=== PATIENT | male | born 1935 | race Caucasian/White ===

== ENCOUNTER 2023-11-26 12:19 | Inpatient (IN) | payer MEDICARE ==
--- NOTE | 2023-11-26 12:39 | ED ---
General Adult HPI - General Chief complaint: Nausea/Vomiting/Diarrhea Stated complaint: Vomiting Time Seen by Provider: 11/26/23 12:25 Source: patient, family, RN notes reviewed Mode of arrival: ambulatory Limitations: no limitations - History of Present Illness Initial comments: Patient is a 88-year-old male presents emergency department with complaints of general weakness. Symptoms have progressed over the past 4 to 5 days. Decreased appetite. Patient has had vomiting. Patient had some diarrhea however that has resolved. Patient has known liver cancer that reportedly is not progressing. Around 10 days ago patient started Sorafenib. Patient has decreased appetite. Patient has generalized weakness and unable to walk on his own. - Related Data Allergies Allergy/AdvReac Type Severity Reaction Status Date / Time No Known Allergies Allergy Verified 11/26/23 12:28 Review of Systems ROS Statement: Those systems with pertinent positive or pertinent negative responses have been documented in the HPI. ROS Other: All systems not noted in ROS Statement are negative. Constitutional: Denies: fever Eyes: Denies: eye pain ENT: Denies: ear pain Cardiovascular: Denies: chest pain Endocrine: Reports: fatigue Gastrointestinal: Reports: nausea, vomiting, diarrhea. Denies: abdominal pain Past Medical History Past Medical History: Cancer, Diabetes Mellitus Additional Past Medical History / Comment(s): liver cancer History of Any Multi-Drug Resistant Organisms: None Reported Past Psychological History: No Psychological Hx Reported Smoking Status: Never smoker Past Alcohol Use History: None Reported Past Drug Use History: None Reported General Exam Limitations: no limitations General appearance: alert, in no apparent distress Head exam: Present: normocephalic Eye exam: Present: normal appearance ENT exam: Present: mucous membranes dry Neck exam: Present: normal inspection Respiratory exam: Present: normal lung sounds bilaterally Cardiovascular Exam: Present: regular rate, normal rhythm GI/Abdominal exam: Present: soft, normal bowel sounds. Absent: distended, tenderness, guarding, rebound, rigid, pulsatile mass Extremities exam: Present: pedal edema. Absent: calf tenderness Neurological exam: Present: alert. Absent: motor sensory deficit Psychiatric exam: Present: normal affect, normal mood Skin exam: Present: pallor Course Vital Signs 11/26/23 11/26/23 12:21 13:53 Temperature 97.4 F L Pulse Rate 75 68 Respiratory 18 16 Rate Blood Pressure 101/59 125/63 O2 Sat by Pulse 99 97 Oximetry Medical Decision Making - Medical Decision Making Was pt. sent in by a medical professional or institution (, [facility], [facility], urgent care, hospital, or fpc...) When possible be specific @ -No Did you speak to anyone other than the patient for history (EMS, parent, family, police, friend...)? What history was obtained from this source @ -Family helps provide history as patient does not feel well. This includes past history and recent history Did you review nursing and triage notes (agree or disagree)? Why? @ -I reviewed and agree with nursing and triage notes Were old charts reviewed (outside hosp., previous admission, EMS record, old EKG, old radiological studies, urgent care reports/EKG's, fpc records)? Report findings @ -Previous labs including BUN and creatinine have been reviewed which is different from today Differential Diagnosis (chest pain, altered mental status, abdominal pain women, abdominal pain men, vaginal bleeding, weakness, fever, dyspnea, syncope, headache, dizziness, GI bleed, back pain, seizure, CVA, palpatations, mental health, musculoskeletal)? @ -Differential Weakness: Hypoglycemia, shock, sepsis, hyponatremia, anemia, infection, [place], ETOH, adverse medicine reaction, overdose, stroke, this is not meant to be an all-inclusive list. EKG interpreted by me (3pts min.). @ -As above X-rays interpreted by me (1pt min.). @ -Chest and abdominal x-ray showed nonspecific findings. port in place in chest CT interpreted by me (1pt min.). @ -None done U/S interpreted by me (1pt. min.). @ -None done What testing was considered but not performed or refused? (CT, X-rays, U/S, labs)? Why? @ -None What meds were considered but not given or refused? Why? @ -None Did you discuss the management of the patient with other professionals (professionals i.e. , [facility], [facility], lab, RT, psych nurse, social media analyst, culinary specialist, teacher, patient transport officer, renal case manager)? Give summary @ -Case was discussed with Dr. Galaviz who will admit covering Dr. Sotelo Was smoking cessation discussed for >3mins.? @ -No Was critical care preformed (if so, how long)? @ -No Were there social determinants of health that impacted care today? How? (Homelessness, low income, unemployed, alcoholism, drug addiction, transportation, low edu. Level, literacy, decrease access to med. care, senior living, rehab)? @ -No Was there de-escalation of care discussed even if they declined (Discuss DNR or withdrawal of care, Hospice)? DNR status @ -No What co-morbidities impacted this encounter? (DM, HTN, Smoking, COPD, CAD, Cancer, CVA, ARF, Chemo, Hep., AIDS, mental health diagnosis, sleep apnea, mo rbid obesity)? @ -Liver cancer on medication Was patient admitted / discharged? Hospital course, mention meds given and route, prescriptions, significant lab abnormalities, going to OR and other pert inent info. @ -Patient presents with decreased appetite, nausea vomiting and generalized weakness. Patient has significant DIANA and hyponatremia. Patient will be admitted with hydration. Admission orders placed Undiagnosed new problem with uncertain prognosis? @ -No Drug Therapy requiring intensive monitoring for toxicity (Heparin, Nitro, Insulin, Cardizem)? @ -No Were any procedures done? @ -No Diagnosis/symptom? @ -Acute kidney injury, hyponatremia Acute, or Chronic, or Acute on Chronic? @ -Acute, acute Uncomplicated (without systemic symptoms) or Complicated (systemic symptoms)? @ -Complicated with inability to ambulate Side effects of treatment? @ -No Exacerbation, Progression, or Severe Exacerbation? @ -No Poses a threat to life or bodily function? How? (Chest pain, [place], [place], pneumonia, PE, COPD, DKA, ARF, appy, cholecystitis, CVA, Diverticulitis, Homicidal, Suicidal, threat to staff... and all critical care pts) @ - to metabolic function - Lab Data Result diagrams: 11/26/23 12:56 11/26/23 12:56 Lab Results 11/26/23 11/26/23 Range/Units 12:56 12:56 WBC 4.8 (3.8-10.6) k/uL RBC 3.50 L (4.30-5.90) m/uL Hgb 10.4 L (13.0-17.5) gm/dL Hct 32.9 L (39.0-53.0) % MCV 93.8 (80.0-100.0) fL MCH 29.6 (25.0-35.0) pg MCHC 31.6 (31.0-37.0) g/dL RDW 16.0 H (11.5-15.5) % Plt Count 231 (150-450) k/uL MPV 9.5 Neutrophils % 93 % Lymphocytes % 3 % Monocytes % 2 % Eosinophils % 0 % Basophils % 0 % Neutrophils # 4.5 (1.3-7.7) k/uL Lymphocytes # 0.2 L (1.0-4.8) k/uL Monocytes # 0.1 (0-1.0) k/uL Eosinophils # 0.0 (0-0.7) k/uL Basophils # 0.0 (0-0.2) k/uL Hypochromasia Moderate Sodium 124 L (137-145) mmol/L Potassium 4.3 (3.5-5.1) mmol/L Chloride 96 L (98-107) mmol/L Carbon Dioxide 18 L (22-30) mmol/L Anion Gap 10 mmol/L BUN 82 H (9-20) mg/dL Creatinine 2.34 H (0.66-1.25) mg/dL Est GFR (CKD-EPI)AfAm 28 (>60 ml/min/1.73 sqM) Est GFR (CKD-EPI)NonAf 24 (>60 ml/min/1.73 sqM) Glucose 101 H (74-99) mg/dL Calcium 7.4 L (8.4-10.2) mg/dL Total Bilirubin 1.2 (0.2-1.3) mg/dL AST 104 H (17-59) U/L ALT 43 (4-49) U/L Alkaline Phosphatase 232 H (38-126) U/L Total Protein 5.1 L (6.3-8.2) g/dL Albumin 2.3 L (3.5-5.0) g/dL Amylase 70 (30-110) U/L Lipase 38 (23-300) U/L Disposition Clinical Impression: Hyponatremia, Acute kidney injury Disposition: ADMITTED IP TO THIS HOSP Is patient prescribed a controlled substance at d/c from ED?: No Referrals: Mookie Sotelo MD [Primary Care Provider] - 1-2 days Time of Disposition: 15:23
[2023-11-26] MEDS: SODIUM CHLORIDE 0.9% 1,000 ML IV STA (12:54)
[2023-11-26] MEDS: SODIUM CHLORIDE 0.9% 500 ML 500 ML IV STA (12:54)
[2023-11-26] MEDS: ONDANSETRON 4 MG/2 ML VIAL IVP STA (12:55)
[2023-11-26] MEDS: PANTOPRAZOLE 40 MG/10 ML VIAL IVP STA (12:57)
[2023-11-26 13:10] LABS: Basophils % (A) 0 %; Eosinophils % (A) 0 %; HCT 32.9 % (39.0-53.0); HGB 10.4 gm/dL (13.0-17.5); Hypochromasia Moderate; Lymphocytes # (A) 0.2 k/uL (1.0-4.8); Lymphocytes % (A) 3 %; MCH 29.6 pg (25.0-35.0); MCHC 31.6 g/dL (31.0-37.0); MCV 93.8 fL (80.0-100.0); Mean Platelet Volume 9.5; Monocytes # (A) 0.1 k/uL (0-1.0); Monocytes % (A) 2 %; Neutrophils # (A) 4.5 k/uL (1.3-7.7); Neutrophils % (A) 93 %; Platelet Count 231 k/uL (150-450); WBC 4.8 k/uL (3.8-10.6)
[2023-11-26 13:24] LABS: Glucose 101 mg/dL (74-99); Potassium 4.3 mmol/L (3.5-5.1)
[2023-11-26 13:25] LABS: ALT 43 U/L (4-49); AST 104 U/L (17-59); African American GFR (CKD) 28 (>60 ml/min/1.73 sqM); Albumin 2.3 g/dL (3.5-5.0); Alkaline Phosphatase 232 U/L (38-126); Amylase 70 U/L (30-110); Anion Gap 10 mmol/L; Blood Urea Nitrogen 82 mg/dL (9-20); Calcium 7.4 mg/dL (8.4-10.2); Carbon Dioxide 18 mmol/L (22-30); Chloride 96 mmol/L (98-107); Lipase 38 U/L (23-300); Non-African American GFR(CKD) 24 (>60 ml/min/1.73 sqM); Sodium 124 mmol/L (137-145); Total Bilirubin 1.2 mg/dL (0.2-1.3); Total Protein 5.1 g/dL (6.3-8.2)
--- NOTE | 2023-11-26 13:41 | XR ---
EXAMINATION TYPE: XR chest 2V DATE OF EXAM: 11/26/2023 COMPARISON: None INDICATION: Abdominal pain TECHNIQUE: Frontal and lateral views of the chest are obtained. FINDINGS: The heart size is normal. The pulmonary vasculature is normal. The lungs are clear. There is some elevation of the right diaphragm. Catheter is present on the righ t with the tip in the superior vena cava region. IMPRESSION: 1. No acute pulmonary process. [facility], , 11/26/2023 1:39 PM
--- NOTE | 2023-11-26 14:06 | XR ---
EXAMINATION TYPE: XR KUB DATE OF EXAM: 11/26/2023 COMPARISON: 11/22/2023 INDICATION: Chest pain TECHNIQUE: Frontal and lateral views of the chest are obtained. FINDINGS: The heart size is normal. The pulmonary vasculature is normal. The lungs are clear. IMPRESSION: 1. No acute pulmonary process. [facility], , 11/26/2023 2:04 PM
[2023-11-26] MEDS ORDERED: ACETAMINOPHEN TAB 325 MG TAB PO PRN (15:23)
[2023-11-26] MEDS ORDERED: NALOXONE 0.4 MG/ML 1 ML VIAL IV PRN (15:23)
[2023-11-26] MEDS ORDERED: ONDANSETRON 4 MG/2 ML VIAL IVP PRN (15:23)
[2023-11-26] MEDS: SODIUM CHLORIDE 0.9% 1,000 ML IV SCH (15:38)
[2023-11-26] MEDS ORDERED: ONDANSETRON 4 MG TAB PO PRN (15:45)
[2023-11-26] MEDS ORDERED: traMADol 50 MG TAB PO PRN (15:45)
--- NOTE | 2023-11-26 16:53 | P.HPIM ---
History of Present Illness H&P Date: 11/26/23 Chief Complaint: loss of appetite, nausea, vomiting 88 year old man with history of BPH, HTN, Liver cancer on immunotherapy, Diabetes type II presented for evaluation of loss of appetite, nausea, and vomiting. History is taken from family at bedside due to patient being sleepy during my interview. According to the family, patient was recently started on immunotherapy for liver cancer approximately 2 weeks ago, but starting 4 days ago started to become lethargic, had a loss of appetite with very limited p.o. intake, then developed nausea, vomiting, lethargy. All the symptoms prompted family to bring in the patient to the hospital for further evaluation. Patient denies pain. Patient denies fevers, chills, dysuria. Patient was also recently seen in wound care clinic where he underwent wound packing of a left heel ulcer as well as right antral leg ulcer, and was started on antibiotics. Patient was prescribed Bactrim but had not been taking this medication. He was actually taking cephalexin instead that was prescribed by his PCP prior to this. In the emergency room, patient was afebrile, 101/59, heart rate 75, 99% on room air. CBC shows anemia to 10.4. Basic metabolic panel shows hyponatremia to 124, chloride of 96, CO2 of 18, BUN of 82, creatinine of 2.34. Liver function test show AST of 104, ALT of 43, alkaline phosphatase of 232, albumin of 2.3, total protein of 5.1. Amylase is 70, lipase is 38. Chest x-ray shows Mediport, otherwise clear parenchyma bilaterally, poor inspiratory effort. Patient was provided bolus of IV fluids and was admitted to medicine as an inpatient. All Systems reviewed and pertinent positives and negatives noted in HPI, all other symptoms are negative Gen: In NAD, non-toxic HEENT: normocephalic, atraumatic, hearing acuity is intant, mucous membranes moist CVS: perfusing all extremities well, no pitting edema, Respiratory: symmetric chest expansion, no accessory muscle use, GI: Bloated, diffuse tenderness to palpation. : no suprapubic tenderness, no CVA tenderness MSK/Derm: no rashes, cyanosis, heel ulcer appears to have granulation tissue, but foul odor and surrounding erythema Neuro: CN II-XII intact, no motor weakness, Psych: cooperative, euthymic mood, judgment and insight is intact Labs and imaging as above Assessment/plan: Dehydration secondary to poor p.o. intake, diuretic use, antihypertensives Acute kidney injury superimposed on chronic kidney disease stage III Hyponatremia -IV fluids with normal saline at 75 cc/h, patient is status post bolus of 500 cc in the emergency room -Patient metabolic panel every 6 hours -Nephrology consult for hyponatremia -serum osmolality, urine osmolality -Regular diet, Ensure 3 times daily supplements -Continue Remeron for appetite -Zofran as needed Abdominal pain Liver cancer -Abdominal ultrasound to rule out ascites -PT/INR -Pain control: tramadol as needed -Hold patient's torsemide Infected heel ulcer -Wound care consult -Unasyn 1.5 g every 6 hours BPH Hypertension Diabetes type 2 -Continue Flomax -Hold patient's felodipine, olmesartan -Continue patient's carvedilol -Hold patient's Jardiance, metformin, initiate low-dose sliding scale insulin Patient is full code DVT prophylaxis with heparin 3 times daily Past Medical History Past Medical History: Cancer, Diabetes Mellitus Additional Past Medical History / Comment(s): liver cancer History of Any Multi-Drug Resistant Organisms: None Reported Past Psychological History: No Psychological Hx Reported Smoking Status: Never smoker Past Alcohol Use History: None Reported Past Drug Use History: None Reported Medications and Allergies Home Medications Medication Instructions Recorded Confirmed Type Dapagliflozin Propanediol [Farxiga] 5 mg PO DAILY 11/26/23 11/26/23 History Felodipine [Plendil] 5 mg PO DAILY 11/26/23 11/26/23 History Latanoprost [Latanoprost 0.005%] 1 drop BOTH EYES HS 11/26/23 11/26/23 History Loperamide [Imodium] 2 - 4 mg PO Q8H PRN 11/26/23 11/26/23 History Mirtazapine [Remeron] 15 mg PO HS 11/26/23 11/26/23 History Mupirocin 2% Oint [Bactroban 2% 1 applic TOPICAL TID 11/26/23 11/26/23 History Oint] Olmesartan [Benicar] 20 mg PO DAILY 11/26/23 11/26/23 History SORAfenib TOSYLATE [Sorafenib] 200 mg PO AC-BID 11/26/23 11/26/23 History Sertraline [Zoloft] 25 mg PO DIRECTED 11/26/23 11/26/23 History Simvastatin [Zocor] 20 mg PO HS 11/26/23 11/26/23 History Spironolactone [Aldactone] 25 mg PO DAILY 11/26/23 11/26/23 History Sulfamethox-Tmp 800-160Mg [Bactrim 1 tab PO DIRECTED 11/26/23 11/26/23 History DS 800-160 mg] Tamsulosin [Flomax] 0.4 mg PO DAILY 11/26/23 11/26/23 History Torsemide [Demadex] 5 mg PO DAILY 11/26/23 11/26/23 History carvediloL [Coreg] 25 mg PO Q12H 11/26/23 11/26/23 History glipiZIDE XL [Glucotrol Xl] 5 mg PO DAILY 11/26/23 11/26/23 History metFORMIN HCL ER [Glucophage XR] 500 mg PO BID 11/26/23 11/26/23 History ondansetron HCL [Zofran] 8 mg PO Q8H PRN 11/26/23 11/26/23 History traMADol HCL 50 mg PO Q8H PRN 11/26/23 11/26/23 History Allergies Allergy/AdvReac Type Severity Reaction Status Date / Time No Known Allergies Allergy Verified 11/26/23 15:39 Physical Exam Osteopathic Statement: *. No significant issues noted on an osteopathic structu ral exam other than those noted in the History and Physical/Consult. Vitals: Vital Signs Temp Pulse Resp BP Pulse Ox 11/26/23 13:53 68 16 125/63 97 11/26/23 12:21 97.4 F L 75 18 101/59 99 Intake and Output 11/26/23 11/26/23 11/26/23 06:59 14:59 22:59 Other: Weight 74.843 kg Results CBC & Chem 7: 11/26/23 12:56 11/26/23 12:56 Labs: Abnormal Lab Results - Last 24 Hours (Table) 11/26/23 11/26/23 Range/Units 12:56 12:56 RBC 3.50 L (4.30-5.90) m/uL Hgb 10.4 L (13.0-17.5) gm/dL Hct 32.9 L (39.0-53.0) % RDW 16.0 H (11.5-15.5) % Lymphocytes # 0.2 L (1.0-4.8) k/uL Sodium 124 L (137-145) mmol/L Chloride 96 L (98-107) mmol/L Carbon Dioxide 18 L (22-30) mmol/L BUN 82 H (9-20) mg/dL Creatinine 2.34 H (0.66-1.25) mg/dL Glucose 101 H (74-99) mg/dL Calcium 7.4 L (8.4-10.2) mg/dL AST 104 H (17-59) U/L Alkaline Phosphatase 232 H (38-126) U/L Total Protein 5.1 L (6.3-8.2) g/dL Albumin 2.3 L (3.5-5.0) g/dL
[2023-11-26 17:29] LABS: Sodium 130 mmol/L (137-145)
[2023-11-26 17:30] LABS: African American GFR (CKD) 28 (>60 ml/min/1.73 sqM); Anion Gap 8 mmol/L; Blood Urea Nitrogen 82 mg/dL (9-20); Calcium 6.8 mg/dL (8.4-10.2); Carbon Dioxide 18 mmol/L (22-30); Chloride 104 mmol/L (98-107); Glucose 79 mg/dL (74-99); Non-African American GFR(CKD) 24 (>60 ml/min/1.73 sqM); Potassium 4.2 mmol/L (3.5-5.1)
[2023-11-26] MEDS: AMPICILLIN-SULBACTAM 1.5 GM in SODIUM CHLORIDE 0.9% 50 ML IVPB SCH (17:57)
[2023-11-26] MEDS: INSULIN ASPART (NovoLOG) 100 UNIT/ML VIAL SQ SCH (18:52)
[2023-11-26 18:53] LABS: Glucose,Whole Blood 76 mg/dL (70-110)
[2023-11-26] MEDS: carvediloL 12.5 MG TAB PO SCH (19:52)
--- NOTE | 2023-11-26 20:33 | US ---
EXAMINATION TYPE: US abdomen limited DATE OF EXAM: 11/26/2023 COMPARISON: NONE CLINICAL INDICATION: Male, 88 years old with history of ascites, liver cancer; abd distention All four quadrants scanned and no fluid collections were seen at this time. Organ structures are not evaluated during this exam IMPRESSION: 1. No significant fluid collections identified. [facility], Workstation: [facility], 11/26/2023 8:31 PM
[2023-11-26] MEDS: ATORVASTATIN 10 MG TAB PO SCH (20:41)
[2023-11-26] MEDS: MIRTAZAPINE 15 MG TAB PO SCH (20:41)
[2023-11-26 21:48] LABS: Glucose,Whole Blood 84 mg/dL (70-110)
[2023-11-26] MEDS: LATANOPROST 0.005% OPHTH DROPS 2.5 ML BTL BOTH EYES SCH (23:02)
[2023-11-26 23:32] LABS: Sodium 126 mmol/L (137-145)
[2023-11-26 23:33] LABS: African American GFR (CKD) 25 (>60 ml/min/1.73 sqM); Anion Gap 12 mmol/L; Blood Urea Nitrogen 82 mg/dL (9-20); Calcium 6.8 mg/dL (8.4-10.2); Carbon Dioxide 17 mmol/L (22-30); Chloride 97 mmol/L (98-107); Glucose 73 mg/dL (74-99); Non-African American GFR(CKD) 22 (>60 ml/min/1.73 sqM); Potassium 4.1 mmol/L (3.5-5.1)
[2023-11-27 03:07] LABS: Appearance,Urine Cloudy (Clear); Bacteria,Urine Rare /hpf; Bilirubin,Urine Negative (Negative); Blood,Urine Small (Negative); Budding Yeast,Urine Rare /hpf; Color,Urine Yellow; Glucose,Urine (UA) 2+ (Negative); Hyaline Casts,Urine 4 /lpf (0-2); Ketones,Urine Negative (Negative); Leukocyte Esterase,Urine Negative (Negative); Mucus,Urine Rare /hpf; Nitrite,Urine Negative (Negative); PH, Urine 5.5 (5.0-8.0); Protein,Urine 2+ (Negative); RBC,Urine 8 /hpf (0-5); Specific Gravity,Urine 1.015 (1.001-1.035); WBC,Urine 1 /hpf (0-5)
[2023-11-27 07:11] LABS: Glucose,Whole Blood 66 mg/dL (70-110)
[2023-11-27 07:51] LABS: Glucose,Whole Blood 94 mg/dL (70-110)
[2023-11-27] MEDS: SODIUM CHLORIDE 0.9% 1,000 ML IV SCH ×2 (08:29→11:44)
[2023-11-27 08:43] LABS: Basophils # (A) 0.01 X 10*3/uL (0.00-0.10); Basophils % (A) 0.2 %; Eosinophils # (A) 0.01 X 10*3/uL (0.04-0.35); Eosinophils % (A) 0.2 %; HCT 28.5 % (39.6-50.0); HGB 9.1 g/dL (13.0-17.0); Lymphocytes # (A) 0.18 X 10*3/uL (0.90-5.00); Lymphocytes % (A) 4.5 %; MCH 28.9 pg (27.0-32.0); MCHC 31.9 g/dL (32.0-37.0); MCV 90.5 FL (80.0-97.0); Monocytes # (A) 0.09 X 10*3/uL (0.20-1.00); Monocytes % (A) 2.2 %; NRBC Per 100 WBC 0 X 10*3/uL (0.00-0.01); Neutrophils # (A) 3.72 X 10*3/uL (1.80-7.70); Neutrophils % (A) 92.2 %; Platelet Count 190 X 10*3/uL (140-440); RBC 3.15 X 10*6/uL (4.40-5.60); RDW 16.4 % (11.5-14.5); WBC 4.04 X 10*3/uL (4.50-10.00)
--- NOTE | 2023-11-27 08:56 | P.NPCON ---
History of Present Illness - Reason for Consult acute renal failure, chronic renal failure - History of Present Illness Reason for consultation: Acute kidney injury on chronic kidney disease History of present illness: Patient is 88-year-old male seen in renal consultation for acute kidney injury on chronic kidney disease. Patient has chronic kidney disease stage IIIa secondary to nephrosclerosis and diabetic kidney disease. Patient came to the hospital due to nausea vomiting and generalized weakness going on for the last 3 to 4 days. Patient states he was diagnosed with liver cancer about a year ago and was recently started on immunotherapy which he feels caused to the symptoms. Patient does admit to use of Aldactone outpatient but denies use of loop diuretics. Patient has longstanding history of diabetes. Denies history of coronary artery disease. Denies regular use of nonsteroidals. Denies family history of renal disease. Has been voiding. Denies gross hematuria or dysuria. Patient's creatinine dated November 24, 2023 was 1.4 and was elevated at 2.34 on admission and was up to 2.57 as of last night. Vital signs are stable. General: No acute distress. HEENT: Head exam is unremarkable. LUNGS: No audible rhonchi or wheezes. HEART: Rate and Rhythm are regular. ABDOMEN: Nontender. EXTREMITITES: No edema. Past Medical History Past Medical History: Cancer, Diabetes Mellitus, Hypertension, Prostate Disorder Additional Past Medical History / Comment(s): liver cancer History of Any Multi-Drug Resistant Organisms: None Reported Past Surgical History: Adenoidectomy, Tonsillectomy Additional Past Surgical History / Comment(s): Left foot surgery 16 years ago, toes amputated left foot 2023 Past Psychological History: No Psychological Hx Reported Smoking Status: Never smoker Past Alcohol Use History: None Reported Past Drug Use History: None Reported Medications and Allergies Home Medications Medication Instructions Recorded Confirmed Type Dapagliflozin Propanediol [Farxiga] 5 mg PO DAILY 11/26/23 11/26/23 History Felodipine [Plendil] 5 mg PO DAILY 11/26/23 11/26/23 History Latanoprost [Latanoprost 0.005%] 1 drop BOTH EYES HS 11/26/23 11/26/23 History Loperamide [Imodium] 2 - 4 mg PO Q8H PRN 11/26/23 11/26/23 History Mirtazapine [Remeron] 15 mg PO HS 11/26/23 11/26/23 History Mupirocin 2% Oint [Bactroban 2% 1 applic TOPICAL TID 11/26/23 11/26/23 History Oint] Olmesartan [Benicar] 20 mg PO DAILY 11/26/23 11/26/23 History SORAfenib TOSYLATE [Sorafenib] 200 mg PO AC-BID 11/26/23 11/26/23 History Sertraline [Zoloft] 25 mg PO DIRECTED 11/26/23 11/26/23 History Simvastatin [Zocor] 20 mg PO HS 11/26/23 11/26/23 History Spironolactone [Aldactone] 25 mg PO DAILY 11/26/23 11/26/23 History Sulfamethox-Tmp 800-160Mg [Bactrim 1 tab PO DIRECTED 11/26/23 11/26/23 History DS 800-160 mg] Tamsulosin [Flomax] 0.4 mg PO DAILY 11/26/23 11/26/23 History Torsemide [Demadex] 5 mg PO DAILY 11/26/23 11/26/23 History carvediloL [Coreg] 25 mg PO Q12H 11/26/23 11/26/23 History glipiZIDE XL [Glucotrol Xl] 5 mg PO DAILY 11/26/23 11/26/23 History metFORMIN HCL ER [Glucophage XR] 500 mg PO BID 11/26/23 11/26/23 History ondansetron HCL [Zofran] 8 mg PO Q8H PRN 11/26/23 11/26/23 History traMADol HCL 50 mg PO Q8H PRN 11/26/23 11/26/23 History Allergies Allergy/AdvReac Type Severity Reaction Status Date / Time No Known Allergies Allergy Verified 11/26/23 15:39 Physical Exam Vitals: Vital Signs Temp Pulse Pulse Resp BP BP Pulse Ox 11/27/23 07:02 96.7 F L 108/57 11/27/23 02:00 94.2 F L 65 12 97/47 97 11/26/23 21:20 65 18 123/65 98 11/26/23 20:43 119/60 11/26/23 20:00 93.6 F L 66 16 122/71 98 11/26/23 19:47 69 16 117/76 97 11/26/23 18:01 69 16 122/62 11/26/23 17:20 98.0 F 68 16 119/71 96 11/26/23 13:53 68 16 125/63 97 11/26/23 12:21 97.4 F L 75 18 101/59 99 Intake and Output 11/26/23 11/27/23 11/27/23 22:59 06:59 14:59 Output Total 250 Balance -250 Output: Urine 250 Other: Weight 74.843 kg Results - Lab Results Most recent lab results Calcium 6.8 mg/dL (8.4-10.2) L 11/26/23 22:35 11/26/23 12:56 11/26/23 22:35 Assessment and Plan Plan: Assessment: 1. Acute kidney injury secondary to ATN secondary to hypovolemia and hypotension further worsened with the use of losartan, Aldactone. Also on Farxiga. I do see Bactrim on his home medication list but patient unsure if he was taking this or not. He does state that he was on an antibiotic prior to admission. Creatinine 2.57 as of last night. 2. Chronic kidney disease stage IIIa with baseline creatinine near 1.4 secondary to diabetic kidney disease and nephrosclerosis. 3. Liver cancer recently started on immunotherapy. No ascites noted on abdominal ultrasound. 4. Diabetes mellitus. 5. History of BPH on Flomax. 6. Hypertension with chronic kidney disease. Currently on the lower side. 7. Hypovolemic hyponatremia improved with IV fluids. 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 Last sodium 126 as of last night. 8. Metabolic acidosis secondary to acute kidney injury and IV fluids. Plan: Decrease rate of normal saline to 50 cc an hour. Encouraged oral intake. Add 1500 cc fluid restriction. Check TSH. Hold antihypertensives. Check renal ultrasound. Check bladder scan. Avoid nephrotoxins. Add oral bicarb. Follow-up urine studies Thank you for the consultation. I will continue to follow the patient with you during his hospital stay.
[2023-11-27] MEDS ORDERED: amLODIPine 5 MG TAB PO SCH (09:00)
[2023-11-27 09:10] LABS: Magnesium 1.8 mg/dL (1.5-2.4)
[2023-11-27 09:26] LABS: BUN/Creat Ratio 27.61 Ratio (12.00-20.00); Blood Urea Nitrogen 77.3 mg/dL (9.0-27.0); Calcium 6.8 mg/dL (8.7-10.3); Carbon Dioxide 16.7 mmol/L (21.6-31.8); Chloride 102 mmol/L (96-109); Glucose 67 mg/dL (70-110); Potassium 4.4 mmol/L (3.5-5.5); Sodium 134 mmol/L (135-145)
[2023-11-27] MEDS: TAMSULOSIN 0.4 MG CAP.ER.24H PO SCH (09:47)
[2023-11-27] MEDS: SODIUM BICARBONATE TAB 650 MG TAB PO SCH (09:47)
[2023-11-27] MEDS: SERTRALINE 25 MG TAB PO SCH (09:47)
[2023-11-27 10:23] LABS: INR 1.33 sec (0.93-1.11); Prothrombin Time 14.1 sec (9.9-11.9)
[2023-11-27 10:26] LABS: African American GFR (CKD) 23 (>60 ml/min/1.73 sqM); Anion Gap 6 mmol/L; Blood Urea Nitrogen 84 mg/dL (9-20); Calcium 6.5 mg/dL (8.4-10.2); Carbon Dioxide 17 mmol/L (22-30); Chloride 107 mmol/L (98-107); Glucose 79 mg/dL (74-99); Non-African American GFR(CKD) 20 (>60 ml/min/1.73 sqM); Potassium 4.4 mmol/L (3.5-5.1); Sodium 130 mmol/L (137-145)
--- NOTE | 2023-11-27 11:07 | US ---
EXAMINATION TYPE: US arterial LE single level DATE OF EXAM: 11/27/2023 10:49 AM CLINICAL INDICATION: Male, 88 years old with history of eval for PVD; Eval for PVD. *Patient states juliette greenfield has had numbness in his feet for years. 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 History of: Smoker: No Hypertension: Yes Diabetic: Yes Hyperlipidemia: Yes TIA/CVA: No Previous Vascular Surgery: No DE: No Vascular Ulcers: Patient has bandage on right gallegos and left ankle. Patient states there is a wound o n the left ankle. Claudication: No Gangrene: No Doppler Waveforms: Right: Left: Pulse Volume Recording: Pressure Gradients: Right Brachial Pressure: 119 Left Brachial Pressure: Deferred due to IV position Ankle-Brachial Indices: Right: CNO Left: CNO (Vessel hardening > 1.4; Normal 0.9 - 1.4, Moderate 0.7 - 0.9, Severe 0.5-0.7) Toe Brachial Indices: Right: 0.78 Left: CNO IMPRESSION: 1. Limited evaluation of lower extremity arterial ultrasound. Pressures were unable to be obtained. S tenosis cannot be excluded. 2. Pressure at the distal digital artery right foot as a ratio of 0.78 suggesting at least moderate s tenosis proximal to the artery. [facility], , 11/27/2023 11:05 AM
--- NOTE | 2023-11-27 11:33 | US ---
EXAMINATION TYPE: US kidneys/renal and bladder DATE OF EXAM: 11/27/2023 COMPARISON: Ultrasound 11/26/2023 CLINICAL INDICATION: Male, 88 years old with history of diana; DIANA liver CA EXAM MEASUREMENTS: Right Kidney: 9.9 x 6.5 x 4.5 cm Left Kidney: 10.7 x 5.1 x 3.6 cm Heterogenous Mass seen within right lobe liver measuring 7 cm. This can be compatible with the patie nt's reported hepatic cancer. No additional imaging this location however. Right Kidney: Cortical thinning Left Kidney: Anechoic area seen lower pole 3.0 x 2.5 x 2.7 cm., Compatible with a simple cyst Bladder: anechoic Bilateral Jets seen: no IMPRESSION: 1. Heterogenous mass within the liver. Additional workup with CT recommended if not performed outside this location. 2. Left renal cyst. [facility], , 11/27/2023 11:31 AM
[2023-11-27] MEDS: PANTOPRAZOLE 40 MG/10 ML VIAL IV SCH (11:43)
[2023-11-27 12:43] LABS: Glucose,Whole Blood 124 mg/dL (70-110)
[2023-11-27 15:59] LABS: % Iron Saturation 15.47 (15.00-50.00)
[2023-11-27 17:12] LABS: Glucose,Whole Blood 90 mg/dL (70-110)
--- NOTE | 2023-11-27 17:42 | P.CONS ---
History of Present Illness - Reason for Consult Consult date: 11/27/23 Oncology care Requesting physician: Malick Julien - Chief Complaint hyponatremia - History of Present Illness Mr. Daley is a male pt of Dr. 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 He states he had treatment initially in [facility], "had a bad experience" so, he came to [place] to get opinions re: his malignancy. His notes from [facility] oncology office state that he established with that office in October. He was previously treated with atezolizumab/Avastin, unfortunately he had disease progression. Recently started a "pill, 3 days ago"-sorafinib-from notes received from Primary Oncologist he had the education about sorafinib on 11/06, other notes report that pt has been on sorafinib for 10 or more days. Patient was started on a reduced dose of 200 mg twice a day. Admitted for c/o N,V, D. Today BUN/creatinine 77/2.8, Na+ 130. He denies that he necessarily feels worse since starting the pill, he is not able to clearly say if he thinks the N,V,D is from the medication or something else. He has been having persistent diarrhea (had c-diff infection in July). Denies fever, no current N,V, acute abd distension. He is still having loose stool. No bleeding, no new pain. Review of Systems 10 point ROS is neg except as stated in HPI Past Medical History Past Medical History: Cancer, Diabetes Mellitus, Hypertension, Prostate Disorder Additional Past Medical History / Comment(s): liver cancer History of Any Multi-Drug Resistant Organisms: None Reported Past Surgical History: Adenoidectomy, Tonsillectomy Additional Past Surgical History / Comment(s): Left foot surgery 16 years ago, toes amputated left foot 2023 Past Psychological History: No Psychological Hx Reported Smoking Status: Never smoker Past Alcohol Use History: None Reported Past Drug Use History: None Reported Medications and Allergies Home Medications Medication Instructions Recorded Confirmed Type Dapagliflozin Propanediol [Farxiga] 5 mg PO DAILY 11/26/23 11/26/23 History Felodipine [Plendil] 5 mg PO DAILY 11/26/23 11/26/23 History Latanoprost [Latanoprost 0.005%] 1 drop BOTH EYES HS 11/26/23 11/26/23 History Loperamide [Imodium] 2 - 4 mg PO Q8H PRN 11/26/23 11/26/23 History Mirtazapine [Remeron] 15 mg PO HS 11/26/23 11/26/23 History Mupirocin 2% Oint [Bactroban 2% 1 applic TOPICAL TID 11/26/23 11/26/23 History Oint] Olmesartan [Benicar] 20 mg PO DAILY 11/26/23 11/26/23 History SORAfenib TOSYLATE [Sorafenib] 200 mg PO AC-BID 11/26/23 11/26/23 History Sertraline [Zoloft] 25 mg PO DIRECTED 11/26/23 11/26/23 History Simvastatin [Zocor] 20 mg PO HS 11/26/23 11/26/23 History Spironolactone [Aldactone] 25 mg PO DAILY 11/26/23 11/26/23 History Sulfamethox-Tmp 800-160Mg [Bactrim 1 tab PO DIRECTED 11/26/23 11/26/23 History DS 800-160 mg] Tamsulosin [Flomax] 0.4 mg PO DAILY 11/26/23 11/26/23 History Torsemide [Demadex] 5 mg PO DAILY 11/26/23 11/26/23 History carvediloL [Coreg] 25 mg PO Q12H 11/26/23 11/26/23 History glipiZIDE XL [Glucotrol Xl] 5 mg PO DAILY 11/26/23 11/26/23 History metFORMIN HCL ER [Glucophage XR] 500 mg PO BID 11/26/23 11/26/23 History ondansetron HCL [Zofran] 8 mg PO Q8H PRN 11/26/23 11/26/23 History traMADol HCL 50 mg PO Q8H PRN 11/26/23 11/26/23 History Allergies Allergy/AdvReac Type Severity Reaction Status Date / Time No Known Allergies Allergy Verified 11/26/23 15:39 Physical Exam Vitals: Vital Signs Temp Pulse Pulse Resp BP BP Pulse Ox 11/27/23 07:11 97.4 F L 69 17 104/47 96 11/27/23 07:02 96.7 F L 108/57 11/27/23 02:00 94.2 F L 65 12 97/47 97 11/26/23 21:20 65 18 123/65 98 11/26/23 20:43 119/60 11/26/23 20:00 93.6 F L 66 16 122/71 98 11/26/23 19:47 69 16 117/76 97 11/26/23 18:01 69 16 122/62 11/26/23 17:20 98.0 F 68 16 119/71 96 11/26/23 13:53 68 16 125/63 97 11/26/23 12:21 97.4 F L 75 18 101/59 99 Intake and Output 11/26/23 11/27/23 11/27/23 22:59 06:59 14:59 Output Total 250 Balance -250 Output: Urine 250 Other: Weight 74.843 kg - Constitutional General appearance: average body habitus, cooperative, no acute distress - EENT Eyes: anicteric sclerae, EOMI ENT: hearing grossly normal, normal oropharynx - Neck Neck: no lymphadenopathy - Respiratory Respiratory: bilateral: CTA - Cardiovascular Rhythm: regular Heart sounds: normal: S1, S2 Abnormal Heart Sounds: no systolic murmur, no diastolic murmur, no rub, no S3 Gallop, no S4 Gallop, no click, no other leg Peripheral Edema: right: Other (bandage covering wound), bilateral: None - Gastrointestinal General gastrointestinal: no absent bowel sounds, no decreased bowel sounds, distended, no hepatomegaly, no hyperactive bowel sounds, normal bowel sounds, no organomegaly, no rigid, no scaphoid, soft, no splenomegaly, no tenderness, no umbilical hernia, no ventral hernia - Integumentary Integumentary: pale - Neurologic Neurologic: CNII-XII intact - Musculoskeletal Musculoskeletal: strength equal bilaterally - Psychiatric Psychiatric: A&O x's 3, appropriate affect, intact judgment & insight Results CBC & Chem 7: 11/27/23 04:31 11/27/23 09:44 Labs: Abnormal Lab Results - Last 24 Hours (Table) 11/26/23 11/26/23 11/26/23 Range/Units 12:56 12:56 16:56 WBC (4.50-10.00) X 10*3/uL RBC 3.50 L (4.30-5.90) m/uL Hgb 10.4 L (13.0-17.5) gm/dL Hct 32.9 L (39.0-53.0) % MCHC (32.0-37.0) g/dL RDW 16.0 H (11.5-15.5) % Lymphocytes # 0.2 L (1.0-4.8) k/uL Monocytes # (0.20-1.00) X 10*3/uL Eosinophils # (0.04-0.35) X 10*3/uL PT (9.9-11.9) sec INR (0.93-1.11) sec Sodium 124 L 130 L (137-145) mmol/L Chloride 96 L (98-107) mmol/L Carbon Dioxide 18 L 18 L (22-30) mmol/L Anion Gap (4.00-12.00) mmol/L BUN 82 H 82 H (9-20) mg/dL Creatinine 2.34 H 2.34 H (0.66-1.25) mg/dL Est GFR (CKD-EPI) (>=60) BUN/Creatinine Ratio (12.00-20.00) Ratio Glucose 101 H (74-99) mg/dL POC Glucose (mg/dL) (70-110) mg/dL Calcium 7.4 L 6.8 L (8.4-10.2) mg/dL AST 104 H (17-59) U/L Alkaline Phosphatase 232 H (38-126) U/L Total Protein 5.1 L (6.3-8.2) g/dL Albumin 2.3 L (3.5-5.0) g/dL Urine Protein (Negative) Urine Glucose (UA) (Negative) Urine Blood (Negative) Urine RBC (0-5) /hpf Urine Bacteria (None) /hpf Hyaline Casts (0-2) /lpf Urine Mucus (None) /hpf Urine Yeast (Budding) (None) /hpf 11/26/23 11/27/23 11/27/23 Range/Units 22:35 02:30 04:31 WBC (4.50-10.00) X 10*3/uL RBC (4.30-5.90) m/uL Hgb (13.0-17.5) gm/dL Hct (39.0-53.0) % MCHC (32.0-37.0) g/dL RDW (11.5-15.5) % Lymphocytes # (1.0-4.8) k/uL Monocytes # (0.20-1.00) X 10*3/uL Eosinophils # (0.04-0.35) X 10*3/uL PT (9.9-11.9) sec INR (0.93-1.11) sec Sodium 126 L 134 L (137-145) mmol/L Chloride 97 L (98-107) mmol/L Carbon Dioxide 17 L 16.7 L (22-30) mmol/L Anion Gap 15.30 H (4.00-12.00) mmol/L BUN 82 H 77.3 H (9-20) mg/dL Creatinine 2.57 H 2.8 H (0.66-1.25) mg/dL Est GFR (CKD-EPI) 21 L (>=60) BUN/Creatinine Ratio 27.61 H (12.00-20.00) Ratio Glucose 73 L 67 L (74-99) mg/dL POC Glucose (mg/dL) (70-110) mg/dL Calcium 6.8 L 6.8 L (8.4-10.2) mg/dL AST (17-59) U/L Alkaline Phosphatase (38-126) U/L Total Protein (6.3-8.2) g/dL Albumin (3.5-5.0) g/dL Urine Protein 2+ H (Negative) Urine Glucose (UA) 2+ H (Negative) Urine Blood Small H (Negative) Urine RBC 8 H (0-5) /hpf Urine Bacteria Rare H (None) /hpf Hyaline Casts 4 H (0-2) /lpf Urine Mucus Rare H (None) /hpf Urine Yeast (Budding) Rare H (None) /hpf 11/27/23 11/27/23 11/27/23 Range/Units 04:31 04:31 07:10 WBC 4.04 L (4.50-10.00) X 10*3/uL RBC 3.15 L (4.30-5.90) m/uL Hgb 9.1 L (13.0-17.5) gm/dL Hct 28.5 L (39.0-53.0) % MCHC 31.9 L (32.0-37.0) g/dL RDW 16.4 H (11.5-15.5) % Lymphocytes # 0.18 L (1.0-4.8) k/uL Monocytes # 0.09 L (0.20-1.00) X 10*3/uL Eosinophils # 0.01 L (0.04-0.35) X 10*3/uL PT 14.1 H (9.9-11.9) sec INR 1.33 H (0.93-1.11) sec Sodium (137-145) mmol/L Chloride (98-107) mmol/L Carbon Dioxide (22-30) mmol/L Anion Gap (4.00-12.00) mmol/L BUN (9-20) mg/dL Creatinine (0.66-1.25) mg/dL Est GFR (CKD-EPI) (>=60) BUN/Creatinine Ratio (12.00-20.00) Ratio Glucose (74-99) mg/dL POC Glucose (mg/dL) 66 L (70-110) mg/dL Calcium (8.4-10.2) mg/dL AST (17-59) U/L Alkaline Phosphatase (38-126) U/L Total Protein (6.3-8.2) g/dL Albumin (3.5-5.0) g/dL Urine Protein (Negative) Urine Glucose (UA) (Negative) Urine Blood (Negative) Urine RBC (0-5) /hpf Urine Bacteria (None) /hpf Hyaline Casts (0-2) /lpf Urine Mucus (None) /hpf Urine Yeast (Budding) (None) /hpf Comments: PET scan 11/19/2023 from [facility] report reads impression: Diffusely heterogenous and nodular appearance of the liver, FDG uptake consistent with liver carcinoma. Max SUV 10.2. FDG avid right adrenal gland nodule concerning for metastatic disease, SUV 5.9. No avid lymphadenopathy or osseous lesions. None FDG avid pulmonary nodules in the left upper lobe Chest x-ray: report reviewed US - abdomen: report reviewed Assessment and Plan (1) Hyponatremia Current Visit: Yes Status: Acute Priority: High Code(s): E87.1 - HYPO- OSMOLALITY AND HYPONATREMIA SNOMED Code(s): 39937360 (2) Acute kidney injury Current Visit: Yes Status: Acute Priority: High Code(s): N17.9 - ACUTE KIDNEY FAILURE, UNSPECIFIED SNOMED Code(s): 00272759 (3) HCC (hepatocellular carcinoma) Current Visit: Yes Status: Acute Priority: Medium Code(s): C22.0 - LIVER CELL CARCINOMA SNOMED Code(s): 449924965 Plan: Hyponatremia -No labs on notes that were received from the primary oncologist office. Unclear if this is patient's baseline. -Nephrology following and treating Acute kidney injury -Suspect secondary to nausea, vomiting and diarrhea -Patient is being followed and treated by by Nephrology HCC -Diagnosis and treatment as stated in HPI -Suspect patient has been on sorafenib for about 2-1/2 weeks. -Patient was able to clearly define if he felt that the symptoms he was having were from sorafenib. The symptoms patient was describing can be caused by saracatinib. Patient was started on a reduced dose of 200 mg twice daily. -Hold sorafenib in the acute setting. If patient improves rather quickly with holding, would have to suspect that possibly it is side effects of the medication. Recommend patient follow-up with his primary Oncologist as soon as possible after discharge. -Agree with supportive care including hydration -Patient reports a history of C. difficile earlier this year, stool studies ordered Anemia -Suspect multifactoral. Anemia workup ordered. Recommendations based on findings. -Transfuse for a Hgb <7 or if symptomatic Doctor attests: I performed a history and physical examination of this patient, developed impression and plan of care. Discussed with dictator. I agree with dictators note, documented as a scribe.
[2023-11-27] MEDS ORDERED: VANCOMYCIN IV PER PHARMACY 1 EACH MISC MISCELLANE PRN (17:46)
--- NOTE | 2023-11-27 17:54 | P.PN ---
Subjective Progress Note Date: 11/27/23 Pt is lethargic today, had coughing spell after trying to consume food this morning. Has been hypothermic all day. UOP is low. IVF continued at 50cc/hr per nephrology. Gen: In NAD, non-toxic HEENT: normocephalic, atraumatic, hearing acuity is intant, mucous membranes moist CVS: perfusing all extremities well, no pitting edema, Respiratory: symmetric chest expansion, no accessory muscle use, GI: Bloated, diffuse tenderness to palpation. : no suprapubic tenderness, no CVA tenderness MSK/Derm: no rashes, cyanosis, heel ulcer appears to have granulation tissue, but foul odor and surrounding erythema Neuro: CN II-XII intact, no motor weakness, Psych: cooperative, euthymic mood, judgment and insight is intact Hospital Course: 88 year old man with history of BPH, HTN, Liver cancer on immunotherapy, Diabetes type II presented for evaluation of loss of appetite, nausea, and vomiting. In the emergency room, patient was afebrile, 101/59, heart rate 75, 99% on room air. CBC shows anemia to 10.4. Basic metabolic panel shows hyponatremia to 124, chloride of 96, CO2 of 18, BUN of 82, creatinine of 2.34. Liver function test show AST of 104, ALT of 43, alkaline phosphatase of 232, albumin of 2.3, total protein of 5.1. Amylase is 70, lipase is 38. Chest x-ray shows Mediport, otherwise clear parenchyma bilaterally, poor inspiratory effort. Patient was provided bolus of IV fluids and was admitted to medicine as an inpatient. Assessment/plan: Dehydration secondary to poor p.o. intake, diuretic use, antihypertensives Acute kidney injury superimposed on chronic kidney disease stage III Hyponatremia -IV fluids with normal saline at 75 cc/h, patient is status post bolus of 500 cc in the emergency room -Patient metabolic panel every 6 hours -Nephrology consult for hyponatremia -serum osmolality is 296, osmol gap is 2; urine osmolality is pending -Regular diet, Ensure 3 times daily supplements; ST consult for swallow eval -Continue Remeron for appetite -Zofran as needed Hypothermia Lethargy Dysphagia Right Facial Droop -yuri hugger, warming measures -CTH Stat, MR Brain to r/o metastasis vs CVA -broaden abx to vancomycin/cefepime -C Diff pending Abdominal pain Liver cancer -Abdominal ultrasound to rule out ascites -PT/INR -Pain control: tramadol as needed -Hold patient's torsemide Infected heel ulcer -Wound care consult -Abx as above -LE US b/l with limited signal on left, consider vascular surgery consult BPH Hypertension Diabetes type 2 -Continue Flomax -Hold patient's felodipine, olmesartan -Continue patient's carvedilol -Hold patient's Jardiance, metformin, initiate low-dose sliding scale insulin Patient is full code DVT prophylaxis with heparin 3 times daily Objective - Vital Signs Vital signs: Vital Signs Temp 96.8 F L 11/27/23 16:53 Pulse 61 11/27/23 12:33 Resp 16 11/27/23 12:33 BP 106/57 11/27/23 12:33 Pulse Ox 97 11/27/23 12:33 FiO2 Intake & Output 11/26/23 11/27/23 11/27/23 18:59 06:59 18:59 Output Total 250 579 Balance -250 -579 Weight 74.843 kg 74.843 kg Output: Urine 250 Post Void Residual 579 - Labs CBC & Chem 7: 11/27/23 04:31 11/27/23 09:44 Labs: Abnormal Lab Results - Last 24 Hours (Table) 11/26/23 11/26/23 11/27/23 Range/Units 16:56 22:35 02:30 WBC (4.50-10.00) X 10*3/uL RBC (4.40-5.60) X 10*6/uL Hgb (13.0-17.0) g/dL Hct (39.6-50.0) % MCHC (32.0-37.0) g/dL RDW (11.5-14.5) % Lymphocytes # (0.90-5.00) X 10*3/uL Monocytes # (0.20-1.00) X 10*3/uL Eosinophils # (0.04-0.35) X 10*3/uL PT (9.9-11.9) sec INR (0.93-1.11) sec Sodium 126 L (137-145) mmol/L Chloride 97 L (98-107) mmol/L Carbon Dioxide 18 L 17 L (22-30) mmol/L Anion Gap (4.00-12.00) mmol/L BUN 82 H 82 H (9-20) mg/dL Creatinine 2.34 H 2.57 H (0.66-1.25) mg/dL Est GFR (CKD-EPI) (>=60) BUN/Creatinine Ratio (12.00-20.00) Ratio Glucose 73 L (74-99) mg/dL POC Glucose (mg/dL) (70-110) mg/dL Osmolality 296 H (275-295) mOsm/kg Calcium 6.8 L 6.8 L (8.4-10.2) mg/dL Iron (65-175) UG/DL TIBC (228-460) UG/DL Transferrin (204.0-354.0) mg/dL Ferritin (22.0-322.0) ng/mL Vitamin B12 (200.0-944.0) pg/mL TSH (0.465-4.680) mIU/L Urine Protein 2+ H (Negative) Urine Glucose (UA) 2+ H (Negative) Urine Blood Small H (Negative) Urine RBC 8 H (0-5) /hpf Urine Bacteria Rare H (None) /hpf Hyaline Casts 4 H (0-2) /lpf Urine Mucus Rare H (None) /hpf Urine Yeast (Budding) Rare H (None) /hpf 11/27/23 11/27/23 11/27/23 Range/Units 04:31 04:31 04:31 WBC 4.04 L (4.50-10.00) X 10*3/uL RBC 3.15 L (4.40-5.60) X 10*6/uL Hgb 9.1 L (13.0-17.0) g/dL Hct 28.5 L (39.6-50.0) % MCHC 31.9 L (32.0-37.0) g/dL RDW 16.4 H (11.5-14.5) % Lymphocytes # 0.18 L (0.90-5.00) X 10*3/uL Monocytes # 0.09 L (0.20-1.00) X 10*3/uL Eosinophils # 0.01 L (0.04-0.35) X 10*3/uL PT 14.1 H (9.9-11.9) sec INR 1.33 H (0.93-1.11) sec Sodium 134 L (137-145) mmol/L Chloride (98-107) mmol/L Carbon Dioxide 16.7 L (22-30) mmol/L Anion Gap 15.30 H (4.00-12.00) mmol/L BUN 77.3 H (9-20) mg/dL Creatinine 2.8 H (0.66-1.25) mg/dL Est GFR (CKD-EPI) 21 L (>=60) BUN/Creatinine Ratio 27.61 H (12.00-20.00) Ratio Glucose 67 L (74-99) mg/dL POC Glucose (mg/dL) (70-110) mg/dL Osmolality (275-295) mOsm/kg Calcium 6.8 L (8.4-10.2) mg/dL Iron (65-175) UG/DL TIBC (228-460) UG/DL Transferrin (204.0-354.0) mg/dL Ferritin (22.0-322.0) ng/mL Vitamin B12 (200.0-944.0) pg/mL TSH (0.465-4.680) mIU/L Urine Protein (Negative) Urine Glucose (UA) (Negative) Urine Blood (Negative) Urine RBC (0-5) /hpf Urine Bacteria (None) /hpf Hyaline Casts (0-2) /lpf Urine Mucus (None) /hpf Urine Yeast (Budding) (None) /hpf 11/27/23 11/27/23 11/27/23 Range/Units 07:10 09:44 09:44 WBC (4.50-10.00) X 10*3/uL RBC (4.40-5.60) X 10*6/uL Hgb (13.0-17.0) g/dL Hct (39.6-50.0) % MCHC (32.0-37.0) g/dL RDW (11.5-14.5) % Lymphocytes # (0.90-5.00) X 10*3/uL Monocytes # (0.20-1.00) X 10*3/uL Eosinophils # (0.04-0.35) X 10*3/uL PT (9.9-11.9) sec INR (0.93-1.11) sec Sodium 130 L (137-145) mmol/L Chloride (98-107) mmol/L Carbon Dioxide 17 L (22-30) mmol/L Anion Gap (4.00-12.00) mmol/L BUN 84 H (9-20) mg/dL Creatinine 2.75 H (0.66-1.25) mg/dL Est GFR (CKD-EPI) (>=60) BUN/Creatinine Ratio (12.00-20.00) Ratio Glucose (74-99) mg/dL POC Glucose (mg/dL) 66 L (70-110) mg/dL Osmolality (275-295) mOsm/kg Calcium 6.5 L (8.4-10.2) mg/dL Iron (65-175) UG/DL TIBC (228-460) UG/DL Transferrin (204.0-354.0) mg/dL Ferritin (22.0-322.0) ng/mL Vitamin B12 (200.0-944.0) pg/mL TSH 5.900 H (0.465-4.680) mIU/L Urine Protein (Negative) Urine Glucose (UA) (Negative) Urine Blood (Negative) Urine RBC (0-5) /hpf Urine Bacteria (None) /hpf Hyaline Casts (0-2) /lpf Urine Mucus (None) /hpf Urine Yeast (Budding) (None) /hpf 11/27/23 11/27/23 Range/Units 12:30 12:41 WBC (4.50-10.00) X 10*3/uL RBC (4.40-5.60) X 10*6/uL Hgb (13.0-17.0) g/dL Hct (39.6-50.0) % MCHC (32.0-37.0) g/dL RDW (11.5-14.5) % Lymphocytes # (0.90-5.00) X 10*3/uL Monocytes # (0.20-1.00) X 10*3/uL Eosinophils # (0.04-0.35) X 10*3/uL PT (9.9-11.9) sec INR (0.93-1.11) sec Sodium (137-145) mmol/L Chloride (98-107) mmol/L Carbon Dioxide (22-30) mmol/L Anion Gap (4.00-12.00) mmol/L BUN (9-20) mg/dL Creatinine (0.66-1.25) mg/dL Est GFR (CKD-EPI) (>=60) BUN/Creatinine Ratio (12.00-20.00) Ratio Glucose (74-99) mg/dL POC Glucose (mg/dL) 124 H (70-110) mg/dL Osmolality (275-295) mOsm/kg Calcium (8.4-10.2) mg/dL Iron 28 L (65-175) UG/DL TIBC 181 L (228-460) UG/DL Transferrin 129.0 L (204.0-354.0) mg/dL Ferritin 1067.0 H (22.0-322.0) ng/mL Vitamin B12 2457.0 H (200.0-944.0) pg/mL TSH (0.465-4.680) mIU/L Urine Protein (Negative) Urine Glucose (UA) (Negative) Urine Blood (Negative) Urine RBC (0-5) /hpf Urine Bacteria (None) /hpf Hyaline Casts (0-2) /lpf Urine Mucus (None) /hpf Urine Yeast (Budding) (None) /hpf
[2023-11-27] MEDS: CEFEPIME 1 GM in SODIUM CHLORIDE 0.9% 50 ML IVPB SCH (18:23)
--- NOTE | 2023-11-27 18:44 | CT ---
EXAMINATION TYPE: CT brain wo con DATE OF EXAM: 11/27/2023 COMPARISON: None HISTORY: AMS CT DLP: 1140.4 mGycm Automated exposure control for dose reduction was used. Findings: The ventricles, basal cisterns and sulci over the convexities are within normal limits for the patien t's age and there is no mass effect or shift of midline structures. No abnormal density is seen throughout the brain parenchyma and there is no acute intra or extra-axia l hemorrhage. The posterior fossa including the brainstem, fourth ventricle and cerebellar pontine angles appear no rmal. Intraorbital contents appear normal and symmetric. Visualized paranasal sinuses and mastoid air cells are well aerated. There is mild chronic inflammato ry changes in the right maxillary sinus. The calvarium is intact. IMPRESSION: No significant abnormality seen. There is no acute bleed or mass effect. [facility], , 11/27/2023 6:42 PM
[2023-11-27 20:08] LABS: Glucose,Whole Blood 78 mg/dL (70-110)
[2023-11-27 20:35] LABS: African American GFR (CKD) 21 (>60 ml/min/1.73 sqM); Anion Gap 9 mmol/L; Blood Urea Nitrogen 88 mg/dL (9-20); Carbon Dioxide 17 mmol/L (22-30); Chloride 106 mmol/L (98-107); Glucose 71 mg/dL (74-99); Non-African American GFR(CKD) 18 (>60 ml/min/1.73 sqM); Potassium 4.1 mmol/L (3.5-5.1); Sodium 132 mmol/L (137-145)
[2023-11-27 21:44] LABS: Calcium 6.4 mg/dL (8.4-10.2)
[2023-11-27] MEDS: VANCOMYCIN 1,000 MG in SODIUM CHLORIDE 0.9% 250 ML IVPB ONE (22:17)
[2023-11-28 01:50] LABS: Glucose,Whole Blood 75 mg/dL (70-110)
[2023-11-28 07:27] LABS: Glucose,Whole Blood 65 mg/dL (70-110)
[2023-11-28 07:48] LABS: Glucose,Whole Blood 73 mg/dL (70-110)
[2023-11-28 09:21] LABS: Magnesium 1.7 mg/dL (1.5-2.4)
[2023-11-28 10:08] LABS: BUN/Creat Ratio 23.74 Ratio (12.00-20.00); Blood Urea Nitrogen 83.1 mg/dL (9.0-27.0); Calcium 6.4 mg/dL (8.7-10.3); Carbon Dioxide 15.3 mmol/L (21.6-31.8); Chloride 104 mmol/L (96-109); Glucose 63 mg/dL (70-110); Potassium 4.5 mmol/L (3.5-5.5); Sodium 136 mmol/L (135-145)
--- NOTE | 2023-11-28 11:25 | P.PN ---
Subjective Patient is seen in follow-up for acute kidney injury on chronic kidney disease. Creatinine 3.5 today. Nonoliguric. Receiving IV fluids. Vital signs are stable. General: No acute distress. HEENT: Head exam is unremarkable. LUNGS: No audible rhonchi or wheezes. HEART: Rate and Rhythm are regular. ABDOMEN: Nontender. EXTREMITITES: No edema. Objective - Vital Signs Vital signs: Vital Signs Temp 97.8 F 11/28/23 07:08 Pulse 79 11/28/23 07:08 Resp 14 11/28/23 07:08 BP 108/60 11/28/23 07:08 Pulse Ox 94 L 11/28/23 07:08 FiO2 Intake & Output 11/27/23 11/28/23 11/28/23 18:59 06:59 18:59 Intake Total 400 900 Output Total 9 361 Balance -1629 900 -361 Intake: Intake, IV Titration 400 900 Amount Ampicillin-Sulbactam 1.5 50 gm In Sodium Chloride 0.9 % 50 ml @ 100 mls/hr IVPB Q6HR DELFIN Rx#:[id number] Cefepime 1 gm In Sodium 50 50 Chloride 0.9% 50 ml @ 12. 5 mls/hr IVPB Q8HR DELFIN Rx #:[id number] Sodium Chloride 0.9% 1, 300 600 000 ml @ 50 mls/hr IV . Q20H DELFIN Rx#:[id number] Vancomycin 1,000 mg In 250 Sodium Chloride 0.9% 250 ml @ 125 mls/hr IVPB ONCE ONE Rx#:[id number] Output: Urine 1450 Post Void Residual 579 361 Other: # Voids 5 # Bowel Movements 6 2 2 - Labs CBC & Chem 7: 11/27/23 04:31 11/28/23 03:48 Labs: Abnormal Lab Results - Last 24 Hours (Table) 11/26/23 11/27/23 11/27/23 Range/Units 16:56 12:15 12:30 Sodium (137-145) mmol/L Carbon Dioxide (22-30) mmol/L Anion Gap (4.00-12.00) mmol/L BUN (9-20) mg/dL Creatinine (0.66-1.25) mg/dL Est GFR (CKD-EPI) (>=60) BUN/Creatinine Ratio (12.00-20.00) Ratio Glucose (74-99) mg/dL POC Glucose (mg/dL) (70-110) mg/dL Osmolality 296 H (275-295) mOsm/kg Calcium (8.4-10.2) mg/dL Iron 28 L (65-175) UG/DL TIBC 181 L (228-460) UG/DL Transferrin 129.0 L (204.0-354.0) mg/dL Ferritin 1067.0 H (22.0-322.0) ng/mL Vitamin B12 2457.0 H (200.0-944.0) pg/mL Ur Random Sodium 27 L (40-220) mmol/L 11/27/23 11/27/23 11/28/23 Range/Units 12:41 20:12 03:48 Sodium 132 L (137-145) mmol/L Carbon Dioxide 17 L 15.3 L (22-30) mmol/L Anion Gap 16.70 H (4.00-12.00) mmol/L BUN 88 H 83.1 H (9-20) mg/dL Creatinine 3.01 H 3.5 H (0.66-1.25) mg/dL Est GFR (CKD-EPI) 16 L (>=60) BUN/Creatinine Ratio 23.74 H (12.00-20.00) Ratio Glucose 71 L 63 L (74-99) mg/dL POC Glucose (mg/dL) 124 H (70-110) mg/dL Osmolality (275-295) mOsm/kg Calcium 6.4 L* 6.4 A* (8.4-10.2) mg/dL Iron (65-175) UG/DL TIBC (228-460) UG/DL Transferrin (204.0-354.0) mg/dL Ferritin (22.0-322.0) ng/mL Vitamin B12 (200.0-944.0) pg/mL Ur Random Sodium (40-220) mmol/L 11/28/23 Range/Units 07:19 Sodium (137-145) mmol/L Carbon Dioxide (22-30) mmol/L Anion Gap (4.00-12.00) mmol/L BUN (9-20) mg/dL Creatinine (0.66-1.25) mg/dL Est GFR (CKD-EPI) (>=60) BUN/Creatinine Ratio (12.00-20.00) Ratio Glucose (74-99) mg/dL POC Glucose (mg/dL) 65 L (70-110) mg/dL Osmolality (275-295) mOsm/kg Calcium (8.4-10.2) mg/dL Iron (65-175) UG/DL TIBC (228-460) UG/DL Transferrin (204.0-354.0) mg/dL Ferritin (22.0-322.0) ng/mL Vitamin B12 (200.0-944.0) pg/mL Ur Random Sodium (40-220) mmol/L Assessment and Plan Plan: Assessment: 1. Acute kidney injury secondary to ATN secondary to hypovolemia and hypotension/?sepsis further worsened with the use of losartan, torsemide Aldactone. Was also on Farxiga. Concern for sepsis as patient was hypothermic yesterday. Creatinine 3.5 today. 2. Chronic kidney disease stage IIIa with baseline creatinine near 1.4 secondary to diabetic kidney disease and nephrosclerosis. No hydronephrosis noted on kidney ultrasound. 3. Liver cancer recently started on immunotherapy. No ascites noted on abdominal ultrasound. 4. Diabetes mellitus. 5. History of BPH on Flomax. 6. Hypertension with chronic kidney disease. Currently on the lower side. 7. Hypovolemic hyponatremia improved with IV fluids. 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 Sodium level 136 today. TSH slightly high at 5.9 and free T4 normal. 8. Metabolic acidosis secondary to acute kidney injury and IV fluids. On oral bicarb. 9. Hypocalcemia secondary to acute kidney injury. 10. Anemia. Iron deficiency noted. Hold off on IV iron due to concern for acute infection. Plan: Change IV fluids to bicarb drip at 75 cc an hour. Encouraged oral intake. Maintain 1500 cc fluid restriction. Continue to hold antihypertensives. Avoid nephrotoxins. Replace calcium. Check PTH, vitamin D and ionized calcium level.
[2023-11-28 12:30] LABS: Glucose,Whole Blood 111 mg/dL (70-110)
[2023-11-28] MEDS: CALCIUM GLUCONATE IN NACL 2 GM in SALINE 1 100ML.BAG IVPB ONE (12:35)
[2023-11-28 12:47] LABS: Ionized Calcium 3.8 mg/dL (4.5-5.3)
[2023-11-28] MEDS: VANCOMYCIN 1,250 MG in SODIUM CHLORIDE 0.9% 250 ML IVPB ONE (13:19)
--- NOTE | 2023-11-28 14:03 | P.PN ---
Subjective Progress Note Date: 11/28/23 Pt is more awake today upon my evaluation. Cr worsening. Discussed with nephrology and IVF will be switched to bicarb gtt. MR Brain is pending. CTH was negative. Gen: In NAD, non-toxic HEENT: normocephalic, atraumatic, hearing acuity is intant, mucous membranes moist CVS: perfusing all extremities well, no pitting edema, Respiratory: symmetric chest expansion, no accessory muscle use, GI: Bloated, diffuse tenderness to palpation. : no suprapubic tenderness, no CVA tenderness MSK/Derm: no rashes, cyanosis, heel ulcer appears to have granulation tissue, but foul odor and surrounding erythema Neuro: CN II-XII intact, no motor weakness, Psych: cooperative, euthymic mood, judgment and insight is intact Hospital Course: 88 year old man with history of BPH, HTN, Liver cancer on immunotherapy, Diabetes type II presented for evaluation of loss of appetite, nausea, and vomiting. In the emergency room, patient was afebrile, 101/59, heart rate 75, 99% on room air. CBC shows anemia to 10.4. Basic metabolic panel shows hyponatremia to 124, chloride of 96, CO2 of 18, BUN of 82, creatinine of 2.34. Liver function test show AST of 104, ALT of 43, alkaline phosphatase of 232, albumin of 2.3, total protein of 5.1. Amylase is 70, lipase is 38. Chest x-ray shows Mediport, otherwise clear parenchyma bilaterally, poor inspiratory effort. Patient was provided bolus of IV fluids and was admitted to medicine as an inpatient. Assessment/plan: Dehydration secondary to poor p.o. intake, diuretic use, antihypertensives Acute kidney injury superimposed on chronic kidney disease stage III Hyponatremia -IV fluids with bicarb gtt at 75 cc/h -Patient metabolic panel every 6 hours -Nephrology consult for hyponatremia -serum osmolality is 296, osmol gap is 2; urine osmolality is pending -Regular diet, Ensure 3 times daily supplements; ST consult for swallow eval -Continue Remeron for appetite -Zofran as needed Hypothermia Lethargy Dysphagia Right Facial Droop -yuri hugger, warming measures -CTH was negative, MR Brain to r/o metastasis vs CVA - is pending - vancomycin/cefepime, pending BCx -C Diff is negative, started imodium PRN Abdominal pain Liver cancer -Abdominal ultrasound to rule out ascites was negative for this, but showed liver mass as expected -PT/INR -Pain control: tramadol as needed -Hold patient's torsemide Infected heel ulcer -Wound care consult -Abx as above -LE US b/l with limited signal on left, consider vascular surgery consult, but pt not c/o pain in left LE and has good cap refill BPH Hypertension Diabetes type 2 -Continue Flomax -Hold patient's felodipine, olmesartan -Continue patient's carvedilol -Hold patient's Jardiance, metformin, initiate low-dose sliding scale insulin Patient is full code DVT prophylaxis with heparin 3 times daily Objective - Vital Signs Vital signs: Vital Signs Temp 97.4 F L 11/28/23 12:06 Pulse 67 11/28/23 12:06 Resp 15 11/28/23 12:06 BP 96/55 11/28/23 12:06 Pulse Ox 94 L 11/28/23 12:06 FiO2 Intake & Output 11/27/23 11/28/23 11/28/23 18:59 06:59 18:59 Intake Total 400 900 Output Total 9 361 Balance -1629 900 -361 Weight 74.843 kg Intake: Intake, IV Titration 400 900 Amount Ampicillin-Sulbactam 1.5 50 gm In Sodium Chloride 0.9 % 50 ml @ 100 mls/hr IVPB Q6HR [facility] Rx#:[id number] Cefepime 1 gm In Sodium 50 50 Chloride 0.9% 50 ml @ 12. 5 mls/hr IVPB Q8HR [facility] Rx #:[id number] Sodium Chloride 0.9% 1, 300 600 000 ml @ 50 mls/hr IV . Q20H [facility] Rx#:[id number] Vancomycin 1,000 mg In 250 Sodium Chloride 0.9% 250 ml @ 125 mls/hr IVPB ONCE ONE Rx#:[id number] Output: Urine 1450 Post Void Residual 579 361 Other: # Voids 5 # Bowel Movements 6 2 1 - Labs CBC & Chem 7: 11/27/23 04:31 11/28/23 03:48 Labs: Abnormal Lab Results - Last 24 Hours (Table) 11/27/23 11/27/23 11/27/23 Range/Units 12:15 12:30 20:12 Sodium 132 L (137-145) mmol/L Carbon Dioxide 17 L (22-30) mmol/L Anion Gap (4.00-12.00) mmol/L BUN 88 H (9-20) mg/dL Creatinine 3.01 H (0.66-1.25) mg/dL Est GFR (CKD-EPI) (>=60) BUN/Creatinine Ratio (12.00-20.00) Ratio Glucose 71 L (74-99) mg/dL POC Glucose (mg/dL) (70-110) mg/dL Calcium 6.4 L* (8.4-10.2) mg/dL Ionized Calcium Rhianna (4.5-5.3) mg/dL Iron 28 L (65-175) UG/DL TIBC 181 L (228-460) UG/DL Transferrin 129.0 L (204.0-354.0) mg/dL Ferritin 1067.0 H (22.0-322.0) ng/mL Vitamin B12 2457.0 H (200.0-944.0) pg/mL Ur Random Sodium 27 L (40-220) mmol/L 11/28/23 11/28/23 11/28/23 Range/Units 03:48 07:19 11:54 Sodium (137-145) mmol/L Carbon Dioxide 15.3 L (22-30) mmol/L Anion Gap 16.70 H (4.00-12.00) mmol/L BUN 83.1 H (9-20) mg/dL Creatinine 3.5 H (0.66-1.25) mg/dL Est GFR (CKD-EPI) 16 L (>=60) BUN/Creatinine Ratio 23.74 H (12.00-20.00) Ratio Glucose 63 L (74-99) mg/dL POC Glucose (mg/dL) 65 L (70-110) mg/dL Calcium 6.4 A* (8.4-10.2) mg/dL Ionized Calcium Rhianna 3.8 L (4.5-5.3) mg/dL Iron (65-175) UG/DL TIBC (228-460) UG/DL Transferrin (204.0-354.0) mg/dL Ferritin (22.0-322.0) ng/mL Vitamin B12 (200.0-944.0) pg/mL Ur Random Sodium (40-220) mmol/L 11/28/23 Range/Units 12:09 Sodium (137-145) mmol/L Carbon Dioxide (22-30) mmol/L Anion Gap (4.00-12.00) mmol/L BUN (9-20) mg/dL Creatinine (0.66-1.25) mg/dL Est GFR (CKD-EPI) (>=60) BUN/Creatinine Ratio (12.00-20.00) Ratio Glucose (74-99) mg/dL POC Glucose (mg/dL) 111 H (70-110) mg/dL Calcium (8.4-10.2) mg/dL Ionized Calcium Rhianna (4.5-5.3) mg/dL Iron (65-175) UG/DL TIBC (228-460) UG/DL Transferrin (204.0-354.0) mg/dL Ferritin (22.0-322.0) ng/mL Vitamin B12 (200.0-944.0) pg/mL Ur Random Sodium (40-220) mmol/L
[2023-11-28] MEDS: DEXTROSE 5% IN WATER 1,000 ML with SODIUM BICARB (1 MEQ/ML) 150 ML IV SCH (15:11)
[2023-11-28 17:11] LABS: Glucose,Whole Blood 152 mg/dL (70-110)
[2023-11-28] MEDS: LOPERAMIDE 2 MG CAP PO PRN (17:43)
--- NOTE | 2023-11-28 17:55 | MR ---
EXAMINATION TYPE: MR brain wo con DATE OF EXAM: 11/28/2023 COMPARISON: 11/27/2023 CT brain HISTORY: Altered mental status CONTRAST: Performed utilizing 0 mL intravenous Gadavist gadolinium contrast. TECHNIQUE: Multiplanar, multiecho imaging on a 3.0 Jessenia magnet is performed through the brain. Stud y is performed within 24 hours of arrival to the hospital. The craniovertebral junction is normal. The pituitary is normal. Diffusion-weighted imaging is performed. No abnormal hyperintensity is present to suggest an acute i ntracranial infarct or acute ischemic change. Periventricular white matter hyperintensity is present on T2 and inversion recovery weighted sequence s compatible with. White matter ischemic-type changes. Differential diagnosis could include multiple sclerosis or vasculitis-like disease. Ventricles and sulci are prominent for the patient age. IMPRESSION: 1. Atrophy with chronic appearing periventricular white matter ischemic-type changes. 2. No suspicious acute intracranial process. [facility], , 11/28/2023 5:53 PM
[2023-11-28 20:15] LABS: Glucose,Whole Blood 155 mg/dL (70-110)
[2023-11-28] MEDS: SODIUM CHLORIDE 0.9% 1,000 ML IV SCH (22:18)
[2023-11-28] MEDS: CEFEPIME 1 GM in SODIUM CHLORIDE 0.9% 50 ML IVPB SCH (22:20)
[2023-11-29 06:45] LABS: ALT 42 U/L (4-49); AST 123 U/L (17-59); African American GFR (CKD) 17 (>60 ml/min/1.73 sqM); Albumin 1.6 g/dL (3.5-5.0); Albumin/Globulin Ratio 0.7; Alkaline Phosphatase 185 U/L (38-126); Anion Gap 8 mmol/L; Blood Urea Nitrogen 91 mg/dL (9-20); Carbon Dioxide 18 mmol/L (22-30); Chloride 109 mmol/L (98-107); Globulin 2.4 g/dL; Glucose 86 mg/dL (74-99); Magnesium 1.7 mg/dL (1.6-2.3); Non-African American GFR(CKD) 15 (>60 ml/min/1.73 sqM); Potassium 3.8 mmol/L (3.5-5.1); Sodium 135 mmol/L (137-145); Total Bilirubin 0.7 mg/dL (0.2-1.3)
[2023-11-29 06:49] LABS: Calcium 6.3 mg/dL (8.4-10.2)
[2023-11-29 06:51] LABS: African American GFR (CKD) 17 (>60 ml/min/1.73 sqM); Non-African American GFR(CKD) 15 (>60 ml/min/1.73 sqM)
[2023-11-29 07:02] LABS: Vancomycin,Random 13.9 ug/mL
[2023-11-29 07:32] LABS: Glucose,Whole Blood 93 mg/dL (70-110)
[2023-11-29 09:05] LABS: Basophils # (A) 0.02 X 10*3/uL (0.00-0.10); Basophils % (A) 0.2 %; Eosinophils % (A) 2.3 %; HCT 26.6 % (39.6-50.0); HGB 8.4 g/dL (13.0-17.0); Lymphocytes % (A) 9.1 %; MCH 29.1 pg (27.0-32.0); MCHC 31.6 g/dL (32.0-37.0); Mean Platelet Volume 12.6 FL (9.5-12.2); Monocytes # (A) 0.21 X 10*3/uL (0.20-1.00); Monocytes % (A) 2.4 %; NRBC Per 100 WBC 0 X 10*3/uL (0.00-0.01); Neutrophils # (A) 7.49 X 10*3/uL (1.80-7.70); Neutrophils % (A) 85.4 %; Platelet Count 170 X 10*3/uL (140-440); RBC 2.89 X 10*6/uL (4.40-5.60); RDW 16.6 % (11.5-14.5); WBC 8.77 X 10*3/uL (4.50-10.00)
--- NOTE | 2023-11-29 09:10 | P.PN ---
Subjective Patient seen at bedside. No significant overnight events. Nephrology consulted for hyponatremia and DIANA. Serum creatinine increased from 3.5 to 3.59 today. Sodium decreased from 136 to 135. Corrected calcium for albumin decreased from 8.3 to 8.2. Objective - Vital Signs Vital signs: Vital Signs Temp 97.4 F L 11/29/23 07:18 Pulse 67 11/29/23 07:18 Resp 18 11/29/23 07:18 BP 125/68 11/29/23 07:18 Pulse Ox 95 11/29/23 07:18 FiO2 Intake & Output 11/28/23 11/29/23 11/29/23 18:59 06:59 18:59 Intake Total 175 240 Output Total 636 150 Balance -461 90 Weight 74.843 kg Intake: Oral 175 240 Output: Urine 275 150 Post Void Residual 361 Other: Voiding Method Indwelling Catheter # Bowel Movements 1 - Exam Vital signs are stable. General: No acute distress. HEENT: Head exam is unremarkable. LUNGS: No audible rhonchi or wheezes. HEART: Rate and Rhythm are regular. ABDOMEN: Nontender. EXTREMITITES: No edema. - Labs CBC & Chem 7: 11/29/23 05:37 11/29/23 05:37 Labs: Abnormal Lab Results - Last 24 Hours (Table) 11/27/23 11/28/23 11/28/23 Range/Units 12:19 03:48 11:54 Sodium (137-145) mmol/L Chloride (98-107) mmol/L Carbon Dioxide 15.3 L (21.6-31.8) mmol/L Anion Gap 16.70 H (4.00-12.00) mmol/L BUN 83.1 H (9.0-27.0) mg/dL Creatinine 3.5 H (0.6-1.5) mg/dL Est GFR (CKD-EPI) 16 L (>=60) BUN/Creatinine Ratio 23.74 H (12.00-20.00) Ratio Glucose 63 L (70-110) mg/dL POC Glucose (mg/dL) (70-110) mg/dL Calcium 6.4 A* (8.7-10.3) mg/dL Ionized Calcium Rhianna 3.8 L (4.5-5.3) mg/dL AST (17-59) U/L Alkaline Phosphatase (38-126) U/L Total Protein (6.3-8.2) g/dL Albumin (3.5-5.0) g/dL Methylmalonic Acid 0.56 H (<0.40) umol/L Vitamin D 25-Hydroxy 29.4 L (30.0-100.0) ng/mL PTH Intact (14.0-72.0) pg/mL 11/28/23 11/28/23 11/28/23 Range/Units 11:54 12:09 17:09 Sodium (137-145) mmol/L Chloride (98-107) mmol/L Carbon Dioxide (21.6-31.8) mmol/L Anion Gap (4.00-12.00) mmol/L BUN (9.0-27.0) mg/dL Creatinine (0.6-1.5) mg/dL Est GFR (CKD-EPI) (>=60) BUN/Creatinine Ratio (12.00-20.00) Ratio Glucose (70-110) mg/dL POC Glucose (mg/dL) 111 H 152 H (70-110) mg/dL Calcium (8.7-10.3) mg/dL Ionized Calcium Rhianna (4.5-5.3) mg/dL AST (17-59) U/L Alkaline Phosphatase (38-126) U/L Total Protein (6.3-8.2) g/dL Albumin (3.5-5.0) g/dL Methylmalonic Acid (<0.40) umol/L Vitamin D 25-Hydroxy (30.0-100.0) ng/mL PTH Intact 150.0 H (14.0-72.0) pg/mL 11/28/23 11/29/23 11/29/23 Range/Units 20:09 05:37 05:37 Sodium 135 L (137-145) mmol/L Chloride 109 H (98-107) mmol/L Carbon Dioxide 18 L (21.6-31.8) mmol/L Anion Gap (4.00-12.00) mmol/L BUN 91 H (9.0-27.0) mg/dL Creatinine 3.59 H 3.59 H (0.6-1.5) mg/dL Est GFR (CKD-EPI) (>=60) BUN/Creatinine Ratio (12.00-20.00) Ratio Glucose (70-110) mg/dL POC Glucose (mg/dL) 155 H (70-110) mg/dL Calcium 6.3 L* (8.7-10.3) mg/dL Ionized Calcium Rhianna (4.5-5.3) mg/dL AST 123 H (17-59) U/L Alkaline Phosphatase 185 H (38-126) U/L Total Protein 4.0 L (6.3-8.2) g/dL Albumin 1.6 L (3.5-5.0) g/dL Methylmalonic Acid (<0.40) umol/L Vitamin D 25-Hydroxy (30.0-100.0) ng/mL PTH Intact (14.0-72.0) pg/mL Microbiology - Last 24 Hours (Table) 11/27/23 11:15 Stool Culture - Preliminary Stool 11/27/23 20:15 Blood Culture - Preliminary Blood Assessment and Plan Assessment: 1. Acute kidney injury secondary to ATN secondary to hypovolemia and hypotension/?sepsis further worsened with the use of losartan, torsemide Aldactone. Was also on Farxiga. Concern for sepsis as patient was hypothermic this admission. Creatinine fairly stable at 3.59 today. Cut the 2. Chronic kidney disease stage IIIa with baseline creatinine near 1.4 secondary to diabetic kidney disease and nephrosclerosis. No hydronephrosis noted on kidney ultrasound. 3. Liver cancer recently started on immunotherapy. No ascites noted on abdominal ultrasound. 4. Diabetes mellitus. 5. History of BPH on Flomax. 6. Hypertension with chronic kidney disease. Controlled. 7. Hypovolemic hyponatremia improved with IV fluids. 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 Sodium level 135 today. TSH slightly high at 5.9 and free T4 normal. 8. Metabolic acidosis secondary to acute kidney injury and IV fluids. On oral bicarb. Better. 9. Hypocalcemia secondary to acute kidney injury and bicarb. PTH high at 150, vitamin D slightly low at 29.4, and ionized calcium low at 3.8. This picture could represent malabsorption contributing to the hypocalcemia due to low vitamin D. 10. Anemia. Iron deficiency noted. Hold off on IV iron due to concern for acute infection. Plan: Maintain normal saline. Encouraged oral intake. Maintain 1500 cc fluid restriction. Continue to hold antihypertensives. Avoid nephrotoxins. Gave additional 2 g calcium IV today Continue to monitor urine output, if it remains low, challenge with Lasix. I have seen and examined the patient with the resident and agree with assessment and plan as written. Maintain oral bicarb. Continue to assess daily for need for renal placement therapy. Case discussed with son present at bedside at length.
--- NOTE | 2023-11-29 09:45 | P.CONS ---
History of Present Illness - Reason for Consult Consult date: 11/29/23 wound care - History of Present Illness This is an 88-year-old gentleman being seen on 5 [address]. for a stage II pressure ulcer to the left hip stage II pressure ulcer to the left heel and a stage II pressure ulcer to the sacrum. Patient stated that the heel ulceration has been there for greater than 1 month. He has been seen by podiatry and wound care center in [place] where he was utilizing honey to the site. At this time the heel ulceration measures approximately 3 x 4 x 0.2 cm with significant amount of slough and nonviable tissue minimal granulation seen to the wound bed. The wound edges are attached to the wound base the periwound does show excoriation. There is no tunneling or undermining noted. Patient's past medical history significant for Liver cancer diabetes hypertension and BPH. Review Of Systems: Constitutional: No fever, no chills, no night sweats. No weight change. No weakness, fatigue or lethargy. No daytime sleepiness. Integumentary:reports wounds, no lesions. No rash or pruritus. No unusual bruising. No change in hair or nails. Physical exam: General Appearance: Alert, cooperative, no distress, appears stated age. Skin: See HPI all other Skin color, texture, tugor normal, no rashes or lesions. Neurologic: Alert oriented x3 Assessment: 1. Stage II pressure ulcer left heel 2. Stage II pressure ulcer left hip 3. Stage II pressure ulcer sacrum 4. Diabetic foot ulcer 5. Diabetes with skin ulceration Plan: 1. Left heel: Apply honey gel and bordered foam rolled gauze and secure with tape. Utilize a heel protector for offloading. 2. Apply Triad daily and as needed to the sacrum and left hip. 3. Patient would benefit from advanced wound care and wound care setting. We happy to see him upon discharge. Thank you for the consultation any questions please contact the wound care center DNP note has been reviewed and discussed with Dr. Jones and the impression and plan of care has been directed as dictated. Past Medical History Past Medical History: Cancer, Diabetes Mellitus, Hypertension, Prostate Disorder Additional Past Medical History / Comment(s): liver cancer History of Any Multi-Drug Resistant Organisms: None Reported Past Surgical History: Adenoidectomy, Tonsillectomy Additional Past Surgical History / Comment(s): Left foot surgery 16 years ago, toes amputated left foot 2023 Past Psychological History: No Psychological Hx Reported Smoking Status: Never smoker Past Alcohol Use History: None Reported Past Drug Use History: None Reported Medications and Allergies Home Medications Medication Instructions Recorded Confirmed Type Dapagliflozin Propanediol [Farxiga] 5 mg PO DAILY 11/26/23 11/26/23 History Felodipine [Plendil] 5 mg PO DAILY 11/26/23 11/26/23 History Latanoprost [Latanoprost 0.005%] 1 drop BOTH EYES HS 11/26/23 11/26/23 History Loperamide [Imodium] 2 - 4 mg PO Q8H PRN 11/26/23 11/26/23 History Mirtazapine [Remeron] 15 mg PO HS 11/26/23 11/26/23 History Mupirocin 2% Oint [Bactroban 2% 1 applic TOPICAL TID 11/26/23 11/26/23 History Oint] Olmesartan [Benicar] 20 mg PO DAILY 11/26/23 11/26/23 History SORAfenib TOSYLATE [Sorafenib] 200 mg PO AC-BID 11/26/23 11/26/23 History Sertraline [Zoloft] 25 mg PO DIRECTED 11/26/23 11/26/23 History Simvastatin [Zocor] 20 mg PO HS 11/26/23 11/26/23 History Spironolactone [Aldactone] 25 mg PO DAILY 11/26/23 11/26/23 History Sulfamethox-Tmp 800-160Mg [Bactrim 1 tab PO DIRECTED 11/26/23 11/26/23 History DS 800-160 mg] Tamsulosin [Flomax] 0.4 mg PO DAILY 11/26/23 11/26/23 History Torsemide [Demadex] 5 mg PO DAILY 11/26/23 11/26/23 History carvediloL [Coreg] 25 mg PO Q12H 11/26/23 11/26/23 History glipiZIDE XL [Glucotrol Xl] 5 mg PO DAILY 11/26/23 11/26/23 History metFORMIN HCL ER [Glucophage XR] 500 mg PO BID 11/26/23 11/26/23 History ondansetron HCL [Zofran] 8 mg PO Q8H PRN 11/26/23 11/26/23 History traMADol HCL 50 mg PO Q8H PRN 11/26/23 11/26/23 History Allergies Allergy/AdvReac Type Severity Reaction Status Date / Time No Known Allergies Allergy Verified 11/26/23 15:39 Physical Exam Vitals: Vital Signs Temp Pulse Resp BP Pulse Ox 11/29/23 07:18 97.4 F L 67 18 125/68 95 11/29/23 01:29 97.8 F 67 18 118/58 97 11/28/23 20:00 97.3 F L 72 16 116/70 96 11/28/23 12:06 97.4 F L 67 15 96/55 94 L Intake and Output 11/28/23 11/29/23 11/29/23 22:59 06:59 14:59 Intake Total 175 240 Output Total 275 150 Balance -100 90 Intake: Oral 175 240 Output: Urine 275 150 Other: Voiding Method Indwelling Catheter Results CBC & Chem 7: 11/29/23 05:37 11/29/23 05:37 Labs: Abnormal Lab Results - Last 24 Hours (Table) 11/27/23 11/28/23 11/28/23 Range/Units 12:19 03:48 11:54 RBC (4.40-5.60) X 10*6/uL Hgb (13.0-17.0) g/dL Hct (39.6-50.0) % MCHC (32.0-37.0) g/dL RDW (11.5-14.5) % MPV (9.5-12.2) FL Immature Gran # (0.00-0.04) X 10*3/uL Lymphocytes # (0.90-5.00) X 10*3/uL Sodium (137-145) mmol/L Chloride (98-107) mmol/L Carbon Dioxide 15.3 L (21.6-31.8) mmol/L Anion Gap 16.70 H (4.00-12.00) mmol/L BUN 83.1 H (9.0-27.0) mg/dL Creatinine 3.5 H (0.6-1.5) mg/dL Est GFR (CKD-EPI) 16 L (>=60) BUN/Creatinine Ratio 23.74 H (12.00-20.00) Ratio Glucose 63 L (70-110) mg/dL POC Glucose (mg/dL) (70-110) mg/dL Calcium 6.4 A* (8.7-10.3) mg/dL Ionized Calcium Rhianna 3.8 L (4.5-5.3) mg/dL AST (17-59) U/L Alkaline Phosphatase (38-126) U/L Total Protein (6.3-8.2) g/dL Albumin (3.5-5.0) g/dL Methylmalonic Acid 0.56 H (<0.40) umol/L Vitamin D 25-Hydroxy 29.4 L (30.0-100.0) ng/mL PTH Intact (14.0-72.0) pg/mL 11/28/23 11/28/23 11/28/23 Range/Units 11:54 12:09 17:09 RBC (4.40-5.60) X 10*6/uL Hgb (13.0-17.0) g/dL Hct (39.6-50.0) % MCHC (32.0-37.0) g/dL RDW (11.5-14.5) % MPV (9.5-12.2) FL Immature Gran # (0.00-0.04) X 10*3/uL Lymphocytes # (0.90-5.00) X 10*3/uL Sodium (137-145) mmol/L Chloride (98-107) mmol/L Carbon Dioxide (21.6-31.8) mmol/L Anion Gap (4.00-12.00) mmol/L BUN (9.0-27.0) mg/dL Creatinine (0.6-1.5) mg/dL Est GFR (CKD-EPI) (>=60) BUN/Creatinine Ratio (12.00-20.00) Ratio Glucose (70-110) mg/dL POC Glucose (mg/dL) 111 H 152 H (70-110) mg/dL Calcium (8.7-10.3) mg/dL Ionized Calcium Rhianna (4.5-5.3) mg/dL AST (17-59) U/L Alkaline Phosphatase (38-126) U/L Total Protein (6.3-8.2) g/dL Albumin (3.5-5.0) g/dL Methylmalonic Acid (<0.40) umol/L Vitamin D 25-Hydroxy (30.0-100.0) ng/mL PTH Intact 150.0 H (14.0-72.0) pg/mL 11/28/23 11/29/23 11/29/23 Range/Units 20:09 05:37 05:37 RBC (4.40-5.60) X 10*6/uL Hgb (13.0-17.0) g/dL Hct (39.6-50.0) % MCHC (32.0-37.0) g/dL RDW (11.5-14.5) % MPV (9.5-12.2) FL Immature Gran # (0.00-0.04) X 10*3/uL Lymphocytes # (0.90-5.00) X 10*3/uL Sodium 135 L (137-145) mmol/L Chloride 109 H (98-107) mmol/L Carbon Dioxide 18 L (21.6-31.8) mmol/L Anion Gap (4.00-12.00) mmol/L BUN 91 H (9.0-27.0) mg/dL Creatinine 3.59 H 3.59 H (0.6-1.5) mg/dL Est GFR (CKD-EPI) (>=60) BUN/Creatinine Ratio (12.00-20.00) Ratio Glucose (70-110) mg/dL POC Glucose (mg/dL) 155 H (70-110) mg/dL Calcium 6.3 L* (8.7-10.3) mg/dL Ionized Calcium Rhianna (4.5-5.3) mg/dL AST 123 H (17-59) U/L Alkaline Phosphatase 185 H (38-126) U/L Total Protein 4.0 L (6.3-8.2) g/dL Albumin 1.6 L (3.5-5.0) g/dL Methylmalonic Acid (<0.40) umol/L Vitamin D 25-Hydroxy (30.0-100.0) ng/mL PTH Intact (14.0-72.0) pg/mL 11/29/23 Range/Units 05:37 RBC 2.89 L (4.40-5.60) X 10*6/uL Hgb 8.4 L (13.0-17.0) g/dL Hct 26.6 L (39.6-50.0) % MCHC 31.6 L (32.0-37.0) g/dL RDW 16.6 H (11.5-14.5) % MPV 12.6 H (9.5-12.2) FL Immature Gran # 0.05 H (0.00-0.04) X 10*3/uL Lymphocytes # 0.80 L (0.90-5.00) X 10*3/uL Sodium (137-145) mmol/L Chloride (98-107) mmol/L Carbon Dioxide (21.6-31.8) mmol/L Anion Gap (4.00-12.00) mmol/L BUN (9.0-27.0) mg/dL Creatinine (0.6-1.5) mg/dL Est GFR (CKD-EPI) (>=60) BUN/Creatinine Ratio (12.00-20.00) Ratio Glucose (70-110) mg/dL POC Glucose (mg/dL) (70-110) mg/dL Calcium (8.7-10.3) mg/dL Ionized Calcium Rhianna (4.5-5.3) mg/dL AST (17-59) U/L Alkaline Phosphatase (38-126) U/L Total Protein (6.3-8.2) g/dL Albumin (3.5-5.0) g/dL Methylmalonic Acid (<0.40) umol/L Vitamin D 25-Hydroxy (30.0-100.0) ng/mL PTH Intact (14.0-72.0) pg/mL Microbiology - Last 24 Hours (Table) 11/27/23 11:15 Stool Culture - Preliminary Stool 11/27/23 20:15 Blood Culture - Preliminary Blood Assessment and Plan (1) Stage II pressure ulcer of left hip Current Visit: Yes Status: Acute Code(s): L89.222 - PRESSURE ULCER OF LEFT HIP, STAGE 2 SNOMED Code(s): 97387473370990 (2) Stage II pressure ulcer of left heel Current Visit: Yes Status: Acute Code(s): L89.622 - PRESSURE ULCER OF LEFT HEEL, STAGE 2 SNOMED Code(s): 02267441975868 (3) Stage II pressure ulcer of sacral region Current Visit: Yes Status: Acute Code(s): L89.152 - PRESSURE ULCER OF SACRAL REGION, STAGE 2 SNOMED Code(s): 78635067583257 (4) Type 2 diabetes mellitus with foot ulcer Current Visit: Yes Status: Acute Code(s): E11.621 - TYPE 2 DIABETES MELLITUS WITH FOOT ULCER; L97.509 - NON-PRESSURE CHRONIC ULCER OTH PRT UNSP FOOT W UNSP SEVERITY SNOMED Code(s): 8836767000281 (5) Type 2 diabetes mellitus with other skin ulcer Current Visit: Yes Status: Acute Code(s): E11.622 - TYPE 2 DIABETES MELLITUS WITH OTHER SKIN ULCER; L98.499 - NON-PRESSURE CHRONIC ULCER OF SKIN OF SITES W UNSP SEVERITY SNOMED Code(s): 615572543050199
[2023-11-29] MEDS: VANCOMYCIN 1,250 MG in SODIUM CHLORIDE 0.9% 250 ML IVPB ONE (11:28)
[2023-11-29] MEDS: HYDROPHILIC CREAM 180 GM TUBE TOPICAL SCH (11:28)
[2023-11-29 12:27] LABS: Glucose,Whole Blood 152 mg/dL (70-110)
--- NOTE | 2023-11-29 12:31 | P.PN ---
Subjective Progress Note Date: 11/29/23 Principal diagnosis: HCC, on sorafenib In f/u today pt is starting to get a little bit of his appetite back, diarrhea persists, N,V better. Objective - Vital Signs Vital signs: Vital Signs Temp 97.4 F L 11/29/23 07:18 Pulse 67 11/29/23 07:18 Resp 18 11/29/23 07:18 BP 125/68 11/29/23 07:18 Pulse Ox 95 11/29/23 07:18 FiO2 Intake & Output 11/28/23 11/29/23 11/29/23 18:59 06:59 18:59 Intake Total 175 240 120 Output Total 636 150 Balance -461 90 120 Weight 74.843 kg Intake: Oral 175 240 120 Output: Urine 275 150 Post Void Residual 361 Other: Voiding Method Indwelling Catheter # Bowel Movements 1 1 - Constitutional General appearance: Present: average body habitus, cooperative, no acute distress - EENT Eyes: Present: anicteric sclerae, EOMI - Respiratory Details: resp even and unlabored - Cardiovascular Details: skin warm, well perfused - Peripheral edema foot Peripheral Edema: bilateral: Trace - Integumentary Integumentary Comment(s): RLE wound, dressing C/D/I - Neurologic Neurologic: Present: CNII-XII intact - Musculoskeletal Musculoskeletal: Present: generalized weakness - Psychiatric Psychiatric: Present: A&O x's 3, appropriate affect, intact judgment & insight - Labs CBC & Chem 7: 11/29/23 05:37 11/29/23 05:37 Labs: Abnormal Lab Results - Last 24 Hours (Table) 11/27/23 11/28/23 11/28/23 Range/Units 12:19 11:54 11:54 RBC (4.40-5.60) X 10*6/uL Hgb (13.0-17.0) g/dL Hct (39.6-50.0) % MCHC (32.0-37.0) g/dL RDW (11.5-14.5) % MPV (9.5-12.2) FL Immature Gran # (0.00-0.04) X 10*3/uL Lymphocytes # (0.90-5.00) X 10*3/uL Sodium (137-145) mmol/L Chloride (98-107) mmol/L Carbon Dioxide (22-30) mmol/L BUN (9-20) mg/dL Creatinine (0.66-1.25) mg/dL POC Glucose (mg/dL) (70-110) mg/dL Calcium (8.4-10.2) mg/dL Ionized Calcium Rhianna 3.8 L (4.5-5.3) mg/dL AST (17-59) U/L Alkaline Phosphatase (38-126) U/L Total Protein (6.3-8.2) g/dL Albumin (3.5-5.0) g/dL Methylmalonic Acid 0.56 H (<0.40) umol/L Vitamin D 25-Hydroxy 29.4 L (30.0-100.0) ng/mL PTH Intact 150.0 H (14.0-72.0) pg/mL 11/28/23 11/28/23 11/28/23 Range/Units 12:09 17:09 20:09 RBC (4.40-5.60) X 10*6/uL Hgb (13.0-17.0) g/dL Hct (39.6-50.0) % MCHC (32.0-37.0) g/dL RDW (11.5-14.5) % MPV (9.5-12.2) FL Immature Gran # (0.00-0.04) X 10*3/uL Lymphocytes # (0.90-5.00) X 10*3/uL Sodium (137-145) mmol/L Chloride (98-107) mmol/L Carbon Dioxide (22-30) mmol/L BUN (9-20) mg/dL Creatinine (0.66-1.25) mg/dL POC Glucose (mg/dL) 111 H 152 H 155 H (70-110) mg/dL Calcium (8.4-10.2) mg/dL Ionized Calcium Rhianna (4.5-5.3) mg/dL AST (17-59) U/L Alkaline Phosphatase (38-126) U/L Total Protein (6.3-8.2) g/dL Albumin (3.5-5.0) g/dL Methylmalonic Acid (<0.40) umol/L Vitamin D 25-Hydroxy (30.0-100.0) ng/mL PTH Intact (14.0-72.0) pg/mL 11/29/23 11/29/23 11/29/23 Range/Units 05:37 05:37 05:37 RBC 2.89 L (4.40-5.60) X 10*6/uL Hgb 8.4 L (13.0-17.0) g/dL Hct 26.6 L (39.6-50.0) % MCHC 31.6 L (32.0-37.0) g/dL RDW 16.6 H (11.5-14.5) % MPV 12.6 H (9.5-12.2) FL Immature Gran # 0.05 H (0.00-0.04) X 10*3/uL Lymphocytes # 0.80 L (0.90-5.00) X 10*3/uL Sodium 135 L (137-145) mmol/L Chloride 109 H (98-107) mmol/L Carbon Dioxide 18 L (22-30) mmol/L BUN 91 H (9-20) mg/dL Creatinine 3.59 H 3.59 H (0.66-1.25) mg/dL POC Glucose (mg/dL) (70-110) mg/dL Calcium 6.3 L* (8.4-10.2) mg/dL Ionized Calcium Rhianna (4.5-5.3) mg/dL AST 123 H (17-59) U/L Alkaline Phosphatase 185 H (38-126) U/L Total Protein 4.0 L (6.3-8.2) g/dL Albumin 1.6 L (3.5-5.0) g/dL Methylmalonic Acid (<0.40) umol/L Vitamin D 25-Hydroxy (30.0-100.0) ng/mL PTH Intact (14.0-72.0) pg/mL Microbiology - Last 24 Hours (Table) 11/27/23 11:15 Stool Culture - Preliminary Stool 11/27/23 20:15 Blood Culture - Preliminary Blood - Imaging and Cardiology CT Scan - head: report reviewed MRI - head: report reviewed PET scan report reviewed Assessment and Plan (1) Hyponatremia Current Visit: Yes Status: Acute Priority: High Code(s): E87.1 - HYPO- OSMOLALITY AND HYPONATREMIA SNOMED Code(s): 06632196 (2) Acute kidney injury Current Visit: Yes Status: Acute Priority: High Code(s): N17.9 - ACUTE KIDNEY FAILURE, UNSPECIFIED SNOMED Code(s): 43862272 (3) HCC (hepatocellular carcinoma) Current Visit: Yes Status: Acute Priority: Medium Code(s): C22.0 - LIVER CELL CARCINOMA SNOMED Code(s): 044158650 Plan: Hyponatremia -No labs on notes that were received from the primary oncologist office. Unclear if this is patient's baseline. -Na+ is 135 today-significantly improved -Nephrology following and treating Acute kidney injury -Suspect secondary to nausea, vomiting and diarrhea. Diarrhea persists, N,V improved -BUN/Cr stable -Patient is being followed and treated by by Nephrology HCC -Pt has been on sorafenib for about 2-1/2 weeks. -Patient was NOT able to clearly define if he felt that the symptoms he was having were from sorafenib. The symptoms he is experiencing can be caused by sorafenib. Started on a reduced dose of 200 mg twice daily. -Sorafenib placed on hold while pt is acutely ill. Will see if presenting c/o improve. If symptoms improve rather quickly with holding, would have to suspect side effects of the medication. Recommend patient follow-up with his primary Oncologist as soon as possible after discharge. -Agree with supportive care including hydration -Patient reports a history of C. difficile earlier this year, stool studies ordered, pending -Reviewed PET scan with pt and son. Disease is limited to liver and possibly 1 met to rt adrenal gland. This is baseline imaging as it is not compared to any prior images. Treatment started about 2 weeks prior to scan so, not enough time has elapsed to determine effectiveness. -CT and MRI of the brain are neg for metastatic disease. Anemia -Suspect multifactoral. Anemia workup ordered, pending results. Recommendations based on findings. -Transfuse for a Hgb <7 or if symptomatic Doctor attests: I performed a history and physical examination of this patient, developed impression and plan of care. Discussed with dictator. I agree with dictators note, documented as a scribe.
--- NOTE | 2023-11-29 12:49 | CDI ---
Documentation Clarification Form Date: 11/29/2023 12:15:21 PM From: Carmen Forbes RN, CCDS Phone: [phone] Admit Date: 11/26/2023 03:25:00 PM Patient Name: Blayne Daley Visit Number: [id number] Discharge Date: ATTENTION: The Clinical Documentation Specialists (CDI) and [facility] Coding Staff appreciate your assistance in clarifying documentation. Please respond to the clarification below the line at the bottom and electronically sign. The CDI & [facility] Coding staff will review the response and follow-up if needed. Please note: Queries are made part of the Legal Health Record. If you have any questions, please contact the author of this message via ITS. Doctor: Rajendra Oliveros Concern for sepsis as patient was hypothermic yesterday. 11/27, Nephrology Based on this information and the findings below, is there an additional diagnosis that is clinically appropriate for this patient? History/Risk Factors: 88-year old male presented to the ED for evaluation of loss of appetite, nausea and vomiting the patient started immunotherapy for liver cancer approximately two weeks ago, but starting four days ago started to become lethargic with nausea and vomiting. Medical History: Liver Cancer, BPH, HTN, DM2, Infected stage 2 heel ulcer, stage 2 pressure ulcer left hip and stage 2 pressure ulcer of sacral region and CKD 3A Clinical Indicators: WBC 11/25 4.8; 11/26 4.04 Blood cultures: 11/28 No growth after 24 hours Vitals signs: 11/25 12:21 B/P 101/59; HR 75; Temp 97.4F Temporal; RR 18; SpO2 99% Room air 11/25 20:00 B/P 122/71; HR 66; Temp 93.6F Oral; RR 16; SpO2 98% Room air 11/26 02:00 B/P 97/47; HR 65; Temp 94.2F Oral; RR 12; SpO2 97% Room air Treatment: Antibiotics: 11/25 Ampicillin Sodium / Sulbactam Sodium IVPB Q6H; 11/26 11/27 Cefepime IVPB Q8H; 11/26 Vancomycin IVPB x 1; 11/27 Vancomycin IVPB x 1; 11/27 Cefepime IVPB Q12H; 11/28 Vancomycin IVPB x 1 IV Bolus: 11/25 0.9NS IV 500cc Bolus; Is there an additional diagnosis that is clinically appropriate for this patient? [ ] Sepsis, present on admission [ ] Sepsis, ruled out [ ] Sepsis, developed during stay, not present on admission [ x ] No additional diagnosis/not clinically significant [ ] Other, please specify [ ] Unable to determine SIRS Criteria: 2 or more of the following may indicate SIRS Temperature < 96.8F (36C) or > 101.0F (38.3C) Heart Rate > 90 bpm Respiratory Rate > 20 breaths/min or PaCO2 < 32 mmHg White Blood Cell Count > 12,000 or < 4,000 cells/mm3 or > 10% bands (Template Last Reviewed: March 2022) MTDD
--- NOTE | 2023-11-29 14:34 | P.PN ---
Subjective Progress Note Date: 11/29/23 Hospital Course: 88-year-old male with history of liver cancer on immunotherapy, type 2 diabetes, hypertension, BPH presenting with loss of appetite, nausea, vomiting. He is also encephalopathic. Patient recently started on immunotherapy 2 weeks ago. In the emergency room, patient was afebrile, 101/59, heart rate 75, 99% on room air. CBC shows anemia to 10.4. Basic metabolic panel shows hyponatremia to 124, chloride of 96, CO2 of 18, BUN of 82, creatinine of 2.34. Liver function test show AST of 104, ALT of 43, alkaline phosphatase of 232, albumin of 2.3, total protein of 5.1. Amylase is 70, lipase is 38. Chest x-ray shows Mediport, otherwise clear parenchyma bilaterally, poor inspiratory effort. Patient was provided bolus of IV fluids and was admitted to medicine as an inpatient. Renal function continued to worsen. Sodium improved. Nephrology was consulted. Patient also hypothermic, concern for sepsis, unclear source. Patient started on broad-spectrum IV antibiotics. Oncology also consulted. Subjective: Patient seen and examined at bedside. No acute events overnight. Jenkins catheter in place. Pertinent positives and negatives as discussed above, a complete review of systems was performed and all other systems are negative. Vitals Signs Reviewed. General: Nontoxic, no distress, appears at stated age, multiple blankets, bear hugger on Derm: Warm, dry, decubitus ulcers not observed Head: Atraumatic, normocephalic, symmetric Eyes: EOMI, no lid lag, anicteric sclera Mouth: No lip lesion, mucus membranes moist Cardiovascular: S1S2 reg, no murmur Lungs: CTA bilateral, no rhonchi, no rales, no accessory muscle use Abdominal: Soft, nontender to palpation, no guarding, no appreciable organomegaly Ext: No gross muscle atrophy, no edema, no contractures Neuro: CN II-XI grossly intact, no focal neuro deficits Psych: Alert, oriented, appropriate affect Data Reviewed Today: Pertinent Labs: WBC 8.77, hemoglobin 8.4, sodium 135, bicarb 18, creatinine 3 .59, calcium 6.3, blood sugars range between 93-1 55, magnesium 1.7 Imaging: No new imaging Assessment and Plan: Patient is severely ill, needs close monitoring. Prognosis guarded. Active: Acute kidney injury on CKD stage III Hypocalcemia Hyponatremia, resolved Metabolic acidosis -Nephrology note reviewed, continue sodium chloride 75 cc an hour IV, sodium bicarb 650 p.o. twice daily, another 2 g of IV calcium given today -Continue to monitor renal function, Jenkins catheter in place, monitor intake and output Acute encephalopathy, resolved -Brain MRI did not show any acute process Hypothermia Infected heel ulcer, present on admission -Possible systemic infection -Continue IV cefepime 1 g every 12 hours, IV vancomycin pharmacy to dose, monitor renal function -Cultures negative growth to date -Wound care following Hepatocellular carcinoma on immunotherapy Anemia -Oncology note reviewed, immunotherapy currently on hold, follow-up outpatient with oncology -No active bleeding, workup pending for anemia Depression -Continue sertraline 25 daily, mirtazapine 15 nightly BPH -Continue tamsulosin 0.4 daily Dyslipidemia -Continue atorvastatin 10 nightly Type 2 diabetes -Sliding scale insulin, monitor for hypoglycemia DVT ppx: Subcu Lovenox, low-dose Code status: Full code Anticipated discharge place: Pending clinical course Anticipated discharge time: Pending clinical course Objective - Vital Signs Vital signs: Vital Signs Temp 97.4 F L 11/29/23 07:18 Pulse 64 11/29/23 12:20 Resp 16 11/29/23 12:20 BP 115/62 11/29/23 12:20 Pulse Ox 97 11/29/23 12:20 FiO2 Intake & Output 11/28/23 11/29/23 11/29/23 18:59 06:59 18:59 Intake Total 175 240 120 Output Total 636 150 Balance -461 90 120 Weight 74.843 kg Intake: Oral 175 240 120 Output: Urine 275 150 Post Void Residual 361 Other: Voiding Method Indwelling Catheter # Bowel Movements 1 1 - Labs CBC & Chem 7: 11/29/23 05:37 11/29/23 05:37 Labs: Abnormal Lab Results - Last 24 Hours (Table) 11/27/23 11/28/23 11/28/23 Range/Units 12:19 11:54 11:54 RBC (4.40-5.60) X 10*6/uL Hgb (13.0-17.0) g/dL Hct (39.6-50.0) % MCHC (32.0-37.0) g/dL RDW (11.5-14.5) % MPV (9.5-12.2) FL Immature Gran # (0.00-0.04) X 10*3/uL Lymphocytes # (0.90-5.00) X 10*3/uL Sodium (137-145) mmol/L Chloride (98-107) mmol/L Carbon Dioxide (22-30) mmol/L BUN (9-20) mg/dL Creatinine (0.66-1.25) mg/dL POC Glucose (mg/dL) (70-110) mg/dL Calcium (8.4-10.2) mg/dL AST (17-59) U/L Alkaline Phosphatase (38-126) U/L Total Protein (6.3-8.2) g/dL Albumin (3.5-5.0) g/dL Methylmalonic Acid 0.56 H (<0.40) umol/L Vitamin D 25-Hydroxy 29.4 L (30.0-100.0) ng/mL PTH Intact 150.0 H (14.0-72.0) pg/mL 11/28/23 11/28/23 11/29/23 Range/Units 17:09 20:09 05:37 RBC (4.40-5.60) X 10*6/uL Hgb (13.0-17.0) g/dL Hct (39.6-50.0) % MCHC (32.0-37.0) g/dL RDW (11.5-14.5) % MPV (9.5-12.2) FL Immature Gran # (0.00-0.04) X 10*3/uL Lymphocytes # (0.90-5.00) X 10*3/uL Sodium (137-145) mmol/L Chloride (98-107) mmol/L Carbon Dioxide (22-30) mmol/L BUN (9-20) mg/dL Creatinine 3.59 H (0.66-1.25) mg/dL POC Glucose (mg/dL) 152 H 155 H (70-110) mg/dL Calcium (8.4-10.2) mg/dL AST (17-59) U/L Alkaline Phosphatase (38-126) U/L Total Protein (6.3-8.2) g/dL Albumin (3.5-5.0) g/dL Methylmalonic Acid (<0.40) umol/L Vitamin D 25-Hydroxy (30.0-100.0) ng/mL PTH Intact (14.0-72.0) pg/mL 11/29/23 11/29/23 11/29/23 Range/Units 05:37 05:37 12:25 RBC 2.89 L (4.40-5.60) X 10*6/uL Hgb 8.4 L (13.0-17.0) g/dL Hct 26.6 L (39.6-50.0) % MCHC 31.6 L (32.0-37.0) g/dL RDW 16.6 H (11.5-14.5) % MPV 12.6 H (9.5-12.2) FL Immature Gran # 0.05 H (0.00-0.04) X 10*3/uL Lymphocytes # 0.80 L (0.90-5.00) X 10*3/uL Sodium 135 L (137-145) mmol/L Chloride 109 H (98-107) mmol/L Carbon Dioxide 18 L (22-30) mmol/L BUN 91 H (9-20) mg/dL Creatinine 3.59 H (0.66-1.25) mg/dL POC Glucose (mg/dL) 152 H (70-110) mg/dL Calcium 6.3 L* (8.4-10.2) mg/dL AST 123 H (17-59) U/L Alkaline Phosphatase 185 H (38-126) U/L Total Protein 4.0 L (6.3-8.2) g/dL Albumin 1.6 L (3.5-5.0) g/dL Methylmalonic Acid (<0.40) umol/L Vitamin D 25-Hydroxy (30.0-100.0) ng/mL PTH Intact (14.0-72.0) pg/mL Microbiology - Last 24 Hours (Table) 11/27/23 11:15 Stool Culture - Preliminary Stool 11/27/23 20:15 Blood Culture - Preliminary Blood
[2023-11-29] MEDS: CALCIUM GLUCONATE IN NACL 2 GM in SALINE 1 100ML.BAG IVPB ONE (15:01)
--- NOTE | 2023-11-29 15:53 | XR ---
EXAMINATION TYPE: XR chest 1V portable DATE OF EXAM: 11/29/2023 3:45 PM CLINICAL INDICATION: Male, 88 years old with history of aspiration; [facility] COMPARISON: Chest radiographs from 11/26/2023 TECHNIQUE: XR chest 1V portable Frontal view of the chest. FINDINGS: Lungs/Pleura: There is no evidence of pleural effusion, focal consolidation, or pneumothorax. Pulmonary vascularity: Unremarkable. Heart/mediastinum: Cardiomediastinal silhouette is unremarkable. Musculoskeletal: No acute osseous pathology. Other findings: None Lines/Tubes: [id number] projecting over the right hemithorax with distal tip at the cavoatrial junction. IMPRESSION: 1. No evidence for aspiration, 2. No acute cardiopulmonary disease/process. [facility], , 11/29/2023 3:51 PM
[2023-11-29 17:17] LABS: Glucose,Whole Blood 162 mg/dL (70-110)
[2023-11-29 20:22] LABS: Glucose,Whole Blood 255 mg/dL (70-110)
[2023-11-30 05:58] LABS: ALT 45 U/L (4-49); AST 103 U/L (17-59); African American GFR (CKD) 16 (>60 ml/min/1.73 sqM); Albumin 1.7 g/dL (3.5-5.0); Albumin/Globulin Ratio 0.7; Alkaline Phosphatase 211 U/L (38-126); Anion Gap 6 mmol/L; Blood Urea Nitrogen 91 mg/dL (9-20); Calcium 6.8 mg/dL (8.4-10.2); Carbon Dioxide 16 mmol/L (22-30); Chloride 114 mmol/L (98-107); Globulin 2.6 g/dL; Glucose 70 mg/dL (74-99); Magnesium 1.6 mg/dL (1.6-2.3); Non-African American GFR(CKD) 14 (>60 ml/min/1.73 sqM); Potassium 3.7 mmol/L (3.5-5.1); Sodium 136 mmol/L (137-145); Total Bilirubin 0.7 mg/dL (0.2-1.3); Total Protein 4.3 g/dL (6.3-8.2)
[2023-11-30 06:03] LABS: Vancomycin,Random 19.5 ug/mL
[2023-11-30 07:35] LABS: Glucose,Whole Blood 94 mg/dL (70-110)
[2023-11-30 08:22] LABS: Basophils # (A) 0.03 X 10*3/uL (0.00-0.10); Basophils % (A) 0.3 %; Eosinophils # (A) 0.16 X 10*3/uL (0.04-0.35); Eosinophils % (A) 1.6 %; HCT 28.2 % (39.6-50.0); HGB 9.1 g/dL (13.0-17.0); Lymphocytes # (A) 0.88 X 10*3/uL (0.90-5.00); Lymphocytes % (A) 8.6 %; MCH 29.4 pg (27.0-32.0); MCHC 32.3 g/dL (32.0-37.0); Mean Platelet Volume 12.3 FL (9.5-12.2); Monocytes # (A) 0.33 X 10*3/uL (0.20-1.00); Monocytes % (A) 3.2 %; NRBC Per 100 WBC 0 X 10*3/uL (0.00-0.01); Neutrophils % (A) 85.8 %; Platelet Count 158 X 10*3/uL (140-440); WBC 10.25 X 10*3/uL (4.50-10.00)
[2023-11-30] MEDS: ENOXAPARIN 30 MG/0.3 ML SYRINGE SQ SCH (10:03)
--- NOTE | 2023-11-30 11:37 | P.PN ---
Subjective Patient seen at bedside. No significant overnight events. Resting in bed. Denies chest pain or shortness of breath. Urine output remains low. Son present at bedside. Objective - Vital Signs Vital signs: Vital Signs Temp 97.4 F L 11/30/23 07:18 Pulse 78 11/30/23 07:18 Resp 16 11/30/23 07:18 BP 134/67 11/30/23 07:18 Pulse Ox 97 11/30/23 07:18 FiO2 Intake & Output 11/29/23 11/30/23 11/30/23 18:59 06:59 18:59 Intake Total 120 Output Total 175 200 Balance -55 -200 Intake: Oral 120 Output: Urine 175 200 Other: Voiding Method Indwelling Catheter Indwelling Catheter # Bowel Movements 1 - Exam Vital signs are stable. General: No acute distress. HEENT: Head exam is unremarkable. LUNGS: No audible rhonchi or wheezes. HEART: Rate and Rhythm are regular. ABDOMEN: Nontender. EXTREMITITES: No edema. - Labs CBC & Chem 7: 11/30/23 04:55 11/30/23 04:55 Labs: Abnormal Lab Results - Last 24 Hours (Table) 11/29/23 11/29/23 11/29/23 Range/Units 12:25 17:07 20:20 WBC (4.50-10.00) X 10*3/uL RBC (4.40-5.60) X 10*6/uL Hgb (13.0-17.0) g/dL Hct (39.6-50.0) % RDW (11.5-14.5) % MPV (9.5-12.2) FL Immature Gran # (0.00-0.04) X 10*3/uL Neutrophils # (1.80-7.70) X 10*3/uL Lymphocytes # (0.90-5.00) X 10*3/uL Sodium (137-145) mmol/L Chloride (98-107) mmol/L Carbon Dioxide (22-30) mmol/L BUN (9-20) mg/dL Creatinine (0.66-1.25) mg/dL Glucose (74-99) mg/dL POC Glucose (mg/dL) 152 H 162 H 255 H (70-110) mg/dL Calcium (8.4-10.2) mg/dL AST (17-59) U/L Alkaline Phosphatase (38-126) U/L Total Protein (6.3-8.2) g/dL Albumin (3.5-5.0) g/dL 11/30/23 11/30/23 Range/Units 04:55 04:55 WBC 10.25 H (4.50-10.00) X 10*3/uL RBC 3.10 L (4.40-5.60) X 10*6/uL Hgb 9.1 L (13.0-17.0) g/dL Hct 28.2 L (39.6-50.0) % RDW 17.0 H (11.5-14.5) % MPV 12.3 H (9.5-12.2) FL Immature Gran # 0.05 H (0.00-0.04) X 10*3/uL Neutrophils # 8.80 H (1.80-7.70) X 10*3/uL Lymphocytes # 0.88 L (0.90-5.00) X 10*3/uL Sodium 136 L (137-145) mmol/L Chloride 114 H (98-107) mmol/L Carbon Dioxide 16 L (22-30) mmol/L BUN 91 H (9-20) mg/dL Creatinine 3.75 H (0.66-1.25) mg/dL Glucose 70 L (74-99) mg/dL POC Glucose (mg/dL) (70-110) mg/dL Calcium 6.8 L (8.4-10.2) mg/dL AST 103 H (17-59) U/L Alkaline Phosphatase 211 H (38-126) U/L Total Protein 4.3 L (6.3-8.2) g/dL Albumin 1.7 L (3.5-5.0) g/dL Microbiology - Last 24 Hours (Table) 11/27/23 11:15 Stool Culture - Preliminary Stool 11/27/23 20:15 Blood Culture - Preliminary Blood Assessment and Plan Assessment: 1. Acute kidney injury secondary to ATN secondary to hypovolemia and hypotension/?sepsis further worsened with the use of losartan, torsemide Aldactone. Was also on Farxiga. Concern for sepsis as patient was hypothermic this admission. Creatinine 3.75 today. 2. Chronic kidney disease stage IIIa with baseline creatinine near 1.4 secondary to diabetic kidney disease and nephrosclerosis. No hydronephrosis noted on kidney ultrasound. 3. Liver cancer maintained on sorafenib outpatient. No ascites noted on abdominal ultrasound. 4. Diabetes mellitus. 5. History of BPH on Flomax. 6. Hypertension with chronic kidney disease. Controlled. 7. Hypovolemic hyponatremia improved with IV fluids. 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 Sodium level 136 today. TSH slightly high at 5.9 and free T4 normal. 8. Metabolic acidosis secondary to acute kidney injury and IV fluids. On oral bicarb. 9. Hypocalcemia secondary to acute kidney injury and bicarb. PTH high at 150, vitamin D slightly low at 29.4, and ionized calcium low at 3.8. This picture could represent malabsorption contributing to the hypocalcemia due to low vitamin D. Replaced. Improved. 10. Anemia. Iron deficiency noted. Hold off on IV iron due to concern for acute infection. Plan: Maintain normal saline. 25 g IV albumin x 2 doses today. Challenge with Lasix 80 mg IV once today. Encouraged oral intake. Maintain 1500 cc fluid restriction. Continue to hold antihypertensives. Avoid nephrotoxins. 2 A of sodium bicarb IV push today. Continue to assess daily for need for renal replacement therapy. No urgency at this time. Maintain Jenkins catheter for now. Replace magnesium. Repeat UA. Case discussed at length with son present at bedside.
[2023-11-30] MEDS: ALBUMIN HUMAN 25% 50 ML in EMPTY BAG 1 BAG IVPB SCH (11:46)
--- NOTE | 2023-11-30 11:57 | FL ---
COMPARISON: NONE DATE OF EXAM: 11/30/2023 HISTORY: Dysphasia A number of thin and thick substances were ingested under the care of the department of speech pathol ogy. There is no evidence of aspiration or penetration. There is no evidence of obstruction. Cisneros cular residuals are seen and there is free spillage from the oral cavity into the esophagus. 1 minute 30 seconds of fluoroscopy. DAP are not provided. IMPRESSION: 1. No evidence of aspiration or penetration. [facility], , 11/30/2023 11:54 AM
[2023-11-30 12:12] LABS: Glucose,Whole Blood 97 mg/dL (70-110)
[2023-11-30] MEDS: MAGNESIUM SULFATE-D5W PMX 1 GM in DEXTROSE/WATER 1 100ML.BAG IVPB SCH (12:55)
[2023-11-30] MEDS: SODIUM BICARB 8.4% 50 ML SYR (1 MEQ/ML) IV STA (12:55)
[2023-11-30] MEDS: FUROSEMIDE 10 MG/ML 10 ML VIAL IV STA (12:56)
--- NOTE | 2023-11-30 13:33 | P.PN ---
Subjective Progress Note Date: 11/30/23 Principal diagnosis: HCC, on sorafenib In f/u today pt reports one BM, he was able to get to bedside commode, staff present is not sure if diarrhea but, no incontinence. Pt sttes he was hungry for breakfast but is appetite wanes as the day goes on. No nausea or vomiting, he is tired today. Objective - Vital Signs Vital signs: Vital Signs Temp 97.4 F L 11/30/23 07:18 Pulse 75 11/30/23 11:57 Resp 16 11/30/23 11:57 BP 132/69 11/30/23 11:57 Pulse Ox 97 11/30/23 11:57 FiO2 Intake & Output 11/29/23 11/30/23 11/30/23 18:59 06:59 18:59 Intake Total 120 Output Total 175 200 Balance -55 -200 Intake: Oral 120 Output: Urine 175 200 Other: Voiding Method Indwelling Catheter Indwelling Catheter # Bowel Movements 1 - Constitutional General appearance: Present: average body habitus, cooperative, no acute distress - EENT Eyes: Present: anicteric sclerae, EOMI ENT: Present: hearing grossly normal - Respiratory Respiratory: bilateral: CTA - Cardiovascular Heart sounds: normal: S1, S2 - Gastrointestinal General gastrointestinal: Present: soft - Integumentary Integumentary: Present: pale - Neurologic Neurologic: Present: CNII-XII intact - Musculoskeletal Musculoskeletal: Present: generalized weakness - Psychiatric Psychiatric: Present: A&O x's 3, appropriate affect, intact judgment & insight - Labs CBC & Chem 7: 11/30/23 04:55 11/30/23 04:55 Labs: Abnormal Lab Results - Last 24 Hours (Table) 11/29/23 11/29/23 11/30/23 Range/Units 17:07 20:20 04:55 WBC (4.50-10.00) X 10*3/uL RBC (4.40-5.60) X 10*6/uL Hgb (13.0-17.0) g/dL Hct (39.6-50.0) % RDW (11.5-14.5) % MPV (9.5-12.2) FL Immature Gran # (0.00-0.04) X 10*3/uL Neutrophils # (1.80-7.70) X 10*3/uL Lymphocytes # (0.90-5.00) X 10*3/uL Sodium 136 L (137-145) mmol/L Chloride 114 H (98-107) mmol/L Carbon Dioxide 16 L (22-30) mmol/L BUN 91 H (9-20) mg/dL Creatinine 3.75 H (0.66-1.25) mg/dL Glucose 70 L (74-99) mg/dL POC Glucose (mg/dL) 162 H 255 H (70-110) mg/dL Calcium 6.8 L (8.4-10.2) mg/dL AST 103 H (17-59) U/L Alkaline Phosphatase 211 H (38-126) U/L Total Protein 4.3 L (6.3-8.2) g/dL Albumin 1.7 L (3.5-5.0) g/dL 11/30/23 Range/Units 04:55 WBC 10.25 H (4.50-10.00) X 10*3/uL RBC 3.10 L (4.40-5.60) X 10*6/uL Hgb 9.1 L (13.0-17.0) g/dL Hct 28.2 L (39.6-50.0) % RDW 17.0 H (11.5-14.5) % MPV 12.3 H (9.5-12.2) FL Immature Gran # 0.05 H (0.00-0.04) X 10*3/uL Neutrophils # 8.80 H (1.80-7.70) X 10*3/uL Lymphocytes # 0.88 L (0.90-5.00) X 10*3/uL Sodium (137-145) mmol/L Chloride (98-107) mmol/L Carbon Dioxide (22-30) mmol/L BUN (9-20) mg/dL Creatinine (0.66-1.25) mg/dL Glucose (74-99) mg/dL POC Glucose (mg/dL) (70-110) mg/dL Calcium (8.4-10.2) mg/dL AST (17-59) U/L Alkaline Phosphatase (38-126) U/L Total Protein (6.3-8.2) g/dL Albumin (3.5-5.0) g/dL Microbiology - Last 24 Hours (Table) 11/27/23 11:15 Stool Culture - Preliminary Stool 11/27/23 20:15 Blood Culture - Preliminary Blood Assessment and Plan (1) Hyponatremia Current Visit: Yes Status: Acute Priority: High Code(s): E87.1 - HYPO- OSMOLALITY AND HYPONATREMIA SNOMED Code(s): 34741625 (2) Acute kidney injury Current Visit: Yes Status: Acute Priority: High Code(s): N17.9 - ACUTE KIDNEY FAILURE, UNSPECIFIED SNOMED Code(s): 96952676 (3) HCC (hepatocellular carcinoma) Current Visit: Yes Status: Acute Priority: Medium Code(s): C22.0 - LIVER CELL CARCINOMA SNOMED Code(s): 266486106 Plan: Hyponatremia -No labs on notes that were received from the primary oncologist office. Unclear if this is patient's baseline. -Na+ is 136 today-significantly improved -Nephrology following and treating Acute kidney injury -Suspect, to a degree, secondary to nausea, vomiting and diarrhea. Diarrhea improving-at least less episodes of stooling. N,V resolved, oral intake improving slowly. -Sorafenib held -Nephrology following HCC -Pt had been on sorafenib for about 2-1/2 weeks. Started at a reduced dose of 200mg BID -Patient was NOT able to clearly define if he felt that the symptoms he was having were from sorafenib. Sorafenib has been held, pt does seem to be improving. Symptoms pt having likely caused by sorafenib. -Recommend cont to hold sorafenib and follow-up with his primary Oncologist as soon as possible after discharge. -Agree with supportive care including hydration -Patient reports a history of C. difficile earlier this year, stool studies for c-diff are neg -Reviewed PET scan with pt and son. Disease is limited to liver and possibly 1 met to rt adrenal gland. This is baseline imaging as it is not compared to any prior images. Treatment started about 2 weeks prior to scan so, not enough time has elapsed for any treatment changes. -CT and MRI of the brain are neg for metastatic disease. Anemia -Suspect multifactoral, including treatment. Anemia workup most consistent with inflammation. No specific supplements are needed at this time. -Hgb stable today. Transfuse for a Hgb <7 or if symptomatic
--- NOTE | 2023-11-30 13:42 | P.PN ---
Subjective Progress Note Date: 11/30/23 Hospital Course: 88-year-old male with history of liver cancer on immunotherapy, type 2 diabetes, hypertension, BPH presenting with loss of appetite, nausea, vomiting. He is also encephalopathic. Patient recently started on immunotherapy 2 weeks ago. In the emergency room, patient was afebrile, 101/59, heart rate 75, 99% on room air. CBC shows anemia to 10.4. Basic metabolic panel shows hyponatremia to 124, chloride of 96, CO2 of 18, BUN of 82, creatinine of 2.34. Liver function test show AST of 104, ALT of 43, alkaline phosphatase of 232, albumin of 2.3, total protein of 5.1. Amylase is 70, lipase is 38. Chest x-ray shows Mediport, otherwise clear parenchyma bilaterally, poor inspiratory effort. Patient was provided bolus of IV fluids and was admitted to medicine as an inpatient. Renal function continued to worsen. Sodium improved. Nephrology was consulted. Patient also hypothermic, concern for sepsis, unclear source. Patient started on broad-spectrum IV antibiotics. Oncology also consulted. Subjective: Patient seen and examined at bedside. No acute events overnight. Jenkins catheter in place. Pertinent positives and negatives as discussed above, a complete review of systems was performed and all other systems are negative. Vitals Signs Reviewed. General: Nontoxic, no distress, appears at stated age, multiple blankets, bear hugger on Derm: Warm, dry, left heel decubitus ulcers covered in dressing Head: Atraumatic, normocephalic, symmetric Eyes: EOMI, no lid lag, anicteric sclera Mouth: No lip lesion, mucus membranes moist Cardiovascular: S1S2 reg, no murmur Lungs: CTA bilateral, no rhonchi, no rales, no accessory muscle use Abdominal: Soft, nontender to palpation, no guarding, no appreciable organomegaly Ext: No gross muscle atrophy, no edema, no contractures Neuro: CN II-XI grossly intact, no focal neuro deficits Psych: Alert, oriented, appropriate affect Data Reviewed Today: Pertinent Labs: WBC 10.25, hemoglobin 9.1, sodium 136, bicarb 16, creatinine 3.75, blood sugars range between 78-97, magnesium 1.6, cortisol 20 Imaging: Modified barium swallow did not show any aspiration Assessment and Plan: Patient is severely ill, needs close monitoring. Prognosis guarded. Active: Acute kidney injury on CKD stage III Hypocalcemia, resolved Hyponatremia, resolved Metabolic acidosis -Nephrology note reviewed, challenged with IV Lasix 80 mg, 2 g of bicarb, continue oral bicarb 650 twice daily, 2 x 25 g IV albumin -Continue to monitor renal function, Jenkins catheter in place, monitor intake and output Acute encephalopathy, resolved -Brain MRI did not show any acute process Hypothermia Infected heel ulcer, present on admission -Possible systemic infection -Continue IV cefepime 1 g every 12 hours, IV vancomycin pharmacy to dose, m onitor renal function -Cultures negative growth to date -Wound care following Hepatocellular carcinoma on immunotherapy Anemia -Oncology note reviewed, immunotherapy currently on hold, follow-up outpatient with oncology -No active bleeding, workup pending for anemia Depression -Continue sertraline 25 daily, mirtazapine 15 nightly BPH -Continue tamsulosin 0.4 daily Dyslipidemia -Continue atorvastatin 10 nightly Type 2 diabetes -Sliding scale insulin, monitor for hypoglycemia DVT ppx: SCDs Code status: Full code Anticipated discharge place: Pending clinical course Anticipated discharge time: Pending clinical course Objective - Vital Signs Vital signs: Vital Signs Temp 97.4 F L 11/30/23 07:18 Pulse 75 11/30/23 11:57 Resp 16 11/30/23 11:57 BP 132/69 11/30/23 11:57 Pulse Ox 97 11/30/23 11:57 FiO2 Intake & Output 11/29/23 11/30/23 11/30/23 18:59 06:59 18:59 Intake Total 120 Output Total 175 200 Balance -55 -200 Intake: Oral 120 Output: Urine 175 200 Other: Voiding Method Indwelling Catheter Indwelling Catheter # Bowel Movements 1 - Labs CBC & Chem 7: 11/30/23 04:55 11/30/23 04:55 Labs: Abnormal Lab Results - Last 24 Hours (Table) 11/29/23 11/29/23 11/30/23 Range/Units 17:07 20:20 04:55 WBC (4.50-10.00) X 10*3/uL RBC (4.40-5.60) X 10*6/uL Hgb (13.0-17.0) g/dL Hct (39.6-50.0) % RDW (11.5-14.5) % MPV (9.5-12.2) FL Immature Gran # (0.00-0.04) X 10*3/uL Neutrophils # (1.80-7.70) X 10*3/uL Lymphocytes # (0.90-5.00) X 10*3/uL Sodium 136 L (137-145) mmol/L Chloride 114 H (98-107) mmol/L Carbon Dioxide 16 L (22-30) mmol/L BUN 91 H (9-20) mg/dL Creatinine 3.75 H (0.66-1.25) mg/dL Glucose 70 L (74-99) mg/dL POC Glucose (mg/dL) 162 H 255 H (70-110) mg/dL Calcium 6.8 L (8.4-10.2) mg/dL AST 103 H (17-59) U/L Alkaline Phosphatase 211 H (38-126) U/L Total Protein 4.3 L (6.3-8.2) g/dL Albumin 1.7 L (3.5-5.0) g/dL 11/30/23 Range/Units 04:55 WBC 10.25 H (4.50-10.00) X 10*3/uL RBC 3.10 L (4.40-5.60) X 10*6/uL Hgb 9.1 L (13.0-17.0) g/dL Hct 28.2 L (39.6-50.0) % RDW 17.0 H (11.5-14.5) % MPV 12.3 H (9.5-12.2) FL Immature Gran # 0.05 H (0.00-0.04) X 10*3/uL Neutrophils # 8.80 H (1.80-7.70) X 10*3/uL Lymphocytes # 0.88 L (0.90-5.00) X 10*3/uL Sodium (137-145) mmol/L Chloride (98-107) mmol/L Carbon Dioxide (22-30) mmol/L BUN (9-20) mg/dL Creatinine (0.66-1.25) mg/dL Glucose (74-99) mg/dL POC Glucose (mg/dL) (70-110) mg/dL Calcium (8.4-10.2) mg/dL AST (17-59) U/L Alkaline Phosphatase (38-126) U/L Total Protein (6.3-8.2) g/dL Albumin (3.5-5.0) g/dL Microbiology - Last 24 Hours (Table) 11/27/23 11:15 Stool Culture - Preliminary Stool 11/27/23 20:15 Blood Culture - Preliminary Blood
--- NOTE | 2023-11-30 14:02 | CDI ---
Documentation Clarification Form Date: 11/30/2023 01:50:24 PM From: Carmen Forbes Phone: [phone] Admit Date: 11/26/2023 03:25:00 PM Patient Name: Blayne Daley Visit Number: [id number] Discharge Date: ATTENTION: The Clinical Documentation Specialists (CDI) and [facility] Coding Staff appreciate your assistance in clarifying documentation. Please respond to the clarification below the line at the bottom and electronically sign. The CDI & [facility] Coding staff will review the response and follow-up if needed. Please note: Queries are made part of the Legal Health Record. If you have any questions, please contact the author of this message via ITS. Doctor: Rajendra Oliveros Acute Encephalopathy is documented 11/28, Medicine progress note. Additional clarification regarding the type of encephalopathy is requested. History/Risk Factors: 88-year old male presented to the ED for evaluation of loss of appetite, nausea and vomiting the patient started immunotherapy for liver cancer approximately two weeks ago, but starting four days ago started to become lethargic with nausea and vomiting. Medical History: Liver Cancer, BPH, HTN, DM2, Infected stage 2 heel ulcer, stage 2 pressure ulcer left hip and stage 2 pressure ulcer of sacral region and CKD 3A Clinical Indicators: WBC 11/25 4.8; 11/26 4.04 Cr: 11/25 2.34; 11/25 2.57; 11/26 2.8; 11/26 3.01; 11/27 3.5 Blood culture, 11/29: No growth after [address] Brain, 11/26: No significant abnormality seen. MRI Brain, 11/27: Atrophy with chronic appearing periventricular white matter ischemic type changes. 11/28, Medicine note: Hypothermia, Infected heel ulcer, present on admission. Possible systemic infection, cultures negative growth to date. Treatment: Antibiotics: 11/25 Ampicillin Sodium / Sulbactam Sodium IVPB Q6H; 11/26 11/27 Cefepime IVPB Q8H; 11/26 Vancomycin IVPB x 1; 11/27 Vancomycin IVPB x 1; 11/27 Cefepime IVPB Q12H; 11/28 Vancomycin IVPB x 1 IV Bolus: 11/25 0.9NS IV 500cc Bolus; Consults: Please clarify the type of encephalopathy, if known: [ x ] Metabolic Encephalopathy [ ] Septic Encephalopathy [ ] Toxic Encephalopathy [ ] Other, please specify [ ] Unable to determine (Template Last Revised: May 2020) MTDD
[2023-11-30] MEDS: VANCOMYCIN 1,250 MG in SODIUM CHLORIDE 0.9% 250 ML IVPB ONE (14:56)
[2023-11-30 15:57] LABS: Glucose,Whole Blood 94 mg/dL (70-110)
[2023-11-30 16:37] LABS: Anisocytosis Slight; Basophils % (A) 0 %; Eosinophils # (A) 0.1 k/uL (0-0.7); Eosinophils % (A) 1 %; HCT 28.2 % (39.0-53.0); Hypochromasia Marked; Lymphocytes # (A) 0.6 k/uL (1.0-4.8); Lymphocytes % (A) 7 %; MCHC 30.9 g/dL (31.0-37.0); MCV 93.6 fL (80.0-100.0); Mean Platelet Volume 9.7; Monocytes # (A) 0.2 k/uL (0-1.0); Monocytes % (A) 3 %; Neutrophils # (A) 6.8 k/uL (1.3-7.7); Neutrophils % (A) 86 %; Platelet Count 154 k/uL (150-450); RBC 3.01 m/uL (4.30-5.90); RDW 16.2 % (11.5-15.5)
[2023-11-30 16:50] LABS: HGB 8.7 gm/dL (13.0-17.5)
[2023-11-30 17:08] LABS: Glucose,Whole Blood 82 mg/dL (70-110)
[2023-11-30 20:34] LABS: Glucose,Whole Blood 68 mg/dL (70-110)
[2023-11-30 21:23] LABS: Glucose,Whole Blood 87 mg/dL (70-110)
[2023-11-30 21:32] LABS: Amorphous Sediment,Urine Occasional /hpf; Appearance,Urine Cloudy (Clear); Bacteria,Urine Occasional /hpf; Bilirubin,Urine Negative (Negative); Blood,Urine Moderate (Negative); Color,Urine Colorless; Glucose,Urine (UA) Negative (Negative); Ketones,Urine Negative (Negative); Leukocyte Esterase,Urine Small (Negative); Mucus,Urine Rare /hpf; Nitrite,Urine Negative (Negative); Protein,Urine 1+ (Negative); RBC,Urine 37 /hpf (0-5); Specific Gravity,Urine 1.009 (1.001-1.035); Squamous Epithelial Cell,Urine <1 /hpf (0-4); Urobilinogen,Urine <2.0 mg/dL (<2.0); WBC,Urine 22 /hpf (0-5)
[2023-12-01 03:44] LABS: Hepatitis A Antibody IgM Nonreactive (Nonreactive); Hepatitis B Core IgM Nonreactive (Nonreactive); Hepatitis B Surface Antigen Nonreactive (Nonreactive); Hepatitis C IgG Antibody Nonreactive (Nonreactive)
[2023-12-01 03:54] LABS: Complement C3 93.2 mg/dL (80.0-207.0)
[2023-12-01 05:06] LABS: Protein, Total 4.2 g/dL (6.2-8.2)
[2023-12-01 06:01] LABS: Anti-DNA, DS unit <1.0 IU/mL; DNA Double-Stranded Negative (Negative)
[2023-12-01 06:15] LABS: ALT 41 U/L (4-49); AST 91 U/L (17-59); African American GFR (CKD) 16 (>60 ml/min/1.73 sqM); Albumin 1.9 g/dL (3.5-5.0); Albumin/Globulin Ratio 0.8; Alkaline Phosphatase 168 U/L (38-126); Anion Gap 9 mmol/L; Blood Urea Nitrogen 92 mg/dL (9-20); Calcium 6.7 mg/dL (8.4-10.2); Carbon Dioxide 15 mmol/L (22-30); Chloride 115 mmol/L (98-107); Globulin 2.4 g/dL; Glucose 58 mg/dL (74-99); Non-African American GFR(CKD) 14 (>60 ml/min/1.73 sqM); Potassium 3.4 mmol/L (3.5-5.1); Sodium 139 mmol/L (137-145); Total Bilirubin 0.7 mg/dL (0.2-1.3); Total Protein 4.3 g/dL (6.3-8.2)
[2023-12-01 06:20] LABS: Vancomycin,Random 26.3 ug/mL
[2023-12-01 08:02] LABS: Glucose,Whole Blood 67 mg/dL (70-110)
[2023-12-01] MEDS: DEXTROSE 50% SYRINGE 50 ML IVP STA (08:11)
[2023-12-01 08:26] LABS: Glucose,Whole Blood 142 mg/dL (70-110)
--- NOTE | 2023-12-01 10:46 | P.PN ---
Subjective Patient seen at bedside. No significant overnight events. Resting in bed. Mentation is worsened. Urine output has improved. Objective - Vital Signs Vital signs: Vital Signs Temp 98.1 F 12/01/23 07:08 Pulse 85 12/01/23 07:08 Resp 16 12/01/23 07:08 BP 124/76 12/01/23 07:08 Pulse Ox 96 12/01/23 07:08 FiO2 Intake & Output 11/30/23 12/01/23 12/01/23 18:59 06:59 18:59 Output Total 425 500 Balance -425 -500 Output: Urine 425 500 Other: Voiding Method Indwelling Catheter - Exam Vital signs are stable. General: No acute distress. Patient only responds with audible groan. HEENT: Head exam is unremarkable. LUNGS: No audible rhonchi or wheezes. HEART: Rate and Rhythm are regular. ABDOMEN: Nontender. EXTREMITITES: Trace edema - Labs CBC & Chem 7: 12/01/23 03:58 12/01/23 03:58 Labs: Abnormal Lab Results - Last 24 Hours (Table) 11/30/23 11/30/23 11/30/23 Range/Units 16:13 20:27 20:55 RBC 3.01 L (4.30-5.90) m/uL Hgb 8.7 L D (13.0-17.5) gm/dL Hct 28.2 L (39.0-53.0) % MCHC 30.9 L (31.0-37.0) g/dL RDW 16.2 H (11.5-15.5) % Lymphocytes # 0.6 L (1.0-4.8) k/uL Potassium (3.5-5.1) mmol/L Chloride (98-107) mmol/L Carbon Dioxide (22-30) mmol/L BUN (9-20) mg/dL Creatinine (0.66-1.25) mg/dL Glucose (74-99) mg/dL POC Glucose (mg/dL) 68 L (70-110) mg/dL Calcium (8.4-10.2) mg/dL AST (17-59) U/L Alkaline Phosphatase (38-126) U/L Total Protein (6.3-8.2) g/dL Total Protein (PEP) (6.2-8.2) g/dL Albumin (3.5-5.0) g/dL Urine Protein 1+ H (Negative) Urine Blood Moderate H (Negative) Ur Leukocyte Esterase Small H (Negative) Urine RBC 37 H (0-5) /hpf Urine WBC 22 H (0-5) /hpf Amorphous Sediment Occasional H (None) /hpf Urine Bacteria Occasional H (None) /hpf Urine Mucus Rare H (None) /hpf 11/30/23 12/01/23 12/01/23 Range/Units 22:14 03:58 08:01 RBC (4.30-5.90) m/uL Hgb (13.0-17.5) gm/dL Hct (39.0-53.0) % MCHC (31.0-37.0) g/dL RDW (11.5-15.5) % Lymphocytes # (1.0-4.8) k/uL Potassium 3.4 L (3.5-5.1) mmol/L Chloride 115 H (98-107) mmol/L Carbon Dioxide 15 L (22-30) mmol/L BUN 92 H (9-20) mg/dL Creatinine 3.67 H (0.66-1.25) mg/dL Glucose 58 L (74-99) mg/dL POC Glucose (mg/dL) 67 L (70-110) mg/dL Calcium 6.7 L (8.4-10.2) mg/dL AST 91 H (17-59) U/L Alkaline Phosphatase 168 H (38-126) U/L Total Protein 4.3 L (6.3-8.2) g/dL Total Protein (PEP) 4.2 L (6.2-8.2) g/dL Albumin 1.9 L (3.5-5.0) g/dL Urine Protein (Negative) Urine Blood (Negative) Ur Leukocyte Esterase (Negative) Urine RBC (0-5) /hpf Urine WBC (0-5) /hpf Amorphous Sediment (None) /hpf Urine Bacteria (None) /hpf Urine Mucus (None) /hpf 12/01/23 Range/Units 08:25 RBC (4.30-5.90) m/uL Hgb (13.0-17.5) gm/dL Hct (39.0-53.0) % MCHC (31.0-37.0) g/dL RDW (11.5-15.5) % Lymphocytes # (1.0-4.8) k/uL Potassium (3.5-5.1) mmol/L Chloride (98-107) mmol/L Carbon Dioxide (22-30) mmol/L BUN (9-20) mg/dL Creatinine (0.66-1.25) mg/dL Glucose (74-99) mg/dL POC Glucose (mg/dL) 142 H (70-110) mg/dL Calcium (8.4-10.2) mg/dL AST (17-59) U/L Alkaline Phosphatase (38-126) U/L Total Protein (6.3-8.2) g/dL Total Protein (PEP) (6.2-8.2) g/dL Albumin (3.5-5.0) g/dL Urine Protein (Negative) Urine Blood (Negative) Ur Leukocyte Esterase (Negative) Urine RBC (0-5) /hpf Urine WBC (0-5) /hpf Amorphous Sediment (None) /hpf Urine Bacteria (None) /hpf Urine Mucus (None) /hpf Microbiology - Last 24 Hours (Table) 11/27/23 11:15 Stool Culture - Final Stool 11/27/23 20:15 Blood Culture - Preliminary Blood Assessment and Plan Assessment: 1. Acute kidney injury secondary to ATN secondary to hypovolemia and hypotension/?sepsis further worsened with the use of losartan, torsemide Aldactone. Was also on Farxiga. Concern for sepsis as patient was hypothermic this admission. Creatinine 3.75 today. 2. Chronic kidney disease stage IIIa with baseline creatinine near 1.4 secondary to diabetic kidney disease and nephrosclerosis. No hydronephrosis noted on kidney ultrasound. 3. Liver cancer maintained on sorafenib outpatient. No ascites noted on abdominal ultrasound. 4. Diabetes mellitus. 5. History of BPH on Flomax. 6. Hypertension with chronic kidney disease. Controlled. 7. Hypovolemic hyponatremia improved with IV fluids. 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 Sodium level 136 today. TSH slightly high at 5.9 and free T4 normal. 8. Metabolic acidosis secondary to acute kidney injury and IV fluids. On oral bicarb. 9. Hypocalcemia secondary to acute kidney injury and bicarb. PTH high at 150, vitamin D slightly low at 29.4, and ionized calcium low at 3.8. This picture could represent malabsorption contributing to the hypocalcemia due to low vitamin D. Replaced. Improved. 10. Anemia. Iron deficiency noted. Hold off on IV iron due to concern for acute infection. Plan: Discontinued NS, started on bicarb drip 50 cc/h Ordered 20 mill equivalents potassium IVPB Ordered 25 albumin, 2 hours after administration give Lasix 80 IV Urine output increased after Lasix 80 mg IV yesterday Encouraged oral intake. Maintain 1500 cc fluid restriction. Continue to hold antihypertensives. Avoid nephrotoxins. Continue to assess daily for need for renal replacement therapy. No urgency at this time. Maintain Jenkins catheter for now. Magnesium increased to 2.0 after replacement yesterday. Case discussed at length with son present at bedside. Son states he will discuss with his brother and sister today and have more clarity on future decision making for the father tomorrow. I have seen and examined the patient with resident and agree and A&P as written. Cr stable; UO better; mentation worse - ?uremia vs other. Discussed [employer] at length - will discuss with family and let me know.
[2023-12-01 10:59] LABS: Basophils # (A) 0.01 X 10*3/uL (0.00-0.10); Basophils % (A) 0.1 %; Eosinophils # (A) 0.13 X 10*3/uL (0.04-0.35); Eosinophils % (A) 1.5 %; HCT 26.7 % (39.6-50.0); HGB 8.3 g/dL (13.0-17.0); Lymphocytes # (A) 0.75 X 10*3/uL (0.90-5.00); Lymphocytes % (A) 8.6 %; MCH 29.1 pg (27.0-32.0); MCHC 31.1 g/dL (32.0-37.0); MCV 93.7 FL (80.0-97.0); Mean Platelet Volume 12.6 FL (9.5-12.2); Monocytes # (A) 0.41 X 10*3/uL (0.20-1.00); Monocytes % (A) 4.7 %; NRBC Per 100 WBC 0 X 10*3/uL (0.00-0.01); Neutrophils # (A) 7.38 X 10*3/uL (1.80-7.70); Neutrophils % (A) 84.5 %; Platelet Count 145 X 10*3/uL (140-440); RBC 2.85 X 10*6/uL (4.40-5.60); RDW 17.2 % (11.5-14.5); WBC 8.73 X 10*3/uL (4.50-10.00)
[2023-12-01 11:20] LABS: Glucose,Whole Blood 74 mg/dL (70-110)
[2023-12-01 11:32] LABS: Creatinine,Urine Random 49.5 mg/dL; Protein/Creatinine Ratio,Urine 2.242
[2023-12-01] MEDS: CEFEPIME 1 GM in SODIUM CHLORIDE 0.9% 50 ML IVPB SCH (12:00)
[2023-12-01] MEDS: POTASSIUM CHLORIDE 10 MEQ in WATER FOR INJECTION 1 100ML.BAG IVPB STA (12:00)
[2023-12-01] MEDS: DEXTROSE 5%-LACTATED RINGERS 1,000 ML IV SCH (12:00)
--- NOTE | 2023-12-01 13:21 | P.PN ---
Subjective Progress Note Date: 12/01/23 Hospital Course: 88-year-old male with history of liver cancer on immunotherapy, type 2 diabetes, hypertension, BPH presenting with loss of appetite, nausea, vomiting. He is also encephalopathic. Patient recently started on immunotherapy 2 weeks ago. In the emergency room, patient was afebrile, 101/59, heart rate 75, 99% on room air. CBC shows anemia to 10.4. Basic metabolic panel shows hyponatremia to 124, chloride of 96, CO2 of 18, BUN of 82, creatinine of 2.34. Liver function test show AST of 104, ALT of 43, alkaline phosphatase of 232, albumin of 2.3, total protein of 5.1. Amylase is 70, lipase is 38. Chest x-ray shows Mediport, otherwise clear parenchyma bilaterally, poor inspiratory effort. Patient was provided bolus of IV fluids and was admitted to medicine as an inpatient. Renal function continued to worsen. Sodium improved. Nephrology was consulted. Patient also hypothermic, concern for sepsis, unclear source. Patient started on broad-spectrum IV antibiotics. Oncology also consulted. Patient is encephalopathic, likely delirium. Renal function still not improved. Subjective: Patient seen and examined at bedside. No acute events overnight. Jenkins cat heter in place. Patient did become slightly hypoglycemic. Despite getting dextrose continues to have poor mental status. Pertinent positives and negatives as discussed above, a complete review of s ystems was performed and all other systems are negative. Vitals Signs Reviewed. General: Nontoxic, no distress, appears at stated age, multiple blankets, bear hugger on Derm: Warm, dry, left heel decubitus ulcers covered in dressing Head: Atraumatic, normocephalic, symmetric Eyes: EOMI, no lid lag, anicteric sclera Mouth: No lip lesion, mucus membranes moist Cardiovascular: S1S2 reg, no murmur Lungs: CTA bilateral, no rhonchi, no rales, no accessory muscle use Abdominal: Soft, nontender to palpation, no guarding, no appreciable organomegaly Ext: No gross muscle atrophy, no edema, no contractures Neuro: CN II-XI grossly intact, no focal neuro deficits Psych: Somnolent, oriented to person, appropriate affect Data Reviewed Today: Pertinent Labs: WBC 8.73, hemoglobin 8.3, platelet 145, potassium 3.4, creatinine 3.67, blood sugars range between 58-1 42, ammonia negative, magnesium 2 Imaging: No new imaging Assessment and Plan: Patient is severely ill, needs close monitoring. Prognosis guarded. Had goals of care discussion with son, patient had explicitly expressed that he wanted to be fully resuscitated in case of a medical emergency. He even wanted dialysis if needed. Active: Acute kidney injury on CKD stage III Hypocalcemia, resolved Hyponatremia, resolved Metabolic acidosis -Nephrology note reviewed, repeating albumin 2 x 25 g, another 80 mg of IV Lasix today, 2 g of bicarb, -Continue to monitor renal function, Jenkins catheter in place, monitor intake and output Acute encephalopathy, likely metabolic Delirium -Recent brain MRI did not show any acute process -Ammonia negative -Patient not able to eat or drink at the moment -TSH, B12, folic acid levels were within normal limits. Hypothermia Infected heel ulcer, present on admission -Possible systemic infection -Continue IV cefepime 1 g every 12 hours, IV vancomycin pharmacy to dose, monitor renal function -Cultures negative growth to date -Wound care following Hepatocellular carcinoma on immunotherapy Anemia, stable -Oncology note reviewed, immunotherapy currently on hold, follow-up outpatient with oncology -No active bleeding, workup pending for anemia Depression -Continue sertraline 25 daily, mirtazapine 15 nightly BPH -Continue tamsulosin 0.4 daily Dyslipidemia -Continue atorvastatin 10 nightly Type 2 diabetes -Sliding scale insulin, monitor for hypoglycemia Hypoglycemia -Due to poor oral intake, renal and hepatic dysfunction -Patient currently on D5 water with bicarb at 75 cc an hour -Continue to monitor blood sugars every 6 hours -If oral intake continues to remain poor due to encephalopathy, may need to consider feeding tube DVT ppx: SCDs Code status: Full code Anticipated discharge place: Pending clinical course Anticipated discharge time: Pending clinical course Objective - Vital Signs Vital signs: Vital Signs Temp 98.1 F 12/01/23 07:08 Pulse 85 12/01/23 07:08 Resp 16 12/01/23 07:08 BP 124/76 12/01/23 07:08 Pulse Ox 96 12/01/23 07:08 FiO2 Intake & Output 11/30/23 12/01/23 12/01/23 18:59 06:59 18:59 Output Total 425 500 Balance -425 -500 Weight 74.843 kg Output: Urine 425 500 Other: Voiding Method Indwelling Catheter Indwelling Catheter - Labs CBC & Chem 7: 12/01/23 03:58 12/01/23 03:58 Labs: Abnormal Lab Results - Last 24 Hours (Table) 11/27/23 11/30/23 11/30/23 Range/Units 02:30 16:13 20:27 RBC 3.01 L (4.30-5.90) m/uL Hgb 8.7 L D (13.0-17.5) gm/dL Hct 28.2 L (39.0-53.0) % MCHC 30.9 L (31.0-37.0) g/dL RDW 16.2 H (11.5-15.5) % MPV (9.5-12.2) FL Immature Gran # (0.00-0.04) X 10*3/uL Lymphocytes # 0.6 L (1.0-4.8) k/uL Potassium (3.5-5.1) mmol/L Chloride (98-107) mmol/L Carbon Dioxide (22-30) mmol/L BUN (9-20) mg/dL Creatinine (0.66-1.25) mg/dL Glucose (74-99) mg/dL POC Glucose (mg/dL) 68 L (70-110) mg/dL Calcium (8.4-10.2) mg/dL AST (17-59) U/L Alkaline Phosphatase (38-126) U/L Total Protein (6.3-8.2) g/dL Total Protein (PEP) (6.2-8.2) g/dL Albumin (3.5-5.0) g/dL Urine Protein (Negative) Urine Blood (Negative) Ur Leukocyte Esterase (Negative) Urine RBC (0-5) /hpf Urine WBC (0-5) /hpf Amorphous Sediment (None) /hpf Urine Bacteria (None) /hpf Urine Mucus (None) /hpf Urine Osmolality 341 L (400-1100) mOsm/kg 11/30/23 11/30/23 12/01/23 Range/Units 20:55 22:14 03:58 RBC (4.30-5.90) m/uL Hgb (13.0-17.5) gm/dL Hct (39.0-53.0) % MCHC (31.0-37.0) g/dL RDW (11.5-15.5) % MPV (9.5-12.2) FL Immature Gran # (0.00-0.04) X 10*3/uL Lymphocytes # (1.0-4.8) k/uL Potassium 3.4 L (3.5-5.1) mmol/L Chloride 115 H (98-107) mmol/L Carbon Dioxide 15 L (22-30) mmol/L BUN 92 H (9-20) mg/dL Creatinine 3.67 H (0.66-1.25) mg/dL Glucose 58 L (74-99) mg/dL POC Glucose (mg/dL) (70-110) mg/dL Calcium 6.7 L (8.4-10.2) mg/dL AST 91 H (17-59) U/L Alkaline Phosphatase 168 H (38-126) U/L Total Protein 4.3 L (6.3-8.2) g/dL Total Protein (PEP) 4.2 L (6.2-8.2) g/dL Albumin 1.9 L (3.5-5.0) g/dL Urine Protein 1+ H (Negative) Urine Blood Moderate H (Negative) Ur Leukocyte Esterase Small H (Negative) Urine RBC 37 H (0-5) /hpf Urine WBC 22 H (0-5) /hpf Amorphous Sediment Occasional H (None) /hpf Urine Bacteria Occasional H (None) /hpf Urine Mucus Rare H (None) /hpf Urine Osmolality (400-1100) mOsm/kg 12/01/23 12/01/23 12/01/23 Range/Units 03:58 08:01 08:25 RBC 2.85 L (4.30-5.90) m/uL Hgb 8.3 L (13.0-17.5) gm/dL Hct 26.7 L (39.0-53.0) % MCHC 31.1 L (31.0-37.0) g/dL RDW 17.2 H (11.5-15.5) % MPV 12.6 H (9.5-12.2) FL Immature Gran # 0.05 H (0.00-0.04) X 10*3/uL Lymphocytes # 0.75 L (1.0-4.8) k/uL Potassium (3.5-5.1) mmol/L Chloride (98-107) mmol/L Carbon Dioxide (22-30) mmol/L BUN (9-20) mg/dL Creatinine (0.66-1.25) mg/dL Glucose (74-99) mg/dL POC Glucose (mg/dL) 67 L 142 H (70-110) mg/dL Calcium (8.4-10.2) mg/dL AST (17-59) U/L Alkaline Phosphatase (38-126) U/L Total Protein (6.3-8.2) g/dL Total Protein (PEP) (6.2-8.2) g/dL Albumin (3.5-5.0) g/dL Urine Protein (Negative) Urine Blood (Negative) Ur Leukocyte Esterase (Negative) Urine RBC (0-5) /hpf Urine WBC (0-5) /hpf Amorphous Sediment (None) /hpf Urine Bacteria (None) /hpf Urine Mucus (None) /hpf Urine Osmolality (400-1100) mOsm/kg Microbiology - Last 24 Hours (Table) 11/27/23 11:15 Stool Culture - Final Stool 11/27/23 20:15 Blood Culture - Preliminary Blood
[2023-12-01] MEDS: SODIUM BICARB 8.4% 50 ML SYR (1 MEQ/ML) IV STA ×2 (13:55→14:07)
[2023-12-01] MEDS: ALBUMIN HUMAN 25% 50 ML in EMPTY BAG 1 BAG IVPB SCH (13:55)
[2023-12-01] MEDS: POTASSIUM CHLORIDE ER 10 MEQ TAB.ER.PRT PO STA (15:27)
[2023-12-01] MEDS: POTASSIUM CHLORIDE 20 MEQ in WATER FOR INJECTION 1 100ML.BAG IVPB STA (16:14)
[2023-12-01] MEDS: DEXTROSE 5% IN WATER 1,000 ML with SODIUM BICARB (1 MEQ/ML) 150 ML IV SCH (16:34)
[2023-12-01] MEDS: FUROSEMIDE 10 MG/ML 10 ML VIAL IV ONE (16:34)
[2023-12-01] MEDS: HYDROmorphone 0.5 MG/0.5 ML SYRINGE IVP STA (17:19)
[2023-12-01 17:41] LABS: Glucose,Whole Blood 77 mg/dL (70-110)
[2023-12-01 18:37] LABS: Gamma Globulin 0.84 g/dL (0.70-1.50)
[2023-12-01 19:57] LABS: Glucose,Whole Blood 84 mg/dL (70-110)
[2023-12-01] MEDS: HEPARIN SODIUM 1,000 UN/ML (10ML VL) MISCELLANE ONE (20:52)
[2023-12-01 21:08] LABS: Glucose,Whole Blood 102 mg/dL (70-110)
[2023-12-01] MEDS: MORPHINE SULFATE 2 MG/ML SYRINGE IVP PRN (21:53)
--- NOTE | 2023-12-01 22:34 | OP ---
OPERATIVE REPORT DATE OF SERVICE : PREOPERATIVE DIAGNOSIS: Acute on chronic renal failure. POSTOPERATIVE DIAGNOSIS: Acute on chronic renal failure. PROCEDURE PERFORMED: Ultrasound-guided 20 cm dialysis catheter placed in right femoral approach. DESCRIPTION OF PROCEDURE: The patient's right groin was prepped and drapes applied in a sterile manner. 1% lidocaine infiltrated. Ultrasound-guided micropuncture introduced to right femoral vein. Micropuncture guidewire was passed and 4-Emirati dilator was advanced on top of the guidewire. After that, we passed a regular guidewire without any resistance. Dilator was advanced on top of the guidewire. Then, we placed a dialysis catheter on the top of the guidewire. Guidewire was removed, flushed with heparin saline and hep- locked, secured with 3-0 nylon. The patient tolerated the procedure well. MMODL / IJN: [id number] /
[2023-12-02 02:51] LABS: Hepatitis B Surface Antigen Nonreactive (Nonreactive)
[2023-12-02 04:05] LABS: Glucose,Whole Blood 92 mg/dL (70-110)
[2023-12-02 06:04] LABS: Glucose,Whole Blood 97 mg/dL (70-110)
[2023-12-02 08:54] LABS: ALT 37 U/L (4-49); AST 77 U/L (17-59); African American GFR (CKD) 23 (>60 ml/min/1.73 sqM); Albumin 2.1 g/dL (3.5-5.0); Alkaline Phosphatase 137 U/L (38-126); Anion Gap 5 mmol/L; Blood Urea Nitrogen 74 mg/dL (9-20); Calcium 6.7 mg/dL (8.4-10.2); Carbon Dioxide 27 mmol/L (22-30); Chloride 109 mmol/L (98-107); Glucose 86 mg/dL (74-99); Magnesium 1.8 mg/dL (1.6-2.3); Non-African American GFR(CKD) 20 (>60 ml/min/1.73 sqM); Potassium 3.1 mmol/L (3.5-5.1); Sodium 141 mmol/L (137-145); Total Bilirubin 0.8 mg/dL (0.2-1.3); Total Protein 4.6 g/dL (6.3-8.2)
[2023-12-02 09:04] LABS: Anisocytosis Slight; Basophils % (A) 0 %; Eosinophils # (A) 0.2 k/uL (0-0.7); Eosinophils % (A) 2 %; HCT 27.6 % (39.0-53.0); HGB 8.8 gm/dL (13.0-17.5); Hypochromasia Moderate; Lymphocytes # (A) 0.9 k/uL (1.0-4.8); Lymphocytes % (A) 11 %; MCH 29.5 pg (25.0-35.0); MCHC 31.9 g/dL (31.0-37.0); MCV 92.3 fL (80.0-100.0); Mean Platelet Volume 10.1; Monocytes # (A) 0.4 k/uL (0-1.0); Monocytes % (A) 5 %; Neutrophils # (A) 6.8 k/uL (1.3-7.7); Neutrophils % (A) 82 %; Platelet Count 176 k/uL (150-450); RBC 2.99 m/uL (4.30-5.90); RDW 16.3 % (11.5-15.5); WBC 8.3 k/uL (3.8-10.6)
[2023-12-02] MEDS: HYDROmorphone 0.5 MG/0.5 ML SYRINGE IVP PRN (10:30)
[2023-12-02] MEDS: POTASSIUM CHLORIDE 10 MEQ in WATER FOR INJECTION 1 100ML.BAG IVPB SCH (10:32)
--- NOTE | 2023-12-02 10:34 | P.PN ---
Subjective Patient seen at bedside. Patient remains confused. Started on hemodialysis December 01, 2023. Urine output 1.3 L in the last 24 hours. Vital signs are stable. General: Resting in bed. Lethargic. Poor historian. HEENT: Head exam is unremarkable. LUNGS: Scattered rhonchi. HEART: Rate and Rhythm are regular. ABDOMEN: No distention. EXTREMITITES: No edema. Objective - Vital Signs Vital signs: Vital Signs Temp 97.6 F 12/02/23 08:00 Pulse 105 H 12/02/23 08:00 Resp 16 12/02/23 08:00 BP 159/80 12/02/23 08:00 Pulse Ox 93 L 12/02/23 08:00 FiO2 Intake & Output 12/01/23 12/02/23 12/02/23 18:59 06:59 18:59 Intake Total 540 Output Total 900 1950 Balance -900 -1410 Weight 74.843 kg 0 g Intake: IV 40 Invasive Line 1 10 Invasive Line 2 20 Invasive Line 4 10 Hemodialysis 500 Output: Urine 900 450 Hemodialysis 1000 Hemodialysis Net Amount 500 Other: Voiding Method Indwelling Catheter Indwelling Catheter - Labs CBC & Chem 7: 12/02/23 08:28 12/02/23 08:28 Labs: Abnormal Lab Results - Last 24 Hours (Table) 11/30/23 12/01/23 12/02/23 Range/Units 22:14 03:58 08:28 RBC 2.85 L 2.99 L (4.40-5.60) X 10*6/uL Hgb 8.3 L 8.8 L (13.0-17.0) g/dL Hct 26.7 L 27.6 L (39.6-50.0) % MCHC 31.1 L (32.0-37.0) g/dL RDW 17.2 H 16.3 H (11.5-14.5) % MPV 12.6 H (9.5-12.2) FL Immature Gran # 0.05 H (0.00-0.04) X 10*3/uL Lymphocytes # 0.75 L 0.9 L (0.90-5.00) X 10*3/uL Potassium (3.5-5.1) mmol/L Chloride (98-107) mmol/L BUN (9-20) mg/dL Creatinine (0.66-1.25) mg/dL Calcium (8.4-10.2) mg/dL AST (17-59) U/L Alkaline Phosphatase (38-126) U/L Total Protein (6.3-8.2) g/dL Albumin (3.5-5.0) g/dL Albumin (PEP) 1.70 L (3.80-4.90) g/dL Ljoiy-5-Rorvrwoia 0.44 H (0.10-0.40) g/dL Rivjs-8-Gdshkyeye 0.50 L (0.60-1.00) g/dL 12/02/23 Range/Units 08:28 RBC (4.40-5.60) X 10*6/uL Hgb (13.0-17.0) g/dL Hct (39.6-50.0) % MCHC (32.0-37.0) g/dL RDW (11.5-14.5) % MPV (9.5-12.2) FL Immature Gran # (0.00-0.04) X 10*3/uL Lymphocytes # (0.90-5.00) X 10*3/uL Potassium 3.1 L (3.5-5.1) mmol/L Chloride 109 H (98-107) mmol/L BUN 74 H (9-20) mg/dL Creatinine 2.73 H (0.66-1.25) mg/dL Calcium 6.7 L (8.4-10.2) mg/dL AST 77 H (17-59) U/L Alkaline Phosphatase 137 H (38-126) U/L Total Protein 4.6 L (6.3-8.2) g/dL Albumin 2.1 L (3.5-5.0) g/dL Albumin (PEP) (3.80-4.90) g/dL Bhxpr-7-Hniisxnuj (0.10-0.40) g/dL Moztg-7-Tidzxdcoa (0.60-1.00) g/dL Microbiology - Last 24 Hours (Table) 11/27/23 11:15 Stool Culture - Final Stool Assessment and Plan Assessment: 1. Acute kidney injury secondary to ATN secondary to hypovolemia and hypotension/?sepsis further worsened with the use of losartan, torsemide Aldactone. Was also on Farxiga. Concern for sepsis as patient was hypothermic this admission. Creatinine 3.67 yesterday. Started on hemodialysis December 01, 2023 due to concern for uremia. 2. Chronic kidney disease stage IIIa with baseline creatinine near 1.4 secondary to diabetic kidney disease and nephrosclerosis. No hydronephrosis noted on kidney ultrasound. 3. Liver cancer maintained on sorafenib outpatient. No ascites noted on abdominal ultrasound. 4. Diabetes mellitus. 5. History of BPH on Flomax. 6. Hypertension with chronic kidney disease. Stable. 7. Hypovolemic hyponatremia improved with IV fluids. 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 Sodium level 141 today. TSH slightly high at 5.9 and free T4 normal. 8. Metabolic acidosis secondary to acute kidney injury and IV fluids. Improved with bicarb drip. 9. Hypocalcemia secondary to acute kidney injury and bicarb. PTH high at 150, vitamin D slightly low at 29.4, and ionized calcium low at 3.8. This picture could represent malabsorption contributing to the hypocalcemia due to low vit wiley D. Replaced. Improved. 10. Anemia. Iron deficiency noted. Hold off on IV iron due to concern for acute infection. Plan: Stop bicarb drip. Change back to normal saline. Replace potassium. Status post IV albumin and IV Lasix given in the last 2 days. Encouraged oral intake. Avoid nephrotoxins. Plan for secondary min of hemodialysis today. Will use high potassium and high calcium bath. Prognosis guarded.
[2023-12-02] MEDS: IPRATROPIUM-ALBUTEROL 3 ML NEB INHALATION PRN (11:24)
--- NOTE | 2023-12-02 11:33 | P.PN ---
Subjective Progress Note Date: 12/02/23 Hospital Course: 88-year-old male with history of liver cancer on immunotherapy, type 2 diabetes, hypertension, BPH presenting with loss of appetite, nausea, vomiting. He is also encephalopathic. Patient recently started on immunotherapy 2 weeks ago. In the emergency room, patient was afebrile, 101/59, heart rate 75, 99% on room air. CBC shows anemia to 10.4. Basic metabolic panel shows hyponatremia to 124, chloride of 96, CO2 of 18, BUN of 82, creatinine of 2.34. Liver function test show AST of 104, ALT of 43, alkaline phosphatase of 232, albumin of 2.3, total protein of 5.1. Amylase is 70, lipase is 38. Chest x-ray shows Mediport, otherwise clear parenchyma bilaterally, poor inspiratory effort. Patient was provided bolus of IV fluids and was admitted to medicine as an inpatient. Renal function continued to worsen. Sodium improved. Nephrology was consulted. Patient also hypothermic, concern for sepsis, unclear source. Patient started on broad-spectrum IV antibiotics. Oncology also consulted. Patient is encephalopathic, likely delirium. Renal function still not improved. Subjective: Patient seen and examined at bedside. Yesterday, he received dialysis and a removed 1 L. Right femoral dialysis catheter placed. No acute events overnight. Jenkins catheter in place. He continues to have poor mental status. Pertinent positives and negatives as discussed above, a complete review of systems was performed and all other systems are negative. Vitals Signs Reviewed. General: Nontoxic, no distress, appears at stated age, multiple blankets Derm: Warm, dry, left heel decubitus ulcers covered in dressing Head: Atraumatic, normocephalic, symmetric Eyes: EOMI, no lid lag, anicteric sclera, pinpoint pupils Mouth: No lip lesion, mucus membranes moist Cardiovascular: S1S2 reg, no murmur Lungs: CTA bilateral, no rhonchi, no rales, no accessory muscle use Abdominal: Soft, nontender to palpation, no guarding, no appreciable organomegaly Ext: No gross muscle atrophy, no edema, no contractures Neuro: CN II-XI grossly intact, no focal neuro deficits Psych: Somnolent, oriented to person, appropriate affect Data Reviewed Today: Pertinent Labs: WBC 8.3, hemoglobin 8.8, MCV 92.3, platelets 176, sodium 141, potassium 3.1, chloride 109, bicarb 27, BUN 74, creatinine 2.73, calcium 6.7 Imaging: No new imaging Assessment and Plan: Patient is severely ill, needs close monitoring. Prognosis guarded. Had goals of care discussion with son, if no improvement in encephalopathy, family may consider hospice care tomorrow. Active: Acute kidney injury on CKD stage III Hypocalcemia, resolved Hyponatremia, resolved Hypokalemia Metabolic acidosis, resolved -Nephrology note reviewed, bicarb drip stopped, restarted normal saline, second session of hemodialysis today - Right femoral dialysis catheter placed -Continue to monitor renal function, Jenkins catheter in place, monitor intake and output -Given 20 mill equivalent of IV potassium today Acute encephalopathy, likely metabolic Delirium -Recent brain MRI did not show any acute process -Ammonia negative -Patient not able to eat or drink at the moment -TSH, B12, folic acid levels were within normal limits. Discontinued tramadol, cefepime, morphine -Pain control with IV Dilaudid 0.5 every 4 hours Hypothermia Infected heel ulcer, present on admission -Possible systemic infection -Discontinued cefepime, IV vancomycin pharmacy to dose, monitor renal function -Cultures negative growth to date -Wound care following Hepatocellular carcinoma on immunotherapy Anemia, stable -Oncology note reviewed, immunotherapy currently on hold, follow-up outpatient with oncology -No active bleeding, workup pending for anemia Depression -Continue sertraline 25 daily, mirtazapine 15 nightly BPH -Continue tamsulosin 0.4 daily Dyslipidemia -Continue atorvastatin 10 nightly Type 2 diabetes -Sliding scale insulin, monitor for hypoglycemia Hypoglycemia -Due to poor oral intake, renal and hepatic dysfunction -Patient currently on normal saline 75 cc/h -Continue to monitor blood sugars every 6 hours -If oral intake continues to remain poor due to encephalopathy, may need to consider feeding tube DVT ppx: SCDs Code status: No code Anticipated discharge place: Pending clinical course Anticipated discharge time: Pending clinical course I have seen and evaluated the patient today. Discussed with the resident and agree with the residents finding and plan as documented in the resident's note. Changes highlighted in blue font. Objective - Vital Signs Vital signs: Vital Signs Temp 97.6 F 12/02/23 08:00 Pulse 105 H 12/02/23 08:00 Resp 16 12/02/23 08:00 BP 159/80 12/02/23 08:00 Pulse Ox 93 L 12/02/23 08:00 FiO2 Intake & Output 12/01/23 12/02/23 12/02/23 18:59 06:59 18:59 Intake Total 540 Output Total 900 1950 Balance -900 -1410 Weight 74.843 kg 0 g Intake: IV 40 Invasive Line 1 10 Invasive Line 2 20 Invasive Line 4 10 Hemodialysis 500 Output: Urine 900 450 Hemodialysis 1000 Hemodialysis Net Amount 500 Other: Voiding Method Indwelling Catheter Indwelling Catheter - Labs CBC & Chem 7: 12/02/23 08:28 12/02/23 08:28 Labs: Abnormal Lab Results - Last 24 Hours (Table) 11/30/23 12/02/23 12/02/23 Range/Units 22:14 08:28 08:28 RBC 2.99 L (4.30-5.90) m/uL Hgb 8.8 L (13.0-17.5) gm/dL Hct 27.6 L (39.0-53.0) % RDW 16.3 H (11.5-15.5) % Lymphocytes # 0.9 L (1.0-4.8) k/uL Potassium 3.1 L (3.5-5.1) mmol/L Chloride 109 H (98-107) mmol/L BUN 74 H (9-20) mg/dL Creatinine 2.73 H (0.66-1.25) mg/dL Calcium 6.7 L (8.4-10.2) mg/dL AST 77 H (17-59) U/L Alkaline Phosphatase 137 H (38-126) U/L Total Protein 4.6 L (6.3-8.2) g/dL Albumin 2.1 L (3.5-5.0) g/dL Albumin (PEP) 1.70 L (3.80-4.90) g/dL Buwss-8-Inqgirmnb 0.44 H (0.10-0.40) g/dL Fcpba-1-Bcrdzpksf 0.50 L (0.60-1.00) g/dL Microbiology - Last 24 Hours (Table) 11/27/23 11:15 Stool Culture - Final Stool
[2023-12-02 11:54] LABS: Glucose,Whole Blood 109 mg/dL (70-110)
[2023-12-02] MEDS: SODIUM CHLORIDE 0.9% 1,000 ML IV SCH (12:34)
--- NOTE | 2023-12-02 14:12 | P.CNPUL ---
History of Present Illness Consult date: 12/02/23 Chief complaint: Altered mentation History of present illness: This is a 88-year-old male patient who is having multiple medical issues and comorbidities and the patient is currently in a DNR/DNI CODE STATUS. I was asked to to be involved in the patient's care and consider ICU transfer as the patient was supposed to undergo a dialysis catheter insertion for an acute on top of a chronic stage III kidney disease and ongoing encephalopathy. The patient had an MRI of the brain that showed no acute process. Ammonia levels are nonelevated. The patient was hypothermic and the had an infected has a ulcer at time of admission. He was also having episodes of hypoglycemia due to poor oral intake and hepatic dysfunction the patient is currently on bicarb infusion with D5 water. The patient is currently on room air oxygen. Dialysis catheter has been inserted. I made recommendations to keep the patient on the medical floor pending further workup and treatment by medicine. The patient is hemodynamically stable and on room air oxygen with a pulse ox of 93%. Currently normothermic. Most recent BP is 144/76. Moving all 4 extremities. Hard to communicate with as the patient is encephalopathic. Review of Systems ROS unobtainable: due to mental status Past Medical History Past Medical History: Cancer, Diabetes Mellitus, Hypertension, Prostate Disorder Additional Past Medical History / Comment(s): liver cancer History of Any Multi-Drug Resistant Organisms: None Reported Past Surgical History: Adenoidectomy, Tonsillectomy Additional Past Surgical History / Comment(s): Left foot surgery 16 years ago, toes amputated left foot 2023 Past Psychological History: No Psychological Hx Reported Smoking Status: Never smoker Past Alcohol Use History: None Reported Past Drug Use History: None Reported Medications and Allergies Home Medications Medication Instructions Recorded Confirmed Type Dapagliflozin Propanediol [Farxiga] 5 mg PO DAILY 11/26/23 11/26/23 History Felodipine [Plendil] 5 mg PO DAILY 11/26/23 11/26/23 History Latanoprost [Latanoprost 0.005%] 1 drop BOTH EYES HS 11/26/23 11/26/23 History Loperamide [Imodium] 2 - 4 mg PO Q8H PRN 11/26/23 11/26/23 History Mirtazapine [Remeron] 15 mg PO HS 11/26/23 11/26/23 History Mupirocin 2% Oint [Bactroban 2% 1 applic TOPICAL TID 11/26/23 11/26/23 History Oint] Olmesartan [Benicar] 20 mg PO DAILY 11/26/23 11/26/23 History SORAfenib TOSYLATE [Sorafenib] 200 mg PO AC-BID 11/26/23 11/26/23 History Sertraline [Zoloft] 25 mg PO DIRECTED 11/26/23 11/26/23 History Simvastatin [Zocor] 20 mg PO HS 11/26/23 11/26/23 History Spironolactone [Aldactone] 25 mg PO DAILY 11/26/23 11/26/23 History Sulfamethox-Tmp 800-160Mg [Bactrim 1 tab PO DIRECTED 11/26/23 11/26/23 History DS 800-160 mg] Tamsulosin [Flomax] 0.4 mg PO DAILY 11/26/23 11/26/23 History Torsemide [Demadex] 5 mg PO DAILY 11/26/23 11/26/23 History carvediloL [Coreg] 25 mg PO Q12H 11/26/23 11/26/23 History glipiZIDE XL [Glucotrol Xl] 5 mg PO DAILY 11/26/23 11/26/23 History metFORMIN HCL ER [Glucophage XR] 500 mg PO BID 11/26/23 11/26/23 History ondansetron HCL [Zofran] 8 mg PO Q8H PRN 11/26/23 11/26/23 History traMADol HCL 50 mg PO Q8H PRN 11/26/23 11/26/23 History Allergies Allergy/AdvReac Type Severity Reaction Status Date / Time No Known Allergies Allergy Verified 11/26/23 15:39 Physical Exam Vitals: Vital Signs Temp Pulse Pulse Resp BP Pulse Ox 12/02/23 12:00 97.6 F 73 14 144/76 95 12/02/23 11:37 88 18 12/02/23 11:25 84 18 12/02/23 08:00 97.6 F 105 H 16 159/80 93 L 12/02/23 03:57 97.4 F L 83 13 151/72 95 12/01/23 23:39 97.3 F L 86 12 140/75 96 12/01/23 22:26 98 F 84 18 147/85 12/01/23 20:10 98.3 F 89 15 154/48 93 L 12/01/23 18:57 140/72 97 Intake and Output 12/01/23 12/02/23 12/02/23 22:59 06:59 14:59 Intake Total 500 40 20 Output Total 2400 450 400 Balance -1900 -410 -380 Intake: IV 40 20 Invasive Line 1 10 Invasive Line 2 20 10 Invasive Line 4 10 10 Hemodialysis 500 Output: Urine 900 450 400 Hemodialysis 1000 Hemodialysis Net Amount 500 Other: Voiding Method Indwelling Catheter Indwelling Catheter Weight 0 g General: Nontoxic, no distress, appears at stated age, multiple blankets, and the patient is currently on room air oxygen. Encephalopathic. Cannot communicate. Derm: Warm, dry, left heel decubitus ulcers covered in dressing Head: Atraumatic, normocephalic, symmetric Eyes: EOMI, no lid lag, anicteric sclera, pinpoint pupils Mouth: No lip lesion, mucus membranes moist Cardiovascular: S1S2 reg, no murmur Lungs: CTA bilateral, no rhonchi, no rales, no accessory muscle use Abdominal: Soft, nontender to palpation, no guarding, no appreciable organomegaly Ext: No gross muscle atrophy, no edema, no contractures Examination of the skin revealed no evidence of significant rashes, suspicious appearing nevi or other concerning lesions. Neuro: CN II-XI grossly intact, no focal neuro deficits, profound weakness, unab le to follow commands as the patient has altered mentation and encephalopathy. Results - Laboratory Findings CBC and BMP: 12/02/23 08:28 12/02/23 08:28 PT/INR, D-dimer PT 14.1 sec (9.9-11.9) H 11/27/23 04:31 INR 1.33 sec (0.93-1.11) H 11/27/23 04:31 Abnormal lab findings: Abnormal Labs 11/26/23 11/26/23 11/26/23 12:56 12:56 16:56 WBC RBC 3.50 L Hgb 10.4 L Hct 32.9 L MCHC RDW 16.0 H MPV Immature Gran # Neutrophils # Lymphocytes # 0.2 L Monocytes # Eosinophils # PT INR Sodium 124 L 130 L Potassium Chloride 96 L Carbon Dioxide 18 L 18 L Anion Gap BUN 82 H 82 H Creatinine 2.34 H 2.34 H Est GFR (CKD-EPI) BUN/Creatinine Ratio Glucose 101 H POC Glucose (mg/dL) Osmolality 296 H Calcium 7.4 L 6.8 L Ionized Calcium Rhianna Iron TIBC Transferrin Ferritin AST 104 H Alkaline Phosphatase 232 H Total Protein 5.1 L Total Protein (PEP) Albumin 2.3 L Albumin (PEP) Wqmqi-2-Iwporaevp Iswgg-7-Exysdysvl Vitamin B12 Methylmalonic Acid Vitamin D 25-Hydroxy TSH PTH Intact Urine Protein Urine Glucose (UA) Urine Blood Ur Leukocyte Esterase Urine RBC Urine WBC Amorphous Sediment Urine Bacteria Hyaline Casts Urine Mucus Urine Yeast (Budding) Urine Osmolality Ur Random Sodium 11/26/23 11/27/23 11/27/23 22:35 02:30 02:30 WBC RBC Hgb Hct MCHC RDW MPV Immature Gran # Neutrophils # Lymphocytes # Monocytes # Eosinophils # PT INR Sodium 126 L Potassium Chloride 97 L Carbon Dioxide 17 L Anion Gap BUN 82 H Creatinine 2.57 H Est GFR (CKD-EPI) BUN/Creatinine Ratio Glucose 73 L POC Glucose (mg/dL) Osmolality Calcium 6.8 L Ionized Calcium Rhianna Iron TIBC Transferrin Ferritin AST Alkaline Phosphatase Total Protein Total Protein (PEP) Albumin Albumin (PEP) Ngasx-9-Gcbaqxuyt Qstod-2-Ofmaaegqk Vitamin B12 Methylmalonic Acid Vitamin D 25-Hydroxy TSH PTH Intact Urine Protein 2+ H Urine Glucose (UA) 2+ H Urine Blood Small H Ur Leukocyte Esterase Urine RBC 8 H Urine WBC Amorphous Sediment Urine Bacteria Rare H Hyaline Casts 4 H Urine Mucus Rare H Urine Yeast (Budding) Rare H Urine Osmolality 341 L Ur Random Sodium 11/27/23 11/27/23 11/27/23 04:31 04:31 04:31 WBC 4.04 L RBC 3.15 L Hgb 9.1 L Hct 28.5 L MCHC 31.9 L RDW 16.4 H MPV Immature Gran # Neutrophils # Lymphocytes # 0.18 L Monocytes # 0.09 L Eosinophils # 0.01 L PT 14.1 H INR 1.33 H Sodium 134 L Potassium Chloride Carbon Dioxide 16.7 L Anion Gap 15.30 H BUN 77.3 H Creatinine 2.8 H Est GFR (CKD-EPI) 21 L BUN/Creatinine Ratio 27.61 H Glucose 67 L POC Glucose (mg/dL) Osmolality Calcium 6.8 L Ionized Calcium Rhianna Iron TIBC Transferrin Ferritin AST Alkaline Phosphatase Total Protein Total Protein (PEP) Albumin Albumin (PEP) Fofwz-2-Rxdrdnqmf Ekgug-3-Botjbrezm Vitamin B12 Methylmalonic Acid Vitamin D 25-Hydroxy TSH PTH Intact Urine Protein Urine Glucose (UA) Urine Blood Ur Leukocyte Esterase Urine RBC Urine WBC Amorphous Sediment Urine Bacteria Hyaline Casts Urine Mucus Urine Yeast (Budding) Urine Osmolality Ur Random Sodium 11/27/23 11/27/23 11/27/23 07:10 09:44 09:44 WBC RBC Hgb Hct MCHC RDW MPV Immature Gran # Neutrophils # Lymphocytes # Monocytes # Eosinophils # PT INR Sodium 130 L Potassium Chloride Carbon Dioxide 17 L Anion Gap BUN 84 H Creatinine 2.75 H Est GFR (CKD-EPI) BUN/Creatinine Ratio Glucose POC Glucose (mg/dL) 66 L Osmolality Calcium 6.5 L Ionized Calcium Rhianna Iron TIBC Transferrin Ferritin AST Alkaline Phosphatase Total Protein Total Protein (PEP) Albumin Albumin (PEP) Jfuqd-9-Ottlpyqdq Ctxjn-7-Vgvjazvsv Vitamin B12 Methylmalonic Acid Vitamin D 25-Hydroxy TSH 5.900 H PTH Intact Urine Protein Urine Glucose (UA) Urine Blood Ur Leukocyte Esterase Urine RBC Urine WBC Amorphous Sediment Urine Bacteria Hyaline Casts Urine Mucus Urine Yeast (Budding) Urine Osmolality Ur Random Sodium 11/27/23 11/27/23 11/27/23 12:15 12:19 12:30 WBC RBC Hgb Hct MCHC RDW MPV Immature Gran # Neutrophils # Lymphocytes # Monocytes # Eosinophils # PT INR Sodium Potassium Chloride Carbon Dioxide Anion Gap BUN Creatinine Est GFR (CKD-EPI) BUN/Creatinine Ratio Glucose POC Glucose (mg/dL) Osmolality Calcium Ionized Calcium Rhianna Iron 28 L TIBC 181 L Transferrin 129.0 L Ferritin 1067.0 H AST Alkaline Phosphatase Total Protein Total Protein (PEP) Albumin Albumin (PEP) Vnmmy-5-Vbfghfmqt Ihmre-1-Yvjwjdflt Vitamin B12 2457.0 H Methylmalonic Acid 0.56 H Vitamin D 25-Hydroxy TSH PTH Intact Urine Protein Urine Glucose (UA) Urine Blood Ur Leukocyte Esterase Urine RBC Urine WBC Amorphous Sediment Urine Bacteria Hyaline Casts Urine Mucus Urine Yeast (Budding) Urine Osmolality Ur Random Sodium 27 L 11/27/23 11/27/23 11/28/23 12:41 20:12 03:48 WBC RBC Hgb Hct MCHC RDW MPV Immature Gran # Neutrophils # Lymphocytes # Monocytes # Eosinophils # PT INR Sodium 132 L Potassium Chloride Carbon Dioxide 17 L 15.3 L Anion Gap 16.70 H BUN 88 H 83.1 H Creatinine 3.01 H 3.5 H Est GFR (CKD-EPI) 16 L BUN/Creatinine Ratio 23.74 H Glucose 71 L 63 L POC Glucose (mg/dL) 124 H Osmolality Calcium 6.4 L* 6.4 A* Ionized Calcium Rhianna Iron TIBC Transferrin Ferritin AST Alkaline Phosphatase Total Protein Total Protein (PEP) Albumin Albumin (PEP) Vlxjg-7-Ytutbzzcm Sqxju-8-Hhvtxsinq Vitamin B12 Methylmalonic Acid Vitamin D 25-Hydroxy TSH PTH Intact Urine Protein Urine Glucose (UA) Urine Blood Ur Leukocyte Esterase Urine RBC Urine WBC Amorphous Sediment Urine Bacteria Hyaline Casts Urine Mucus Urine Yeast (Budding) Urine Osmolality Ur Random Sodium 11/28/23 11/28/23 11/28/23 07:19 11:54 11:54 WBC RBC Hgb Hct MCHC RDW MPV Immature Gran # Neutrophils # Lymphocytes # Monocytes # Eosinophils # PT INR Sodium Potassium Chloride Carbon Dioxide Anion Gap BUN Creatinine Est GFR (CKD-EPI) BUN/Creatinine Ratio Glucose POC Glucose (mg/dL) 65 L Osmolality Calcium Ionized Calcium Rhianna 3.8 L Iron TIBC Transferrin Ferritin AST Alkaline Phosphatase Total Protein Total Protein (PEP) Albumin Albumin (PEP) Fkcma-5-Cronhzrjn Cjhpb-1-Loagptanf Vitamin B12 Methylmalonic Acid Vitamin D 25-Hydroxy 29.4 L TSH PTH Intact 150.0 H Urine Protein Urine Glucose (UA) Urine Blood Ur Leukocyte Esterase Urine RBC Urine WBC Amorphous Sediment Urine Bacteria Hyaline Casts Urine Mucus Urine Yeast (Budding) Urine Osmolality Ur Random Sodium 11/28/23 11/28/23 11/28/23 12:09 17:09 20:09 WBC RBC Hgb Hct MCHC RDW MPV Immature Gran # Neutrophils # Lymphocytes # Monocytes # Eosinophils # PT INR Sodium Potassium Chloride Carbon Dioxide Anion Gap BUN Creatinine Est GFR (CKD-EPI) BUN/Creatinine Ratio Glucose POC Glucose (mg/dL) 111 H 152 H 155 H Osmolality Calcium Ionized Calcium Rhianna Iron TIBC Transferrin Ferritin AST Alkaline Phosphatase Total Protein Total Protein (PEP) Albumin Albumin (PEP) Rkqgz-0-Iqofhslmq Qhham-2-Ssbdouaiw Vitamin B12 Methylmalonic Acid Vitamin D 25-Hydroxy TSH PTH Intact Urine Protein Urine Glucose (UA) Urine Blood Ur Leukocyte Esterase Urine RBC Urine WBC Amorphous Sediment Urine Bacteria Hyaline Casts Urine Mucus Urine Yeast (Budding) Urine Osmolality Ur Random Sodium 11/29/23 11/29/23 11/29/23 05:37 05:37 05:37 WBC RBC 2.89 L Hgb 8.4 L Hct 26.6 L MCHC 31.6 L RDW 16.6 H MPV 12.6 H Immature Gran # 0.05 H Neutrophils # Lymphocytes # 0.80 L Monocytes # Eosinophils # PT INR Sodium 135 L Potassium Chloride 109 H Carbon Dioxide 18 L Anion Gap BUN 91 H Creatinine 3.59 H 3.59 H Est GFR (CKD-EPI) BUN/Creatinine Ratio Glucose POC Glucose (mg/dL) Osmolality Calcium 6.3 L* Ionized Calcium Rhianna Iron TIBC Transferrin Ferritin AST 123 H Alkaline Phosphatase 185 H Total Protein 4.0 L Total Protein (PEP) Albumin 1.6 L Albumin (PEP) Qdgxv-6-Knzmjyxoy Zpvqd-4-Utpxfskvh Vitamin B12 Methylmalonic Acid Vitamin D 25-Hydroxy TSH PTH Intact Urine Protein Urine Glucose (UA) Urine Blood Ur Leukocyte Esterase Urine RBC Urine WBC Amorphous Sediment Urine Bacteria Hyaline Casts Urine Mucus Urine Yeast (Budding) Urine Osmolality Ur Random Sodium 11/29/23 11/29/23 11/29/23 12:25 17:07 20:20 WBC RBC Hgb Hct MCHC RDW MPV Immature Gran # Neutrophils # Lymphocytes # Monocytes # Eosinophils # PT INR Sodium Potassium Chloride Carbon Dioxide Anion Gap BUN Creatinine Est GFR (CKD-EPI) BUN/Creatinine Ratio Glucose POC Glucose (mg/dL) 152 H 162 H 255 H Osmolality Calcium Ionized Calcium Rhianna Iron TIBC Transferrin Ferritin AST Alkaline Phosphatase Total Protein Total Protein (PEP) Albumin Albumin (PEP) Ciwne-2-Rjuqbzdnh Gedva-3-Ltqdiocyn Vitamin B12 Methylmalonic Acid Vitamin D 25-Hydroxy TSH PTH Intact Urine Protein Urine Glucose (UA) Urine Blood Ur Leukocyte Esterase Urine RBC Urine WBC Amorphous Sediment Urine Bacteria Hyaline Casts Urine Mucus Urine Yeast (Budding) Urine Osmolality Ur Random Sodium 11/30/23 11/30/23 11/30/23 04:55 04:55 16:13 WBC 10.25 H RBC 3.10 L 3.01 L Hgb 9.1 L 8.7 L D Hct 28.2 L 28.2 L MCHC 30.9 L RDW 17.0 H 16.2 H MPV 12.3 H Immature Gran # 0.05 H Neutrophils # 8.80 H Lymphocytes # 0.88 L 0.6 L Monocytes # Eosinophils # PT INR Sodium 136 L Potassium Chloride 114 H Carbon Dioxide 16 L Anion Gap BUN 91 H Creatinine 3.75 H Est GFR (CKD-EPI) BUN/Creatinine Ratio Glucose 70 L POC Glucose (mg/dL) Osmolality Calcium 6.8 L Ionized Calcium Rhianna Iron TIBC Transferrin Ferritin AST 103 H Alkaline Phosphatase 211 H Total Protein 4.3 L Total Protein (PEP) Albumin 1.7 L Albumin (PEP) Vihix-0-Vlypdmrbr Wxupb-3-Pwawlgthj Vitamin B12 Methylmalonic Acid Vitamin D 25-Hydroxy TSH PTH Intact Urine Protein Urine Glucose (UA) Urine Blood Ur Leukocyte Esterase Urine RBC Urine WBC Amorphous Sediment Urine Bacteria Hyaline Casts Urine Mucus Urine Yeast (Budding) Urine Osmolality Ur Random Sodium 11/30/23 11/30/23 11/30/23 20:27 20:55 22:14 WBC RBC Hgb Hct MCHC RDW MPV Immature Gran # Neutrophils # Lymphocytes # Monocytes # Eosinophils # PT INR Sodium Potassium Chloride Carbon Dioxide Anion Gap BUN Creatinine Est GFR (CKD-EPI) BUN/Creatinine Ratio Glucose POC Glucose (mg/dL) 68 L Osmolality Calcium Ionized Calcium Rhianna Iron TIBC Transferrin Ferritin AST Alkaline Phosphatase Total Protein Total Protein (PEP) 4.2 L Albumin Albumin (PEP) 1.70 L Zzpsj-4-Tjcywqrzl 0.44 H Zwfzs-1-Qgvjbvaaj 0.50 L Vitamin B12 Methylmalonic Acid Vitamin D 25-Hydroxy TSH PTH Intact Urine Protein 1+ H Urine Glucose (UA) Urine Blood Moderate H Ur Leukocyte Esterase Small H Urine RBC 37 H Urine WBC 22 H Amorphous Sediment Occasional H Urine Bacteria Occasional H Hyaline Casts Urine Mucus Rare H Urine Yeast (Budding) Urine Osmolality Ur Random Sodium 12/01/23 12/01/23 12/01/23 03:58 03:58 08:01 WBC RBC 2.85 L Hgb 8.3 L Hct 26.7 L MCHC 31.1 L RDW 17.2 H MPV 12.6 H Immature Gran # 0.05 H Neutrophils # Lymphocytes # 0.75 L Monocytes # Eosinophils # PT INR Sodium Potassium 3.4 L Chloride 115 H Carbon Dioxide 15 L Anion Gap BUN 92 H Creatinine 3.67 H Est GFR (CKD-EPI) BUN/Creatinine Ratio Glucose 58 L POC Glucose (mg/dL) 67 L Osmolality Calcium 6.7 L Ionized Calcium Rhianna Iron TIBC Transferrin Ferritin AST 91 H Alkaline Phosphatase 168 H Total Protein 4.3 L Total Protein (PEP) Albumin 1.9 L Albumin (PEP) Qbdwd-9-Rtssfdjbp Bnser-4-Yngzllbvz Vitamin B12 Methylmalonic Acid Vitamin D 25-Hydroxy TSH PTH Intact Urine Protein Urine Glucose (UA) Urine Blood Ur Leukocyte Esterase Urine RBC Urine WBC Amorphous Sediment Urine Bacteria Hyaline Casts Urine Mucus Urine Yeast (Budding) Urine Osmolality Ur Random Sodium 12/01/23 12/02/23 12/02/23 08:25 08:28 08:28 WBC RBC 2.99 L Hgb 8.8 L Hct 27.6 L MCHC RDW 16.3 H MPV Immature Gran # Neutrophils # Lymphocytes # 0.9 L Monocytes # Eosinophils # PT INR Sodium Potassium 3.1 L Chloride 109 H Carbon Dioxide Anion Gap BUN 74 H Creatinine 2.73 H Est GFR (CKD-EPI) BUN/Creatinine Ratio Glucose POC Glucose (mg/dL) 142 H Osmolality Calcium 6.7 L Ionized Calcium Rhianna Iron TIBC Transferrin Ferritin AST 77 H Alkaline Phosphatase 137 H Total Protein 4.6 L Total Protein (PEP) Albumin 2.1 L Albumin (PEP) Ybukp-4-Iwtorltxd Vkxau-7-Nxtgxjahb Vitamin B12 Methylmalonic Acid Vitamin D 25-Hydroxy TSH PTH Intact Urine Protein Urine Glucose (UA) Urine Blood Ur Leukocyte Esterase Urine RBC Urine WBC Amorphous Sediment Urine Bacteria Hyaline Casts Urine Mucus Urine Yeast (Budding) Urine Osmolality Ur Random Sodium Assessment and Plan Plan: Encephalopathy with altered mentation, multifactorial. MRI of the brain has been negative. Ammonia level is not elevated. Acute on chronic kidney stage III disease. The patient has a dialysis catheter inserted and the patient was started on hemodialysis. Dialysis catheter inserted in the femoral vein. The patient is also on a bicarb infusion Non-anion gap metabolic acidosis, currently on bicarb infusion Hepatocellular carcinoma currently on immunotherapy, followed up by oncology on outpatient basis BPH Depression Hyperlipidemia Diabetes mellitus type 2 Episodes of hypoglycemia due to poor oral intake and hepatic dysfunction Anemia of chronic disease Plan DNR/DNI CODE STATUS. Hemodynamically stable. No issues with oxygenation. No respiratory failure and chest x-ray from 11/29/2023 shows no evidence of any aspiration or acute abnormalities. Hemodialysis catheter has been inserted. I opted to keep the patient on medical floor, and there is no need for ICU transfer at this point in time. Prognosis remains poor based on age and comorbidities. Rest of the treatment as per the medical group.
--- NOTE | 2023-12-02 16:12 | XR ---
EXAMINATION TYPE: XR chest 1V portable DATE OF EXAM: 12/02/2023 3:57 PM CLINICAL INDICATION: Male, 88 years old with history of sob; [facility] COMPARISON: Chest radiographs from 11/29/2023 TECHNIQUE: XR chest 1V portable Frontal view of the chest. FINDINGS: Lungs/Pleura: Layering right pleural effusion suggested. Left perihilar haziness possibly related to poor mass or congestion There is no evidence of pleural effusion, focal consolidation, or pneumothora x. Pulmonary vascularity: Pulmonary vascular congestion. Heart/mediastinum: Cardiomediastinal silhouette is unremarkable. Musculoskeletal: No acute osseous pathology. Other findings: None Lines/Tubes: Gnogyf-v-Ylwk projecting over the right hemithorax with distal tip projecting over the superior vena cava. IMPRESSION: Right pleural effusion with pulmonary vascular congestion suggested. [facility], , 12/02/2023 4:10 PM
[2023-12-02 16:29] LABS: Glucose,Whole Blood 85 mg/dL (70-110)
[2023-12-02 16:34] LABS: VBG PH 7.48 (7.31-7.41)
[2023-12-02 18:56] LABS: Hepatitis B Surface AB- Quant 3.5 mIU/mL
[2023-12-02 20:44] LABS: Glucose,Whole Blood 154 mg/dL (70-110)
[2023-12-02] MEDS: VANCOMYCIN 1,250 MG in SODIUM CHLORIDE 0.9% 250 ML IVPB ONE (21:53)
[2023-12-03 02:09] LABS: Glucose,Whole Blood 92 mg/dL (70-110)
[2023-12-03 06:14] LABS: Glucose,Whole Blood 90 mg/dL (70-110)
[2023-12-03 07:35] LABS: Anisocytosis Slight; Basophils % (A) 0 %; Eosinophils # (A) 0.1 k/uL (0-0.7); Eosinophils % (A) 1 %; HCT 30.4 % (39.0-53.0); Hypochromasia Marked; Lymphocytes # (A) 0.8 k/uL (1.0-4.8); Lymphocytes % (A) 9 %; MCH 28.3 pg (25.0-35.0); MCHC 29.7 g/dL (31.0-37.0); MCV 95.3 fL (80.0-100.0); Mean Platelet Volume 10.1; Monocytes # (A) 0.5 k/uL (0-1.0); Monocytes % (A) 6 %; Neutrophils # (A) 7.4 k/uL (1.3-7.7); Neutrophils % (A) 82 %; Platelet Count 172 k/uL (150-450); RBC 3.19 m/uL (4.30-5.90); RDW 16.4 % (11.5-15.5)
[2023-12-03 07:55] LABS: Chloride 110 mmol/L (98-107); Glucose 52 mg/dL (74-99); Potassium 3.6 mmol/L (3.5-5.1); Sodium 139 mmol/L (137-145)
[2023-12-03 07:56] LABS: African American GFR (CKD) 30 (>60 ml/min/1.73 sqM); Anion Gap 7 mmol/L; Blood Urea Nitrogen 55 mg/dL (9-20); Calcium 7.5 mg/dL (8.4-10.2); Carbon Dioxide 22 mmol/L (22-30); Magnesium 1.7 mg/dL (1.6-2.3); Non-African American GFR(CKD) 26 (>60 ml/min/1.73 sqM)
--- NOTE | 2023-12-03 10:40 | P.PN ---
Subjective Patient seen at bedside. Patient remains confused. Started on hemodialysis December 01, 2023. Has undergone 2 treatments of hemodialysis. No improvement in mentation. Urine output about 500 cc in the last 24 hours. Vital signs are stable. General: Resting in bed. HEENT: Head exam is unremarkable. LUNGS: Scattered rhonchi. HEART: Rate and Rhythm are regular. ABDOMEN: No distention. EXTREMITITES: No edema. Objective - Vital Signs Vital signs: Vital Signs Temp 97.5 F L 12/03/23 08:00 Pulse 81 12/03/23 08:00 Resp 14 12/03/23 08:00 BP 171/76 12/03/23 08:00 Pulse Ox 98 12/03/23 08:00 FiO2 Intake & Output 12/02/23 12/03/23 12/03/23 18:59 06:59 18:59 Intake Total 40 940 20 Output Total 450 950 Balance -410 -10 20 Weight 102 kg Intake: IV 40 40 20 Invasive Line 2 20 20 10 Invasive Line 4 20 20 10 Hemodialysis 900 Output: Urine 450 50 Hemodialysis 400 Hemodialysis Net Amount 500 Other: Voiding Method Indwelling Catheter Indwelling Catheter Indwelling Catheter - Labs CBC & Chem 7: 12/03/23 06:53 12/03/23 06:53 Labs: Abnormal Lab Results - Last 24 Hours (Table) 12/02/23 12/02/23 12/03/23 Range/Units 16:15 20:42 06:53 RBC (4.30-5.90) m/uL Hgb (13.0-17.5) gm/dL Hct (39.0-53.0) % MCHC (31.0-37.0) g/dL RDW (11.5-15.5) % Lymphocytes # (1.0-4.8) k/uL VBG pH 7.48 H (7.31-7.41) VBG pCO2 34 L (37-51) mmHg Chloride 110 H (98-107) mmol/L BUN 55 H (9-20) mg/dL Creatinine 2.21 H (0.66-1.25) mg/dL Glucose 52 L (74-99) mg/dL POC Glucose (mg/dL) 154 H (70-110) mg/dL Calcium 7.5 L (8.4-10.2) mg/dL 12/03/23 Range/Units 06:53 RBC 3.19 L (4.30-5.90) m/uL Hgb 9.0 L (13.0-17.5) gm/dL Hct 30.4 L (39.0-53.0) % MCHC 29.7 L (31.0-37.0) g/dL RDW 16.4 H (11.5-15.5) % Lymphocytes # 0.8 L (1.0-4.8) k/uL VBG pH (7.31-7.41) VBG pCO2 (37-51) mmHg Chloride (98-107) mmol/L BUN (9-20) mg/dL Creatinine (0.66-1.25) mg/dL Glucose (74-99) mg/dL POC Glucose (mg/dL) (70-110) mg/dL Calcium (8.4-10.2) mg/dL Microbiology - Last 24 Hours (Table) 11/27/23 20:15 Blood Culture - Final Blood Assessment and Plan Assessment: 1. Acute kidney injury secondary to ATN secondary to hypovolemia and hypotension/?sepsis further worsened with the use of losartan, torsemide Aldactone. Was also on Farxiga. Concern for sepsis as patient was hypothermic this admission. Creatinine 3.67 dated December 01, 2023. Started on hemodialysis December 01, 2023 due to concern for uremia. 2. Chronic kidney disease stage IIIa with baseline creatinine near 1.4 secondary to diabetic kidney disease and nephrosclerosis. No hydronephrosis noted on kidney ultrasound. 3. Liver cancer maintained on sorafenib outpatient. No ascites noted on abdominal ultrasound. 4. Diabetes mellitus. 5. History of BPH on Flomax. 6. Hypertension with chronic kidney disease. Stable. 7. Hypovolemic hyponatremia improved with IV fluids. 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 Improved. TSH slightly high at 5.9 and free T4 normal. 8. Metabolic acidosis secondary to acute kidney injury and IV fluids. Status post bicarb drip. 9. Hypocalcemia secondary to acute kidney injury and bicarb. PTH high at 150, vitamin D slightly low at 29.4, and ionized calcium low at 3.8. This picture could represent malabsorption contributing to the hypocalcemia due to low vitamin D. Replaced. Improved. 10. Anemia. Iron deficiency noted. Hold off on IV iron due to concern for acute infection. Plan: Maintain normal saline. Can change to D5.9 saline if patient remains hypoglycemic. Discussed with RN. Replace potassium. Status post IV albumin and IV Lasix given this admission. Encouraged oral intake. Avoid nephrotoxins. Prognosis guarded. Plan for hemodialysis tomorrow. Monitor vancomycin levels. Dose to be adjusted for renal function.
--- NOTE | 2023-12-03 11:05 | P.PN ---
Subjective Progress Note Date: 12/03/23 Hospital Course: 88-year-old male with history of liver cancer on immunotherapy, type 2 diabetes, hypertension, BPH presenting with loss of appetite, nausea, vomiting. He is also encephalopathic. Patient recently started on immunotherapy 2 weeks ago. In the emergency room, patient was afebrile, 101/59, heart rate 75, 99% on room air. CBC shows anemia to 10.4. Basic metabolic panel shows hyponatremia to 124, chloride of 96, CO2 of 18, BUN of 82, creatinine of 2.34. Liver function test show AST of 104, ALT of 43, alkaline phosphatase of 232, albumin of 2.3, total protein of 5.1. Amylase is 70, lipase is 38. Chest x-ray shows Mediport, otherwise clear parenchyma bilaterally, poor inspiratory effort. Patient was provided bolus of IV fluids and was admitted to medicine as an inpatient. Renal function continued to worsen. Sodium improved. Nephrology was consulted. Patient also hypothermic, concern for sepsis, unclear source. Patient started on broad-spectrum IV antibiotics. Oncology also consulted. Patient is encephalopathic, likely delirium. Renal function still not improved. Patient now on hemodialysis. Continues to have poor mentation. Prognosis very guarded. Had goals of care discussion with son, consider comfort care if no further improvement in mentation. Subjective: Patient seen and examined at bedside. No acute overnight events. Pertinent positives and negatives as discussed above, a complete review of systems was performed and all other systems are negative. Vitals Signs Reviewed. General: Nontoxic, no distress, appears at stated age Derm: Warm, dry, left heel decubitus ulcers covered in dressing Head: Atraumatic, normocephalic, symmetric Eyes: EOMI, no lid lag, anicteric sclera, pinpoint pupils Mouth: No lip lesion, mucus membranes moist Cardiovascular: S1S2 reg, no murmur Lungs: Bilateral rhonchi, no accessory muscle use Abdominal: Soft, nontender to palpation, no guarding, no appreciable organomegaly Ext: No gross muscle atrophy, no edema, no contractures Neuro: CN II-XI grossly intact, no focal neuro deficits Psych: Awake, not oriented Data Reviewed Today: Pertinent Labs: WBC 9, hemoglobin 9, platelet 172, bicarb 22, creatinine 2.21, blood sugars range between 52-1 54, magnesium 1.7 Imaging: No new imaging Assessment and Plan: Patient is severely ill, needs close monitoring. Prognosis guarded. Active: Acute kidney injury on CKD stage III Hypocalcemia, resolved Hyponatremia, resolved Hypokalemia, resolved Metabolic acidosis, resolved -Nephrology note reviewed, further hemodialysis tomorrow, continue D5 normal saline at 75 cc an hour -Continue to monitor renal function, Jenkins catheter in place, monitor intake and output -Patient also on sodium bicarb 650 p.o. twice daily Acute encephalopathy, likely metabolic Delirium -Recent brain MRI did not show any acute process -Ammonia negative -Patient not able to eat or drink at the moment -TSH, B12, folic acid levels were within normal limits. Discontinued tramadol, cefepime, morphine -Pain control with IV Dilaudid 0.5 every 4 hours EEG ordered Hypothermia Infected heel ulcer, present on admission -Possible systemic infection, no obvious source other than possible heel ulcer -Discontinued cefepime due to concern for encephalopathy and neurotoxicity, c ontinue IV vancomycin pharmacy to dose, monitor renal function -Cultures negative growth to date -Wound care following Hepatocellular carcinoma on immunotherapy Anemia, stable -Oncology note reviewed, immunotherapy currently on hold, follow-up outpatient with oncology -No active bleeding, workup pending for anemia Depression -Continue sertraline 25 daily, mirtazapine 15 nightly BPH -Continue tamsulosin 0.4 daily Dyslipidemia -Continue atorvastatin 10 nightly Type 2 diabetes -Sliding scale insulin, monitor for hypoglycemia Hypoglycemia -Due to poor oral intake, renal and hepatic dysfunction -Patient currently on D5 normal saline 75 cc/h -Continue to monitor blood sugars every 6 hours -If oral intake continues to remain poor due to encephalopathy, may need to consider feeding tube DVT ppx: SCDs Code status: No code Anticipated discharge place: Pending clinical course Anticipated discharge time: Pending clinical course Objective - Vital Signs Vital signs: Vital Signs Temp 97.5 F L 12/03/23 08:00 Pulse 81 12/03/23 08:00 Resp 14 12/03/23 08:00 BP 171/76 12/03/23 08:00 Pulse Ox 98 12/03/23 08:00 FiO2 Intake & Output 12/02/23 12/03/23 12/03/23 18:59 06:59 18:59 Intake Total 40 940 20 Output Total 450 950 Balance -410 -10 20 Weight 102 kg Intake: IV 40 40 20 Invasive Line 2 20 20 10 Invasive Line 4 20 20 10 Hemodialysis 900 Output: Urine 450 50 Hemodialysis 400 Hemodialysis Net Amount 500 Other: Voiding Method Indwelling Catheter Indwelling Catheter Indwelling Catheter - Labs CBC & Chem 7: 12/03/23 06:53 12/03/23 06:53 Labs: Abnormal Lab Results - Last 24 Hours (Table) 12/02/23 12/02/23 12/03/23 Range/Units 16:15 20:42 06:53 RBC (4.30-5.90) m/uL Hgb (13.0-17.5) gm/dL Hct (39.0-53.0) % MCHC (31.0-37.0) g/dL RDW (11.5-15.5) % Lymphocytes # (1.0-4.8) k/uL VBG pH 7.48 H (7.31-7.41) VBG pCO2 34 L (37-51) mmHg Chloride 110 H (98-107) mmol/L BUN 55 H (9-20) mg/dL Creatinine 2.21 H (0.66-1.25) mg/dL Glucose 52 L (74-99) mg/dL POC Glucose (mg/dL) 154 H (70-110) mg/dL Calcium 7.5 L (8.4-10.2) mg/dL 12/03/23 Range/Units 06:53 RBC 3.19 L (4.30-5.90) m/uL Hgb 9.0 L (13.0-17.5) gm/dL Hct 30.4 L (39.0-53.0) % MCHC 29.7 L (31.0-37.0) g/dL RDW 16.4 H (11.5-15.5) % Lymphocytes # 0.8 L (1.0-4.8) k/uL VBG pH (7.31-7.41) VBG pCO2 (37-51) mmHg Chloride (98-107) mmol/L BUN (9-20) mg/dL Creatinine (0.66-1.25) mg/dL Glucose (74-99) mg/dL POC Glucose (mg/dL) (70-110) mg/dL Calcium (8.4-10.2) mg/dL Microbiology - Last 24 Hours (Table) 11/27/23 20:15 Blood Culture - Final Blood
[2023-12-03 11:17] LABS: Glucose,Whole Blood 70 mg/dL (70-110)
[2023-12-03] MEDS: DEXTROSE 5%-0.9% NACL 1,000 ML IV SCH (11:42)
--- NOTE | 2023-12-03 13:34 | P.PN ---
Subjective Progress Note Date: 12/03/23 This is a 88-year-old male patient who is having multiple medical issues and comorbidities and the patient is currently in a DNR/DNI CODE STATUS. I was asked to to be involved in the patient's care and consider ICU transfer as the patient was supposed to undergo a dialysis catheter insertion for an acute on top of a chronic stage III kidney disease and ongoing encephalopathy. The patient had an MRI of the brain that showed no acute process. Ammonia levels are nonelevated. The patient was hypothermic and the had an infected has a ulcer at time of admission. He was also having episodes of hypoglycemia due to poor oral intake and hepatic dysfunction the patient is currently on bicarb infusion with D5 water. The patient is currently on room air oxygen. Dialysis catheter has been inserted. I made recommendations to keep the patient on the medical floor pending further workup and treatment by medicine. The patient is hemodynamically stable and on room air oxygen with a pulse ox of 93%. Currently normothermic. Most recent BP is 144/76. Moving all 4 extremities. Hard to communicate with as the patient is encephalopathic. 12/03/2023, no change in this patient's condition, the patient remains profoundly lethargic and confused. He has undergone 2 sessions of hemodialysis without any improvement. Urine output is in order of 500 cc over the past 24 hours. No signs of any significant respiratory difficulties. The patient on broad- spectrum antibiotics with oncology on the case with nephrology on the case. He remains quite encephalopathic and delirious. The patient is on room air oxygen with a pulse ox of 97%. The white cell count of 9 with a hemoglobin 9 and a platelet count of 172. BUN is 55 lactate and of 2.2 and a potassium level is at 3.6. Objective - Vital Signs Vital signs: Vital Signs Temp 97.5 F L 12/03/23 08:00 Pulse 81 12/03/23 08:00 Resp 14 12/03/23 08:00 BP 171/76 12/03/23 08:00 Pulse Ox 98 12/03/23 08:00 FiO2 Intake & Output 12/02/23 12/03/23 12/03/23 18:59 06:59 18:59 Intake Total 40 940 20 Output Total 450 950 Balance -410 -10 20 Weight 102 kg Intake: IV 40 40 20 Invasive Line 2 20 20 10 Invasive Line 4 20 20 10 Hemodialysis 900 Output: Urine 450 50 Hemodialysis 400 Hemodialysis Net Amount 500 Other: Voiding Method Indwelling Catheter Indwelling Catheter Indwelling Catheter - Exam General: Nontoxic, no distress, appears at stated age, multiple blankets, and the patient is currently on room air oxygen. Encephalopathic. Cannot com municate. Derm: Warm, dry, left heel decubitus ulcers covered in dressing Head: Atraumatic, normocephalic, symmetric Eyes: EOMI, no lid lag, anicteric sclera, pinpoint pupils Mouth: No lip lesion, mucus membranes moist Cardiovascular: S1S2 reg, no murmur Lungs: CTA bilateral, no rhonchi, no rales, no accessory muscle use Abdominal: Soft, nontender to palpation, no guarding, no appreciable organome lamont Ext: No gross muscle atrophy, no edema, no contractures Examination of the skin revealed no evidence of significant rashes, suspicious appearing nevi or other concerning lesions. Neuro: CN II-XI grossly intact, no focal neuro deficits, profound weakness, unable to follow commands as the patient has altered mentation and encephalopathy. - Labs CBC & Chem 7: 12/03/23 06:53 12/03/23 06:53 Labs: Abnormal Lab Results - Last 24 Hours (Table) 12/02/23 12/02/23 12/03/23 Range/Units 16:15 20:42 06:53 RBC (4.30-5.90) m/uL Hgb (13.0-17.5) gm/dL Hct (39.0-53.0) % MCHC (31.0-37.0) g/dL RDW (11.5-15.5) % Lymphocytes # (1.0-4.8) k/uL VBG pH 7.48 H (7.31-7.41) VBG pCO2 34 L (37-51) mmHg Chloride 110 H (98-107) mmol/L BUN 55 H (9-20) mg/dL Creatinine 2.21 H (0.66-1.25) mg/dL Glucose 52 L (74-99) mg/dL POC Glucose (mg/dL) 154 H (70-110) mg/dL Calcium 7.5 L (8.4-10.2) mg/dL 12/03/23 Range/Units 06:53 RBC 3.19 L (4.30-5.90) m/uL Hgb 9.0 L (13.0-17.5) gm/dL Hct 30.4 L (39.0-53.0) % MCHC 29.7 L (31.0-37.0) g/dL RDW 16.4 H (11.5-15.5) % Lymphocytes # 0.8 L (1.0-4.8) k/uL VBG pH (7.31-7.41) VBG pCO2 (37-51) mmHg Chloride (98-107) mmol/L BUN (9-20) mg/dL Creatinine (0.66-1.25) mg/dL Glucose (74-99) mg/dL POC Glucose (mg/dL) (70-110) mg/dL Calcium (8.4-10.2) mg/dL Microbiology - Last 24 Hours (Table) 11/27/23 20:15 Blood Culture - Final Blood Assessment and Plan Plan: Encephalopathy with altered mentation, multifactorial. MRI of the brain has been negative. Ammonia level is not elevated. Acute on chronic kidney stage III disease. The patient has a dialysis catheter inserted and the patient was started on hemodialysis. Dialysis catheter inserted in the femoral vein. The patient is also on a bicarb infusion Non-anion gap metabolic acidosis, currently on bicarb infusion Hepatocellular carcinoma currently on immunotherapy, followed up by oncology on outpatient basis BPH Depression Hyperlipidemia Diabetes mellitus type 2 Episodes of hypoglycemia due to poor oral intake and hepatic dysfunction Anemia of chronic disease Plan Clinically unchanged DNR/DNI CODE STATUS. Hemodynamically stable. No issues with oxygenation. No respiratory failure and chest x-ray from 11/29/2023 shows no evidence of any aspiration or acute abnormalities. Patient has undergone already 2 sessions of hemodialysis without any significant improvement in his encephalopathy. I opted to keep the patient on medical floor, and there is no need for ICU tra nsfer at this point in time. Prognosis remains poor based on age and comorbidities. Pulmonary critical care services will sign off the case and will leave the rest of the management up to the medical group. He also has nephrology and oncology on the case.
[2023-12-03 13:59] LABS: Glucose,Whole Blood 82 mg/dL (70-110)
[2023-12-03 16:30] LABS: Glucose,Whole Blood 82 mg/dL (70-110)
[2023-12-03] MEDS: MAGNESIUM SULFATE-D5W PMX 1 GM in DEXTROSE/WATER 1 100ML.BAG IVPB ONE (16:55)
[2023-12-03 20:00] LABS: Glucose,Whole Blood 95 mg/dL (70-110)
[2023-12-04 02:06] LABS: Glucose,Whole Blood 113 mg/dL (70-110)
[2023-12-04 06:06] LABS: Glucose,Whole Blood 129 mg/dL (70-110)
[2023-12-04 07:28] LABS: ALT 32 U/L (4-49); African American GFR (CKD) 31 (>60 ml/min/1.73 sqM); Anion Gap 6 mmol/L; Blood Urea Nitrogen 55 mg/dL (9-20); Calcium 7.4 mg/dL (8.4-10.2); Carbon Dioxide 20 mmol/L (22-30); Chloride 115 mmol/L (98-107); Glucose 113 mg/dL (74-99); Non-African American GFR(CKD) 27 (>60 ml/min/1.73 sqM); Sodium 141 mmol/L (137-145); Total Bilirubin 1.1 mg/dL (0.2-1.3); Total Protein 4.6 g/dL (6.3-8.2)
[2023-12-04 07:29] LABS: AST 62 U/L (17-59); Alkaline Phosphatase 160 U/L (38-126); Magnesium 1.9 mg/dL (1.6-2.3)
[2023-12-04 07:30] LABS: Anisocytosis Slight; Basophils % (A) 0 %; Eosinophils # (A) 0.1 k/uL (0-0.7); Eosinophils % (A) 1 %; HCT 29.4 % (39.0-53.0); HGB 9.4 gm/dL (13.0-17.5); Hypochromasia Moderate; Lymphocytes % (A) 9 %; MCH 29.3 pg (25.0-35.0); MCHC 31.8 g/dL (31.0-37.0); MCV 92.1 fL (80.0-100.0); Mean Platelet Volume 11.1; Monocytes # (A) 0.5 k/uL (0-1.0); Monocytes % (A) 5 %; Neutrophils % (A) 84 %; Platelet Count 200 k/uL (150-450); RBC 3.19 m/uL (4.30-5.90); RDW 16.4 % (11.5-15.5); WBC 10.8 k/uL (3.8-10.6)
[2023-12-04 07:33] LABS: Vancomycin,Random 22.4 ug/mL
[2023-12-04 11:30] LABS: Glucose,Whole Blood 135 mg/dL (70-110)
--- NOTE | 2023-12-04 12:11 | P.PN ---
Subjective Patient is seen for follow-up for acute kidney injury. started on hemodialysis on 12/01/2023Scheduled for hemodialysis today. No significant complaints today. urine output at 1.3 L for 24 hours Objective - Vital Signs Vital signs: Vital Signs Temp 97.1 F L 12/04/23 08:00 Pulse 88 12/04/23 08:00 Resp 18 12/04/23 08:00 BP 172/88 12/04/23 08:00 Pulse Ox 97 12/04/23 08:00 FiO2 Intake & Output 12/03/23 12/04/23 12/04/23 18:59 06:59 18:59 Intake Total 20 Output Total 900 425 Balance -880 -425 Weight 101.3 kg Intake: IV 20 Invasive Line 2 10 Invasive Line 4 10 Output: Urine 900 425 Other: Voiding Method Indwelling Catheter Indwelling Catheter Indwelling Catheter - Exam patient is awake, comfortable, no acute distress. Examination of the heart S1 and S2 Examination of the lungs decreased breath sounds at the bases Abdomen is soft nontender Examination of lower extremity shows edema 1+ bilaterally - Labs CBC & Chem 7: 12/04/23 06:56 12/04/23 06:54 Labs: Abnormal Lab Results - Last 24 Hours (Table) 12/04/23 12/04/23 12/04/23 Range/Units 02:04 06:04 06:54 WBC (3.8-10.6) k/uL RBC (4.30-5.90) m/uL Hgb (13.0-17.5) gm/dL Hct (39.0-53.0) % RDW (11.5-15.5) % Neutrophils # (1.3-7.7) k/uL Chloride 115 H (98-107) mmol/L Carbon Dioxide 20 L (22-30) mmol/L BUN 55 H (9-20) mg/dL Creatinine 2.14 H (0.66-1.25) mg/dL Glucose 113 H (74-99) mg/dL POC Glucose (mg/dL) 113 H 129 H (70-110) mg/dL Calcium 7.4 L (8.4-10.2) mg/dL AST 62 H (17-59) U/L Alkaline Phosphatase 160 H (38-126) U/L Total Protein 4.6 L (6.3-8.2) g/dL Albumin 2.0 L (3.5-5.0) g/dL 12/04/23 12/04/23 Range/Units 06:56 11:28 WBC 10.8 H (3.8-10.6) k/uL RBC 3.19 L (4.30-5.90) m/uL Hgb 9.4 L (13.0-17.5) gm/dL Hct 29.4 L (39.0-53.0) % RDW 16.4 H (11.5-15.5) % Neutrophils # 9.0 H (1.3-7.7) k/uL Chloride (98-107) mmol/L Carbon Dioxide (22-30) mmol/L BUN (9-20) mg/dL Creatinine (0.66-1.25) mg/dL Glucose (74-99) mg/dL POC Glucose (mg/dL) 135 H (70-110) mg/dL Calcium (8.4-10.2) mg/dL AST (17-59) U/L Alkaline Phosphatase (38-126) U/L Total Protein (6.3-8.2) g/dL Albumin (3.5-5.0) g/dL Assessment and Plan Assessment: 1. Acute kidney injury secondary to ATN secondary to hypotension/?sepsis further worsened with the use of losartan, torsemide Aldactone. Was also on Farxiga. Concern for sepsis as patient was hypothermic this admission. Creatinine 3.67 dated December 01, 2023. Started on hemodialysis December 01, 2023 due to concern for uremia. 2. Chronic kidney disease stage IIIa with baseline creatinine near 1.4 seconda ry to diabetic kidney disease and nephrosclerosis. No hydronephrosis noted on kidney ultrasound. 3. Liver cancer maintained on sorafenib outpatient. No ascites noted on abdominal ultrasound. 4. Diabetes mellitus. 5. History of BPH on Flomax. 6. Hypertension with chronic kidney disease. Stable. 7. Hypovolemic hyponatremia improved with IV fluids. 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 Improved. TSH slightly high at 5.9 and free T4 normal. 8. Metabolic acidosis secondary to acute kidney injury and IV fluids. 9. Hypocalcemia secondary to acute kidney injury and bicarb. PTH high at 150, vitamin D slightly low at 29.4, and ionized calcium low at 3.8. This picture could represent malabsorption contributing to the hypocalcemia due to low vitamin D. Replaced. Improved. 10. Anemia. Iron deficiency noted. IV iron on hold due to concern for acute infection. Plan: hemodialysis today DC IV fluids DC sodium bicarb in a.m. vancomycin dosing according to level. Random vancomycin level is 22.4 today
--- NOTE | 2023-12-04 12:58 | P.CNNES ---
History of Present Illness Consult date: 12/04/23 Requesting physician: Rajendra Oliveros Reason for Consult: Encephalopathy History of Present Illness: Patient is a 88-year-old right-handed male with history of diabetes, multiple recent hospitalizations, came to the hospital on 11/26/2023 for nausea vomiting diarrhea. Patient was found to have acute kidney injury and hyponatremia. Patient's son and patient's daughter were present, who provided with a history. Patient has history of diabetes for about 10 to 12 years. He has been a very sharp diet, with no signs of dementia. Last fall in 2022 he while he was in [place], he developed sepsis. He was hospitalized for a month. He was also found to have liver cancer. 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 He was off his feet for about couple months after that. Patient then developed C. difficile colitis and then developed COVID infection about 2 months ago. He has been receiving immunotherapy for liver cancer. He is followed up at [facility] and is received radiation pill as well. Patient was getting physical therapy 3 times a week outpatient. Before he arrived to this hospital, he was walking with his walker to the bathroom by himself. He was able to feed himself, took his pills by himself. Even since he arrived to the hospital on 11/26/2023, patient was coherent, however he has gradually declined since he arrived to the hospital. He is not eating. He has stopped talking in the last few days, which prompted a CT head, and MRI as below which did not reveal any acute process. Neurology consulted for altered mental status. Patient's most recent blood test shows WBC 10.8 hemoglobin 9.4, platelets 200. Sodium now is normal although on arrival was 124. Today is 141. BUN 55, creatinine 2.14. Renal functions appear to be slightly improving. The maximum was 3.75. AST is mildly elevated 62, normal ALT. Vancomycin level 22.4. Chest x-ray showed no evidence for aspiration. No acute cardiopulmonary disease. MRI of the brain performed 11/28/2023 revealed atrophy with chronic appearing periventricular white matter ischemic type changes. No suspicious acute intracranial process. I personally reviewed MRI agree with the findings. Slightly abnormal DWI signal noted on superior cerebellum, but not seen on ADC or FLAIR signal, therefore likely artifactual. Patient currently on vancomycin, Flomax, Zoloft 25 mg, Protonix, Remeron 15 mg, Lipitor 10 mg and Dilaudid.\ Patient's children believes that he sometimes screams, like in pain, but cannot express where it is. He has not eaten for a while. Denies any tobacco or alcohol use. Family denies any history of dementia in the patient. Review of Systems As per report from family members mentioned in HPI. ROS unobtainable: due to mental status Past Medical History Past Medical History: Cancer, Diabetes Mellitus, Hypertension, Prostate Disorder Additional Past Medical History / Comment(s): liver cancer History of Any Multi-Drug Resistant Organisms: None Reported Past Surgical History: Adenoidectomy, Tonsillectomy Additional Past Surgical History / Comment(s): Left foot surgery 16 years ago, toes amputated left foot 2023 Past Psychological History: No Psychological Hx Reported Smoking Status: Never smoker Past Alcohol Use History: None Reported Past Drug Use History: None Reported Medications and Allergies Home Medications Medication Instructions Recorded Confirmed Type Dapagliflozin Propanediol [Farxiga] 5 mg PO DAILY 11/26/23 11/26/23 History Felodipine [Plendil] 5 mg PO DAILY 11/26/23 11/26/23 History Latanoprost [Latanoprost 0.005%] 1 drop BOTH EYES HS 11/26/23 11/26/23 History Loperamide [Imodium] 2 - 4 mg PO Q8H PRN 11/26/23 11/26/23 History Mirtazapine [Remeron] 15 mg PO HS 11/26/23 11/26/23 History Mupirocin 2% Oint [Bactroban 2% 1 applic TOPICAL TID 11/26/23 11/26/23 History Oint] Olmesartan [Benicar] 20 mg PO DAILY 11/26/23 11/26/23 History SORAfenib TOSYLATE [Sorafenib] 200 mg PO AC-BID 11/26/23 11/26/23 History Sertraline [Zoloft] 25 mg PO DIRECTED 11/26/23 11/26/23 History Simvastatin [Zocor] 20 mg PO HS 11/26/23 11/26/23 History Spironolactone [Aldactone] 25 mg PO DAILY 11/26/23 11/26/23 History Sulfamethox-Tmp 800-160Mg [Bactrim 1 tab PO DIRECTED 11/26/23 11/26/23 History DS 800-160 mg] Tamsulosin [Flomax] 0.4 mg PO DAILY 11/26/23 11/26/23 History Torsemide [Demadex] 5 mg PO DAILY 11/26/23 11/26/23 History carvediloL [Coreg] 25 mg PO Q12H 11/26/23 11/26/23 History glipiZIDE XL [Glucotrol Xl] 5 mg PO DAILY 11/26/23 11/26/23 History metFORMIN HCL ER [Glucophage XR] 500 mg PO BID 11/26/23 11/26/23 History ondansetron HCL [Zofran] 8 mg PO Q8H PRN 11/26/23 11/26/23 History traMADol HCL 50 mg PO Q8H PRN 11/26/23 11/26/23 History Allergies Allergy/AdvReac Type Severity Reaction Status Date / Time No Known Allergies Allergy Verified 11/26/23 15:39 Physical Examination - Vital Signs Vital Signs: Vital Signs Temp Pulse Resp BP Pulse Ox 12/04/23 08:00 97.1 F L 88 18 172/88 97 12/04/23 03:56 85 20 158/88 96 12/04/23 01:32 82 18 12/04/23 00:00 82 18 155/73 96 12/03/23 20:00 96.8 F L 82 18 150/81 98 12/03/23 16:00 97.3 F L 86 14 168/79 99 Intake and Output 12/03/23 12/04/23 12/04/23 22:59 06:59 14:59 Output Total 350 425 Balance -350 -425 Output: Urine 350 425 Other: Voiding Method Indwelling Catheter Indwelling Catheter Indwelling Catheter Weight 101.3 kg Patient is an elderly male, who is laying in the bed, appears obviousl y encephalopathic. Patient is not speaking. He would not tell me his name, or name objects presented like eyeglasses or a pen. He would not repeat. He does make eye contact, sometimes looks like tries to talk but cannot. Attention, concentration is decreased and fund of knowledge is difficult to assess because of mental status. On cranial nerve examination, pupils are equal, round and reacting to light, visual brown could not be tested, but he does blink to visual threat bilaterally. Extraocular muscles are intact with no nystagmus. Patient has slight flattening of the left nasolabial fold, but his head is slightly to the right. He did not protrude his tongue. Lower cranial nerves could not be tested. On muscle strength testing, atient would not hold his arms up. He brings it d own equally bilaterally. Patient yells on painful stimuli equally bilaterally in the upper limbs, with slight movement. He has swelling, and bruises over the arms. Appears to have muscle wasting. Deep tendon reflexes are symmetric 1+ in the upper limbs, 2 at the knees. Plantars are flat. Sensory to touch cannot be assessed, but patient responds equally to painful stimuli bilaterally. Cerebellar function cannot be assessed due to patient's mental status and noncooperation. Tone is overall decreased and bulk of muscles also somewhat decreased. Gait deferred.. On general examination, there is no carotid bruit or murmur, S1-S2 audible. Chest is clear on consultation. Abdomen is soft nontender. No organomegaly, bowel sounds present. Patient has peripheral edema. Results - Laboratory Findings CBC and BMP: 12/11/23 05:53 12/11/23 05:53 Abnormal Lab Findings: Abnormal Labs 11/26/23 11/26/23 11/26/23 12:56 12:56 16:56 WBC RBC 3.50 L Hgb 10.4 L Hct 32.9 L MCHC RDW 16.0 H MPV Immature Gran # Neutrophils # Lymphocytes # 0.2 L Monocytes # Eosinophils # PT INR VBG pH VBG pCO2 Sodium 124 L 130 L Potassium Chloride 96 L Carbon Dioxide 18 L 18 L Anion Gap BUN 82 H 82 H Creatinine 2.34 H 2.34 H Est GFR (CKD-EPI) BUN/Creatinine Ratio Glucose 101 H POC Glucose (mg/dL) Osmolality 296 H Calcium 7.4 L 6.8 L Ionized Calcium Rhianna Iron TIBC Transferrin Ferritin AST 104 H Alkaline Phosphatase 232 H Total Protein 5.1 L Total Protein (PEP) Albumin 2.3 L Albumin (PEP) Pheio-2-Rkyiuiktk Oiyms-6-Bejewrhem Vitamin B12 Methylmalonic Acid Vitamin D 25-Hydroxy TSH PTH Intact Urine Protein Urine Glucose (UA) Urine Blood Ur Leukocyte Esterase Urine RBC Urine WBC Amorphous Sediment Urine Bacteria Hyaline Casts Urine Mucus Urine Yeast (Budding) Urine Osmolality Ur Random Sodium 11/26/23 11/27/23 11/27/23 22:35 02:30 02:30 WBC RBC Hgb Hct MCHC RDW MPV Immature Gran # Neutrophils # Lymphocytes # Monocytes # Eosinophils # PT INR VBG pH VBG pCO2 Sodium 126 L Potassium Chloride 97 L Carbon Dioxide 17 L Anion Gap BUN 82 H Creatinine 2.57 H Est GFR (CKD-EPI) BUN/Creatinine Ratio Glucose 73 L POC Glucose (mg/dL) Osmolality Calcium 6.8 L Ionized Calcium Rhianna Iron TIBC Transferrin Ferritin AST Alkaline Phosphatase Total Protein Total Protein (PEP) Albumin Albumin (PEP) Nopty-6-Mziyalrdx Ridzs-7-Yawayjfur Vitamin B12 Methylmalonic Acid Vitamin D 25-Hydroxy TSH PTH Intact Urine Protein 2+ H Urine Glucose (UA) 2+ H Urine Blood Small H Ur Leukocyte Esterase Urine RBC 8 H Urine WBC Amorphous Sediment Urine Bacteria Rare H Hyaline Casts 4 H Urine Mucus Rare H Urine Yeast (Budding) Rare H Urine Osmolality 341 L Ur Random Sodium 11/27/23 11/27/23 11/27/23 04:31 04:31 04:31 WBC 4.04 L RBC 3.15 L Hgb 9.1 L Hct 28.5 L MCHC 31.9 L RDW 16.4 H MPV Immature Gran # Neutrophils # Lymphocytes # 0.18 L Monocytes # 0.09 L Eosinophils # 0.01 L PT 14.1 H INR 1.33 H VBG pH VBG pCO2 Sodium 134 L Potassium Chloride Carbon Dioxide 16.7 L Anion Gap 15.30 H BUN 77.3 H Creatinine 2.8 H Est GFR (CKD-EPI) 21 L BUN/Creatinine Ratio 27.61 H Glucose 67 L POC Glucose (mg/dL) Osmolality Calcium 6.8 L Ionized Calcium Rhianna Iron TIBC Transferrin Ferritin AST Alkaline Phosphatase Total Protein Total Protein (PEP) Albumin Albumin (PEP) Zvsqg-1-Ltznmszvm Hcroy-8-Cstybelqg Vitamin B12 Methylmalonic Acid Vitamin D 25-Hydroxy TSH PTH Intact Urine Protein Urine Glucose (UA) Urine Blood Ur Leukocyte Esterase Urine RBC Urine WBC Amorphous Sediment Urine Bacteria Hyaline Casts Urine Mucus Urine Yeast (Budding) Urine Osmolality Ur Random Sodium 11/27/23 11/27/23 11/27/23 07:10 09:44 09:44 WBC RBC Hgb Hct MCHC RDW MPV Immature Gran # Neutrophils # Lymphocytes # Monocytes # Eosinophils # PT INR VBG pH VBG pCO2 Sodium 130 L Potassium Chloride Carbon Dioxide 17 L Anion Gap BUN 84 H Creatinine 2.75 H Est GFR (CKD-EPI) BUN/Creatinine Ratio Glucose POC Glucose (mg/dL) 66 L Osmolality Calcium 6.5 L Ionized Calcium Rhianna Iron TIBC Transferrin Ferritin AST Alkaline Phosphatase Total Protein Total Protein (PEP) Albumin Albumin (PEP) Wcwtq-8-Exauzhvxy Ykemu-8-Jyrsokuqa Vitamin B12 Methylmalonic Acid Vitamin D 25-Hydroxy TSH 5.900 H PTH Intact Urine Protein Urine Glucose (UA) Urine Blood Ur Leukocyte Esterase Urine RBC Urine WBC Amorphous Sediment Urine Bacteria Hyaline Casts Urine Mucus Urine Yeast (Budding) Urine Osmolality Ur Random Sodium 11/27/23 11/27/23 11/27/23 12:15 12:19 12:30 WBC RBC Hgb Hct MCHC RDW MPV Immature Gran # Neutrophils # Lymphocytes # Monocytes # Eosinophils # PT INR VBG pH VBG pCO2 Sodium Potassium Chloride Carbon Dioxide Anion Gap BUN Creatinine Est GFR (CKD-EPI) BUN/Creatinine Ratio Glucose POC Glucose (mg/dL) Osmolality Calcium Ionized Calcium Rhianna Iron 28 L TIBC 181 L Transferrin 129.0 L Ferritin 1067.0 H AST Alkaline Phosphatase Total Protein Total Protein (PEP) Albumin Albumin (PEP) Zmkmn-1-Dlymzwsmj Ibkxr-4-Jutbwmlsp Vitamin B12 2457.0 H Methylmalonic Acid 0.56 H Vitamin D 25-Hydroxy TSH PTH Intact Urine Protein Urine Glucose (UA) Urine Blood Ur Leukocyte Esterase Urine RBC Urine WBC Amorphous Sediment Urine Bacteria Hyaline Casts Urine Mucus Urine Yeast (Budding) Urine Osmolality Ur Random Sodium 27 L 11/27/23 11/27/23 11/28/23 12:41 20:12 03:48 WBC RBC Hgb Hct MCHC RDW MPV Immature Gran # Neutrophils # Lymphocytes # Monocytes # Eosinophils # PT INR VBG pH VBG pCO2 Sodium 132 L Potassium Chloride Carbon Dioxide 17 L 15.3 L Anion Gap 16.70 H BUN 88 H 83.1 H Creatinine 3.01 H 3.5 H Est GFR (CKD-EPI) 16 L BUN/Creatinine Ratio 23.74 H Glucose 71 L 63 L POC Glucose (mg/dL) 124 H Osmolality Calcium 6.4 L* 6.4 A* Ionized Calcium Rhianna Iron TIBC Transferrin Ferritin AST Alkaline Phosphatase Total Protein Total Protein (PEP) Albumin Albumin (PEP) Dkztw-8-Pnprfprxd Cuwvx-5-Njfiqtece Vitamin B12 Methylmalonic Acid Vitamin D 25-Hydroxy TSH PTH Intact Urine Protein Urine Glucose (UA) Urine Blood Ur Leukocyte Esterase Urine RBC Urine WBC Amorphous Sediment Urine Bacteria Hyaline Casts Urine Mucus Urine Yeast (Budding) Urine Osmolality Ur Random Sodium 11/28/23 11/28/23 11/28/23 07:19 11:54 11:54 WBC RBC Hgb Hct MCHC RDW MPV Immature Gran # Neutrophils # Lymphocytes # Monocytes # Eosinophils # PT INR VBG pH VBG pCO2 Sodium Potassium Chloride Carbon Dioxide Anion Gap BUN Creatinine Est GFR (CKD-EPI) BUN/Creatinine Ratio Glucose POC Glucose (mg/dL) 65 L Osmolality Calcium Ionized Calcium Rhianna 3.8 L Iron TIBC Transferrin Ferritin AST Alkaline Phosphatase Total Protein Total Protein (PEP) Albumin Albumin (PEP) Nlmlw-8-Odzqgboda Fszna-1-Xbifmmuon Vitamin B12 Methylmalonic Acid Vitamin D 25-Hydroxy 29.4 L TSH PTH Intact 150.0 H Urine Protein Urine Glucose (UA) Urine Blood Ur Leukocyte Esterase Urine RBC Urine WBC Amorphous Sediment Urine Bacteria Hyaline Casts Urine Mucus Urine Yeast (Budding) Urine Osmolality Ur Random Sodium 11/28/23 11/28/23 11/28/23 12:09 17:09 20:09 WBC RBC Hgb Hct MCHC RDW MPV Immature Gran # Neutrophils # Lymphocytes # Monocytes # Eosinophils # PT INR VBG pH VBG pCO2 Sodium Potassium Chloride Carbon Dioxide Anion Gap BUN Creatinine Est GFR (CKD-EPI) BUN/Creatinine Ratio Glucose POC Glucose (mg/dL) 111 H 152 H 155 H Osmolality Calcium Ionized Calcium Rhianna Iron TIBC Transferrin Ferritin AST Alkaline Phosphatase Total Protein Total Protein (PEP) Albumin Albumin (PEP) Kwcsz-3-Gyetdjcgv Fhoji-6-Okjecxtcc Vitamin B12 Methylmalonic Acid Vitamin D 25-Hydroxy TSH PTH Intact Urine Protein Urine Glucose (UA) Urine Blood Ur Leukocyte Esterase Urine RBC Urine WBC Amorphous Sediment Urine Bacteria Hyaline Casts Urine Mucus Urine Yeast (Budding) Urine Osmolality Ur Random Sodium 11/29/23 11/29/23 11/29/23 05:37 05:37 05:37 WBC RBC 2.89 L Hgb 8.4 L Hct 26.6 L MCHC 31.6 L RDW 16.6 H MPV 12.6 H Immature Gran # 0.05 H Neutrophils # Lymphocytes # 0.80 L Monocytes # Eosinophils # PT INR VBG pH VBG pCO2 Sodium 135 L Potassium Chloride 109 H Carbon Dioxide 18 L Anion Gap BUN 91 H Creatinine 3.59 H 3.59 H Est GFR (CKD-EPI) BUN/Creatinine Ratio Glucose POC Glucose (mg/dL) Osmolality Calcium 6.3 L* Ionized Calcium Rhianna Iron TIBC Transferrin Ferritin AST 123 H Alkaline Phosphatase 185 H Total Protein 4.0 L Total Protein (PEP) Albumin 1.6 L Albumin (PEP) Bcast-9-Vjabhxwbl Xggea-6-Wjeyzwhig Vitamin B12 Methylmalonic Acid Vitamin D 25-Hydroxy TSH PTH Intact Urine Protein Urine Glucose (UA) Urine Blood Ur Leukocyte Esterase Urine RBC Urine WBC Amorphous Sediment Urine Bacteria Hyaline Casts Urine Mucus Urine Yeast (Budding) Urine Osmolality Ur Random Sodium 11/29/23 11/29/23 11/29/23 12:25 17:07 20:20 WBC RBC Hgb Hct MCHC RDW MPV Immature Gran # Neutrophils # Lymphocytes # Monocytes # Eosinophils # PT INR VBG pH VBG pCO2 Sodium Potassium Chloride Carbon Dioxide Anion Gap BUN Creatinine Est GFR (CKD-EPI) BUN/Creatinine Ratio Glucose POC Glucose (mg/dL) 152 H 162 H 255 H Osmolality Calcium Ionized Calcium Rhianna Iron TIBC Transferrin Ferritin AST Alkaline Phosphatase Total Protein Total Protein (PEP) Albumin Albumin (PEP) Pshef-3-Kbtvnkdbi Gvqve-8-Depvprpjj Vitamin B12 Methylmalonic Acid Vitamin D 25-Hydroxy TSH PTH Intact Urine Protein Urine Glucose (UA) Urine Blood Ur Leukocyte Esterase Urine RBC Urine WBC Amorphous Sediment Urine Bacteria Hyaline Casts Urine Mucus Urine Yeast (Budding) Urine Osmolality Ur Random Sodium 11/30/23 11/30/23 11/30/23 04:55 04:55 16:13 WBC 10.25 H RBC 3.10 L 3.01 L Hgb 9.1 L 8.7 L D Hct 28.2 L 28.2 L MCHC 30.9 L RDW 17.0 H 16.2 H MPV 12.3 H Immature Gran # 0.05 H Neutrophils # 8.80 H Lymphocytes # 0.88 L 0.6 L Monocytes # Eosinophils # PT INR VBG pH VBG pCO2 Sodium 136 L Potassium Chloride 114 H Carbon Dioxide 16 L Anion Gap BUN 91 H Creatinine 3.75 H Est GFR (CKD-EPI) BUN/Creatinine Ratio Glucose 70 L POC Glucose (mg/dL) Osmolality Calcium 6.8 L Ionized Calcium Rhianna Iron TIBC Transferrin Ferritin AST 103 H Alkaline Phosphatase 211 H Total Protein 4.3 L Total Protein (PEP) Albumin 1.7 L Albumin (PEP) Ygauj-5-Rpvtxnnyp Pjmpl-3-Jospcevmp Vitamin B12 Methylmalonic Acid Vitamin D 25-Hydroxy TSH PTH Intact Urine Protein Urine Glucose (UA) Urine Blood Ur Leukocyte Esterase Urine RBC Urine WBC Amorphous Sediment Urine Bacteria Hyaline Casts Urine Mucus Urine Yeast (Budding) Urine Osmolality Ur Random Sodium 11/30/23 11/30/23 11/30/23 20:27 20:55 22:14 WBC RBC Hgb Hct MCHC RDW MPV Immature Gran # Neutrophils # Lymphocytes # Monocytes # Eosinophils # PT INR VBG pH VBG pCO2 Sodium Potassium Chloride Carbon Dioxide Anion Gap BUN Creatinine Est GFR (CKD-EPI) BUN/Creatinine Ratio Glucose POC Glucose (mg/dL) 68 L Osmolality Calcium Ionized Calcium Rhianna Iron TIBC Transferrin Ferritin AST Alkaline Phosphatase Total Protein Total Protein (PEP) 4.2 L Albumin Albumin (PEP) 1.70 L Wjcli-8-Rbkzlvaal 0.44 H Mqmhk-2-Xtridnnnt 0.50 L Vitamin B12 Methylmalonic Acid Vitamin D 25-Hydroxy TSH PTH Intact Urine Protein 1+ H Urine Glucose (UA) Urine Blood Moderate H Ur Leukocyte Esterase Small H Urine RBC 37 H Urine WBC 22 H Amorphous Sediment Occasional H Urine Bacteria Occasional H Hyaline Casts Urine Mucus Rare H Urine Yeast (Budding) Urine Osmolality Ur Random Sodium 12/01/23 12/01/23 12/01/23 03:58 03:58 08:01 WBC RBC 2.85 L Hgb 8.3 L Hct 26.7 L MCHC 31.1 L RDW 17.2 H MPV 12.6 H Immature Gran # 0.05 H Neutrophils # Lymphocytes # 0.75 L Monocytes # Eosinophils # PT INR VBG pH VBG pCO2 Sodium Potassium 3.4 L Chloride 115 H Carbon Dioxide 15 L Anion Gap BUN 92 H Creatinine 3.67 H Est GFR (CKD-EPI) BUN/Creatinine Ratio Glucose 58 L POC Glucose (mg/dL) 67 L Osmolality Calcium 6.7 L Ionized Calcium Rhianna Iron TIBC Transferrin Ferritin AST 91 H Alkaline Phosphatase 168 H Total Protein 4.3 L Total Protein (PEP) Albumin 1.9 L Albumin (PEP) Mwrho-4-Olwxakiza Lzbhh-5-Sdihqstqj Vitamin B12 Methylmalonic Acid Vitamin D 25-Hydroxy TSH PTH Intact Urine Protein Urine Glucose (UA) Urine Blood Ur Leukocyte Esterase Urine RBC Urine WBC Amorphous Sediment Urine Bacteria Hyaline Casts Urine Mucus Urine Yeast (Budding) Urine Osmolality Ur Random Sodium 12/01/23 12/02/23 12/02/23 08:25 08:28 08:28 WBC RBC 2.99 L Hgb 8.8 L Hct 27.6 L MCHC RDW 16.3 H MPV Immature Gran # Neutrophils # Lymphocytes # 0.9 L Monocytes # Eosinophils # PT INR VBG pH VBG pCO2 Sodium Potassium 3.1 L Chloride 109 H Carbon Dioxide Anion Gap BUN 74 H Creatinine 2.73 H Est GFR (CKD-EPI) BUN/Creatinine Ratio Glucose POC Glucose (mg/dL) 142 H Osmolality Calcium 6.7 L Ionized Calcium Rhianna Iron TIBC Transferrin Ferritin AST 77 H Alkaline Phosphatase 137 H Total Protein 4.6 L Total Protein (PEP) Albumin 2.1 L Albumin (PEP) Qsssg-3-Uusaebcah Tykos-8-Yceofcilq Vitamin B12 Methylmalonic Acid Vitamin D 25-Hydroxy TSH PTH Intact Urine Protein Urine Glucose (UA) Urine Blood Ur Leukocyte Esterase Urine RBC Urine WBC Amorphous Sediment Urine Bacteria Hyaline Casts Urine Mucus Urine Yeast (Budding) Urine Osmolality Ur Random Sodium 12/02/23 12/02/23 12/03/23 16:15 20:42 06:53 WBC RBC Hgb Hct MCHC RDW MPV Immature Gran # Neutrophils # Lymphocytes # Monocytes # Eosinophils # PT INR VBG pH 7.48 H VBG pCO2 34 L Sodium Potassium Chloride 110 H Carbon Dioxide Anion Gap BUN 55 H Creatinine 2.21 H Est GFR (CKD-EPI) BUN/Creatinine Ratio Glucose 52 L POC Glucose (mg/dL) 154 H Osmolality Calcium 7.5 L Ionized Calcium Rhianna Iron TIBC Transferrin Ferritin AST Alkaline Phosphatase Total Protein Total Protein (PEP) Albumin Albumin (PEP) Ywkuy-6-Gayrihqqj Nwdsk-1-Cqzfjlxhl Vitamin B12 Methylmalonic Acid Vitamin D 25-Hydroxy TSH PTH Intact Urine Protein Urine Glucose (UA) Urine Blood Ur Leukocyte Esterase Urine RBC Urine WBC Amorphous Sediment Urine Bacteria Hyaline Casts Urine Mucus Urine Yeast (Budding) Urine Osmolality Ur Random Sodium 12/03/23 12/04/23 12/04/23 06:53 02:04 06:04 WBC RBC 3.19 L Hgb 9.0 L Hct 30.4 L MCHC 29.7 L RDW 16.4 H MPV Immature Gran # Neutrophils # Lymphocytes # 0.8 L Monocytes # Eosinophils # PT INR VBG pH VBG pCO2 Sodium Potassium Chloride Carbon Dioxide Anion Gap BUN Creatinine Est GFR (CKD-EPI) BUN/Creatinine Ratio Glucose POC Glucose (mg/dL) 113 H 129 H Osmolality Calcium Ionized Calcium Rhianna Iron TIBC Transferrin Ferritin AST Alkaline Phosphatase Total Protein Total Protein (PEP) Albumin Albumin (PEP) Wijbc-1-Tjshbeyfb Tvwfv-4-Yasczvztm Vitamin B12 Methylmalonic Acid Vitamin D 25-Hydroxy TSH PTH Intact Urine Protein Urine Glucose (UA) Urine Blood Ur Leukocyte Esterase Urine RBC Urine WBC Amorphous Sediment Urine Bacteria Hyaline Casts Urine Mucus Urine Yeast (Budding) Urine Osmolality Ur Random Sodium 12/04/23 12/04/23 12/04/23 06:54 06:56 11:28 WBC 10.8 H RBC 3.19 L Hgb 9.4 L Hct 29.4 L MCHC RDW 16.4 H MPV Immature Gran # Neutrophils # 9.0 H Lymphocytes # Monocytes # Eosinophils # PT INR VBG pH VBG pCO2 Sodium Potassium Chloride 115 H Carbon Dioxide 20 L Anion Gap BUN 55 H Creatinine 2.14 H Est GFR (CKD-EPI) BUN/Creatinine Ratio Glucose 113 H POC Glucose (mg/dL) 135 H Osmolality Calcium 7.4 L Ionized Calcium Rhianna Iron TIBC Transferrin Ferritin AST 62 H Alkaline Phosphatase 160 H Total Protein 4.6 L Total Protein (PEP) Albumin 2.0 L Albumin (PEP) Bmzin-6-Ijgogbzfy Dafgc-4-Frdwlzzyt Vitamin B12 Methylmalonic Acid Vitamin D 25-Hydroxy TSH PTH Intact Urine Protein Urine Glucose (UA) Urine Blood Ur Leukocyte Esterase Urine RBC Urine WBC Amorphous Sediment Urine Bacteria Hyaline Casts Urine Mucus Urine Yeast (Budding) Urine Osmolality Ur Random Sodium Assessment and Plan Assessment: * Altered mental status, likely due to toxic metabolic encephalopathy. Reasons multifactorial, as mentioned below. * Abnormal EEG, with evidence of moderate to severe encephalopathy, and presence of intermittent generalized sharp appearing waves, which may have some triphasic in quality, but becomes rhythmic, therefore may suggest underlying cortical irritability. * Acute kidney failure, started on hemodialysis recently. * Frequent episodes of hypoglycemia ranging between 50s to 70s. 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 * Anemia * BPH * Hyperlipidemia Plan: * EEG was performed today, which was abnormal due to background slowing, suggestive of moderate to severe encephalopathy. Also evidence of some intermittent sharp appearing waves, seen in generalize distribution, times at 3 Hz. This may have triphasic type quality, but becomes rhythmic, therefore may suggest underlying cortical irritability and tendency for seizure. No electrographic seizure was recorded. * Based upon clinical examination, and abnormal EEG, we will empirically start Keppra 500 mg IV twice daily. Repeat EEG in the morning. Possible side effects of Keppra discussed with the family members. * Carotid Doppler, rule out stenosis. * Repeat CT head, rule out any stroke. Last brain imaging was 6 days ago. * Avoid episodes of hypoglycemia. * Other medical management as per IM and other specialties on board. Patient on hemodialysis. * Prognosis guarded due to multiple comorbid conditions. * Neurology will follow. Thank you for the consult.
[2023-12-04 14:26] LABS: C-ANCA <1:20 Titer (<1:20)
[2023-12-04 16:18] LABS: Glucose,Whole Blood 119 mg/dL (70-110)
--- NOTE | 2023-12-04 16:53 | P.PN ---
Subjective Progress Note Date: 12/04/23 Hospital Course: 88-year-old male with history of liver cancer on immunotherapy, type 2 diabetes, hypertension, BPH presenting with loss of appetite, nausea, vomiting. He is also encephalopathic. Patient recently started on immunotherapy 2 weeks ago. In the emergency room, patient was afebrile, 101/59, heart rate 75, 99% on room air. CBC shows anemia to 10.4. Basic metabolic panel shows hyponatremia to 124, chloride of 96, CO2 of 18, BUN of 82, creatinine of 2.34. Liver function test show AST of 104, ALT of 43, alkaline phosphatase of 232, albumin of 2.3, total protein of 5.1. Amylase is 70, lipase is 38. Chest x-ray shows Mediport, otherwise clear parenchyma bilaterally, poor inspiratory effort. Patient was provided bolus of IV fluids and was admitted to medicine as an inpatient. Renal function continued to worsen. Sodium improved. Nephrology was consulted. Patient also hypothermic, concern for sepsis, unclear source. Patient started on broad-spectrum IV antibiotics. Oncology also consulted. Patient is encephalopathic, likely delirium. Renal function still not improved. Patient now on hemodialysis. Continues to have poor mentation. Prognosis very guarded. Had goals of care discussion with son, consider comfort care if no further improvement in mentation. Patient did have some improvement. Neurology also consulted. EEG ordered. Subjective: Patient seen and examined at bedside. No acute overnight events. Pertinent positives and negatives as discussed above, a complete review of systems was performed and all other systems are negative. Vitals Signs Reviewed. General: Nontoxic, no distress, appears at stated age Derm: Warm, dry, left heel decubitus ulcers covered in dressing Head: Atraumatic, normocephalic, symmetric Eyes: EOMI, no lid lag, anicteric sclera, pinpoint pupils Mouth: No lip lesion, mucus membranes moist Cardiovascular: S1S2 reg, no murmur Lungs: Bilateral rhonchi, no accessory muscle use Abdominal: Soft, nontender to palpation, no guarding, no appreciable organomegaly Ext: No gross muscle atrophy, no edema, no contractures Neuro: CN II-XI grossly intact, no focal neuro deficits Psych: Awake, not oriented Data Reviewed Today: Pertinent Labs: WBC 10.8, hemoglobin 9.4, platelet 200, bicarb 20, creatinine 2.14, blood sugars range between 113, magnesium 1.9 Imaging: No new imaging Assessment and Plan: Patient is severely ill, needs close monitoring. Prognosis guarded. Active: Acute kidney injury on CKD stage III Hypocalcemia, resolved Hyponatremia, resolved Hypokalemia, resolved Metabolic acidosis, resolved -Nephrology note reviewed, hemodialysis today, IV fluids discontinued, discontinue sodium bicarb tomorrow -Continue to monitor renal function, Jenkins catheter in place, monitor intake and output Acute encephalopathy, likely metabolic Delirium -Recent brain MRI did not show any acute process -Ammonia negative -Patient not able to eat or drink at the moment -TSH, B12, folic acid levels were within normal limits. Discontinued tramadol, cefepime, morphine -Pain control with IV Dilaudid 0.5 every 4 hours -Neurology started patient on IV Keppra 500 every 12 hours -Repeat CT head pending -EEG concerning for some cortical irritability, no evidence of seizures Hypothermia Infected heel ulcer, present on admission -Possible systemic infection, no obvious source other than possible heel ulcer -Discontinued cefepime due to concern for encephalopathy and neurotoxicity, continue IV vancomycin pharmacy to dose, monitor renal function -Cultures negative growth to date -Wound care following Hepatocellular carcinoma on immunotherapy Anemia, stable -Oncology note reviewed, immunotherapy currently on hold, follow-up outpatient with oncology -No active bleeding, workup pending for anemia Depression -Continue sertraline 25 daily, mirtazapine 15 nightly BPH -Continue tamsulosin 0.4 daily Dyslipidemia -Continue atorvastatin 10 nightly Type 2 diabetes -Sliding scale insulin, monitor for hypoglycemia Hypoglycemia, resolved -Due to poor oral intake, renal and hepatic dysfunction -Continue to monitor blood sugars every 6 hours -If oral intake continues to remain poor due to encephalopathy, may need to consider feeding tube DVT ppx: SCDs Code status: No code Anticipated discharge place: Pending clinical course Anticipated discharge time: Pending clinical course I have seen and evaluated the patient today. Discussed with the resident and agree with the residents finding and plan as documented in the resident's note. Changes highlighted in blue font. Objective - Vital Signs Vital signs: Vital Signs Temp 97.3 F L 12/04/23 15:25 Pulse 88 12/04/23 15:25 Resp 18 12/04/23 15:25 BP 167/85 12/04/23 15:25 Pulse Ox 94 L 12/04/23 15:25 FiO2 Intake & Output 12/03/23 12/04/23 12/04/23 18:59 06:59 18:59 Intake Total 20 Output Total 900 425 Balance -880 -425 Weight 101.3 kg Intake: IV 20 Invasive Line 2 10 Invasive Line 4 10 Output: Urine 900 425 Other: Voiding Method Indwelling Catheter Indwelling Catheter Indwelling Catheter - Labs CBC & Chem 7: 12/04/23 06:56 12/04/23 06:54 Labs: Abnormal Lab Results - Last 24 Hours (Table) 12/04/23 12/04/23 12/04/23 Range/Units 02:04 06:04 06:54 WBC (3.8-10.6) k/uL RBC (4.30-5.90) m/uL Hgb (13.0-17.5) gm/dL Hct (39.0-53.0) % RDW (11.5-15.5) % Neutrophils # (1.3-7.7) k/uL Chloride 115 H (98-107) mmol/L Carbon Dioxide 20 L (22-30) mmol/L BUN 55 H (9-20) mg/dL Creatinine 2.14 H (0.66-1.25) mg/dL Glucose 113 H (74-99) mg/dL POC Glucose (mg/dL) 113 H 129 H (70-110) mg/dL Calcium 7.4 L (8.4-10.2) mg/dL AST 62 H (17-59) U/L Alkaline Phosphatase 160 H (38-126) U/L Total Protein 4.6 L (6.3-8.2) g/dL Albumin 2.0 L (3.5-5.0) g/dL 12/04/23 12/04/23 12/04/23 Range/Units 06:56 11:28 16:16 WBC 10.8 H (3.8-10.6) k/uL RBC 3.19 L (4.30-5.90) m/uL Hgb 9.4 L (13.0-17.5) gm/dL Hct 29.4 L (39.0-53.0) % RDW 16.4 H (11.5-15.5) % Neutrophils # 9.0 H (1.3-7.7) k/uL Chloride (98-107) mmol/L Carbon Dioxide (22-30) mmol/L BUN (9-20) mg/dL Creatinine (0.66-1.25) mg/dL Glucose (74-99) mg/dL POC Glucose (mg/dL) 135 H 119 H (70-110) mg/dL Calcium (8.4-10.2) mg/dL AST (17-59) U/L Alkaline Phosphatase (38-126) U/L Total Protein (6.3-8.2) g/dL Albumin (3.5-5.0) g/dL
[2023-12-04] MEDS: levETIRAcetam IV 500 MG/5 ML VIAL IVP SCH (17:48)
--- NOTE | 2023-12-04 18:01 | P.PN ---
Subjective Progress Note Date: 12/04/23 Principal diagnosis: Acute metabolic encephalopathy with acute on chronic kidney disease stage III presently requiring hemodialysis. This is a 88-year-old male patient who is having multiple medical issues and comorbidities and the patient is currently in a DNR/DNI CODE STATUS. I was asked to to be involved in the patient's care and consider ICU transfer as the patient was supposed to undergo a dialysis catheter insertion for an acute on top of a chronic stage III kidney disease and ongoing encephalopathy. The patient had an MRI of the brain that showed no acute process. Ammonia levels are nonelevated. The patient was hypothermic and the had an infected has a ulcer at time of admission. He was also having episodes of hypoglycemia due to poor oral intake and hepatic dysfunction the patient is currently on bicarb infusion with D5 water. The patient is currently on room air oxygen. Dialysis catheter has been inserted. I made recommendations to keep the patient on the medical floor pending further workup and treatment by medicine. The patient is hemodynamically stable and on room air oxygen with a pulse ox of 93%. Currently normothermic. Most recent BP is 144/76. Moving all 4 extremities. Hard to communicate with as the patient is encephalopathic. 12/03/2023, no change in this patient's condition, the patient remains profoundly lethargic and confused. He has undergone 2 sessions of hemodialysis without any improvement. Urine output is in order of 500 cc over the past 24 hours. No signs of any significant respiratory difficulties. The patient on broad- spectrum antibiotics with oncology on the case with nephrology on the case. He remains quite encephalopathic and delirious. The patient is on room air oxygen with a pulse ox of 97%. The white cell count of 9 with a hemoglobin 9 and a platelet count of 172. BUN is 55 lactate and of 2.2 and a potassium level is at 3.6. Patient was evaluated today on 12/04/23, patient is undergoing hemodialysis during my evaluation, he is confused, lethargic, not in any distress. WBC count is 10.8 hemoglobin 9.4 electrolytes are normal bicarb is 20 BUN 55 creatinine 2.14 patient is on room air, does not seem to be in any distress Objective - Vital Signs Vital signs: Vital Signs Temp 96.2 F L 12/04/23 17:00 Pulse 84 12/04/23 17:00 Resp 19 12/04/23 17:00 BP 160/84 12/04/23 17:00 Pulse Ox 94 L 12/04/23 15:25 FiO2 Intake & Output 12/03/23 12/04/23 12/04/23 18:59 06:59 18:59 Intake Total 20 400 Output Total 526 162 7600 Balance -880 -425 -1000 Weight 101.3 kg Intake: IV 20 Invasive Line 2 10 Invasive Line 4 10 Hemodialysis 400 Output: Urine 900 425 Hemodialysis 900 Hemodialysis Net Amount 500 Other: Voiding Method Indwelling Catheter Indwelling Catheter Indwelling Catheter - Exam General: Revealed an 88-year-old white male confused not in distress Head: Atraumatic, normocephalic Eyes: EOMI, no lid lag, anicteric sclera, pinpoint pupils Mouth: No lip lesion, mucus membranes moist Cardiovascular: S1S2 reg, no murmur Lungs: Diminished breath sound bilaterally no crackles rhonchi or wheezes Abdominal: Soft, nontender to palpation, no guarding, no appreciable organomegal y Ext: No gross muscle atrophy, no edema, no contractures Examination of the skin revealed no evidence of significant rashes Neuro: Confused and encephalopathic otherwise no gross focal neurologic deficit - Labs CBC & Chem 7: 12/04/23 06:56 12/04/23 06:54 Labs: Abnormal Lab Results - Last 24 Hours (Table) 12/04/23 12/04/23 12/04/23 Range/Units 02:04 06:04 06:54 WBC (3.8-10.6) k/uL RBC (4.30-5.90) m/uL Hgb (13.0-17.5) gm/dL Hct (39.0-53.0) % RDW (11.5-15.5) % Neutrophils # (1.3-7.7) k/uL Chloride 115 H (98-107) mmol/L Carbon Dioxide 20 L (22-30) mmol/L BUN 55 H (9-20) mg/dL Creatinine 2.14 H (0.66-1.25) mg/dL Glucose 113 H (74-99) mg/dL POC Glucose (mg/dL) 113 H 129 H (70-110) mg/dL Calcium 7.4 L (8.4-10.2) mg/dL AST 62 H (17-59) U/L Alkaline Phosphatase 160 H (38-126) U/L Total Protein 4.6 L (6.3-8.2) g/dL Albumin 2.0 L (3.5-5.0) g/dL 12/04/23 12/04/23 12/04/23 Range/Units 06:56 11:28 16:16 WBC 10.8 H (3.8-10.6) k/uL RBC 3.19 L (4.30-5.90) m/uL Hgb 9.4 L (13.0-17.5) gm/dL Hct 29.4 L (39.0-53.0) % RDW 16.4 H (11.5-15.5) % Neutrophils # 9.0 H (1.3-7.7) k/uL Chloride (98-107) mmol/L Carbon Dioxide (22-30) mmol/L BUN (9-20) mg/dL Creatinine (0.66-1.25) mg/dL Glucose (74-99) mg/dL POC Glucose (mg/dL) 135 H 119 H (70-110) mg/dL Calcium (8.4-10.2) mg/dL AST (17-59) U/L Alkaline Phosphatase (38-126) U/L Total Protein (6.3-8.2) g/dL Albumin (3.5-5.0) g/dL Assessment and Plan Assessment: Impression: Acute metabolic encephalopathy Acute on chronic kidney stage III disease. Patient is now on hemodialysis Non-anion gap metabolic acidosis Hepatocellular carcinoma currently on immunotherapy, followed up by oncology on outpatient basis BPH Depression Hyperlipidemia Diabetes mellitus type 2 Episodes of hypoglycemia due to poor oral intake and hepatic dysfunction Anemia of chronic disease Recommendation: Continue present supportive care measures Continue hemodialysis Continue to monitor electrolytes and renal profile Continue to monitor neurologically and his encephalopathic pattern should improve with hemodialysis Will continue to follow Time with Patient: Less than 30
--- NOTE | 2023-12-04 18:11 | CT ---
EXAMINATION TYPE: CT brain wo con CT DLP: 2568 mGycm, Automated exposure control for dose reduction was used. DATE OF EXAM: 12/04/2023 5:49 PM COMPARISON: 11/27/2023 CLINICAL INDICATION: Male, 88 years old with history of Aphasia, rule out CVA, POSSIBLE CVA TECHNIQUE: Brain: Axial CT images of the brain were obtained with coronal and sagittal reformats created and rev iewed. Contrast used: None. Oral contrast used: None. FINDINGS: Brain: Extremely limited exam due to motion. Extra-axial spaces: No abnormal extra-axial fluid collections. Ventricular system: Within normal limits Cerebral parenchyma: No acute intraparenchymal hemorrhage or mass effect. The ryan-white junction is well differentiated. Cerebellum: Unremarkable. Mass effect: No evidence of midline shift. Intracranial vasculature: unremarkable Soft tissues: Normal. Calvarium/osseous structures: No depressed skull fracture. Paranasal sinuses and mastoid air cells: Mild scattered paranasal sinus disease. Visualized orbits: Orbital contents are intact. IMPRESSION: Limited exam with motion. No gross abnormality. Consider repeat exam when patient able to. [facility], , 12/04/2023 6:08 PM
--- NOTE | 2023-12-04 19:03 | US ---
EXAMINATION TYPE: US carotid duplex BILAT DATE OF EXAM: 12/04/2023 COMPARISON: NONE CLINICAL INDICATION: Male, 88 years old with history of Aphasia, rule out CVA; Aphasia TECHNIQUE: Carotid duplex ultrasound examination. Indirect Doppler criteria was utilized. FINDINGS: EXAM MEASUREMENTS: RIGHT: Peak Systolic Velocity (PSV) cm/sec ----- Right CCA: 60.3 ----- Right ICA: 77.9 ----- Right ECA: 64.5 ICA/CCA ratio: 1.3 RIGHT: End Diastole cm/sec ----- Right CCA: 11.2 ----- Right ICA: 21.9 ----- Right ECA: 1.7 LEFT: Peak Systolic Velocity (PSV) cm/sec ----- Left CCA: 65.3 ----- Left ICA: 194.9 ----- Left ECA: 43.4 ICA/CCA ratio: 3.0 LEFT: End Diastole cm/sec ----- Left CCA: 16.6 ----- Left ICA: 43.9 ----- Left ECA: 0.0 VERTEBRALS (direction of flow): Right Vertebral: Antegrade Left Vertebral: Antegrade Rhythm: Arrhythmia INSEAM LEVELER NOTES: Limited right sided evaluation due to patient position. Calcified plaque seen thro ughout bilateral CCA/ICA/ECA. Elevated velocities seen within the left ICA. IMPRESSION: 1. 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 2. Less than 50% stenosis of the right carotid bifurcation. Criteria for Assigning % of Stenosis / Diameter reduction (Estimation based on the indirect measurements of the internal carotid artery velocities (ICA PSV). 1. Normal (no stenosis)=ICA PSV < 125 cm/s: ratio < 2.0: ICA EDV<40 cm/s. 2. Less than 50% stenosis=ICA PSV < 125 cm/s: ratio < 2.0: ICA EDV<40 cm/s. 3. 50 to 69% stenosis=ICA PSV of 125 to 230 cm/s: ration 2.0 ? 4.0: ICA EDV 40-100 cm/s. 4. Greater than 70% stenosis to near occlusion= ICA PSV > 230 cm/s: ratio > 4.0: ICA EDV > 100 cm/s. 5. Near occlusion= ICA PSV velocities may be low or undetectable: variable ratio and ICA EDV. 6. Total occlusion=unable to detect flow. [facility], , 12/04/2023 7:01 PM
[2023-12-04 20:02] LABS: Glucose,Whole Blood 118 mg/dL (70-110)
--- NOTE | 2023-12-04 20:32 | EEG ---
ELECTROENCEPHALOGRAM REPORT PREAMBLE: This is an 88-year-old male with altered mental status. CURRENT MEDICATIONS: 1. Lipitor. 2. Dilaudid. 3. NovoLog. 4. Xalatan. 5. Remeron. 6. Zofran. 7. Protonix. 8. Zoloft. 9. Flomax. EEG FINDINGS: This is a 21-channel digital EEG recorded with video component, utilizing 10/20 international system with referential and bipolar montages. Background consists of disorganized rhythm, with mixed frequencies of moderate to high amplitude theta and some delta frequency seen in bihemispheric region. Background does not seem to be reactive to eye opening or closing. Sporadic, intermittent sharp appearing waves were seen in generalized distribution, at times occurs somewhat rhythmic at 3 hertz. Different stages of sleep were not seen. Photic driving response was not seen. IMPRESSION: This is an abnormal EEG due to background slowing and disorganization, suggestive of moderate to severe encephalopathy. Some intermittent high-amplitude, sharply contoured waves were seen in generalized distribution, which did not appear clearly epileptiform. However, clinical correlation and a followup EEG strongly recommended. No definitive electrographic seizure was recorded. MMODL / IJN: [id number] /
[2023-12-04] MEDS: VANCOMYCIN 1,250 MG in SODIUM CHLORIDE 0.9% 250 ML IVPB ONE (20:54)
[2023-12-05 01:44] LABS: Glucose,Whole Blood 95 mg/dL (70-110)
[2023-12-05 06:19] LABS: Glucose,Whole Blood 110 mg/dL (70-110)
[2023-12-05 08:00] LABS: Anisocytosis Slight; Basophils % (A) 0 %; Eosinophils # (A) 0.1 k/uL (0-0.7); Eosinophils % (A) 1 %; HCT 30.3 % (39.0-53.0); HGB 9.4 gm/dL (13.0-17.5); Hypochromasia Moderate; Lymphocytes # (A) 0.9 k/uL (1.0-4.8); Lymphocytes % (A) 11 %; MCH 28.6 pg (25.0-35.0); MCV 92.2 fL (80.0-100.0); Mean Platelet Volume 10.6; Monocytes # (A) 0.5 k/uL (0-1.0); Monocytes % (A) 6 %; Neutrophils # (A) 7.2 k/uL (1.3-7.7); Neutrophils % (A) 81 %; Platelet Count 155 k/uL (150-450); RBC 3.29 m/uL (4.30-5.90); RDW 16.3 % (11.5-15.5); WBC 8.8 k/uL (3.8-10.6)
[2023-12-05 08:09] LABS: ALT 28 U/L (4-49); AST 47 U/L (17-59); African American GFR (CKD) 38 (>60 ml/min/1.73 sqM); Albumin 1.9 g/dL (3.5-5.0); Alkaline Phosphatase 172 U/L (38-126); Anion Gap 4 mmol/L; Blood Urea Nitrogen 39 mg/dL (9-20); Calcium 7.1 mg/dL (8.4-10.2); Carbon Dioxide 27 mmol/L (22-30); Chloride 109 mmol/L (98-107); Glucose 94 mg/dL (74-99); Magnesium 1.7 mg/dL (1.6-2.3); Non-African American GFR(CKD) 33 (>60 ml/min/1.73 sqM); Potassium 3.4 mmol/L (3.5-5.1); Sodium 140 mmol/L (137-145); Total Bilirubin 0.8 mg/dL (0.2-1.3); Total Protein 4.6 g/dL (6.3-8.2)
[2023-12-05 11:20] LABS: Glucose,Whole Blood 96 mg/dL (70-110)
--- NOTE | 2023-12-05 11:58 | P.PN ---
Subjective Progress Note Date: 12/05/23 88-year-old male with history of liver cancer on immunotherapy, type 2 diabetes, hypertension, BPH presenting with loss of appetite, nausea, vomiting. He is also encephalopathic. Patient recently started on immunotherapy 2 weeks ago. In the emergency room, patient was afebrile, 101/59, heart rate 75, 99% on room air. CBC shows anemia to 10.4. Basic metabolic panel shows hyponatremia to 124, chloride of 96, CO2 of 18, BUN of 82, creatinine of 2.34. Liver function test show AST of 104, ALT of 43, alkaline phosphatase of 232, albumin of 2.3, total protein of 5.1. Amylase is 70, lipase is 38. Chest x-ray shows Mediport, otherwise clear parenchyma bilaterally, poor inspiratory effort. Patient was provided bolus of IV fluids and was admitted to medicine as an inpatient. Renal function continued to worsen. Sodium improved. Nephrology was consulted. Patient also hypothermic, concern for sepsis, unclear source. Patient started on broad-spectrum IV antibiotics. Oncology also consulted. Patient is encephalopathic, likely delirium. Renal function still not improved. Patient n ow on hemodialysis. Continues to have poor mentation. Prognosis very guarded. Had goals of care discussion with son, consider comfort care if no further improvement in mentation. Patient did have some improvement. Neurology also consulted. EEG concerning for some cortical irritability, no evidence of seizures. Subjective: Patient seen and examined at bedside. No acute overnight events. Showed improvement in encephalopathy. Pertinent positives and negatives as discussed above, a complete review of systems was performed and all other systems are negative. Vitals Signs Reviewed. General: A+O x 2, nontoxic, no distress, appears at stated age Derm: Warm, dry, left heel decubitus ulcers covered in dressing Head: Atraumatic, normocephalic, symmetric Eyes: EOMI, no lid lag, anicteric sclera, pinpoint pupils Mouth: No lip lesion, mucus membranes moist Cardiovascular: S1S2 reg, no murmur Lungs: Bilateral rhonchi, no accessory muscle use Abdominal: Soft, nontender to palpation, no guarding, no appreciable organomegaly Ext: No gross muscle atrophy,+1 bilateral pedal edema, no contractures Neuro: CN II-XI grossly intact, no focal neuro deficits Psych: Awake, not oriented Data Reviewed Today: Pertinent Labs: WBC 8.8, hemoglobin 9.4, platelet 155, potassium 3.4, bicarb 27, BUN 39, creatinine 1.81, glucose 94 magnesium 1.7 Imaging: -Repeat CT head, limited study, no gross abnormality, consider repeat. Assessment and Plan: Patient is severely ill, needs close monitoring. Prognosis guarded. Active: Acute kidney injury on CKD stage III Hypocalcemia, resolved Hyponatremia, potassium 3.4 today, given potassium replacement 10 mEq Hypokalemia, resolved Metabolic acidosis, resolved -Discussed management with nephrology, recommending continued hemodialysis, discontinued sodium bicarb -Continue to monitor renal function, Jenkins catheter in place, monitor intake and output Acute encephalopathy, likely metabolic Delirium -Recent brain MRI did not show any acute process -Ammonia negative -Patient not able to eat or drink at the moment -TSH, B12, folic acid levels were within normal limits. Discontinued tramadol, cefepime, morphine BUN downtrending from 92, now 39 -Pain control with IV Dilaudid 0.5 every 4 hours -Neurology started patient on IV Keppra 500 every 12 hours -Repeat CT head, limited study, no gross abnormality, consider repeat. -EEG concerning for some cortical irritability, no evidence of seizures -Mental status slightly improved today Hypothermia Infected heel ulcer, present on admission -Possible systemic infection, no obvious source other than possible heel ulcer -Discontinued cefepime due to concern for encephalopathy and neurotoxicity, continue IV vancomycin pharmacy to dose, monitor renal function -Cultures negative growth to date -Wound care following Hepatocellular carcinoma on immunotherapy Anemia, stable -Discussed management with oncology, immunotherapy currently on hold, follow-up outpatient with oncology -No active bleeding, workup pending for anemia Depression -Continue sertraline 25 daily, mirtazapine 15 nightly BPH -Continue tamsulosin 0.4 daily Dyslipidemia -Continue atorvastatin 10 nightly Type 2 diabetes -Sliding scale insulin, monitor for hypoglycemia Hypoglycemia, resolved -Due to poor oral intake, renal and hepatic dysfunction -Continue to monitor blood sugars every 6 hours -If oral intake continues to remain poor due to encephalopathy, may need to consider feeding tube DVT ppx: SCDs Code status: No code Anticipated discharge place: Pending clinical course Anticipated discharge time: Pending clinical course I have seen and evaluated the patient today. Discussed with the resident and agree with the residents finding and plan as documented in the resident's note. Changes highlighted in blue font. Objective - Vital Signs Vital signs: Vital Signs Temp 96.7 F L 12/05/23 04:00 Pulse 77 12/05/23 08:04 Resp 16 12/05/23 08:04 BP 164/71 12/05/23 08:04 Pulse Ox 97 12/05/23 08:04 FiO2 Intake & Output 12/04/23 12/05/23 12/05/23 18:59 06:59 18:59 Intake Total 400 Output Total 1400 350 Balance -1000 -350 Weight 101.9 kg Intake: Hemodialysis 400 Output: Urine 350 Hemodialysis 900 Hemodialysis Net Amount 500 Other: Voiding Method Indwelling Catheter Indwelling Catheter Indwelling Catheter - Labs CBC & Chem 7: 12/05/23 07:48 12/05/23 07:48 Labs: Abnormal Lab Results - Last 24 Hours (Table) 12/04/23 12/04/23 12/04/23 Range/Units 11:28 16:16 20:00 RBC (4.30-5.90) m/uL Hgb (13.0-17.5) gm/dL Hct (39.0-53.0) % RDW (11.5-15.5) % Lymphocytes # (1.0-4.8) k/uL Potassium (3.5-5.1) mmol/L Chloride (98-107) mmol/L BUN (9-20) mg/dL Creatinine (0.66-1.25) mg/dL POC Glucose (mg/dL) 135 H 119 H 118 H (70-110) mg/dL Calcium (8.4-10.2) mg/dL Alkaline Phosphatase (38-126) U/L Total Protein (6.3-8.2) g/dL Albumin (3.5-5.0) g/dL 12/05/23 12/05/23 Range/Units 07:48 07:48 RBC 3.29 L (4.30-5.90) m/uL Hgb 9.4 L (13.0-17.5) gm/dL Hct 30.3 L (39.0-53.0) % RDW 16.3 H (11.5-15.5) % Lymphocytes # 0.9 L (1.0-4.8) k/uL Potassium 3.4 L (3.5-5.1) mmol/L Chloride 109 H (98-107) mmol/L BUN 39 H (9-20) mg/dL Creatinine 1.81 H (0.66-1.25) mg/dL POC Glucose (mg/dL) (70-110) mg/dL Calcium 7.1 L (8.4-10.2) mg/dL Alkaline Phosphatase 172 H (38-126) U/L Total Protein 4.6 L (6.3-8.2) g/dL Albumin 1.9 L (3.5-5.0) g/dL
--- NOTE | 2023-12-05 12:50 | P.PN ---
Subjective Patient is seen for follow-up for acute kidney injury. started on hemodialysis on 12/01/2023. No significant complaints today. Status post hemodialysis yesterday with UF of 500 mL. Mentation seems to have improved today. urine output at 1.3 L for 24 hours. There were plans on repeating dialysis today however, serum creatinine is at 1.8 and mentation has improved, therefore, we will plan for treatment tomorrow Objective - Vital Signs Vital signs: Vital Signs Temp 96.7 F L 12/05/23 04:00 Pulse 77 12/05/23 08:04 Resp 16 12/05/23 08:04 BP 164/71 12/05/23 08:04 Pulse Ox 97 12/05/23 08:04 FiO2 Intake & Output 12/04/23 12/05/23 12/05/23 18:59 06:59 18:59 Intake Total 400 Output Total 1400 350 Balance -1000 -350 Weight 101.9 kg Intake: Hemodialysis 400 Output: Urine 350 Hemodialysis 900 Hemodialysis Net Amount 500 Other: Voiding Method Indwelling Catheter Indwelling Catheter Indwelling Catheter # Bowel Movements 1 - Exam patient is awake, comfortable, no acute distress. Examination of the heart S1 and S2 Examination of the lungs decreased breath sounds at the bases Abdomen is soft nontender Examination of lower extremity shows edema 1+ bilaterally - Labs CBC & Chem 7: 12/05/23 07:48 12/05/23 07:48 Labs: Abnormal Lab Results - Last 24 Hours (Table) 12/04/23 12/04/23 12/05/23 Range/Units 16:16 20:00 07:48 RBC 3.29 L (4.30-5.90) m/uL Hgb 9.4 L (13.0-17.5) gm/dL Hct 30.3 L (39.0-53.0) % RDW 16.3 H (11.5-15.5) % Lymphocytes # 0.9 L (1.0-4.8) k/uL Potassium (3.5-5.1) mmol/L Chloride (98-107) mmol/L BUN (9-20) mg/dL Creatinine (0.66-1.25) mg/dL POC Glucose (mg/dL) 119 H 118 H (70-110) mg/dL Calcium (8.4-10.2) mg/dL Alkaline Phosphatase (38-126) U/L Total Protein (6.3-8.2) g/dL Albumin (3.5-5.0) g/dL 12/05/23 Range/Units 07:48 RBC (4.30-5.90) m/uL Hgb (13.0-17.5) gm/dL Hct (39.0-53.0) % RDW (11.5-15.5) % Lymphocytes # (1.0-4.8) k/uL Potassium 3.4 L (3.5-5.1) mmol/L Chloride 109 H (98-107) mmol/L BUN 39 H (9-20) mg/dL Creatinine 1.81 H (0.66-1.25) mg/dL POC Glucose (mg/dL) (70-110) mg/dL Calcium 7.1 L (8.4-10.2) mg/dL Alkaline Phosphatase 172 H (38-126) U/L Total Protein 4.6 L (6.3-8.2) g/dL Albumin 1.9 L (3.5-5.0) g/dL Assessment and Plan Assessment: 1. Acute kidney injury secondary to ATN secondary to hypotension/?sepsis further worsened with the use of losartan, torsemide Aldactone. Was also on Farxiga. Concern for sepsis as patient was hypothermic this admission. Creatinine 3.67 dated December 01, 2023. Started on hemodialysis December 01, 2023 due to concern for uremia. 2. Chronic kidney disease stage IIIa with baseline creatinine near 1.4 secondary to diabetic kidney disease and nephrosclerosis. No hydronephrosis noted on kidney ultrasound. 3. Liver cancer maintained on sorafenib outpatient. No ascites noted on abdominal ultrasound. 4. Diabetes mellitus. 5. History of BPH on Flomax. 6. Hypertension with chronic kidney disease. Stable. 7. Hypovolemic hyponatremia improved with IV fluids. 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 Improved. TSH slightly high at 5.9 and free T4 normal. 8. Metabolic acidosis secondary to acute kidney injury and IV fluids. 9. Hypocalcemia secondary to acute kidney injury and bicarb. PTH high at 150, vitamin D slightly low at 29.4, and ionized calcium low at 3.8. This picture could represent malabsorption contributing to the hypocalcemia due to low vitamin D. Replaced. Improved. 10. Anemia. Iron deficiency noted. IV iron on hold due to concern for acute infection. 11. Encephalopathy, mentation seems to have improved. Plan: hemodialysis in a.m. replace potassium. Continue to monitor urine output closely.
[2023-12-05] MEDS: POTASSIUM CHLORIDE 10 MEQ in WATER FOR INJECTION 1 100ML.BAG IVPB SCH (14:28)
--- NOTE | 2023-12-05 15:37 | P.PN ---
Subjective Progress Note Date: 12/05/23 Principal diagnosis: Acute metabolic encephalopathy with acute on chronic kidney disease stage III presently requiring hemodialysis. This is a 88-year-old male patient who is having multiple medical issues and comorbidities and the patient is currently in a DNR/DNI CODE STATUS. I was asked to to be involved in the patient's care and consider ICU transfer as the patient was supposed to undergo a dialysis catheter insertion for an acute on top of a chronic stage III kidney disease and ongoing encephalopathy. The patient had an MRI of the brain that showed no acute process. Ammonia levels are nonelevated. The patient was hypothermic and the had an infected has a ulcer at time of admission. He was also having episodes of hypoglycemia due to poor oral intake and hepatic dysfunction the patient is currently on bicarb infusion with D5 water. The patient is currently on room air oxygen. Dialysis catheter has been inserted. I made recommendations to keep the patient on the medical floor pending further workup and treatment by medicine. The patient is hemodynamically stable and on room air oxygen with a pulse ox of 93%. Currently normothermic. Most recent BP is 144/76. Moving all 4 extremities. Hard to communicate with as the patient is encephalopathic. 12/03/2023, no change in this patient's condition, the patient remains profoundly lethargic and confused. He has undergone 2 sessions of hemodialysis without any improvement. Urine output is in order of 500 cc over the past 24 hours. No signs of any significant respiratory difficulties. The patient on broad- spectrum antibiotics with oncology on the case with nephrology on the case. He remains quite encephalopathic and delirious. The patient is on room air oxygen with a pulse ox of 97%. The white cell count of 9 with a hemoglobin 9 and a platelet count of 172. BUN is 55 lactate and of 2.2 and a potassium level is at 3.6. Patient was evaluated today on 12/04/23, patient is undergoing hemodialysis during my evaluation, he is confused, lethargic, not in any distress. WBC count is 10.8 hemoglobin 9.4 electrolytes are normal bicarb is 20 BUN 55 creatinine 2.14 patient is on room air, does not seem to be in any distress Patient was evaluated today on 12/05/2023, patient seems to be doing better today, he is actually more awake, more responsive, although seems to be very slow and forgetful. But his mentation is nonetheless improving. Creatinine is 1.8, and no plans for repeating dialysis today. Son is at bedside, seems to be quite pleased with the improvement in his dad's condition. WBC count is 8.8 hemoglobin 9.4 basic metabolic profile is normal BUN is 39 creatinine 1.81 Objective - Vital Signs Vital signs: Vital Signs Temp 96.7 F L 12/05/23 04:00 Pulse 82 12/05/23 12:56 Resp 18 12/05/23 12:56 BP 155/80 12/05/23 12:56 Pulse Ox 97 12/05/23 12:56 FiO2 Intake & Output 12/04/23 12/05/23 12/05/23 18:59 06:59 18:59 Intake Total 400 Output Total 1400 350 Balance -1000 -350 Weight 101.9 kg 101.9 kg Intake: Hemodialysis 400 Output: Urine 350 Hemodialysis 900 Hemodialysis Net Amount 500 Other: Voiding Method Indwelling Catheter Indwelling Catheter Indwelling Catheter # Bowel Movements 1 - Exam General: Revealed an 88-year-old white male confused not in distress, extremely dry mucous membranes noted. Head: Atraumatic, normocephalic Eyes: EOMI, no lid lag, anicteric sclera, pinpoint pupils Mouth: No lip lesion, mucus membranes, extremely dry. Cardiovascular: S1S2 reg, no murmur Lungs: Diminished breath sound bilaterally no crackles rhonchi or wheezes Abdominal: Soft, nontender to palpation, no guarding, no appreciable organomegaly Ext: No gross muscle atrophy, no edema, no contractures Examination of the skin revealed no evidence of significant rashes Neuro: Awake, answers few questions, seems to be oriented to place and person. But not to time - Labs CBC & Chem 7: 12/05/23 07:48 12/05/23 07:48 Labs: Abnormal Lab Results - Last 24 Hours (Table) 12/04/23 12/04/23 12/05/23 Range/Units 16:16 20:00 07:48 RBC 3.29 L (4.30-5.90) m/uL Hgb 9.4 L (13.0-17.5) gm/dL Hct 30.3 L (39.0-53.0) % RDW 16.3 H (11.5-15.5) % Lymphocytes # 0.9 L (1.0-4.8) k/uL Potassium (3.5-5.1) mmol/L Chloride (98-107) mmol/L BUN (9-20) mg/dL Creatinine (0.66-1.25) mg/dL POC Glucose (mg/dL) 119 H 118 H (70-110) mg/dL Calcium (8.4-10.2) mg/dL Alkaline Phosphatase (38-126) U/L Total Protein (6.3-8.2) g/dL Albumin (3.5-5.0) g/dL 12/05/23 Range/Units 07:48 RBC (4.30-5.90) m/uL Hgb (13.0-17.5) gm/dL Hct (39.0-53.0) % RDW (11.5-15.5) % Lymphocytes # (1.0-4.8) k/uL Potassium 3.4 L (3.5-5.1) mmol/L Chloride 109 H (98-107) mmol/L BUN 39 H (9-20) mg/dL Creatinine 1.81 H (0.66-1.25) mg/dL POC Glucose (mg/dL) (70-110) mg/dL Calcium 7.1 L (8.4-10.2) mg/dL Alkaline Phosphatase 172 H (38-126) U/L Total Protein 4.6 L (6.3-8.2) g/dL Albumin 1.9 L (3.5-5.0) g/dL Assessment and Plan Assessment: Impression: Acute metabolic encephalopathy, improving with hemodialysis. Acute on chronic kidney stage III disease. Patient is now on hemodialysis Non-anion gap metabolic acidosis Hepatocellular carcinoma currently on immunotherapy, followed up by oncology on outpatient basis BPH Depression Hyperlipidemia Diabetes mellitus type 2 Episodes of hypoglycemia due to poor oral intake and hepatic dysfunction Anemia of chronic disease Recommendation: Continue present supportive care measures Continue hemodialysis, as felt necessary by nephrology on the case. Continue to monitor electrolytes and renal profile Labs were reviewed Discussed his condition with his son at bedside Will continue to follow Time with Patient: Less than 30
[2023-12-05] MEDS ORDERED: NALOXONE 0.4 MG/ML 1 ML VIAL IV PRN (15:41)
[2023-12-05 16:31] LABS: Glucose,Whole Blood 78 mg/dL (70-110)
[2023-12-05 22:07] LABS: Glucose,Whole Blood 96 mg/dL (70-110)
[2023-12-06 02:11] LABS: Glucose,Whole Blood 89 mg/dL (70-110)
[2023-12-06 06:16] LABS: Glucose,Whole Blood 72 mg/dL (70-110)
[2023-12-06 06:23] LABS: Anisocytosis Slight; Basophils % (A) 0 %; Eosinophils # (A) 0.1 k/uL (0-0.7); Eosinophils % (A) 1 %; HCT 30.4 % (39.0-53.0); HGB 9.1 gm/dL (13.0-17.5); Hypochromasia Marked; Lymphocytes # (A) 0.9 k/uL (1.0-4.8); Lymphocytes % (A) 12 %; MCH 28.5 pg (25.0-35.0); MCHC 30.1 g/dL (31.0-37.0); MCV 94.8 fL (80.0-100.0); Mean Platelet Volume 10.6; Monocytes # (A) 0.5 k/uL (0-1.0); Monocytes % (A) 6 %; Neutrophils # (A) 6.2 k/uL (1.3-7.7); Neutrophils % (A) 80 %; Platelet Count 167 k/uL (150-450); RDW 16.4 % (11.5-15.5); WBC 7.7 k/uL (3.8-10.6)
[2023-12-06 06:32] LABS: ALT 27 U/L (4-49); AST 44 U/L (17-59); African American GFR (CKD) 32 (>60 ml/min/1.73 sqM); Alkaline Phosphatase 200 U/L (38-126); Anion Gap 2 mmol/L; Blood Urea Nitrogen 43 mg/dL (9-20); Calcium 7.2 mg/dL (8.4-10.2); Carbon Dioxide 25 mmol/L (22-30); Chloride 111 mmol/L (98-107); Glucose 74 mg/dL (74-99); Magnesium 1.7 mg/dL (1.6-2.3); Non-African American GFR(CKD) 28 (>60 ml/min/1.73 sqM); Potassium 3.7 mmol/L (3.5-5.1); Sodium 138 mmol/L (137-145); Total Bilirubin 0.9 mg/dL (0.2-1.3); Total Protein 4.7 g/dL (6.3-8.2)
[2023-12-06 06:38] LABS: Vancomycin,Random 18.5 ug/mL
--- NOTE | 2023-12-06 08:28 | P.PN ---
Subjective Progress Note Date: 12/05/23 Patient was seen for a follow-up. Patient was sleeping at this time. On waking up, patient became much more alert awake, interactive. Per nursing report, patient earlier was talking to the family, got in the chair, but now is sleepy. He is much better as compared to yesterday. Objective - Vital Signs Vital signs: Vital Signs Temp 96.6 F L 12/05/23 15:52 Pulse 79 12/05/23 15:52 Resp 15 12/05/23 15:52 BP 141/84 12/05/23 15:52 Pulse Ox 95 12/05/23 15:52 FiO2 Intake & Output 12/04/23 12/05/23 12/05/23 18:59 06:59 18:59 Intake Total 400 Output Total 1400 350 Balance -1000 -350 Weight 101.9 kg 101.9 kg Intake: Hemodialysis 400 Output: Urine 350 Hemodialysis 900 Hemodialysis Net Amount 500 Other: Voiding Method Indwelling Catheter Indwelling Catheter Indwelling Catheter # Bowel Movements 1 - Exam Patient was sleeping on arrival. However he did wake up. Patient able to tell me he is 88 years old, and his name Farhan. He is able to tell he is in [place], but could not tell the city. Then he is somewhat spaced out. His right pupil appears slightly larger than the left. Rest of the examination is unchanged. No obvious seizure-like activity. - Labs CBC & Chem 7: 12/06/23 05:38 12/06/23 05:38 Labs: Abnormal Lab Results - Last 24 Hours (Table) 12/04/23 12/05/23 12/05/23 Range/Units 20:00 07:48 07:48 RBC 3.29 L (4.30-5.90) m/uL Hgb 9.4 L (13.0-17.5) gm/dL Hct 30.3 L (39.0-53.0) % RDW 16.3 H (11.5-15.5) % Lymphocytes # 0.9 L (1.0-4.8) k/uL Potassium 3.4 L (3.5-5.1) mmol/L Chloride 109 H (98-107) mmol/L BUN 39 H (9-20) mg/dL Creatinine 1.81 H (0.66-1.25) mg/dL POC Glucose (mg/dL) 118 H (70-110) mg/dL Calcium 7.1 L (8.4-10.2) mg/dL Alkaline Phosphatase 172 H (38-126) U/L Total Protein 4.6 L (6.3-8.2) g/dL Albumin 1.9 L (3.5-5.0) g/dL Assessment and Plan Assessment: * Altered mental status, likely due to toxic metabolic encephalopathy. Reasons multifactorial, as mentioned below. * Abnormal EEG, with evidence of moderate to severe encephalopathy, and presence of intermittent generalized sharp appearing waves, which may have some triphasic in quality, but becomes rhythmic, therefore may suggest underlying cortical irritability. * Acute kidney failure, started on hemodialysis recently. * Frequent episodes of hypoglycemia ranging between 50s to 70s. 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 * Anemia * BPH * Hyperlipidemia Plan: * Patient has clinically improved. We will continue Keppra 500 mg twice daily. Keppra indicated probably for short-term. Once mentation completely improves, may gradually taper off. * Repeat EEG in the morning. * Initial EEG was performed today, which was abnormal due to background slowing, suggestive of moderate to severe encephalopathy. Also evidence of some intermittent sharp appearing waves, seen in generalize distribution, times at 3 Hz. This may have triphasic type quality, but becomes rhythmic, therefore may suggest underlying cortical irritability and tendency for seizure. No electrographic seizure was recorded. * Carotid Doppler revealed 50 to 69% stenosis of the left carotid bifurcation. Less than 50% stenosis of the right carotid bifurcation. Antegrade flow in both vertebral arteries. * Repeat CT head, 12/04/2023 revealed limited exam with motion. No gross abnormality. * Avoid episodes of hypoglycemia. * Other medical management as per IM and other specialties on board. Patient on hemodialysis. * Prognosis guarded due to multiple comorbid conditions.
[2023-12-06] MEDS: VANCOMYCIN 1,250 MG in SODIUM CHLORIDE 0.9% 250 ML IVPB ONE (08:35)
--- NOTE | 2023-12-06 11:27 | P.PN ---
Subjective Progress Note Date: 12/06/23 88-year-old male with history of liver cancer on immunotherapy, type 2 diabetes, hypertension, BPH presenting with loss of appetite, nausea, vomiting. He is also encephalopathic. Patient recently started on immunotherapy 2 weeks ago. In the emergency room, patient was afebrile, 101/59, heart rate 75, 99% on room air. CBC shows anemia to 10.4. Basic metabolic panel shows hyponatremia to 124, chloride of 96, CO2 of 18, BUN of 82, creatinine of 2.34. Liver function test show AST of 104, ALT of 43, alkaline phosphatase of 232, albumin of 2.3, total protein of 5.1. Amylase is 70, lipase is 38. Chest x-ray shows Mediport, otherwise clear parenchyma bilaterally, poor inspiratory effort. Patient was provided bolus of IV fluids and was admitted to medicine as an inpatient. Renal function continued to worsen. Sodium improved. Nephrology was consulted. Patient also hypothermic, concern for sepsis, unclear source. Patient started on broad-spectrum IV antibiotics. Oncology also consulted. Patient is encephalopathic, likely delirium. Renal function still not improved. Patient n ow on hemodialysis. Continues to have poor mentation. Prognosis very guarded. Had goals of care discussion with son, consider comfort care if no further improvement in mentation. Patient did have some improvement. Neurology also consulted. EEG concerning for some cortical irritability, no evidence of seizures. Encephalopathy improving. Subjective: Patient seen and examined at bedside. No acute overnight events. Continues to show improvement in encephalopathy, and was able to answer questions appropriately. Continues to have poor appetite. Awaiting foot x-ray. Pertinent positives and negatives as discussed above, a complete review of systems was performed and all other systems are negative. Vitals Signs Reviewed. General: A+O x 3, nontoxic, no distress, appears at stated age Derm: Warm, dry, left heel decubitus ulcers covered in dressing Head: Atraumatic, normocephalic, symmetric Eyes: EOMI, no lid lag, anicteric sclera, pinpoint pupils Mouth: No lip lesion, mucus membranes moist Cardiovascular: S1S2 reg, no murmur Lungs: Bilateral rhonchi, no accessory muscle use Abdominal: Soft, nontender to palpation, no guarding, no appreciable organomegaly Ext: No gross muscle atrophy,+1 bilateral pedal edema, no contractures Neuro: CN II-XI grossly intact, no focal neuro deficits Psych: Awake, not oriented Data Reviewed Today: Pertinent Labs: WBC 7.7 hemoglobin 9.1, MCV 94.8, platelets 167, sodium 138, potassium 3.7, chloride 111, bicarb 25, BUN 43, creatinine 2.08, glucose 94, ALP 200 Imaging: None Assessment and Plan: Patient is severely ill, needs close monitoring. Prognosis guarded. Active: Acute kidney injury on CKD stage III Hypocalcemia, resolved Hyponatremia, resolved Hypokalemia, resolved Metabolic acidosis, resolved -Nephrology note reviewed, hemodialysis today -Continue to monitor renal function, Jenkins catheter in place, monitor intake and output Acute encephalopathy, likely metabolic Delirium -Recent brain MRI did not show any acute process -Ammonia negative -Patient not able to eat or drink at the moment -TSH, B12, folic acid levels were within normal limits. Discontinued tramadol, cefepime, morphine BUN downtrending -Pain control with IV Dilaudid 0.5 every 4 hours -Neurology started patient on IV Keppra 500 every 12 hours -Repeat CT head, limited study, no gross abnormality, consider repeat. -EEG concerning for some cortical irritability, no evidence of seizures -Mental status continued to improved today Infected left heel ulcer, present on admission Hypothermia -Possible systemic infection, no obvious source other than possible heel ulcer -Discontinued cefepime due to concern for encephalopathy and neurotoxicity, continue IV vancomycin pharmacy to dose, monitor renal function -Cultures negative. -Wound care following -Ordered left foot x-ray Hepatocellular carcinoma on immunotherapy Anemia, stable -Oncology following, immunotherapy currently on hold, follow-up outpatient with oncology -No active bleeding, workup pending for anemia Depression -Continue sertraline 25 daily, mirtazapine 15 nightly BPH -Continue tamsulosin 0.4 daily Dyslipidemia -Continue atorvastatin 10 nightly Type 2 diabetes -Sliding scale insulin, monitor for hypoglycemia Hypoglycemia, resolved -Due to poor oral intake, renal and hepatic dysfunction -Continue to monitor blood sugars every 6 hours -If oral intake continues to remain poor due to encephalopathy, may need to co nsider feeding tube DVT ppx: SCDs Code status: No code Anticipated discharge place: Pending clinical course Anticipated discharge time: Pending clinical course I have seen and evaluated the patient today. Discussed with the resident and agree with the residents finding and plan as documented in the resident's note. Changes highlighted in blue font. Objective - Vital Signs Vital signs: Vital Signs Temp 96.5 F L 12/06/23 04:00 Pulse 82 12/06/23 04:00 Resp 16 12/06/23 04:00 BP 161/81 12/06/23 04:00 Pulse Ox 97 12/06/23 04:00 FiO2 Intake & Output 12/05/23 12/06/23 12/06/23 18:59 06:59 18:59 Output Total 100 Balance -100 Weight 101.9 kg 106.2 kg Output: Urine 100 Other: Voiding Method Indwelling Catheter Indwelling Catheter # Voids 250 # Bowel Movements 1 - Labs CBC & Chem 7: 12/06/23 05:38 12/06/23 05:38 Labs: Abnormal Lab Results - Last 24 Hours (Table) 12/05/23 12/05/23 12/06/23 Range/Units 07:48 07:48 05:38 RBC 3.29 L (4.30-5.90) m/uL Hgb 9.4 L (13.0-17.5) gm/dL Hct 30.3 L (39.0-53.0) % MCHC (31.0-37.0) g/dL RDW 16.3 H (11.5-15.5) % Lymphocytes # 0.9 L (1.0-4.8) k/uL Potassium 3.4 L (3.5-5.1) mmol/L Chloride 109 H 111 H (98-107) mmol/L BUN 39 H 43 H (9-20) mg/dL Creatinine 1.81 H 2.08 H (0.66-1.25) mg/dL Calcium 7.1 L 7.2 L (8.4-10.2) mg/dL Alkaline Phosphatase 172 H 200 H (38-126) U/L Total Protein 4.6 L 4.7 L (6.3-8.2) g/dL Albumin 1.9 L 2.0 L (3.5-5.0) g/dL 12/06/23 Range/Units 05:38 RBC 3.20 L (4.30-5.90) m/uL Hgb 9.1 L (13.0-17.5) gm/dL Hct 30.4 L (39.0-53.0) % MCHC 30.1 L (31.0-37.0) g/dL RDW 16.4 H (11.5-15.5) % Lymphocytes # 0.9 L (1.0-4.8) k/uL Potassium (3.5-5.1) mmol/L Chloride (98-107) mmol/L BUN (9-20) mg/dL Creatinine (0.66-1.25) mg/dL Calcium (8.4-10.2) mg/dL Alkaline Phosphatase (38-126) U/L Total Protein (6.3-8.2) g/dL Albumin (3.5-5.0) g/dL
--- NOTE | 2023-12-06 11:32 | XR ---
EXAMINATION TYPE: XR foot limited LT DATE OF EXAM: 12/06/2023 CLINICAL HISTORY: pain TECHNIQUE: Frontal, lateral images of the left foot are obtained. COMPARISON: None. FINDINGS: There is amputation of the fourth and fifth toes is noted. Marked bony fragmentation and di sorganization is noted involving the tarsal bones and tarsometatarsal regions. Soft tissue bandage ov erlies the medial aspect of the left forefoot. No definite bony destructive process to suggest osteom yelitis. If there is continued concern for osteomyelitis consider triple phase bone scan or WBC scan. IMPRESSION: Findings reflect Charcot joint. See above [facility], , 12/06/2023 11:30 AM
[2023-12-06 12:40] LABS: Glucose,Whole Blood 123 mg/dL (70-110)
--- NOTE | 2023-12-06 13:54 | P.PN ---
Subjective Patient is seen for follow-up for acute kidney injury. started on hemodialysis on 12/01/2023. No significant complaints today. Mentation seems to have improved over the past 2 days Just 100 mL of urine charted for 24 hours,? Not accurate. Patient is scheduled for hemodialysis today Objective - Vital Signs Vital signs: Vital Signs Temp 97.4 F L 12/06/23 11:35 Pulse 91 12/06/23 11:35 Resp 16 12/06/23 11:35 BP 164/92 12/06/23 11:35 Pulse Ox 97 12/06/23 11:35 FiO2 Intake & Output 12/05/23 12/06/23 12/06/23 18:59 06:59 18:59 Intake Total 480 Output Total 100 Balance -100 480 Weight 101.9 kg 106.2 kg Intake: Oral 480 Output: Urine 100 Other: Voiding Method Indwelling Catheter Indwelling Catheter Indwelling Catheter # Voids 250 # Bowel Movements 1 - Exam patient is awake, comfortable, no acute distress. Examination of the heart S1 and S2 Examination of the lungs decreased breath sounds at the bases Abdomen is soft nontender Examination of lower extremity shows edema 1+ bilaterally - Labs CBC & Chem 7: 12/06/23 05:38 12/06/23 05:38 Labs: Abnormal Lab Results - Last 24 Hours (Table) 12/06/23 12/06/23 12/06/23 Range/Units 05:38 05:38 12:38 RBC 3.20 L (4.30-5.90) m/uL Hgb 9.1 L (13.0-17.5) gm/dL Hct 30.4 L (39.0-53.0) % MCHC 30.1 L (31.0-37.0) g/dL RDW 16.4 H (11.5-15.5) % Lymphocytes # 0.9 L (1.0-4.8) k/uL Chloride 111 H (98-107) mmol/L BUN 43 H (9-20) mg/dL Creatinine 2.08 H (0.66-1.25) mg/dL POC Glucose (mg/dL) 123 H (70-110) mg/dL Calcium 7.2 L (8.4-10.2) mg/dL Alkaline Phosphatase 200 H (38-126) U/L Total Protein 4.7 L (6.3-8.2) g/dL Albumin 2.0 L (3.5-5.0) g/dL Assessment and Plan Assessment: 1. Acute kidney injury secondary to ATN secondary to hypotension/?sepsis further worsened with the use of losartan, torsemide Aldactone. Was also on Farxiga. Concern for sepsis as patient was hypothermic this admission. Creatinine 3.67 dated December 01, 2023. Started on hemodialysis December 01, 2023 due to concern for uremia. 2. Chronic kidney disease stage IIIa with baseline creatinine near 1.4 secondary to diabetic kidney disease and nephrosclerosis. No hydronephrosis noted on kidney ultrasound. 3. Liver cancer maintained on sorafenib outpatient. No ascites noted on abdominal ultrasound. 4. Diabetes mellitus. 5. History of BPH on Flomax. 6. Hypertension with chronic kidney disease. Stable. 7. Hypovolemic hyponatremia improved with IV fluids. 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 Improved. TSH slightly high at 5.9 and free T4 normal. 8. Metabolic acidosis secondary to acute kidney injury and IV fluids. 9. Hypocalcemia secondary to acute kidney injury and bicarb. PTH high at 150, vitamin D slightly low at 29.4, and ionized calcium low at 3.8. This picture could represent malabsorption contributing to the hypocalcemia due to low vitamin D. Replaced. Improved. 10. Anemia. Iron deficiency noted. IV iron on hold due to concern for acute infection. 11. Encephalopathy, mentation seems to have improved. Plan: hemodialysis today replace potassium. Accurate I's and O's, particularly urine output.
[2023-12-06 16:15] LABS: Glucose,Whole Blood 158 mg/dL (70-110)
[2023-12-06 20:14] LABS: Glucose,Whole Blood 128 mg/dL (70-110)
[2023-12-06] MEDS: ONDANSETRON 4 MG/2 ML VIAL IVP PRN (21:50)
--- NOTE | 2023-12-06 22:37 | EEG ---
ELECTROENCEPHALOGRAM REPORT PREAMBLE: This is an 88-year-old male who is in the hospital for altered mental status. He had an abnormal EEG on Zeke, 2 days ago with background slowing and disorganization and some intermittent sharply controlled waves seen in generalized distribution. This is a followup EEG. CURRENT MEDICATIONS: Keppra. EEG FINDINGS: This is a 21-channel digital EEG recorded with video component, utilizing 10/20 international system with referential and bipolar montages. Background consists of well-developed, moderately well regulated, predominantly 4 to 7 hertz moderate amplitude theta activity seen in bihemispheric region. Background is somewhat posterior dominant, and slightly reactive to eye opening and closing. Photic driving response was seen with some flash frequencies. Different stages of sleep were not seen. No focal or generalized epileptiform activity was seen. IMPRESSION: This is an abnormal EEG due to background slowing suggestive of [id number] encephalopathy. No focal, lateralized, or epileptiform activity was seen. When compared to the EEG from 12/04/2023, the background has remarkably improved. Sharply contoured waves have completely resolved. MMODL / IJN: [id number] / [facility]
[2023-12-07 02:04] LABS: Glucose,Whole Blood 121 mg/dL (70-110)
[2023-12-07 06:14] LABS: Glucose,Whole Blood 98 mg/dL (70-110)
[2023-12-07 08:17] LABS: Anisocytosis Slight; Basophils % (A) 0 %; Eosinophils % (A) 0 %; HCT 28.3 % (39.0-53.0); HGB 8.5 gm/dL (13.0-17.5); Hypochromasia Marked; Lymphocytes # (A) 0.6 k/uL (1.0-4.8); Lymphocytes % (A) 6 %; MCH 28.8 pg (25.0-35.0); MCHC 30.1 g/dL (31.0-37.0); MCV 95.5 fL (80.0-100.0); Mean Platelet Volume 10.5; Monocytes # (A) 0.4 k/uL (0-1.0); Monocytes % (A) 4 %; Neutrophils # (A) 8.6 k/uL (1.3-7.7); Neutrophils % (A) 88 %; Platelet Count 142 k/uL (150-450); RBC 2.97 m/uL (4.30-5.90); RDW 16.5 % (11.5-15.5); WBC 9.8 k/uL (3.8-10.6)
[2023-12-07 08:24] LABS: ALT 24 U/L (4-49); AST 42 U/L (17-59); African American GFR (CKD) 30 (>60 ml/min/1.73 sqM); Albumin 1.9 g/dL (3.5-5.0); Alkaline Phosphatase 219 U/L (38-126); Anion Gap 2 mmol/L; Blood Urea Nitrogen 42 mg/dL (9-20); Carbon Dioxide 26 mmol/L (22-30); Chloride 109 mmol/L (98-107); Glucose 98 mg/dL (74-99); Magnesium 1.7 mg/dL (1.6-2.3); Non-African American GFR(CKD) 26 (>60 ml/min/1.73 sqM); Potassium 3.6 mmol/L (3.5-5.1); Sodium 137 mmol/L (137-145); Total Bilirubin 0.7 mg/dL (0.2-1.3); Total Protein 4.5 g/dL (6.3-8.2)
[2023-12-07 08:29] LABS: Vancomycin,Random 23.2 ug/mL
--- NOTE | 2023-12-07 10:55 | P.PN ---
Subjective Patient is seen for follow-up for acute kidney injury. Started on hemodialysis on 12/01/2023. No significant complaints today. Mentation seems to have improved over the past 2 days 400 mL of urine charted for 24 hours. S/p hemodialysis yesterday with UF of 1 L Objective - Vital Signs Vital signs: Vital Signs Temp 98.4 F 12/07/23 07:52 Pulse 88 12/07/23 08:45 Resp 15 12/07/23 08:45 BP 135/67 12/07/23 07:52 Pulse Ox 95 12/07/23 07:52 FiO2 Intake & Output 12/06/23 12/07/23 12/07/23 18:59 06:59 18:59 Intake Total 600 500 240 Output Total 200 2700 Balance 400 -2200 240 Intake: Oral 600 240 Hemodialysis 500 Output: Urine 200 200 Hemodialysis 1500 Hemodialysis Net Amount 1000 Other: Voiding Method Indwelling Catheter Indwelling Catheter Indwelling Catheter # Bowel Movements 1 - Exam patient is awake, comfortable, no acute distress. Examination of the heart S1 and S2 Examination of the lungs decreased breath sounds at the bases Abdomen is soft nontender Examination of lower extremity shows edema 1+ bilaterally - Labs CBC & Chem 7: 12/07/23 07:10 12/07/23 07:10 Labs: Abnormal Lab Results - Last 24 Hours (Table) 12/06/23 12/06/23 12/06/23 Range/Units 12:38 16:14 20:08 RBC (4.30-5.90) m/uL Hgb (13.0-17.5) gm/dL Hct (39.0-53.0) % MCHC (31.0-37.0) g/dL RDW (11.5-15.5) % Plt Count (150-450) k/uL Neutrophils # (1.3-7.7) k/uL Lymphocytes # (1.0-4.8) k/uL Chloride (98-107) mmol/L BUN (9-20) mg/dL Creatinine (0.66-1.25) mg/dL POC Glucose (mg/dL) 123 H 158 H 128 H (70-110) mg/dL Calcium (8.4-10.2) mg/dL Alkaline Phosphatase (38-126) U/L Total Protein (6.3-8.2) g/dL Albumin (3.5-5.0) g/dL 12/07/23 12/07/23 12/07/23 Range/Units 02:00 07:10 07:10 RBC 2.97 L (4.30-5.90) m/uL Hgb 8.5 L (13.0-17.5) gm/dL Hct 28.3 L (39.0-53.0) % MCHC 30.1 L (31.0-37.0) g/dL RDW 16.5 H (11.5-15.5) % Plt Count 142 L (150-450) k/uL Neutrophils # 8.6 H (1.3-7.7) k/uL Lymphocytes # 0.6 L (1.0-4.8) k/uL Chloride 109 H (98-107) mmol/L BUN 42 H (9-20) mg/dL Creatinine 2.20 H (0.66-1.25) mg/dL POC Glucose (mg/dL) 121 H (70-110) mg/dL Calcium 7.0 L (8.4-10.2) mg/dL Alkaline Phosphatase 219 H (38-126) U/L Total Protein 4.5 L (6.3-8.2) g/dL Albumin 1.9 L (3.5-5.0) g/dL Assessment and Plan Assessment: 1. Acute kidney injury secondary to ATN secondary to hypotension/?sepsis further worsened with the use of losartan, torsemide Aldactone. Was also on Farxiga. Concern for sepsis as patient was hypothermic this admission. Creatinine 3.67 dated December 01, 2023. Started on hemodialysis December 01, 2023 due to concern for uremia. Urine output remains low. 2. Chronic kidney disease stage IIIa with baseline creatinine near 1.4 secondary to diabetic kidney disease and nephrosclerosis. No hydronephrosis noted on kidney ultrasound. 3. Liver cancer maintained on sorafenib outpatient. No ascites noted on abdominal ultrasound. 4. Diabetes mellitus. 5. History of BPH on Flomax. 6. Hypertension with chronic kidney disease. Stable. 7. Hypovolemic hyponatremia improved with IV fluids. 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 Improved. TSH slightly high at 5.9 and free T4 normal. 8. Metabolic acidosis secondary to acute kidney injury and IV fluids. 9. Hypocalcemia secondary to acute kidney injury and bicarb. PTH high at 150, vitamin D slightly low at 29.4, and ionized calcium low at 3.8. This picture could represent malabsorption contributing to the hypocalcemia due to low vitamin D. Replaced. Improved. 10. Anemia. Iron deficiency noted. IV iron on hold due to concern for acute infection. 11. Encephalopathy, mentation seems to have improved. Plan: hemodialysis in a.m. Patient will need IJ permacath placed as he will continue to need renal replacement therapy post discharge. Urine output remains low. Accurate I's and O's, particularly urine output.
[2023-12-07 11:39] LABS: Glucose,Whole Blood 132 mg/dL (70-110)
--- NOTE | 2023-12-07 12:58 | P.PN ---
Subjective Progress Note Date: 12/06/23 Patient was seen for a follow-up. Patient was sleeping at this time. On waking up, patient became much more alert awake, interactive. Patient offers no complaints. He is getting hemodialysis. Objective - Vital Signs Vital signs: Vital Signs Temp 97.5 F L 12/06/23 16:00 Pulse 92 12/06/23 16:00 Resp 16 12/06/23 16:00 BP 167/95 12/06/23 16:00 Pulse Ox 97 12/06/23 16:00 FiO2 Intake & Output 12/05/23 12/06/23 12/06/23 18:59 06:59 18:59 Intake Total 600 Output Total 100 200 Balance -100 400 Weight 101.9 kg 106.2 kg Intake: Oral 600 Output: Urine 100 200 Other: Voiding Method Indwelling Catheter Indwelling Catheter Indwelling Catheter # Voids 250 # Bowel Movements 1 - Exam Patient was sleeping on arrival. However he did wake up. Patient able to tell me he is 88 years old, and his name Farhan. Today he was able to tell me it is December 2023 and that he is in [place] in [place] and name of the current president Mr. Anderson. Speech and language functions appears clear. Face is symmetric. His biceps, triceps and grain unloader are normal. He wiggles his feet equally. No obvious deficits. - Labs CBC & Chem 7: 12/07/23 07:10 12/07/23 07:10 Labs: Abnormal Lab Results - Last 24 Hours (Table) 12/06/23 12/06/23 12/06/23 Range/Units 05:38 05:38 12:38 RBC 3.20 L (4.30-5.90) m/uL Hgb 9.1 L (13.0-17.5) gm/dL Hct 30.4 L (39.0-53.0) % MCHC 30.1 L (31.0-37.0) g/dL RDW 16.4 H (11.5-15.5) % Lymphocytes # 0.9 L (1.0-4.8) k/uL Chloride 111 H (98-107) mmol/L BUN 43 H (9-20) mg/dL Creatinine 2.08 H (0.66-1.25) mg/dL POC Glucose (mg/dL) 123 H (70-110) mg/dL Calcium 7.2 L (8.4-10.2) mg/dL Alkaline Phosphatase 200 H (38-126) U/L Total Protein 4.7 L (6.3-8.2) g/dL Albumin 2.0 L (3.5-5.0) g/dL 12/06/23 Range/Units 16:14 RBC (4.30-5.90) m/uL Hgb (13.0-17.5) gm/dL Hct (39.0-53.0) % MCHC (31.0-37.0) g/dL RDW (11.5-15.5) % Lymphocytes # (1.0-4.8) k/uL Chloride (98-107) mmol/L BUN (9-20) mg/dL Creatinine (0.66-1.25) mg/dL POC Glucose (mg/dL) 158 H (70-110) mg/dL Calcium (8.4-10.2) mg/dL Alkaline Phosphatase (38-126) U/L Total Protein (6.3-8.2) g/dL Albumin (3.5-5.0) g/dL Assessment and Plan Assessment: * Altered mental status, likely due to toxic metabolic encephalopathy. Reasons multifactorial, as mentioned below. * Abnormal EEG, with evidence of moderate to severe encephalopathy, and presence of intermittent generalized sharp appearing waves, which may have some triphasic in quality, but becomes rhythmic, therefore may suggest underlying cortical irritability. * Acute kidney failure, started on hemodialysis recently. * Frequent episodes of hypoglycemia ranging between 50s to 70s. 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 * Anemia * BPH * Hyperlipidemia Plan: * Patient has clinically improved. We will continue Keppra 500 mg twice daily. Keppra indicated probably for short-term. Once mentation completely improves, may gradually taper off. * Repeat EEG performed today was abnormal due to background slowing, suggestive of mild to moderate encephalopathy. No focal, lateralized or epileptiform activity was seen. When compared to the EEG from 12/04/2023, the background has remarkably improved. Sharply contoured waves have completely resolved. * As patient is very somnolent, we will decrease Keppra to 500 mg once daily. * Initial EEG was performed today, which was abnormal due to background slowing, suggestive of moderate to severe encephalopathy. Also evidence of some intermittent sharp appearing waves, seen in generalize distribution, times at 3 Hz. This may have triphasic type quality, but becomes rhythmic, therefore may suggest underlying cortical irritability and tendency for seizure. No electrographic seizure was recorded. * Carotid Doppler revealed 50 to 69% stenosis of the left carotid bifurcation. Less than 50% stenosis of the right carotid bifurcation. Antegrade flow in b oth vertebral arteries. * Consider starting aspirin 81 mg daily. * Hemoglobin A1c 6.0, on 11/24/2023 * Check lipid panel * Repeat CT head, 12/04/2023 revealed limited exam with motion. No gross abnormality. * Avoid episodes of hypoglycemia. * Other medical management as per IM and other specialties on board. Patient on hemodialysis.
--- NOTE | 2023-12-07 14:36 | NM ---
EXAMINATION TYPE: NM bone 3 phase DATE OF EXAM: 12/07/2023 COMPARISON: NONE CLINICAL INDICATION: Male, 88 years old with history of left foot osteo?; Triple phase bone scintigraphy was performed following the injection of 21.3 mCi Tc 99m MDP. Immedia te images and 5.5 hours post injection images acquired. FINDINGS: No intense uptake seen on the angiographic portion of the study. Mild uptake about the toes on the bl ood pool images. The delayed images demonstrate intense uptake about the left midfoot. There is mild uptake about the right-sided toes. IMPRESSION: No definite scintigraphic evidence to suggest osteomyelitis. Changes of Charcot joint. [facility], , 12/07/2023 2:33 PM
--- NOTE | 2023-12-07 15:01 | P.PN ---
Subjective Progress Note Date: 12/07/23 88-year-old male with history of liver cancer on immunotherapy, type 2 diabetes, hypertension, BPH presenting with loss of appetite, nausea, vomiting. He is also encephalopathic. Patient recently started on immunotherapy 2 weeks ago. In the emergency room, patient was afebrile, 101/59, heart rate 75, 99% on room air. CBC shows anemia to 10.4. Basic metabolic panel shows hyponatremia to 124, chloride of 96, CO2 of 18, BUN of 82, creatinine of 2.34. Liver function test show AST of 104, ALT of 43, alkaline phosphatase of 232, albumin of 2.3, total protein of 5.1. Amylase is 70, lipase is 38. Chest x-ray shows Mediport, otherwise clear parenchyma bilaterally, poor inspiratory effort. Patient was provided bolus of IV fluids and was admitted to medicine as an inpatient. Renal function continued to worsen. Sodium improved. Nephrology was consulted. Patient also hypothermic, concern for sepsis, unclear source. Patient started on broad-spectrum IV antibiotics. Oncology also consulted. Patient is encephalopathic, likely delirium. Renal function still not improved. Patient n ow on hemodialysis. Continues to have poor mentation. Prognosis very guarded. Had goals of care discussion with son, consider comfort care if no further improvement in mentation. Patient did have some improvement. Neurology also consulted. EEG concerning for some cortical irritability, no evidence of seizures. Encephalopathy improving. Repeat EEG shows improvement. Bone scans negative for osteomyelitis. Subjective: Patient seen and examined at bedside. No acute overnight events. Patient sitting up in bed. Continues to show improvement in encephalopathy, and was able to answer questions appropriately. Continues to have poor appetite. Will discuss with family regarding options for home care or discharge to SNF. Pertinent positives and negatives as discussed above, a complete review of systems was performed and all other systems are negative. Vitals Signs Reviewed. General: A+O x 3, nontoxic, no distress, appears at stated age Derm: Warm, dry, left heel decubitus ulcers covered in dressing Head: Atraumatic, normocephalic, symmetric Eyes: EOMI, no lid lag, anicteric sclera, pinpoint pupils Mouth: No lip lesion, mucus membranes moist Cardiovascular: S1S2 reg, no murmur Lungs: Bilateral rhonchi, no accessory muscle use Abdominal: Soft, nontender to palpation, no guarding, no appreciable organomegaly Ext: No gross muscle atrophy,+1 bilateral pedal edema, no contractures Neuro: CN II-XI grossly intact, no focal neuro deficits Psych: Awake, not oriented Data Reviewed Today: Pertinent Labs: WBC 9.8 hemoglobin 8.5, platelets 142, sodium 137, potassium 3.6, chloride 109, bicarb 26, BUN 42, creatinine 2.2, glucose 132 Imaging: Foot x-ray no definitive process to suggest osteomyelitis. Bone scan no evidence to suggest osteomyelitis Assessment and Plan: Patient is severely ill, needs close monitoring. Prognosis guarded. Active: Acute kidney injury on CKD stage III Hypocalcemia, resolved Hyponatremia, resolved Hypokalemia, resolved Metabolic acidosis, resolved -Hemodialysis daily Discussed case with nephrology, will need permacath placed before discharge -Continue to monitor renal function, Jenkins catheter in place, monitor intake and output Acute encephalopathy, likely metabolic Delirium -Recent brain MRI did not show any acute process -Ammonia negative -Patient not able to eat or drink at the moment -TSH, B12, folic acid levels were within normal limits. Discontinued tramadol, cefepime, morphine BUN downtrending -Pain control with IV Dilaudid 0.5 every 4 hours -Neurology started patient on IV Keppra 500 every 12 hours -Repeat CT head, limited study, no gross abnormality, consider repeat. -Initial EEG concerning for some cortical irritability, no evidence of seizures Repeat EEG suggestive of mild to moderate encephalopathy, background has remarkably improved. -Mental status continued to improved today Infected left heel ulcer, present on admission Hypothermia -Possible systemic infection, no obvious source other than possible heel ulcer -Discontinued cefepime due to concern for encephalopathy and neurotoxicity, continue IV vancomycin pharmacy to dose, monitor renal function -Cultures negative. -Wound care following - Foot x-ray no definitive process to suggest osteomyelitis Bone scan no evidence to suggest osteomyelitis, de-escalate antibiotic therapy Hepatocellular carcinoma on immunotherapy Anemia, stable -Oncology following, immunotherapy currently on hold, follow-up outpatient with oncology -No active bleeding, workup pending for anemia Depression -Continue sertraline 25 daily, mirtazapine 15 nightly BPH -Continue tamsulosin 0.4 daily Dyslipidemia -Continue atorvastatin 10 nightly Type 2 diabetes -Sliding scale insulin, monitor for hypoglycemia Hypoglycemia, resolved -Due to poor oral intake, renal and hepatic dysfunction -Continue to monitor blood sugars every 6 hours -If oral intake continues to remain poor due to encephalopathy, may need to consider feeding tube DVT ppx: Heparin 5000 units subcu every 8 hours Code status: No code Anticipated discharge place: Pending clinical course Anticipated discharge time: Pending clinical course I have seen and evaluated the patient today. Discussed with the resident and a gree with the residents finding and plan as documented in the resident's note. Changes highlighted in blue font. Objective - Vital Signs Vital signs: Vital Signs Temp 98.4 F 12/07/23 07:52 Pulse 88 12/07/23 08:45 Resp 15 12/07/23 08:45 BP 135/67 12/07/23 07:52 Pulse Ox 95 12/07/23 07:52 FiO2 Intake & Output 12/06/23 12/07/23 12/07/23 18:59 06:59 18:59 Intake Total 600 500 240 Output Total 200 2700 Balance 400 -2200 240 Intake: Oral 600 240 Hemodialysis 500 Output: Urine 200 200 Hemodialysis 1500 Hemodialysis Net Amount 1000 Other: Voiding Method Indwelling Catheter Indwelling Catheter Indwelling Catheter # Bowel Movements 1 2 - Labs CBC & Chem 7: 12/07/23 07:10 12/07/23 07:10 Labs: Abnormal Lab Results - Last 24 Hours (Table) 12/06/23 12/06/23 12/07/23 Range/Units 16:14 20:08 02:00 RBC (4.30-5.90) m/uL Hgb (13.0-17.5) gm/dL Hct (39.0-53.0) % MCHC (31.0-37.0) g/dL RDW (11.5-15.5) % Plt Count (150-450) k/uL Neutrophils # (1.3-7.7) k/uL Lymphocytes # (1.0-4.8) k/uL Chloride (98-107) mmol/L BUN (9-20) mg/dL Creatinine (0.66-1.25) mg/dL POC Glucose (mg/dL) 158 H 128 H 121 H (70-110) mg/dL Calcium (8.4-10.2) mg/dL Alkaline Phosphatase (38-126) U/L Total Protein (6.3-8.2) g/dL Albumin (3.5-5.0) g/dL 12/07/23 12/07/2312/06/24 Range/Units 07:10 07:10 11:37 RBC 2.97 L (4.30-5.90) m/uL Hgb 8.5 L (13.0-17.5) gm/dL Hct 28.3 L (39.0-53.0) % MCHC 30.1 L (31.0-37.0) g/dL RDW 16.5 H (11.5-15.5) % Plt Count 142 L (150-450) k/uL Neutrophils # 8.6 H (1.3-7.7) k/uL Lymphocytes # 0.6 L (1.0-4.8) k/uL Chloride 109 H (98-107) mmol/L BUN 42 H (9-20) mg/dL Creatinine 2.20 H (0.66-1.25) mg/dL POC Glucose (mg/dL) 132 H (70-110) mg/dL Calcium 7.0 L (8.4-10.2) mg/dL Alkaline Phosphatase 219 H (38-126) U/L Total Protein 4.5 L (6.3-8.2) g/dL Albumin 1.9 L (3.5-5.0) g/dL
[2023-12-07 15:59] LABS: LDL Cholesterol,Calculated 43.1 mg/dL (0.0-131.0); VLDL Calculation 15.24 mg/dL (5.00-40.00)
--- NOTE | 2023-12-07 16:34 | P.PN ---
Subjective Progress Note Date: 12/07/23 Principal diagnosis: Acute metabolic encephalopathy with acute on chronic kidney disease stage III presently requiring hemodialysis. This is a 88-year-old male patient who is having multiple medical issues and comorbidities and the patient is currently in a DNR/DNI CODE STATUS. I was asked to to be involved in the patient's care and consider ICU transfer as the patient was supposed to undergo a dialysis catheter insertion for an acute on top of a chronic stage III kidney disease and ongoing encephalopathy. The patient had an MRI of the brain that showed no acute process. Ammonia levels are nonelevated. The patient was hypothermic and the had an infected has a ulcer at time of admission. He was also having episodes of hypoglycemia due to poor oral intake and hepatic dysfunction the patient is currently on bicarb infusion with D5 water. The patient is currently on room air oxygen. Dialysis catheter has been inserted. I made recommendations to keep the patient on the medical floor pending further workup and treatment by medicine. The patient is hemodynamically stable and on room air oxygen with a pulse ox of 93%. Currently normothermic. Most recent BP is 144/76. Moving all 4 extremities. Hard to communicate with as the patient is encephalopathic. 12/03/2023, no change in this patient's condition, the patient remains profoundly lethargic and confused. He has undergone 2 sessions of hemodialysis without any improvement. Urine output is in order of 500 cc over the past 24 hours. No signs of any significant respiratory difficulties. The patient on broad- spectrum antibiotics with oncology on the case with nephrology on the case. He remains quite encephalopathic and delirious. The patient is on room air oxygen with a pulse ox of 97%. The white cell count of 9 with a hemoglobin 9 and a platelet count of 172. BUN is 55 lactate and of 2.2 and a potassium level is at 3.6. Patient was evaluated today on 12/04/23, patient is undergoing hemodialysis during my evaluation, he is confused, lethargic, not in any distress. WBC count is 10.8 hemoglobin 9.4 electrolytes are normal bicarb is 20 BUN 55 creatinine 2.14 patient is on room air, does not seem to be in any distress Patient was evaluated today on 12/05/2023, patient seems to be doing better today, he is actually more awake, more responsive, although seems to be very slow and forgetful. But his mentation is nonetheless improving. Creatinine is 1.8, and no plans for repeating dialysis today. Son is at bedside, seems to be quite pleased with the improvement in his dad's condition. WBC count is 8.8 hemoglobin 9.4 basic metabolic profile is normal BUN is 39 creatinine 1.81 Patient was seen today on 12/07/2023, patient feels great, he is on room air, not in any distress, son is at bedside, patient is asymptomatic and his mentation has been improving steadily since admission. WBC count is 7.8 hemoglobin is 14.0 electrolytes are normal BUN is 24 creatinine 5.19 Objective - Vital Signs Vital signs: Vital Signs Temp 98.4 F 12/07/23 11:35 Pulse 82 12/07/23 14:00 Resp 16 12/07/23 14:00 BP 144/69 12/07/23 11:35 Pulse Ox 97 12/07/23 11:35 FiO2 Intake & Output 12/06/23 12/07/23 12/07/23 18:59 06:59 18:59 Intake Total 600 500 240 Output Total 200 2700 Balance 400 -2200 240 Intake: Oral 600 240 Hemodialysis 500 Output: Urine 200 200 Hemodialysis 1500 Hemodialysis Net Amount 1000 Other: Voiding Method Indwelling Catheter Indwelling Catheter Indwelling Catheter # Bowel Movements 1 2 - Exam General: Revealed an 88-year-old white male alert oriented x 3 does not seem to be in any distress, on room air Head: Atraumatic, normocephalic Eyes: EOMI, no lid lag, anicteric sclera, pinpoint pupils Mouth: No lip lesion, mucus membranes, extremely dry. Cardiovascular: S1S2 reg, no murmur Lungs: Diminished breath sound bilaterally no crackles rhonchi or wheezes Abdominal: Soft, nontender to palpation, no guarding, no appreciable organomegaly Ext: No gross muscle atrophy, no edema, no contractures Examination of the skin revealed no evidence of significant rashes Neuro: Alert oriented x 3 no gross focal deficit patient is a bit slow. - Labs CBC & Chem 7: 12/07/23 07:10 12/07/23 07:10 Labs: Abnormal Lab Results - Last 24 Hours (Table) 12/06/23 12/07/23 12/07/23 Range/Units 20:08 02:00 07:10 RBC (4.30-5.90) m/uL Hgb (13.0-17.5) gm/dL Hct (39.0-53.0) % MCHC (31.0-37.0) g/dL RDW (11.5-15.5) % Plt Count (150-450) k/uL Neutrophils # (1.3-7.7) k/uL Lymphocytes # (1.0-4.8) k/uL Chloride 109 H (98-107) mmol/L BUN 42 H (9-20) mg/dL Creatinine 2.20 H (0.66-1.25) mg/dL POC Glucose (mg/dL) 128 H 121 H (70-110) mg/dL Calcium 7.0 L (8.4-10.2) mg/dL Alkaline Phosphatase 219 H (38-126) U/L Total Protein 4.5 L (6.3-8.2) g/dL Albumin 1.9 L (3.5-5.0) g/dL HDL Cholesterol (40.00-60.00) mg/dL 12/07/23 12/07/23 12/07/23 Range/Units 07:10 07:10 11:37 RBC 2.97 L (4.30-5.90) m/uL Hgb 8.5 L (13.0-17.5) gm/dL Hct 28.3 L (39.0-53.0) % MCHC 30.1 L (31.0-37.0) g/dL RDW 16.5 H (11.5-15.5) % Plt Count 142 L (150-450) k/uL Neutrophils # 8.6 H (1.3-7.7) k/uL Lymphocytes # 0.6 L (1.0-4.8) k/uL Chloride (98-107) mmol/L BUN (9-20) mg/dL Creatinine (0.66-1.25) mg/dL POC Glucose (mg/dL) 132 H (70-110) mg/dL Calcium (8.4-10.2) mg/dL Alkaline Phosphatase (38-126) U/L Total Protein (6.3-8.2) g/dL Albumin (3.5-5.0) g/dL HDL Cholesterol 27.70 L (40.00-60.00) mg/dL Assessment and Plan Assessment: Impression: Acute metabolic encephalopathy, resolved after hemodialysis Acute on chronic kidney stage III disease. Non-anion gap metabolic acidosis Hepatocellular carcinoma currently on immunotherapy, followed up by oncology on outpatient basis BPH Depression Hyperlipidemia Diabetes mellitus type 2 Episodes of hypoglycemia due to poor oral intake and hepatic dysfunction Anemia of chronic disease Recommendation: Continue present supportive care measures Continue hemodialysis Continue to monitor daily labs Consider discharge planning once the patient is cleared by other quantitative consultant Discussed his condition with his son at bedside Will continue to follow Time with Patient: Less than 30
[2023-12-07 16:51] LABS: Glucose,Whole Blood 170 mg/dL (70-110)
[2023-12-07] MEDS: HEPARIN SODIUM,PORCINE 5,000 UNIT/ML 1 ML VIAL SQ SCH (18:01)
[2023-12-07 20:13] LABS: Glucose,Whole Blood 165 mg/dL (70-110)
[2023-12-08 06:06] LABS: Glucose,Whole Blood 100 mg/dL (70-110)
[2023-12-08 07:15] LABS: Anisocytosis Slight; Basophils % (A) 0 %; Eosinophils # (A) 0.1 k/uL (0-0.7); Eosinophils % (A) 2 %; HCT 28.4 % (39.0-53.0); HGB 8.6 gm/dL (13.0-17.5); Hypochromasia Marked; Lymphocytes # (A) 0.7 k/uL (1.0-4.8); Lymphocytes % (A) 9 %; MCH 28.8 pg (25.0-35.0); MCHC 30.2 g/dL (31.0-37.0); MCV 95.3 fL (80.0-100.0); Mean Platelet Volume 11.7; Monocytes # (A) 0.3 k/uL (0-1.0); Monocytes % (A) 4 %; Neutrophils # (A) 6.3 k/uL (1.3-7.7); Neutrophils % (A) 83 %; Platelet Count 139 k/uL (150-450); RBC 2.98 m/uL (4.30-5.90); RDW 16.4 % (11.5-15.5); WBC 7.6 k/uL (3.8-10.6)
[2023-12-08 07:22] LABS: ALT 24 U/L (4-49); AST 43 U/L (17-59); African American GFR (CKD) 21 (>60 ml/min/1.73 sqM); Alkaline Phosphatase 235 U/L (38-126); Anion Gap 3 mmol/L; Blood Urea Nitrogen 48 mg/dL (9-20); Carbon Dioxide 27 mmol/L (22-30); Chloride 109 mmol/L (98-107); Glucose 87 mg/dL (74-99); Magnesium 1.8 mg/dL (1.6-2.3); Non-African American GFR(CKD) 18 (>60 ml/min/1.73 sqM); Potassium 3.6 mmol/L (3.5-5.1); Sodium 139 mmol/L (137-145); Total Bilirubin 0.7 mg/dL (0.2-1.3); Total Protein 4.6 g/dL (6.3-8.2)
[2023-12-08 07:27] LABS: Vancomycin,Random 20.8 ug/mL
[2023-12-08] MEDS: levETIRAcetam IV 500 MG/5 ML VIAL IVP SCH (09:54)
[2023-12-08 11:45] LABS: Glucose,Whole Blood 173 mg/dL (70-110)
[2023-12-08 11:53] VITALS: BMI 28.4
--- NOTE | 2023-12-08 14:31 | P.PN ---
Subjective Progress Note Date: 12/08/23 Principal diagnosis: Acute metabolic encephalopathy with acute on chronic kidney disease stage III presently requiring hemodialysis. This is a 88-year-old male patient who is having multiple medical issues and comorbidities and the patient is currently in a DNR/DNI CODE STATUS. I was asked to to be involved in the patient's care and consider ICU transfer as the patient was supposed to undergo a dialysis catheter insertion for an acute on top of a chronic stage III kidney disease and ongoing encephalopathy. The patient had an MRI of the brain that showed no acute process. Ammonia levels are nonelevated. The patient was hypothermic and the had an infected has a ulcer at time of admission. He was also having episodes of hypoglycemia due to poor oral intake and hepatic dysfunction the patient is currently on bicarb infusion with D5 water. The patient is currently on room air oxygen. Dialysis catheter has been inserted. I made recommendations to keep the patient on the medical floor pending further workup and treatment by medicine. The patient is hemodynamically stable and on room air oxygen with a pulse ox of 93%. Currently normothermic. Most recent BP is 144/76. Moving all 4 extremities. Hard to communicate with as the patient is encephalopathic. 12/03/2023, no change in this patient's condition, the patient remains profoundly lethargic and confused. He has undergone 2 sessions of hemodialysis without any improvement. Urine output is in order of 500 cc over the past 24 hours. No signs of any significant respiratory difficulties. The patient on broad- spectrum antibiotics with oncology on the case with nephrology on the case. He remains quite encephalopathic and delirious. The patient is on room air oxygen with a pulse ox of 97%. The white cell count of 9 with a hemoglobin 9 and a platelet count of 172. BUN is 55 lactate and of 2.2 and a potassium level is at 3.6. Patient was evaluated today on 12/04/23, patient is undergoing hemodialysis during my evaluation, he is confused, lethargic, not in any distress. WBC count is 10.8 hemoglobin 9.4 electrolytes are normal bicarb is 20 BUN 55 creatinine 2.14 patient is on room air, does not seem to be in any distress Patient was evaluated today on 12/05/2023, patient seems to be doing better today, he is actually more awake, more responsive, although seems to be very slow and forgetful. But his mentation is nonetheless improving. Creatinine is 1.8, and no plans for repeating dialysis today. Son is at bedside, seems to be quite pleased with the improvement in his dad's condition. WBC count is 8.8 hemoglobin 9.4 basic metabolic profile is normal BUN is 39 creatinine 1.81 Patient was seen today on 12/07/2023, patient feels great, he is on room air, not in any distress, son is at bedside, patient is asymptomatic and his mentation has been improving steadily since admission. WBC count is 7.8 hemoglobin is 14.0 electrolytes are normal BUN is 24 creatinine 5.19 Patient was seen and examined today on 12/08/2023, patient is doing much better, remains on room air, not in any distress, his neurological status did not improve significantly, his mental status is great, and his pulmonary status is within normal, patient denies any cough wheezing or shortness of breath remains on room air. Bone scan done yesterday showed no evidence of osteomyelitis. WBC count is 7.6 hemoglobin 8.6 basic metabolic profile is normal BUN is 48 creatinine 3.01 Objective - Vital Signs Vital signs: Vital Signs Temp 97.8 F 12/08/23 11:34 Pulse 87 12/08/23 11:34 Resp 17 12/08/23 11:34 BP 142/78 12/08/23 11:34 Pulse Ox 96 12/08/23 11:34 FiO2 Intake & Output 12/07/23 12/08/23 12/08/23 18:59 06:59 18:59 Intake Total 240 Balance 240 Weight 100.5 kg 100.5 kg Intake: Oral 240 Other: Voiding Method Indwelling Catheter Indwelling Catheter Indwelling Catheter # Bowel Movements 1 1 1 - Exam General: Revealed an 88-year-old white male , in no distress, on room air Head: Atraumatic, normocephalic Eyes: EOMI, no lid lag, anicteric sclera, pinpoint pupils Mouth: No lip lesion, mucus membranes, extremely dry. Cardiovascular: S1S2 reg, no murmur Lungs: Diminished breath sound bilaterally no crackles rhonchi or wheezes Abdominal: Soft, nontender to palpation, no guarding, no appreciable organomegaly Ext: No gross muscle atrophy, no edema, no contractures Examination of the skin revealed no evidence of significant rashes Neuro: Alert oriented x 3 no gross focal deficit patient is a bit slow. - Labs CBC & Chem 7: 12/08/23 06:20 12/08/23 06:20 Labs: Abnormal Lab Results - Last 24 Hours (Table) 12/07/23 12/07/23 12/07/23 Range/Units 07:10 16:50 20:06 RBC (4.30-5.90) m/uL Hgb (13.0-17.5) gm/dL Hct (39.0-53.0) % MCHC (31.0-37.0) g/dL RDW (11.5-15.5) % Plt Count (150-450) k/uL Lymphocytes # (1.0-4.8) k/uL Chloride (98-107) mmol/L BUN (9-20) mg/dL Creatinine (0.66-1.25) mg/dL POC Glucose (mg/dL) 170 H 165 H (70-110) mg/dL Calcium (8.4-10.2) mg/dL Alkaline Phosphatase (38-126) U/L Total Protein (6.3-8.2) g/dL Albumin (3.5-5.0) g/dL HDL Cholesterol 27.70 L (40.00-60.00) mg/dL 12/08/23 12/08/23 12/08/23 Range/Units 06:20 06:20 11:43 RBC 2.98 L (4.30-5.90) m/uL Hgb 8.6 L (13.0-17.5) gm/dL Hct 28.4 L (39.0-53.0) % MCHC 30.2 L (31.0-37.0) g/dL RDW 16.4 H (11.5-15.5) % Plt Count 139 L (150-450) k/uL Lymphocytes # 0.7 L (1.0-4.8) k/uL Chloride 109 H (98-107) mmol/L BUN 48 H (9-20) mg/dL Creatinine 3.01 H (0.66-1.25) mg/dL POC Glucose (mg/dL) 173 H (70-110) mg/dL Calcium 7.0 L (8.4-10.2) mg/dL Alkaline Phosphatase 235 H (38-126) U/L Total Protein 4.6 L (6.3-8.2) g/dL Albumin 2.0 L (3.5-5.0) g/dL HDL Cholesterol (40.00-60.00) mg/dL Assessment and Plan Assessment: Impression: Acute metabolic encephalopathy, resolved after hemodialysis Acute on chronic kidney stage III disease. 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
--- NOTE | 2023-12-08 15:24 | P.PN ---
Subjective Patient is seen for follow-up for acute kidney injury. Started on hemodialysis on 12/01/2023. No significant complaints today. Mentation seems to have improved significantly. 400 mL of urine charted for 24 hours. Patient will need IJ permacath placed. Objective - Vital Signs Vital signs: Vital Signs Temp 97.8 F 12/08/23 11:34 Pulse 87 12/08/23 14:00 Resp 17 12/08/23 14:00 BP 142/78 12/08/23 11:34 Pulse Ox 96 12/08/23 11:34 FiO2 Intake & Output 12/07/23 12/08/23 12/08/23 18:59 06:59 18:59 Intake Total 240 Balance 240 Weight 100.5 kg 100.5 kg Intake: Oral 240 Other: Voiding Method Indwelling Catheter Indwelling Catheter Indwelling Catheter # Bowel Movements 1 1 1 - Exam patient is awake, comfortable, no acute distress. Examination of the heart S1 and S2 Examination of the lungs decreased breath sounds at the bases Abdomen is soft nontender Examination of lower extremity shows edema 1+ bilaterally - Labs CBC & Chem 7: 12/08/23 06:20 12/08/23 06:20 Labs: Abnormal Lab Results - Last 24 Hours (Table) 12/07/23 12/07/23 12/07/23 Range/Units 07:10 16:50 20:06 RBC (4.30-5.90) m/uL Hgb (13.0-17.5) gm/dL Hct (39.0-53.0) % MCHC (31.0-37.0) g/dL RDW (11.5-15.5) % Plt Count (150-450) k/uL Lymphocytes # (1.0-4.8) k/uL Chloride (98-107) mmol/L BUN (9-20) mg/dL Creatinine (0.66-1.25) mg/dL POC Glucose (mg/dL) 170 H 165 H (70-110) mg/dL Calcium (8.4-10.2) mg/dL Alkaline Phosphatase (38-126) U/L Total Protein (6.3-8.2) g/dL Albumin (3.5-5.0) g/dL HDL Cholesterol 27.70 L (40.00-60.00) mg/dL 10/06/2712/08/23 12/08/23 Range/Units 06:20 06:20 11:43 RBC 2.98 L (4.30-5.90) m/uL Hgb 8.6 L (13.0-17.5) gm/dL Hct 28.4 L (39.0-53.0) % MCHC 30.2 L (31.0-37.0) g/dL RDW 16.4 H (11.5-15.5) % Plt Count 139 L (150-450) k/uL Lymphocytes # 0.7 L (1.0-4.8) k/uL Chloride 109 H (98-107) mmol/L BUN 48 H (9-20) mg/dL Creatinine 3.01 H (0.66-1.25) mg/dL POC Glucose (mg/dL) 173 H (70-110) mg/dL Calcium 7.0 L (8.4-10.2) mg/dL Alkaline Phosphatase 235 H (38-126) U/L Total Protein 4.6 L (6.3-8.2) g/dL Albumin 2.0 L (3.5-5.0) g/dL HDL Cholesterol (40.00-60.00) mg/dL Assessment and Plan Assessment: 1. Acute kidney injury secondary to ATN secondary to hypotension/?sepsis further worsened with the use of losartan, torsemide Aldactone. Was also on Farxiga. Concern for sepsis as patient was hypothermic this admission. Creatinine 3.67 dated December 01, 2023. Started on hemodialysis December 01, 2023 due to concern for uremia. Urine output remains low. 2. Chronic kidney disease stage IIIa with baseline creatinine near 1.4 secondary to diabetic kidney disease and nephrosclerosis. No hydronephrosis noted on kidney ultrasound. 3. Liver cancer maintained on sorafenib outpatient. No ascites noted on abdominal ultrasound. 4. Diabetes mellitus. 5. History of BPH on Flomax. 6. Hypertension with chronic kidney disease. Stable. 7. Hypovolemic hyponatremia improved with IV fluids. Also concern for SIADH f rom underlying malignancy. Improved. TSH slightly high at 5.9 and free T4 normal. 8. Metabolic acidosis secondary to acute kidney injury and IV fluids. 9. Anemia. Iron deficiency noted. IV iron on hold due to concern for acute infection. 10. Encephalopathy, mentation seems to have improved. Plan: hemodialysis today. Patient will need IJ permacath placed as he will continue to need renal replacement therapy post discharge. Urine output remains low. Monitor urine output
[2023-12-08 16:14] LABS: Glucose,Whole Blood 173 mg/dL (70-110)
--- NOTE | 2023-12-08 16:36 | P.PN ---
Subjective Progress Note Date: 12/08/23 88-year-old male with history of liver cancer on immunotherapy, type 2 diabetes, hypertension, BPH presenting with loss of appetite, nausea, vomiting. He is also encephalopathic. Patient recently started on immunotherapy 2 weeks ago. In the emergency room, patient was afebrile, 101/59, heart rate 75, 99% on room air. CBC shows anemia to 10.4. Basic metabolic panel shows hyponatremia to 124, chloride of 96, CO2 of 18, BUN of 82, creatinine of 2.34. Liver function test show AST of 104, ALT of 43, alkaline phosphatase of 232, albumin of 2.3, total protein of 5.1. Amylase is 70, lipase is 38. Chest x-ray shows Mediport, otherwise clear parenchyma bilaterally, poor inspiratory effort. Patient was provided bolus of IV fluids and was admitted to medicine as an inpatient. Renal function continued to worsen. Sodium improved. Nephrology was consulted. Patient also hypothermic, concern for sepsis, unclear source. Patient started on broad-spectrum IV antibiotics. Oncology also consulted. Patient is encephalopathic, likely delirium. Renal function still not improved. Patient n ow on hemodialysis. Continues to have poor mentation. Prognosis very guarded. Had goals of care discussion with son, consider comfort care if no further improvement in mentation. Patient did have some improvement. Neurology also consulted. EEG concerning for some cortical irritability, no evidence of seizures. Encephalopathy improving. Repeat EEG shows improvement. Bone scans negative for osteomyelitis. -Ammonia negative -TSH, B12, folic acid - WNL -Repeat CT head no gross abnormality -Initial EEG concerning for some cortical irritability, no evidence of seizures Repeat EEG suggestive of mild to moderate encephalopathy, background has remarkably improved. Subjective 12/08/2023 Patient seen and examined at bedside. Patient with diarrhea overnight. No other acute overnight events. Patient sitting up in bed. Patient was able to answer questions appropriately. Appetite slowly improving. Pertinent positives and negatives as discussed above, a complete review of systems was performed and all other systems are negative. Vitals Signs Reviewed. General: A+O x 3, nontoxic, no distress, appears at stated age Derm: Warm, dry, left heel decubitus ulcers covered in dressing Head: Atraumatic, normocephalic, symmetric Eyes: EOMI, no lid lag, anicteric sclera, pinpoint pupils Mouth: No lip lesion, mucus membranes moist Cardiovascular: S1S2 reg, no murmur Lungs: Bilateral rhonchi, no accessory muscle use Abdominal: Soft, nontender to palpation, no guarding, no appreciable organomegaly Ext: No gross muscle atrophy,+1 bilateral pedal edema, no contractures Neuro: CN II-XI grossly intact, no focal neuro deficits Psych: Awake, not oriented Data Reviewed Today: Pertinent Labs: WBC 7.6, hemoglobin 8.6, platelets 139, sodium 139, potassium 3.6, chloride 109, bicarb 27, BUN 48, creatinine 3.01, glucose 87 Imaging: None today Assessment and Plan: Patient is severely ill, needs close monitoring. Prognosis guarded. Active: Acute kidney injury on CKD stage III Hypocalcemia, resolved Hyponatremia, resolved Hypokalemia, resolved Metabolic acidosis, resolved -Hemodialysis daily Discussed case with nephrology, will need permacath placed before discharge -Continue to monitor renal function, Jenkins catheter in place, monitor intake and output Infected left heel ulcer, present on admission Hypothermia -Possible systemic infection, no obvious source other than possible heel ulcer -Discontinued cefepime due to concern for encephalopathy and neurotoxicity, continue IV vancomycin pharmacy to dose, monitor renal function -Cultures negative. -Wound care following - Foot x-ray and bone scan no evidence to suggest osteomyelitis, de-escalate antibiotic therapy, vancomycin discontinued Acute encephalopathy, likely metabolicresolved Delirium -Recent brain MRI - no acute process Discontinued tramadol, cefepime, morphine BUN stable -Pain control with IV Dilaudid 0.5 every 4 hours -Neurology continuing patient on IV Keppra 500 every 12 hours Hepatocellular carcinoma on immunotherapy Anemia, stable -Oncology following, immunotherapy currently on hold, follow-up outpatient with oncology -No active bleeding, B12 is high, Folate high, MMA elevated, SPEP - possible paraprotein Depression -Continue sertraline 25 daily, mirtazapine 15 nightly BPH -Continue tamsulosin 0.4 daily Dyslipidemia -Continue atorvastatin 10 nightly Type 2 diabetes Hypoglycemia, resolved -Sliding scale insulin, monitor for hypoglycemia -Due to poor oral intake, renal and hepatic dysfunction -Continue to monitor blood sugars every 6 hours -If oral intake continues to remain poor due to encephalopathy, may need to consider feeding tube DVT ppx: Heparin 5000 units subcu every 8 hours Code status: No code Anticipated discharge place: [facility] Anticipated discharge time: Pending placement I have seen and evaluated the patient today. Discussed with the resident and agree with the residents finding and plan as documented in the resident's note. Changes highlighted in blue font. Objective - Vital Signs Vital signs: Vital Signs Temp 97.8 F 12/08/23 11:34 Pulse 87 12/08/23 14:00 Resp 17 12/08/23 14:00 BP 142/78 12/08/23 11:34 Pulse Ox 96 12/08/23 11:34 FiO2 Intake & Output 12/07/23 12/08/23 12/08/23 18:59 06:59 18:59 Intake Total 240 Balance 240 Weight 100.5 kg 100.5 kg Intake: Oral 240 Other: Voiding Method Indwelling Catheter Indwelling Catheter Indwelling Catheter # Bowel Movements 1 1 1 - Labs CBC & Chem 7: 12/08/23 06:20 12/08/23 06:20 Labs: Abnormal Lab Results - Last 24 Hours (Table) 12/07/23 12/07/23 12/08/23 Range/Units 16:50 20:06 06:20 RBC (4.30-5.90) m/uL Hgb (13.0-17.5) gm/dL Hct (39.0-53.0) % MCHC (31.0-37.0) g/dL RDW (11.5-15.5) % Plt Count (150-450) k/uL Lymphocytes # (1.0-4.8) k/uL Chloride 109 H (98-107) mmol/L BUN 48 H (9-20) mg/dL Creatinine 3.01 H (0.66-1.25) mg/dL POC Glucose (mg/dL) 170 H 165 H (70-110) mg/dL Calcium 7.0 L (8.4-10.2) mg/dL Alkaline Phosphatase 235 H (38-126) U/L Total Protein 4.6 L (6.3-8.2) g/dL Albumin 2.0 L (3.5-5.0) g/dL 12/08/23 12/08/23 12/08/23 Range/Units 06:20 11:43 16:13 RBC 2.98 L (4.30-5.90) m/uL Hgb 8.6 L (13.0-17.5) gm/dL Hct 28.4 L (39.0-53.0) % MCHC 30.2 L (31.0-37.0) g/dL RDW 16.4 H (11.5-15.5) % Plt Count 139 L (150-450) k/uL Lymphocytes # 0.7 L (1.0-4.8) k/uL Chloride (98-107) mmol/L BUN (9-20) mg/dL Creatinine (0.66-1.25) mg/dL POC Glucose (mg/dL) 173 H 173 H (70-110) mg/dL Calcium (8.4-10.2) mg/dL Alkaline Phosphatase (38-126) U/L Total Protein (6.3-8.2) g/dL Albumin (3.5-5.0) g/dL
[2023-12-08] MEDS ORDERED: VANCOMYCIN 1,250 MG in SODIUM CHLORIDE 0.9% 250 ML IVPB ONE (20:00)
[2023-12-08 20:06] LABS: Glucose,Whole Blood 203 mg/dL (70-110)
[2023-12-09 06:10] LABS: Glucose,Whole Blood 78 mg/dL (70-110)
[2023-12-09 07:10] LABS: Anisocytosis Slight; Basophils % (A) 0 %; Eosinophils # (A) 0.1 k/uL (0-0.7); Eosinophils % (A) 2 %; HCT 26.4 % (39.0-53.0); Hypochromasia Marked; Lymphocytes # (A) 0.7 k/uL (1.0-4.8); Lymphocytes % (A) 11 %; MCH 28.4 pg (25.0-35.0); MCHC 30.2 g/dL (31.0-37.0); MCV 94.1 fL (80.0-100.0); Mean Platelet Volume 11.6; Monocytes # (A) 0.4 k/uL (0-1.0); Monocytes % (A) 5 %; Neutrophils # (A) 5.5 k/uL (1.3-7.7); Neutrophils % (A) 81 %; Platelet Count 103 k/uL (150-450); RDW 16.3 % (11.5-15.5); WBC 6.8 k/uL (3.8-10.6)
[2023-12-09 07:24] LABS: ALT 22 U/L (4-49); AST 42 U/L (17-59); African American GFR (CKD) 22 (>60 ml/min/1.73 sqM); Albumin 1.8 g/dL (3.5-5.0); Alkaline Phosphatase 225 U/L (38-126); Anion Gap 5 mmol/L; Blood Urea Nitrogen 45 mg/dL (9-20); Calcium 6.9 mg/dL (8.4-10.2); Carbon Dioxide 28 mmol/L (22-30); Chloride 105 mmol/L (98-107); Glucose 66 mg/dL (74-99); Magnesium 1.7 mg/dL (1.6-2.3); Non-African American GFR(CKD) 19 (>60 ml/min/1.73 sqM); Potassium 3.6 mmol/L (3.5-5.1); Sodium 138 mmol/L (137-145); Total Bilirubin 0.6 mg/dL (0.2-1.3); Total Protein 4.5 g/dL (6.3-8.2)
[2023-12-09] MEDS: LIDOCAINE 1% INJ 10MG/ML (20 ML MDV) SQ ONE ×2 (08:09→08:16)
[2023-12-09] MEDS: HEPARIN SODIUM 1,000 UN/ML (10ML VL) MISCELLANE ONE (08:36)
--- NOTE | 2023-12-09 09:04 | OP ---
OPERATIVE REPORT DATE OF SERVICE : PREOPERATIVE DIAGNOSIS: Acute chronic renal failure. POSTOPERATIVE DIAGNOSIS: Acute chronic renal failure. PROCEDURES PERFORMED: 1. Ultrasound-guided 23 cm dialysis catheter, left jugular approach. 2. Removal of the left temporary dialysis catheter, left groin. DESCRIPTION OF PROCEDURE: The patient was brought to the oil laboratory analyst. The left side of the neck was prepped and drapes applied in a sterile manner. The patient had a Port-A-Cath on the right side. We decided to go on the left side. Drapes were applied in the usual sterile manner. 1% lidocaine infiltrated. Ultrasound-guided Micropuncture introduced into left jugular vein, Micropuncture guidewire was passed. We checked under fluoroscopic control. After that, we passed a 4-Iraqi sheath, and then, we passed a regular guidewire, which was parked at the inferior vena cava. Then, tunnel was created. Through the tunnel, we brought 23 cm dialysis catheter. A dilator was advanced on the guidewire. Then, sheath was advanced on the top of the guidewire. Through the sheath, we introduced the dialysis catheter. Tip of the catheter in superior vena cavoatrial junction, flushed with heparin saline and hep-locked, secured with 3-0 nylon and Vicryl. Dressing was applied. The patient tolerated the procedure well. The left groin was prepped. The patient had a temporary dialysis catheter, which was removed. Pressure was held. Pressure dressing applied. The patient tolerated the procedure well. MMODL / IJN: [id number] /
--- NOTE | 2023-12-09 10:59 | XR ---
EXAMINATION TYPE: XR chest 1V DATE OF EXAM: 12/09/2023 COMPARISON: 12/02/2023 INDICATION: Dialysis catheter placement TECHNIQUE: Single frontal view of the chest is obtained. FINDINGS: The heart size is normal. The pulmonary vasculature is normal. Mild right lower lobe infiltrate is present. Correlate for atelectasis. Report is present on the right with the tip in the superior vena cava region. Left-sided double-lumen catheter is in place with the distal tips in the superior vena cava region. No abnormal thorax is ev ident. IMPRESSION: 1. Mild right lower lobe atelectasis. 2. No pneumothorax post left dialysis catheter placement, tips in the superior vena cava region. [facility], Workstation: [facility], 12/09/2023 10:56 AM
[2023-12-09 11:25] LABS: Glucose,Whole Blood 165 mg/dL (70-110)
--- NOTE | 2023-12-09 11:38 | P.PN ---
Subjective Patient is seen for follow-up for acute kidney injury. Started on hemodialysis on 12/01/2023. No significant complaints today. Mentation seems to have improved significantly. 100 mL of urine charted for 24 hours. S/p left IJ permacath placement yesterday. Objective - Vital Signs Vital signs: Vital Signs Temp 97.6 F 12/09/23 08:00 Pulse 82 12/09/23 10:50 Resp 16 12/09/23 10:50 BP 148/76 12/09/23 10:50 Pulse Ox 97 12/09/23 10:50 FiO2 Intake & Output 12/08/23 12/09/23 12/09/23 18:59 06:59 18:59 Intake Total 1900 Output Total 1900 100 Balance 0 -100 Weight 100.5 kg Intake: Hemodialysis 1900 Output: Urine 100 Hemodialysis 400 Hemodialysis Net Amount 1500 Other: Voiding Method Indwelling Catheter Indwelling Catheter Indwelling Catheter # Bowel Movements 1 1 - Exam patient is awake, comfortable, no acute distress. Examination of the heart S1 and S2 Examination of the lungs decreased breath sounds at the bases Abdomen is soft nontender Examination of lower extremity shows edema 1+ bilaterally - Labs CBC & Chem 7: 12/09/23 06:10 12/09/23 06:10 Labs: Abnormal Lab Results - Last 24 Hours (Table) 12/08/23 12/08/23 12/08/23 Range/Units 11:43 16:13 20:04 RBC (4.30-5.90) m/uL Hgb (13.0-17.5) gm/dL Hct (39.0-53.0) % MCHC (31.0-37.0) g/dL RDW (11.5-15.5) % Plt Count (150-450) k/uL Lymphocytes # (1.0-4.8) k/uL BUN (9-20) mg/dL Creatinine (0.66-1.25) mg/dL Glucose (74-99) mg/dL POC Glucose (mg/dL) 173 H 173 H 203 H (70-110) mg/dL Calcium (8.4-10.2) mg/dL Alkaline Phosphatase (38-126) U/L Total Protein (6.3-8.2) g/dL Albumin (3.5-5.0) g/dL 12/09/23 12/09/23 12/09/23 Range/Units 06:10 06:10 11:23 RBC 2.80 L (4.30-5.90) m/uL Hgb 8.0 L (13.0-17.5) gm/dL Hct 26.4 L (39.0-53.0) % MCHC 30.2 L (31.0-37.0) g/dL RDW 16.3 H (11.5-15.5) % Plt Count 103 L (150-450) k/uL Lymphocytes # 0.7 L (1.0-4.8) k/uL BUN 45 H (9-20) mg/dL Creatinine 2.89 H (0.66-1.25) mg/dL Glucose 66 L (74-99) mg/dL POC Glucose (mg/dL) 165 H (70-110) mg/dL Calcium 6.9 L (8.4-10.2) mg/dL Alkaline Phosphatase 225 H (38-126) U/L Total Protein 4.5 L (6.3-8.2) g/dL Albumin 1.8 L (3.5-5.0) g/dL Assessment and Plan Assessment: 1. Acute kidney injury secondary to ATN secondary to hypotension/?sepsis further worsened with the use of losartan, torsemide Aldactone. Was also on Farxiga. Concern for sepsis as patient was hypothermic this admission. Creatinine 3.67 dated December 01, 2023. Started on hemodialysis December 01, 2023 due to concern for uremia. Urine output remains low. 2. Chronic kidney disease stage IIIa with baseline creatinine near 1.4 secondary to diabetic kidney disease and nephrosclerosis. No hydronephrosis noted on kidney ultrasound. 3. Liver cancer maintained on sorafenib outpatient. No ascites noted on abdominal ultrasound. 4. Diabetes mellitus. 5. History of BPH on Flomax. 6. Hypertension with chronic kidney disease. Stable. 7. Hypovolemic hyponatremia improved with IV fluids. 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 Improved. TSH slightly high at 5.9 and free T4 normal. 8. Metabolic acidosis secondary to acute kidney injury and IV fluids. 9. Anemia. Iron deficiency noted. IV iron on hold due to concern for acute infection. 10. Encephalopathy, mentation seems to have improved. Plan: hemodialysis on 12/11/2023
--- NOTE | 2023-12-09 13:00 | P.PN ---
Subjective Progress Note Date: 12/08/23 Patient was seen for a follow-up. Patient is sitting in the recliner, fully alert and awake. Patient's family member was also present by the side. Patient is having some diarrhea. He is fully alert and awake. Objective - Vital Signs Vital signs: Vital Signs Temp 97.6 F 12/08/23 07:33 Pulse 89 12/08/23 08:00 Resp 16 12/08/23 08:00 BP 147/75 12/08/23 07:33 Pulse Ox 98 12/08/23 07:33 FiO2 Intake & Output 12/07/23 12/08/23 12/08/23 18:59 06:59 18:59 Intake Total 240 Balance 240 Weight 100.5 kg Intake: Oral 240 Other: Voiding Method Indwelling Catheter Indwelling Catheter Indwelling Catheter # Bowel Movements 1 1 1 - Exam Patient is sitting in the recliner. He is fully alert and awake. Patient is in no distress. Patient is fairly well oriented, knows it is December 2023 and that he is in [place] in [place] and name of the current president Mr. Anderson. Speech and language functions appears clear. Face is symmetric. 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 He wiggles his feet equally. No obvious deficits. - Labs CBC & Chem 7: 12/09/23 06:10 12/09/23 06:10 Labs: Abnormal Lab Results - Last 24 Hours (Table) 12/07/23 12/07/23 12/07/23 Range/Units 07:10 11:37 16:50 RBC (4.30-5.90) m/uL Hgb (13.0-17.5) gm/dL Hct (39.0-53.0) % MCHC (31.0-37.0) g/dL RDW (11.5-15.5) % Plt Count (150-450) k/uL Lymphocytes # (1.0-4.8) k/uL Chloride (98-107) mmol/L BUN (9-20) mg/dL Creatinine (0.66-1.25) mg/dL POC Glucose (mg/dL) 132 H 170 H (70-110) mg/dL Calcium (8.4-10.2) mg/dL Alkaline Phosphatase (38-126) U/L Total Protein (6.3-8.2) g/dL Albumin (3.5-5.0) g/dL HDL Cholesterol 27.70 L (40.00-60.00) mg/dL 12/07/23 12/08/23 12/08/23 Range/Units 20:06 06:20 06:20 RBC 2.98 L (4.30-5.90) m/uL Hgb 8.6 L (13.0-17.5) gm/dL Hct 28.4 L (39.0-53.0) % MCHC 30.2 L (31.0-37.0) g/dL RDW 16.4 H (11.5-15.5) % Plt Count 139 L (150-450) k/uL Lymphocytes # 0.7 L (1.0-4.8) k/uL Chloride 109 H (98-107) mmol/L BUN 48 H (9-20) mg/dL Creatinine 3.01 H (0.66-1.25) mg/dL POC Glucose (mg/dL) 165 H (70-110) mg/dL Calcium 7.0 L (8.4-10.2) mg/dL Alkaline Phosphatase 235 H (38-126) U/L Total Protein 4.6 L (6.3-8.2) g/dL Albumin 2.0 L (3.5-5.0) g/dL HDL Cholesterol (40.00-60.00) mg/dL Assessment and Plan Assessment: * Altered mental status, likely due to toxic metabolic encephalopathy. Reasons multifactorial, as mentioned below. * Abnormal EEG, with evidence of moderate to severe encephalopathy, and presence of intermittent generalized sharp appearing waves, which may have some triphasic in quality, but becomes rhythmic, therefore may suggest underlying cortical irritability. * Acute kidney failure, started on hemodialysis recently. * Frequent episodes of hypoglycemia ranging between 50s to 70s. 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 * Anemia * BPH * Hyperlipidemia Plan: * Patient has clinically remarkably improved. * Repeat EEG performed today was abnormal due to background slowing, suggestive of mild to moderate encephalopathy. No focal, lateralized or epileptiform activity was seen. When compared to the EEG from 12/04/2023, the background has remarkably improved. Sharply contoured waves have completely resolved. * Patient's mentation has improved since Keppra has been decreased to 500 mg once daily. We will stop Keppra in 2 days. * Initial EEG was performed today, which was abnormal due to background slowing, suggestive of moderate to severe encephalopathy. Also evidence of some intermittent sharp appearing waves, seen in generalize distribution, times at 3 Hz. This may have triphasic type quality, but becomes rhythmic, therefore may suggest underlying cortical irritability and tendency for seizure. No electrographic seizure was recorded. * Carotid Doppler revealed 50 to 69% stenosis of the left carotid bifurcation. Less than 50% stenosis of the right carotid bifurcation. Antegrade flow in both vertebral arteries. * Consider starting aspirin 81 mg daily. * Hemoglobin A1c 6.0, on 11/24/2023 * Lipid panel * Repeat CT head, 12/04/2023 revealed limited exam with motion. No gross a bnormality. * Avoid episodes of hypoglycemia. * Other medical management as per IM and other specialties on board. Patient on hemodialysis. * Neurologically clear otherwise.
--- NOTE | 2023-12-09 13:14 | P.PN ---
Subjective Progress Note Date: 12/09/23 Principal diagnosis: Acute metabolic encephalopathy with acute on chronic kidney disease stage III presently requiring hemodialysis. This is a 88-year-old male patient who is having multiple medical issues and comorbidities and the patient is currently in a DNR/DNI CODE STATUS. I was asked to to be involved in the patient's care and consider ICU transfer as the patient was supposed to undergo a dialysis catheter insertion for an acute on top of a chronic stage III kidney disease and ongoing encephalopathy. The patient had an MRI of the brain that showed no acute process. Ammonia levels are nonelevated. The patient was hypothermic and the had an infected has a ulcer at time of admission. He was also having episodes of hypoglycemia due to poor oral intake and hepatic dysfunction the patient is currently on bicarb infusion with D5 water. The patient is currently on room air oxygen. Dialysis catheter has been inserted. I made recommendations to keep the patient on the medical floor pending further workup and treatment by medicine. The patient is hemodynamically stable and on room air oxygen with a pulse ox of 93%. Currently normothermic. Most recent BP is 144/76. Moving all 4 extremities. Hard to communicate with as the patient is encephalopathic. 12/03/2023, no change in this patient's condition, the patient remains profoundly lethargic and confused. He has undergone 2 sessions of hemodialysis without any improvement. Urine output is in order of 500 cc over the past 24 hours. No signs of any significant respiratory difficulties. The patient on broad- spectrum antibiotics with oncology on the case with nephrology on the case. He remains quite encephalopathic and delirious. The patient is on room air oxygen with a pulse ox of 97%. The white cell count of 9 with a hemoglobin 9 and a platelet count of 172. BUN is 55 lactate and of 2.2 and a potassium level is at 3.6. Patient was evaluated today on 12/04/23, patient is undergoing hemodialysis during my evaluation, he is confused, lethargic, not in any distress. WBC count is 10.8 hemoglobin 9.4 electrolytes are normal bicarb is 20 BUN 55 creatinine 2.14 patient is on room air, does not seem to be in any distress Patient was evaluated today on 12/05/2023, patient seems to be doing better today, he is actually more awake, more responsive, although seems to be very slow and forgetful. But his mentation is nonetheless improving. Creatinine is 1.8, and no plans for repeating dialysis today. Son is at bedside, seems to be quite pleased with the improvement in his dad's condition. WBC count is 8.8 hemoglobin 9.4 basic metabolic profile is normal BUN is 39 creatinine 1.81 Patient was seen today on 12/07/2023, patient feels great, he is on room air, not in any distress, son is at bedside, patient is asymptomatic and his mentation has been improving steadily since admission. WBC count is 7.8 hemoglobin is 14.0 electrolytes are normal BUN is 24 creatinine 5.19 Patient was seen and examined today on 12/08/2023, patient is doing much better, remains on room air, not in any distress, his neurological status did not improve significantly, his mental status is great, and his pulmonary status is within normal, patient denies any cough wheezing or shortness of breath remains on room air. Bone scan done yesterday showed no evidence of osteomyelitis. WBC count is 7.6 hemoglobin 8.6 basic metabolic profile is normal BUN is 48 creatinine 3.01 Patient was evaluated today on 12/09/2023, he had a hemodialysis catheter placed today in the left internal jugular area, follow-up chest x-ray showed no complications. As [id number] the chest x-ray showed significant im provementPatient has pulmonary edema, patient has mild right lower lobe atelectasis. Clinically the patient remains stable, not in any distress.On room air with O2 sats of 97%, CBC is relatively normal electrolytes are normal BUN is 45 creatinine 2.89 Objective - Vital Signs Vital signs: Vital Signs Temp 97.6 F 12/09/23 08:00 Pulse 82 12/09/23 10:50 Resp 16 12/09/23 10:50 BP 148/76 12/09/23 10:50 Pulse Ox 97 12/09/23 10:50 FiO2 Intake & Output 12/08/23 12/09/23 12/09/23 18:59 06:59 18:59 Intake Total 1900 Output Total 1900 100 Balance 0 -100 Weight 100.5 kg Intake: Hemodialysis 1900 Output: Urine 100 Hemodialysis 400 Hemodialysis Net Amount 1500 Other: Voiding Method Indwelling Catheter Indwelling Catheter Indwelling Catheter # Bowel Movements 1 1 - Exam General: Revealed an 88-year-old white male , in no distress, on room air Head: Atraumatic, normocephalic, left IJ dialysis catheter is noted. Eyes: EOMI, no lid lag, anicteric sclera, pinpoint pupils Mouth: No lip lesion, mucus membranes, extremely dry. Cardiovascular: S1S2 reg, no murmur Lungs: Diminished breath sound bilaterally no crackles rhonchi or wheezes Abdominal: Soft, nontender to palpation, no guarding, no appreciable organomegaly Ext: No gross muscle atrophy, no edema, no contractures Examination of the skin revealed no evidence of significant rashes Neuro: Alert oriented x 3 no gross focal deficit patient is a bit slow. - Labs CBC & Chem 7: 12/09/23 06:10 12/09/23 06:10 Labs: Abnormal Lab Results - Last 24 Hours (Table) 12/08/23 12/08/23 12/09/23 Range/Units 16:13 20:04 06:10 RBC 2.80 L (4.30-5.90) m/uL Hgb 8.0 L (13.0-17.5) gm/dL Hct 26.4 L (39.0-53.0) % MCHC 30.2 L (31.0-37.0) g/dL RDW 16.3 H (11.5-15.5) % Plt Count 103 L (150-450) k/uL Lymphocytes # 0.7 L (1.0-4.8) k/uL BUN (9-20) mg/dL Creatinine (0.66-1.25) mg/dL Glucose (74-99) mg/dL POC Glucose (mg/dL) 173 H 203 H (70-110) mg/dL Calcium (8.4-10.2) mg/dL Alkaline Phosphatase (38-126) U/L Total Protein (6.3-8.2) g/dL Albumin (3.5-5.0) g/dL 12/09/23 12/09/23 Range/Units 06:10 11:23 RBC (4.30-5.90) m/uL Hgb (13.0-17.5) gm/dL Hct (39.0-53.0) % MCHC (31.0-37.0) g/dL RDW (11.5-15.5) % Plt Count (150-450) k/uL Lymphocytes # (1.0-4.8) k/uL BUN 45 H (9-20) mg/dL Creatinine 2.89 H (0.66-1.25) mg/dL Glucose 66 L (74-99) mg/dL POC Glucose (mg/dL) 165 H (70-110) mg/dL Calcium 6.9 L (8.4-10.2) mg/dL Alkaline Phosphatase 225 H (38-126) U/L Total Protein 4.5 L (6.3-8.2) g/dL Albumin 1.8 L (3.5-5.0) g/dL Assessment and Plan Assessment: Impression: Acute metabolic encephalopathy, resolved after hemodialysis Acute on chronic kidney stage III disease. Non-anion gap metabolic acidosis Hepatocellular carcinoma currently on immunotherapy, followed up by oncology on outpatient basis BPH Depression Hyperlipidemia Diabetes mellitus type 2 Episodes of hypoglycemia due to poor oral intake and hepatic dysfunction Anemia of chronic disease Recommendation: Continue present supportive care measures Continue hemodialysis, as felt necessary by nephrology on the case Continue to monitor daily labs Possible discharge planning in the next 24 to 48 hours Will continue to follow Time with Patient: Less than 30
--- NOTE | 2023-12-09 14:09 | IR ---
EXAMINATION TYPE: IR cvc insert >=5 years DATE OF EXAM: 12/09/2023 8:32 AM COMPARISON: Pre Operative Images if available both CT/MRI or plain film CLINICAL INDICATION: Male, 88 years old with history of TUNNELED HD CATH INSERTION, 2.9MINS FLT, 0.01 7GY; TECHNIQUE: IR cvc insert >=5 years, multiple fluoroscopic images provided for procedure. Total fluoroscopy time: 3.0 minutes Total submitted images to PACS: [id number] DAP: 509 mGym2 Gycm2 uGym2 cGycm2 or equivalent. FINDINGS: IMPRESSION: 1. Report was generated for administrative purposes only. 2. Please see the operative/procedural note for further details. [facility], , 12/09/2023 2:06 PM
[2023-12-09 16:25] LABS: Glucose,Whole Blood 101 mg/dL (70-110)
--- NOTE | 2023-12-09 18:07 | P.PN ---
Subjective Progress Note Date: 12/09/23 88-year-old male with history of liver cancer on immunotherapy, type 2 diabetes, hypertension, BPH presenting with loss of appetite, nausea, vomiting. He is also encephalopathic. Patient recently started on immunotherapy 2 weeks ago. In the emergency room, patient was afebrile, 101/59, heart rate 75, 99% on room air. CBC shows anemia to 10.4. Basic metabolic panel shows hyponatremia to 124, chloride of 96, CO2 of 18, BUN of 82, creatinine of 2.34. Liver function test show AST of 104, ALT of 43, alkaline phosphatase of 232, albumin of 2.3, total protein of 5.1. Amylase is 70, lipase is 38. Chest x-ray shows Mediport, otherwise clear parenchyma bilaterally, poor inspiratory effort. Patient was provided bolus of IV fluids and was admitted to medicine as an inpatient. Renal function continued to worsen. Sodium improved. Nephrology was consulted. Patient also hypothermic, concern for sepsis, unclear source. Patient started on broad-spectrum IV antibiotics. Oncology also consulted. Patient is encephalopathic, likely delirium. Renal function still not improved. Patient n ow on hemodialysis. Continues to have poor mentation. Prognosis very guarded. Had goals of care discussion with son, consider comfort care if no further improvement in mentation. Patient did have some improvement. Neurology also consulted. EEG concerning for some cortical irritability, no evidence of seizures. Encephalopathy improving. Repeat EEG shows improvement. Bone scans negative for osteomyelitis. -Ammonia negative -TSH, B12, folic acid - WNL -Repeat CT head no gross abnormality -Initial EEG concerning for some cortical irritability, no evidence of seizures Repeat EEG suggestive of mild to moderate encephalopathy, background has remarkably improved. Subjective 12/09/2023 Patient seen and examined at bedside. Patient with improved diarrhea overnight. No other acute overnight events. Patient underwent ultrasound-guided dialysis catheter placement of left jugular. This morning patient was sitting up in bed. Patient was able to answer questions appropriately. Appetite slowly improving. Pertinent positives and negatives as discussed above, a complete review of systems was performed and all other systems are negative. Vitals Signs Reviewed. General: A+O x 3, nontoxic, no distress, appears at stated age Derm: Warm, dry, left heel decubitus ulcers covered in dressing Head: Atraumatic, normocephalic, symmetric Eyes: EOMI, no lid lag, anicteric sclera, pinpoint pupils Mouth: No lip lesion, mucus membranes moist Cardiovascular: S1S2 reg, no murmur Lungs: Bilateral rhonchi, no accessory muscle use Abdominal: Soft, nontender to palpation, no guarding, no appreciable organomegaly Ext: No gross muscle atrophy,+1 bilateral pedal edema, no contractures Neuro: CN II-XI grossly intact, no focal neuro deficits Psych: Awake, not oriented Data Reviewed Today: Pertinent Labs: WBC 6.8, hemoglobin 8.0, platelets 103, sodium 138, potassium 3.6, chloride 105, bicarb 27, BUN 45, creatinine 2.89, glucose 66 Imaging: Chest x-raymid right lower lobe atelectasis, no pneumothorax post dialysis catheter placement. Assessment and Plan: Patient is severely ill, needs close monitoring. Prognosis guarded. Active: Acute kidney injury on CKD stage III Hypocalcemia, resolved Hyponatremia, resolved Hypokalemia, resolved Metabolic acidosis, resolved -Hemodialysis daily S/p tunneled HD IJ permacath placement -Continue to monitor renal function Infected left heel ulcer, present on admission Hypothermia -Possible systemic infection, no obvious source other than possible heel ulcer -Discontinued cefepime due to concern for encephalopathy and neurotoxicity, continue IV vancomycin pharmacy to dose, monitor renal function -Cultures negative. -Wound care following - Foot x-ray and bone scan no evidence to suggest osteomyelitis, de-escalate antibiotic therapy, vancomycin discontinued Acute encephalopathy, likely metabolicresolved Delirium -Recent brain MRI - no acute process Discontinued tramadol, cefepime, morphine BUN stable -Pain control with IV Dilaudid 0.5 every 4 hours -Neurology continuing patient on IV Keppra 500 every 12 hours Hepatocellular carcinoma on immunotherapy Anemia, stable -Oncology following, immunotherapy currently on hold, follow-up outpatient with oncology -No active bleeding, B12 is high, Folate high, MMA elevated, SPEP - possible paraprotein Depression -Continue sertraline 25 daily, mirtazapine 15 nightly BPH -Continue tamsulosin 0.4 daily Dyslipidemia -Continue atorvastatin 10 nightly Type 2 diabetes Hypoglycemia, resolved -Sliding scale insulin, monitor for hypoglycemia -Due to poor oral intake, renal and hepatic dysfunction -Continue to monitor blood sugars every 6 hours DVT ppx: Heparin 5000 units subcu every 8 hours Code status: Full code Anticipated discharge place: [facility] Anticipated discharge time: Pending placement I have seen and evaluated the patient today. Discussed with the resident and agree with the residents finding and plan as documented in the resident's note. Changes highlighted in blue font. Objective - Vital Signs Vital signs: Vital Signs Temp 97.6 F 12/09/23 15:58 Pulse 86 12/09/23 15:58 Resp 18 12/09/23 15:58 BP 148/66 12/09/23 15:58 Pulse Ox 97 12/09/23 15:58 FiO2 Intake & Output 12/08/23 12/09/23 12/09/23 18:59 06:59 18:59 Intake Total 1900 120 Output Total 1900 100 Balance 0 -100 120 Weight 100.5 kg Intake: Oral 120 Hemodialysis 1900 Output: Urine 100 Hemodialysis 400 Hemodialysis Net Amount 1500 Other: Voiding Method Indwelling Catheter Indwelling Catheter Indwelling Catheter # Bowel Movements 1 1 - Labs CBC & Chem 7: 12/09/23 06:10 12/09/23 06:10 Labs: Abnormal Lab Results - Last 24 Hours (Table) 12/08/23 12/09/23 12/09/23 Range/Units 20:04 06:10 06:10 RBC 2.80 L (4.30-5.90) m/uL Hgb 8.0 L (13.0-17.5) gm/dL Hct 26.4 L (39.0-53.0) % MCHC 30.2 L (31.0-37.0) g/dL RDW 16.3 H (11.5-15.5) % Plt Count 103 L (150-450) k/uL Lymphocytes # 0.7 L (1.0-4.8) k/uL BUN 45 H (9-20) mg/dL Creatinine 2.89 H (0.66-1.25) mg/dL Glucose 66 L (74-99) mg/dL POC Glucose (mg/dL) 203 H (70-110) mg/dL Calcium 6.9 L (8.4-10.2) mg/dL Alkaline Phosphatase 225 H (38-126) U/L Total Protein 4.5 L (6.3-8.2) g/dL Albumin 1.8 L (3.5-5.0) g/dL 12/09/23 Range/Units 11:23 RBC (4.30-5.90) m/uL Hgb (13.0-17.5) gm/dL Hct (39.0-53.0) % MCHC (31.0-37.0) g/dL RDW (11.5-15.5) % Plt Count (150-450) k/uL Lymphocytes # (1.0-4.8) k/uL BUN (9-20) mg/dL Creatinine (0.66-1.25) mg/dL Glucose (74-99) mg/dL POC Glucose (mg/dL) 165 H (70-110) mg/dL Calcium (8.4-10.2) mg/dL Alkaline Phosphatase (38-126) U/L Total Protein (6.3-8.2) g/dL Albumin (3.5-5.0) g/dL
[2023-12-09 20:11] LABS: Glucose,Whole Blood 139 mg/dL (70-110)
[2023-12-10 05:57] LABS: Glucose,Whole Blood 116 mg/dL (70-110)
[2023-12-10 06:08] LABS: Anisocytosis Slight; Basophils % (A) 0 %; Eosinophils # (A) 0.1 k/uL (0-0.7); Eosinophils % (A) 1 %; HCT 26.6 % (39.0-53.0); HGB 8.4 gm/dL (13.0-17.5); Hypochromasia Moderate; Lymphocytes # (A) 0.8 k/uL (1.0-4.8); Lymphocytes % (A) 13 %; MCH 29.7 pg (25.0-35.0); MCHC 31.8 g/dL (31.0-37.0); MCV 93.5 fL (80.0-100.0); Mean Platelet Volume 12.8; Monocytes # (A) 0.4 k/uL (0-1.0); Monocytes % (A) 6 %; Neutrophils # (A) 4.9 k/uL (1.3-7.7); Neutrophils % (A) 78 %; Platelet Count 107 k/uL (150-450); RBC 2.84 m/uL (4.30-5.90); RDW 16.6 % (11.5-15.5); WBC 6.2 k/uL (3.8-10.6)
[2023-12-10 06:14] LABS: ALT 22 U/L (4-49); AST 42 U/L (17-59); African American GFR (CKD) 18 (>60 ml/min/1.73 sqM); Albumin 1.9 g/dL (3.5-5.0); Alkaline Phosphatase 250 U/L (38-126); Anion Gap 6 mmol/L; Blood Urea Nitrogen 52 mg/dL (9-20); Carbon Dioxide 26 mmol/L (22-30); Chloride 105 mmol/L (98-107); Glucose 79 mg/dL (74-99); Magnesium 1.7 mg/dL (1.6-2.3); Non-African American GFR(CKD) 16 (>60 ml/min/1.73 sqM); Potassium 3.9 mmol/L (3.5-5.1); Sodium 137 mmol/L (137-145); Total Bilirubin 0.6 mg/dL (0.2-1.3); Total Protein 4.7 g/dL (6.3-8.2)
--- NOTE | 2023-12-10 10:09 | P.PN ---
Subjective Progress Note Date: 12/10/23 88-year-old male with history of liver cancer on immunotherapy, type 2 diabetes, hypertension, BPH presenting with loss of appetite, nausea, vomiting. He is also encephalopathic. Patient recently started on immunotherapy 2 weeks ago. In the emergency room, patient was afebrile, 101/59, heart rate 75, 99% on room air. CBC shows anemia to 10.4. Basic metabolic panel shows hyponatremia to 124, chloride of 96, CO2 of 18, BUN of 82, creatinine of 2.34. Liver function test show AST of 104, ALT of 43, alkaline phosphatase of 232, albumin of 2.3, total protein of 5.1. Amylase is 70, lipase is 38. Chest x-ray shows Mediport, otherwise clear parenchyma bilaterally, poor inspiratory effort. Patient was provided bolus of IV fluids and was admitted to medicine as an inpatient. Renal function continued to worsen. Sodium improved. Nephrology was consulted. Patient also hypothermic, concern for sepsis, unclear source. Patient started on broad-spectrum IV antibiotics. Oncology also consulted. Patient is encephalopathic, likely delirium. Renal function still not improved. Patient n ow on hemodialysis. Continues to have poor mentation. Prognosis very guarded. Had goals of care discussion with son, consider comfort care if no further improvement in mentation. Patient did have some improvement. Neurology also consulted. EEG concerning for some cortical irritability, no evidence of seizures. Encephalopathy improving. Repeat EEG shows improvement. Bone scans negative for osteomyelitis. -Ammonia negative -TSH, B12, folic acid - WNL -Repeat CT head no gross abnormality -Initial EEG concerning for some cortical irritability, no evidence of seizures Repeat EEG suggestive of mild to moderate encephalopathy, background has remarkably improved. Subjective 12/08/2023 Patient seen and examined at bedside. No new complaints. Pending [facility] discussion with patient and family today. Pertinent positives and negatives as discussed above, a complete review of systems was performed and all other systems are negative. Vitals Signs Reviewed. Gen: In NAD, non-toxic HEENT: normocephalic, atraumatic, hearing acuity is intant, mucous membranes moist CVS: perfusing all extremities well, no pitting edema, Respiratory: symmetric chest expansion, no accessory muscle use, GI: soft, NTTP, ND, : no suprapubic tenderness, no CVA tenderness MSK/Derm: no rashes, cyanosis Neuro: CN II-XII intact, no motor weakness, Psych: cooperative, euthymic mood, judgment and insight is intact Assessment and Plan: Patient is severely ill, needs close monitoring. Prognosis guarded. Active: Acute kidney injury on CKD stage III Hypocalcemia, resolved Hyponatremia, resolved Hypokalemia, resolved Metabolic acidosis, resolved -Hemodialysis daily Discussed case with nephrology, status post permacath placement -Continue to monitor renal function, Jenkins catheter in place, monitor intake and output Infected left heel ulcer, present on admission Hypothermia -Possible systemic infection, no obvious source other than possible heel ulcer -Antibiotics discontinued -Cultures negative. -Wound care following - Foot x-ray and bone scan no evidence to suggest osteomyelitis, de-escalate antibiotic therapy, vancomycin discontinued Acute encephalopathy, likely metabolicresolved Delirium -Recent brain MRI - no acute process Discontinued tramadol, cefepime, morphine BUN stable -Pain control with IV Dilaudid 0.5 every 4 hours -Neurology continuing patient on IV Keppra 500 every 12 hours Hepatocellular carcinoma on immunotherapy Anemia, stable -Oncology following, immunotherapy currently on hold, follow-up outpatient with oncology -No active bleeding, B12 is high, Folate high, MMA elevated, SPEP - possible paraprotein Depression -Continue sertraline 25 daily, mirtazapine 15 nightly BPH -Continue tamsulosin 0.4 daily Dyslipidemia -Continue atorvastatin 10 nightly Type 2 diabetes Hypoglycemia, resolved -Sliding scale insulin, monitor for hypoglycemia -Due to poor oral intake, renal and hepatic dysfunction -Continue to monitor blood sugars every 6 hours -If oral intake continues to remain poor due to encephalopathy, may need to consider feeding tube DVT ppx: Heparin 5000 units subcu every 8 hours Code status: Full code Anticipated discharge place: [facility] Anticipated discharge time: Pending placement Objective - Vital Signs Vital signs: Vital Signs Temp 97.4 F L 12/10/23 04:00 Pulse 80 12/10/23 04:00 Resp 16 12/10/23 04:00 BP 158/73 12/10/23 04:00 Pulse Ox 100 12/10/23 04:00 FiO2 Intake & Output 12/09/23 12/10/23 12/10/23 18:59 06:59 18:59 Intake Total 120 Output Total 50 25 Balance 70 -25 Weight 73.5 kg Intake: Oral 120 Output: Urine 50 25 Other: Voiding Method Indwelling Catheter Indwelling Catheter - Labs CBC & Chem 7: 12/10/23 04:59 12/10/23 04:59 Labs: Abnormal Lab Results - Last 24 Hours (Table) 12/09/23 12/09/23 12/10/23 Range/Units 11:23 20:09 04:59 RBC 2.84 L (4.30-5.90) m/uL Hgb 8.4 L (13.0-17.5) gm/dL Hct 26.6 L (39.0-53.0) % RDW 16.6 H (11.5-15.5) % Plt Count 107 L (150-450) k/uL Lymphocytes # 0.8 L (1.0-4.8) k/uL BUN (9-20) mg/dL Creatinine (0.66-1.25) mg/dL POC Glucose (mg/dL) 165 H 139 H (70-110) mg/dL Calcium (8.4-10.2) mg/dL Alkaline Phosphatase (38-126) U/L Total Protein (6.3-8.2) g/dL Albumin (3.5-5.0) g/dL 12/10/23 12/10/23 Range/Units 04:59 05:56 RBC (4.30-5.90) m/uL Hgb (13.0-17.5) gm/dL Hct (39.0-53.0) % RDW (11.5-15.5) % Plt Count (150-450) k/uL Lymphocytes # (1.0-4.8) k/uL BUN 52 H (9-20) mg/dL Creatinine 3.33 H (0.66-1.25) mg/dL POC Glucose (mg/dL) 116 H (70-110) mg/dL Calcium 7.0 L (8.4-10.2) mg/dL Alkaline Phosphatase 250 H (38-126) U/L Total Protein 4.7 L (6.3-8.2) g/dL Albumin 1.9 L (3.5-5.0) g/dL
--- NOTE | 2023-12-10 10:54 | P.PN ---
Subjective Patient is seen for follow-up for acute kidney injury. Started on hemodialysis on 12/01/2023. No significant complaints today. Mentation seems to have improved significantly. 100 mL of urine charted for 24 hours. S/p left IJ permacath placement on 12/08/2023 Objective - Vital Signs Vital signs: Vital Signs Temp 97.6 F 12/10/23 08:15 Pulse 87 12/10/23 08:15 Resp 17 12/10/23 08:15 BP 150/67 12/10/23 08:15 Pulse Ox 96 12/10/23 08:15 FiO2 Intake & Output 12/09/23 12/10/23 12/10/23 18:59 06:59 18:59 Intake Total 120 Output Total 50 25 Balance 70 -25 Weight 73.5 kg Intake: Oral 120 Output: Urine 50 25 Other: Voiding Method Indwelling Catheter Indwelling Catheter Indwelling Catheter # Bowel Movements 1 - Exam patient is awake, comfortable, no acute distress. Examination of the heart S1 and S2 Examination of the lungs decreased breath sounds at the bases Abdomen is soft nontender Examination of lower extremity shows edema 1+ bilaterally - Labs CBC & Chem 7: 12/10/23 04:59 12/10/23 04:59 Labs: Abnormal Lab Results - Last 24 Hours (Table) 12/09/23 12/09/23 12/10/23 Range/Units 11:23 20:09 04:59 RBC 2.84 L (4.30-5.90) m/uL Hgb 8.4 L (13.0-17.5) gm/dL Hct 26.6 L (39.0-53.0) % RDW 16.6 H (11.5-15.5) % Plt Count 107 L (150-450) k/uL Lymphocytes # 0.8 L (1.0-4.8) k/uL BUN (9-20) mg/dL Creatinine (0.66-1.25) mg/dL POC Glucose (mg/dL) 165 H 139 H (70-110) mg/dL Calcium (8.4-10.2) mg/dL Alkaline Phosphatase (38-126) U/L Total Protein (6.3-8.2) g/dL Albumin (3.5-5.0) g/dL 10/06/24 10/06/24 Range/Units 04:59 05:56 RBC (4.30-5.90) m/uL Hgb (13.0-17.5) gm/dL Hct (39.0-53.0) % RDW (11.5-15.5) % Plt Count (150-450) k/uL Lymphocytes # (1.0-4.8) k/uL BUN 52 H (9-20) mg/dL Creatinine 3.33 H (0.66-1.25) mg/dL POC Glucose (mg/dL) 116 H (70-110) mg/dL Calcium 7.0 L (8.4-10.2) mg/dL Alkaline Phosphatase 250 H (38-126) U/L Total Protein 4.7 L (6.3-8.2) g/dL Albumin 1.9 L (3.5-5.0) g/dL Assessment and Plan Assessment: 1. Acute kidney injury secondary to ATN secondary to hypotension/?sepsis further worsened with the use of losartan, torsemide Aldactone. Was also on Farxiga. Concern for sepsis as patient was hypothermic this admission. Creati nine 3.67 dated December 01, 2023. Started on hemodialysis December 01, 2023 due to concern for uremia. Urine output remains low. Left IJ permacath placed on 12/08/2023 2. Chronic kidney disease stage IIIa with baseline creatinine near 1.4 secondary to diabetic kidney disease and nephrosclerosis. No hydronephrosis noted on kidney ultrasound. 3. Liver cancer maintained on sorafenib outpatient. No ascites noted on abdominal ultrasound. 4. Diabetes mellitus. 5. History of BPH on Flomax. 6. Hypertension with chronic kidney disease. Stable. 7. Hypovolemic hyponatremia improved with IV fluids. 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 Improved. TSH slightly high at 5.9 and free T4 normal. 8. Metabolic acidosis secondary to acute kidney injury and IV fluids. 9. Anemia. Iron deficiency noted. IV iron on hold due to concern for acute infection. 10. Encephalopathy, mentation seems to have improved. Plan: hemodialysis on 12/11/2023
[2023-12-10 11:26] LABS: Glucose,Whole Blood 115 mg/dL (70-110)
--- NOTE | 2023-12-10 14:14 | P.PN ---
Subjective Progress Note Date: 12/10/23 Principal diagnosis: Acute metabolic encephalopathy with acute on chronic kidney disease stage III presently requiring hemodialysis. This is a 88-year-old male patient who is having multiple medical issues and comorbidities and the patient is currently in a DNR/DNI CODE STATUS. I was asked to to be involved in the patient's care and consider ICU transfer as the patient was supposed to undergo a dialysis catheter insertion for an acute on top of a chronic stage III kidney disease and ongoing encephalopathy. The patient had an MRI of the brain that showed no acute process. Ammonia levels are nonelevated. The patient was hypothermic and the had an infected has a ulcer at time of admission. He was also having episodes of hypoglycemia due to poor oral intake and hepatic dysfunction the patient is currently on bicarb infusion with D5 water. The patient is currently on room air oxygen. Dialysis catheter has been inserted. I made recommendations to keep the patient on the medical floor pending further workup and treatment by medicine. The patient is hemodynamically stable and on room air oxygen with a pulse ox of 93%. Currently normothermic. Most recent BP is 144/76. Moving all 4 extremities. Hard to communicate with as the patient is encephalopathic. 12/03/2023, no change in this patient's condition, the patient remains profoundly lethargic and confused. He has undergone 2 sessions of hemodialysis without any improvement. Urine output is in order of 500 cc over the past 24 hours. No signs of any significant respiratory difficulties. The patient on broad- spectrum antibiotics with oncology on the case with nephrology on the case. He remains quite encephalopathic and delirious. The patient is on room air oxygen with a pulse ox of 97%. The white cell count of 9 with a hemoglobin 9 and a platelet count of 172. BUN is 55 lactate and of 2.2 and a potassium level is at 3.6. Patient was evaluated today on 12/04/23, patient is undergoing hemodialysis during my evaluation, he is confused, lethargic, not in any distress. WBC count is 10.8 hemoglobin 9.4 electrolytes are normal bicarb is 20 BUN 55 creatinine 2.14 patient is on room air, does not seem to be in any distress Patient was evaluated today on 12/05/2023, patient seems to be doing better today, he is actually more awake, more responsive, although seems to be very slow and forgetful. But his mentation is nonetheless improving. Creatinine is 1.8, and no plans for repeating dialysis today. Son is at bedside, seems to be quite pleased with the improvement in his dad's condition. WBC count is 8.8 hemoglobin 9.4 basic metabolic profile is normal BUN is 39 creatinine 1.81 Patient was seen today on 12/07/2023, patient feels great, he is on room air, not in any distress, son is at bedside, patient is asymptomatic and his mentation has been improving steadily since admission. WBC count is 7.8 hemoglobin is 14.0 electrolytes are normal BUN is 24 creatinine 5.19 Patient was seen and examined today on 12/08/2023, patient is doing much better, remains on room air, not in any distress, his neurological status did not improve significantly, his mental status is great, and his pulmonary status is within normal, patient denies any cough wheezing or shortness of breath remains on room air. Bone scan done yesterday showed no evidence of osteomyelitis. WBC count is 7.6 hemoglobin 8.6 basic metabolic profile is normal BUN is 48 creatinine 3.01 Patient was evaluated today on 12/09/2023, he had a hemodialysis catheter placed today in the left internal jugular area, follow-up chest x-ray showed no complications. As [id number] the chest x-ray showed significant im provementPatient has pulmonary edema, patient has mild right lower lobe atelectasis. Clinically the patient remains stable, not in any distress.On room air with O2 sats of 97%, CBC is relatively normal electrolytes are normal BUN is 45 creatinine 2.89 Patient was seen today on 12/10/2023, continues to do well, he was started on hemodialysis on 11/30, no issues with hemodialysis, his hemodialysis catheter was replaced yesterday, this was done on 12/08/2023, his urine output on his own is about 100 cc in the last 24 hours. Patient is asymptomatic, on room air, not in any distress, no cough no wheezing no shortness of breath and no chest pain. Objective - Vital Signs Vital signs: Vital Signs Temp 97.6 F 12/10/23 08:15 Pulse 91 12/10/23 11:50 Resp 17 12/10/23 11:50 BP 118/72 12/10/23 11:50 Pulse Ox 95 12/10/23 11:50 FiO2 Intake & Output 12/09/23 12/10/23 12/10/23 18:59 06:59 18:59 Intake Total 120 Output Total 50 25 Balance 70 -25 Weight 73.5 kg Intake: Oral 120 Output: Urine 50 25 Other: Voiding Method Indwelling Catheter Indwelling Catheter Indwelling Catheter # Bowel Movements 1 - Exam General: Revealed an 88-year-old white male , in no distress, on room air Head: Atraumatic, normocephalic, left IJ dialysis catheter is noted. Eyes: EOMI, no lid lag, anicteric sclera, pinpoint pupils Mouth: No lip lesion, mucus membranes, extremely dry. Cardiovascular: S1S2 reg, no murmur Lungs: Diminished breath sound bilaterally no crackles rhonchi or wheezes Abdominal: Soft, nontender to palpation, no guarding, no appreciable organomegaly Ext: No gross muscle atrophy, no edema, no contractures Examination of the skin revealed no evidence of significant rashes Neuro: Alert oriented x 3 no gross focal deficit patient is a bit slow. - Labs CBC & Chem 7: 12/10/23 04:59 12/10/23 04:59 Labs: Abnormal Lab Results - Last 24 Hours (Table) 12/09/23 12/10/23 12/10/23 Range/Units 20:09 04:59 04:59 RBC 2.84 L (4.30-5.90) m/uL Hgb 8.4 L (13.0-17.5) gm/dL Hct 26.6 L (39.0-53.0) % RDW 16.6 H (11.5-15.5) % Plt Count 107 L (150-450) k/uL Lymphocytes # 0.8 L (1.0-4.8) k/uL BUN 52 H (9-20) mg/dL Creatinine 3.33 H (0.66-1.25) mg/dL POC Glucose (mg/dL) 139 H (70-110) mg/dL Calcium 7.0 L (8.4-10.2) mg/dL Alkaline Phosphatase 250 H (38-126) U/L Total Protein 4.7 L (6.3-8.2) g/dL Albumin 1.9 L (3.5-5.0) g/dL 10/06/24 10/06/24 Range/Units 05:56 11:25 RBC (4.30-5.90) m/uL Hgb (13.0-17.5) gm/dL Hct (39.0-53.0) % RDW (11.5-15.5) % Plt Count (150-450) k/uL Lymphocytes # (1.0-4.8) k/uL BUN (9-20) mg/dL Creatinine (0.66-1.25) mg/dL POC Glucose (mg/dL) 116 H 115 H (70-110) mg/dL Calcium (8.4-10.2) mg/dL Alkaline Phosphatase (38-126) U/L Total Protein (6.3-8.2) g/dL Albumin (3.5-5.0) g/dL Assessment and Plan Assessment: Impression: Acute metabolic encephalopathy, resolved after hemodialysis Acute on chronic kidney stage III disease. Non-anion gap metabolic acidosis Hepatocellular carcinoma currently on immunotherapy, followed up by oncology on outpatient basis BPH Depression Hyperlipidemia Diabetes mellitus type 2 Episodes of hypoglycemia due to poor oral intake and hepatic dysfunction Anemia of chronic disease Recommendation: Continue present supportive care measures Continue hemodialysis the patient is being followed by nephrology Continue to monitor daily labs Patient may require placement upon discharge. Will continue to follow Time with Patient: Less than 30
[2023-12-10 16:28] LABS: Glucose,Whole Blood 90 mg/dL (70-110)
[2023-12-10 20:47] LABS: Glucose,Whole Blood 171 mg/dL (70-110)
[2023-12-11 06:23] LABS: Glucose,Whole Blood 148 mg/dL (70-110)
[2023-12-11 06:42] LABS: Anisocytosis Slight; Basophils % (A) 0 %; Eosinophils # (A) 0.1 k/uL (0-0.7); Eosinophils % (A) 1 %; HCT 25.8 % (39.0-53.0); HGB 7.8 gm/dL (13.0-17.5); Hypochromasia Marked; Lymphocytes # (A) 0.7 k/uL (1.0-4.8); Lymphocytes % (A) 14 %; MCH 28.7 pg (25.0-35.0); MCHC 30.1 g/dL (31.0-37.0); MCV 95.2 fL (80.0-100.0); Mean Platelet Volume 11.5; Monocytes # (A) 0.4 k/uL (0-1.0); Monocytes % (A) 7 %; Neutrophils % (A) 76 %; RBC 2.71 m/uL (4.30-5.90); RDW 16.2 % (11.5-15.5); WBC 5.2 k/uL (3.8-10.6)
[2023-12-11 07:00] LABS: ALT 20 U/L (4-49); AST 38 U/L (17-59); African American GFR (CKD) 17 (>60 ml/min/1.73 sqM); Albumin 1.9 g/dL (3.5-5.0); Alkaline Phosphatase 249 U/L (38-126); Anion Gap 6 mmol/L; Blood Urea Nitrogen 60 mg/dL (9-20); Calcium 7.1 mg/dL (8.4-10.2); Carbon Dioxide 25 mmol/L (22-30); Chloride 106 mmol/L (98-107); Glucose 81 mg/dL (74-99); Magnesium 1.7 mg/dL (1.6-2.3); Non-African American GFR(CKD) 15 (>60 ml/min/1.73 sqM); Potassium 3.9 mmol/L (3.5-5.1); Sodium 137 mmol/L (137-145); Total Bilirubin 0.6 mg/dL (0.2-1.3); Total Protein 4.7 g/dL (6.3-8.2)
[2023-12-11 08:36] LABS: Platelet Count 114 k/uL (150-450)
--- NOTE | 2023-12-11 09:18 | P.PN ---
Subjective Patient seen at bedside. Patient remains confused. Started on hemodialysis December 01, 2023. Has permacath. Tolerating dialysis well. Urine output remains low. Vital signs are stable. General: Resting in bed. HEENT: Head exam is unremarkable. LUNGS: Scattered rhonchi. HEART: Rate and Rhythm are regular. ABDOMEN: No distention. EXTREMITITES: Trace edema. Objective - Vital Signs Vital signs: Vital Signs Temp 97.8 F 12/11/23 08:00 Pulse 86 12/11/23 08:00 Resp 16 12/11/23 08:00 BP 159/63 12/11/23 08:00 Pulse Ox 95 12/11/23 08:00 FiO2 Intake & Output 12/10/23 12/11/23 12/11/23 18:59 06:59 18:59 Intake Total 120 240 10 Output Total 100 Balance 20 240 10 Weight 88.5 kg Intake: IV 10 Invasive Line 6 10 Oral 120 240 Output: Urine 100 Other: Voiding Method Indwelling Catheter Indwelling Catheter # Bowel Movements 1 1 - Labs CBC & Chem 7: 12/11/23 05:53 12/11/23 05:53 Labs: Abnormal Lab Results - Last 24 Hours (Table) 12/10/23 12/10/23 12/11/23 Range/Units 11:25 20:44 05:53 RBC 2.71 L (4.30-5.90) m/uL Hgb 7.8 L (13.0-17.5) gm/dL Hct 25.8 L (39.0-53.0) % MCHC 30.1 L (31.0-37.0) g/dL RDW 16.2 H (11.5-15.5) % Plt Count 114 L (150-450) k/uL Lymphocytes # 0.7 L (1.0-4.8) k/uL BUN (9-20) mg/dL Creatinine (0.66-1.25) mg/dL POC Glucose (mg/dL) 115 H 171 H (70-110) mg/dL Calcium (8.4-10.2) mg/dL Alkaline Phosphatase (38-126) U/L Total Protein (6.3-8.2) g/dL Albumin (3.5-5.0) g/dL 12/11/23 12/11/23 Range/Units 05:53 06:21 RBC (4.30-5.90) m/uL Hgb (13.0-17.5) gm/dL Hct (39.0-53.0) % MCHC (31.0-37.0) g/dL RDW (11.5-15.5) % Plt Count (150-450) k/uL Lymphocytes # (1.0-4.8) k/uL BUN 60 H (9-20) mg/dL Creatinine 3.59 H (0.66-1.25) mg/dL POC Glucose (mg/dL) 148 H (70-110) mg/dL Calcium 7.1 L (8.4-10.2) mg/dL Alkaline Phosphatase 249 H (38-126) U/L Total Protein 4.7 L (6.3-8.2) g/dL Albumin 1.9 L (3.5-5.0) g/dL Assessment and Plan Assessment: 1. Acute kidney injury secondary to ATN secondary to hypovolemia and hypotension/?sepsis further worsened with the use of losartan, torsemide Aldactone. Was also on Farxiga. Concern for sepsis as patient was hypothermic this admission. Creatinine 3.67 dated December 01, 2023. Started on hemodi alysis December 01, 2023 due to concern for uremia. Now has permacath. 2. Chronic kidney disease stage IIIa with baseline creatinine near 1.4 secondary to diabetic kidney disease and nephrosclerosis. No hydronephrosis noted on kidney ultrasound. 3. Liver cancer maintained on sorafenib outpatient. No ascites noted on abdominal ultrasound. 4. Diabetes mellitus. 5. History of BPH on Flomax. 6. Hypertension with chronic kidney disease. Stable. 7. Hypovolemic hyponatremia improved with IV fluids. 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 Improved. TSH slightly high at 5.9 and free T4 normal. 8. Metabolic acidosis secondary to acute kidney injury and IV fluids. Status post bicarb drip. Further improvement with dialysis. 9. Hypocalcemia secondary to acute kidney injury and bicarb. PTH high at 150, vitamin D slightly low at 29.4, and ionized calcium low at 3.8. This picture could represent malabsorption contributing to the hypocalcemia due to low vitamin D. Replaced. Improved. Corrected calcium 8.7 today. 10. Anemia. Component of chronic illness. Plan: Currently seen while undergoing hemodialysis. Will maintain on Monday schedule. Encouraged oral intake. Avoid nephrotoxins. Check iron studies. 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
[2023-12-11 11:25] VITALS: TEMP 98.1
[2023-12-11 11:29] LABS: Glucose,Whole Blood 103 mg/dL (70-110)
--- NOTE | 2023-12-11 12:53 | P.PN ---
Subjective Progress Note Date: 12/11/23 Principal diagnosis: Hyponatremia. This is a 88-year-old male patient who is having multiple medical issues and comorbidities and the patient is currently in a DNR/DNI CODE STATUS. I was asked to to be involved in the patient's care and consider ICU transfer as the patient was supposed to undergo a dialysis catheter insertion for an acute on top of a chronic stage III kidney disease and ongoing encephalopathy. The patient had an MRI of the brain that showed no acute process. Ammonia levels are nonelevated. The patient was hypothermic and the had an infected has a ulcer at time of admission. He was also having episodes of hypoglycemia due to poor oral intake and hepatic dysfunction the patient is currently on bicarb infusion with D5 water. The patient is currently on room air oxygen. Dialysis catheter has been inserted. I made recommendations to keep the patient on the medical floor pending further workup and treatment by medicine. The patient is hemodynamically stable and on room air oxygen with a pulse ox of 93%. Currently normothermic. Most recent BP is 144/76. Moving all 4 extremities. Hard to communicate with as the patient is encephalopathic. 12/03/2023, no change in this patient's condition, the patient remains profoundly lethargic and confused. He has undergone 2 sessions of hemodialysis without any improvement. Urine output is in order of 500 cc over the past 24 hours. No signs of any significant respiratory difficulties. The patient on broad- spectrum antibiotics with oncology on the case with nephrology on the case. He remains quite encephalopathic and delirious. The patient is on room air oxygen with a pulse ox of 97%. The white cell count of 9 with a hemoglobin 9 and a platelet count of 172. BUN is 55 lactate and of 2.2 and a potassium level is at 3.6. Patient was evaluated today on 12/04/23, patient is undergoing hemodialysis during my evaluation, he is confused, lethargic, not in any distress. WBC count is 10.8 hemoglobin 9.4 electrolytes are normal bicarb is 20 BUN 55 creatinine 2.14 patient is on room air, does not seem to be in any distress Patient was evaluated today on 12/05/2023, patient seems to be doing better today, he is actually more awake, more responsive, although seems to be very slow and forgetful. But his mentation is nonetheless improving. Creatinine is 1.8, and no plans for repeating dialysis today. Son is at bedside, seems to be quite pleased with the improvement in his dad's condition. WBC count is 8.8 hemoglobin 9.4 basic metabolic profile is normal BUN is 39 creatinine 1.81 Patient was seen today on 12/07/2023, patient feels great, he is on room air, not in any distress, son is at bedside, patient is asymptomatic and his mentation has been improving steadily since admission. WBC count is 7.8 hemoglobin is 14.0 electrolytes are normal BUN is 24 creatinine 5.19 Patient was seen and examined today on 12/08/2023, patient is doing much better, remains on room air, not in any distress, his neurological status did not improve significantly, his mental status is great, and his pulmonary status is within normal, patient denies any cough wheezing or shortness of breath remains on room air. Bone scan done yesterday showed no evidence of osteomyelitis. WBC count is 7.6 hemoglobin 8.6 basic metabolic profile is normal BUN is 48 creatinine 3.01 Patient was evaluated today on 12/09/2023, he had a hemodialysis catheter placed today in the left internal jugular area, follow-up chest x-ray showed no complications. As [id number] the chest x-ray showed significant i mprovementPatient has pulmonary edema, patient has mild right lower lobe atelectasis. Clinically the patient remains stable, not in any distress.On room air with O2 sats of 97%, CBC is relatively normal electrolytes are normal BUN is 45 creatinine 2.89 Patient was seen today on 12/10/2023, continues to do well, he was started on hemodialysis on 11/30, no issues with hemodialysis, his hemodialysis catheter was replaced yesterday, this was done on 12/08/2023, his urine output on his own is about 100 cc in the last 24 hours. Patient is asymptomatic, on room air, not in any distress, no cough no wheezing no shortness of breath and no chest pain. Progress note dated December 11, 2023. This is an 88-year-old male who is seen today in room 353. The patient is not receiving any IV fluids. He is on room air. He is currently receiving hemodialysis as we speak. Todays sodium was 137. The plans for hemodialysis is the removal of 2.5 L of fluid. Labs today include a white count of 5.2, hemogl obin 7.8, hematocrit 25.8, and a platelet count of 114,000. Sodium 137, potassium 3.9, chlorides 106, CO2 25, BUN 60, creatinine 3.59. Glucose is 103. Albumin is only 1.9. Objective - Vital Signs Vital signs: Vital Signs Temp 98.1 F 12/11/23 11:24 Pulse 71 12/11/23 11:24 Resp 16 12/11/23 11:24 BP 95/60 12/11/23 11:24 Pulse Ox 94 L 12/11/23 11:24 FiO2 Intake & Output 12/10/23 12/11/23 12/11/23 18:59 06:59 18:59 Intake Total 120 240 10 Output Total 100 Balance 20 240 10 Weight 88.5 kg Intake: IV 10 Invasive Line 6 10 Oral 120 240 Output: Urine 100 Other: Voiding Method Indwelling Catheter Indwelling Catheter Indwelling Catheter # Bowel Movements 1 1 - Exam No acute distress, oriented 3. The patient is currently on room air. He is very frail appearing. HEENT examination is grossly unremarkable. Mucous membranes are moist. No oral lesions. Neck supple. Full range of motion. No adenopathy thyromegaly or neck vein distention. Cardiovascular examination reveals regular rhythm rate. S1-S2 normal. No S3 or S4. No discernible murmur noted. Lungs reveal minimal scattered rhonchi. No wheezes or crackles. Breath sounds are equal. Abdomen soft bowel sounds are heard. No masses or tenderness. Extremities are intact. No cyanosis clubbing or edema. Skin is without rash or lesion. Neurologic examination is brief but nonfocal. - Labs CBC & Chem 7: 12/11/23 05:53 12/11/23 05:53 Labs: Abnormal Lab Results - Last 24 Hours (Table) 12/10/23 12/11/23 12/11/23 Range/Units 20:44 05:53 05:53 RBC 2.71 L (4.30-5.90) m/uL Hgb 7.8 L (13.0-17.5) gm/dL Hct 25.8 L (39.0-53.0) % MCHC 30.1 L (31.0-37.0) g/dL RDW 16.2 H (11.5-15.5) % Plt Count 114 L (150-450) k/uL Lymphocytes # 0.7 L (1.0-4.8) k/uL BUN 60 H (9-20) mg/dL Creatinine 3.59 H (0.66-1.25) mg/dL POC Glucose (mg/dL) 171 H (70-110) mg/dL Calcium 7.1 L (8.4-10.2) mg/dL Alkaline Phosphatase 249 H (38-126) U/L Total Protein 4.7 L (6.3-8.2) g/dL Albumin 1.9 L (3.5-5.0) g/dL 12/11/23 Range/Units 06:21 RBC (4.30-5.90) m/uL Hgb (13.0-17.5) gm/dL Hct (39.0-53.0) % MCHC (31.0-37.0) g/dL RDW (11.5-15.5) % Plt Count (150-450) k/uL Lymphocytes # (1.0-4.8) k/uL BUN (9-20) mg/dL Creatinine (0.66-1.25) mg/dL POC Glucose (mg/dL) 148 H (70-110) mg/dL Calcium (8.4-10.2) mg/dL Alkaline Phosphatase (38-126) U/L Total Protein (6.3-8.2) g/dL Albumin (3.5-5.0) g/dL Assessment and Plan Assessment: Acute metabolic encephalopathy, resolved, after hemodialysis. Acute on chronic kidney stage III disease. None anion gap metabolic acidosis. 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 Benign prostatic hypertrophy. History of depression. Hyperlipidemia. Type 2 diabetes mellitus. Anemia of chronic disease. Plan: Plan dated December 11, 2023. The patient is seen today in room 353. The patient is receiving hemodialysis. The plan is to remove 2.5 L of fluid from this patient. Labs, x-rays, medications are reviewed. Todays sodium was 137. He is not receiving any IV fluids, or supplemental oxygen. Additional recommendations and suggestions are forthcoming. We will continue to follow. Time with Patient: Less than 30
[2023-12-11 13:59] VITALS: BP 113/66; PULSE 97; RESP 18
--- NOTE | 2023-12-11 15:21 | P.DS ---
Providers Date of admission: 11/26/23 15:25 Expected date of discharge: 12/11/23 Attending physician: Tierney Underwood, Consults: 11/26/23 15:23 Consult Physician Routine Consulting Provider: Elle Dietz Consult Reason/Comments: Oncological care Do you want consulting provider notified?: Yes 11/26/23 16:47 Consult Physician Routine Consulting Provider: Julita Evangelista Consult Reason/Comments: hyponatremia Do you want consulting provider notified?: Yes 12/01/23 17:57 Consult Physician Routine Consulting Provider: Brihgt Norton Consult Reason/Comments: temporary HD catheter. Do you want consulting provider notified?: Yes 12/01/23 18:48 Consult Physician Routine Consulting Provider: Chris Grijalva Consult Reason/Comments: emergent HD Do you want consulting provider notified?: Yes 12/04/23 09:19 Consult Physician Routine Consulting Provider: Dena Nation Consult Reason/Comments: encephalopathy Do you want consulting provider notified?: Yes Primary care physician: Mookie Sotelo [facility] Course: Discharge diagnoses; #Acute kidney injury on CKD stage IIIb Infected left heel ulcer, present on admission Acute encephalopathy, likely metabolicresolved Hepatocellular carcinoma on immunotherapy Anemia, stable Depression BPH Dyslipidemia Type 2 diabetes Hospital course; 88-year-old male with history of liver cancer on immunotherapy, type 2 diabetes, hypertension, BPH presenting with loss of appetite, nausea, vomiting. He is also encephalopathic. Patient recently started on immunotherapy 3 weeks ago. In the emergency room, patient was afebrile, 101/59, heart rate 75, 99% on room air. CBC shows anemia to 10.4. Basic metabolic panel shows hyponatremia to 124, chloride of 96, CO2 of 18, BUN of 82, creatinine of 2.34. Liver function test show AST of 104, ALT of 43, alkaline phosphatase of 232, albumin of 2.3, total protein of 5.1. Amylase is 70, lipase is 38. Chest x-ray shows Mediport, otherwise clear parenchyma bilaterally, poor inspiratory effort. Patient was provided bolus of IV fluids and was admitted to medicine as an inpatient. Renal function continued to worsen. Sodium improved. Nephrology was consulted. Patient also hypothermic, concern for sepsis, unclear source. Patient started on broad-spectrum IV antibiotics. Oncology also consulted. Patient is encephalopathic, likely delirium. Renal function still not improved. Patient now on daily hemodialysis. Continued to have poor mentation. Prognosis very guarded. Had goals of care discussion with son, consider comfort care if no further improvement in mentation. Patient did have some improvement. Neurology also consulted. EEG concerning for some cortical irritability, no evidence of seizures. Encephalopathy continued to improve. Repeat EEG shows improvement. Bone scans negative for osteomyelitis. Antibiotic therapy was discontinued. TSH, B12, folic acid were WNL. Repeat CT head no gross abnormality. Patient underwent procedure to have IJ permacath placement for hemodialysis. Procedure went well with no complications. Patient continued to improve with hemodialysis and was AO x 4. Patient is discharged to SNF in poor condition, and has been medically optimized. No medications are DuoNeb as needed for shortness of breath or wheezing and acetaminophen 650 as needed for pain or fever. Coreg has been changed to 12.5 mg from 25 mg. Medications discontinued are glipizide, torsemide, olmesartan, felodipine, Bactrim, tramadol, metformin, spironolactone, sorafenib. Patient will continue to receive hemodialysis in SNF. He is to follow-up with his primary care provider, and wound care for ulcer management. Patient is a full code at this time. CODE STATUS discussed with patient who wi shes to proceed with NO code. Gen: In NAD, non-toxic HEENT: normocephalic, atraumatic, hearing acuity is intant, mucous membranes moist CVS: perfusing all extremities well, no pitting edema, Respiratory: symmetric chest expansion, no accessory muscle use, GI: soft, NTTP, ND, : no suprapubic tenderness, no CVA tenderness MSK/Derm: no rashes, cyanosis Neuro: CN II-XII intact, no motor weakness, Psych: cooperative, euthymic mood, judgment and insight is intact Dictation was produced using [employer] dictation software. please excuse any grammatical, word or spelling errors. I saw and evaluated the patient during the rodriguez and critical portions of this encounter, and discussed the case in detail with the resident author of this note, I agree with the Assessment and Plan, and my changes, if any, are highlighted in blue. Patient Condition at Discharge: Poor Plan - Discharge Summary Discharge Rx Participant: No New Discharge Prescriptions: New Ipratropium-Albuterol Nebulize [Duoneb 0.5 mg-3 mg/3 ml Soln] 3 ml INHALATION RT-Q2H PRN each PRN Reason: Shortness Of Breath Or Wheezing Acetaminophen Tab [Tylenol] 650 mg PO Q6HR PRN tab PRN Reason: Mild Pain Or Fever > 100.5 Continue Loperamide [Imodium] 2 - 4 mg PO Q8H PRN PRN Reason: Diarrhea Latanoprost [Latanoprost 0.005%] 1 drop BOTH EYES HS Sertraline [Zoloft] 25 mg PO DIRECTED Simvastatin [Zocor] 20 mg PO HS Dapagliflozin Propanediol [Farxiga] 5 mg PO DAILY Tamsulosin [Flomax] 0.4 mg PO DAILY ondansetron HCL [Zofran] 8 mg PO Q8H PRN PRN Reason: Nausea And Vomiting Mirtazapine [Remeron] 15 mg PO HS Mupirocin 2% Oint [Bactroban 2% Oint] 1 applic TOPICAL TID Changed carvediloL [Coreg] 12.5 mg PO Q12H #0 Discontinued glipiZIDE XL [Glucotrol XL] 5 mg PO DAILY Torsemide [Demadex] 5 mg PO DAILY Olmesartan [Benicar] 20 mg PO DAILY Felodipine [Plendil] 5 mg PO DAILY Sulfamethox-Tmp 800-160Mg [Bactrim DS 800-160 mg] 1 tab PO DIRECTED traMADol HCL 50 mg PO Q8H PRN PRN Reason: Severe Pain (Scale 7 To 10) metFORMIN HCL ER [Glucophage XR] 500 mg PO BID Spironolactone [Aldactone] 25 mg PO DAILY SORAfenib TOSYLATE [Sorafenib] 200 mg PO AC-BID Discharge Medication List Dapagliflozin Propanediol [Farxiga] 5 mg PO DAILY 11/26/23 [History] Latanoprost [Latanoprost 0.005%] 1 drop BOTH EYES HS 11/26/23 [History] Loperamide [Imodium] 2 - 4 mg PO Q8H PRN 11/26/23 [History] Mirtazapine [Remeron] 15 mg PO HS 11/26/23 [History] Mupirocin 2% Oint [Bactroban 2% Oint] 1 applic TOPICAL TID 11/26/23 [History] Sertraline [Zoloft] 25 mg PO DIRECTED 11/26/23 [History] Simvastatin [Zocor] 20 mg PO HS 11/26/23 [History] Tamsulosin [Flomax] 0.4 mg PO DAILY 11/26/23 [History] ondansetron HCL [Zofran] 8 mg PO Q8H PRN 11/26/23 [History] Acetaminophen Tab [Tylenol] 650 mg PO Q6HR PRN tab 12/11/23 [Rx] Ipratropium-Albuterol Nebulize [Duoneb 0.5 mg-3 mg/3 ml Soln] 3 ml INHALATION RT-Q2H PRN each 12/11/23 [Rx] carvediloL [Coreg] 12.5 mg PO Q12H #0 12/11/23 [Rx] Follow up Appointment(s)/Referral(s): Mookie Sotelo MD [Primary Care Provider] - 1-2 days [facility] [NON-STAFF] - 1 Week [facility] Vis[facility], [NON-STAFF] - As Needed Patient Instructions/Handouts: Chronic Wound Care (DC) Activity/Diet/Wound Care/Special Instructions: Dialysis at [facility] - Chair time, Monday, Monday, Monday @4:30 p.m., first visit will be Monday12/13/23 - please arrive at 4:00 on that day. Patient is to follow up with would care in one week. Discharge/Stand Alone Forms: Community Resources, Help In The Home Discharge Disposition: TRANSFER TO SNF/ECF
[2023-12-11 15:23] LABS: % Iron Saturation 18.01 (15.00-50.00)
[2023-12-11 16:24] LABS: Glucose,Whole Blood 100 mg/dL (70-110)
== END 2023-12-11 17:47 | DRG 682 ==
LOC: EC 12:19 → 5NMEDONC 15:25 → UNDODISIN 12-01 19:54 → 3SCARD 12-01 20:00
PROVIDERS: ADMIT Internal Medicine; ATTEND Internal Medicine
PROC: 02HV33Z Insertion of Infusion Device into Superior Vena Cava, Percutaneous Approach (ICD-10-PCS; principal; 2023-12-01)
PROC: 02HV33Z Insertion of Infusion Device into Superior Vena Cava, Percutaneous Approach (ICD-10-PCS; 2023-12-09 08:00)
DX: N17.0 Acute kidney failure with tubular necrosis (principal); G93.41 Metabolic encephalopathy; C22.0 Liver cell carcinoma; E87.20 Acidosis, unspecified; E87.1 Hypo-osmolality and hyponatremia; E78.5 Hyperlipidemia, unspecified; E11.22 Type 2 diabetes mellitus with diabetic chronic kidney disease; D63.1 Anemia in chronic kidney disease; E86.0 Dehydration; I12.9 Hypertensive chronic kidney disease with stage 1 through stage 4 chronic kidney disease, or unspecified chronic kidney disease; L89.222 Pressure ulcer of left hip, stage 2; L89.152 Pressure ulcer of sacral region, stage 2; R13.10 Dysphagia, unspecified; R29.810 Facial weakness; L89.622 Pressure ulcer of left heel, stage 2; N40.0 Benign prostatic hyperplasia without lower urinary tract symptoms; N18.32 Chronic kidney disease, stage 3b; E83.51 Hypocalcemia; E86.1 Hypovolemia; E87.6 Hypokalemia; E11.621 Type 2 diabetes mellitus with foot ulcer; E11.622 Type 2 diabetes mellitus with other skin ulcer; E11.649 Type 2 diabetes mellitus with hypoglycemia without coma; L97.509 Non-pressure chronic ulcer of other part of unspecified foot with unspecified severity; E11.42 Type 2 diabetes mellitus with diabetic polyneuropathy; F32.A Depression, unspecified; Z66 Do not resuscitate; Z79.84 Long term (current) use of oral hypoglycemic drugs; Z79.899 Other long term (current) drug therapy; Z86.16 Personal history of COVID-19; Z99.2 Dependence on renal dialysis; Z89.422 Acquired absence of other left toe(s)
CPT/HCPCS: 36415; 36558; 70450; 70551; 71045; 71046; 74018; 74230; 76705; 76770; 76937; 77001; 78315; 80048; 80053; 80061; 80074; 80202; 81001; 82140; 82150; 82306; 82330; 82533; 82565; 82570; 82607; 82668; 82728; 82746; 82803; 83540; 83550; 83690; 83735; 83921; 83930; 83935; 83970; 84100; 84156; 84165; 84300; 84439; 84443; 85025; 85610; 86038; 86160; 86162; 86225; 86255; 86334; 86706; 87040; 87045; 87046; 87205; 87324; 87340; 90935; 93880; 93922; 94640; 95816; 96361; 96365; 96366; 96375; 99211; 99285

== ENCOUNTER 2023-12-26 00:49 | Emergency (ER) | payer MEDICARE ==
--- NOTE | 2023-12-26 01:27 | ED ---
Recheck HPI - General Chief Complaint: Recheck/Abnormal Lab/Rx Stated Complaint: Abnormal Labs (Hypothermia, Anemia) Time Seen by Provider: 12/26/23 01:00 Source: patient Mode of arrival: EMS Limitations: no limitations - History of Present Illness Initial Comments: Patient is an 88-year-old man who is sent in after having abnormal laboratory tests. The patient reportedly had gone to dialysis and had a normal session today. Reportedly they received a call that his potassium was low and hemoglobin as well. Patient states that he is not feeling too bad at all. He is not having chest pain, dyspnea, diaphoresis. No change in bowel movements. Patient states that there is a little fatigue but not much more than usual. MD Complaint: abnormal lab -: hour(s) Returns Today for: Called Because of Abnormal Lab/Test Symptoms Since Prior Visit: no new symptoms Associated Symptoms: none - Related Data Home Medications Medication Instructions Recorded Confirmed Dapagliflozin Propanediol [Farxiga] 5 mg PO DAILY 11/26/23 11/26/23 Latanoprost [Latanoprost 0.005%] 1 drop BOTH EYES HS 11/26/23 11/26/23 Loperamide [Imodium] 2 - 4 mg PO Q8H PRN 11/26/23 11/26/23 Mirtazapine [Remeron] 15 mg PO HS 11/26/23 11/26/23 Mupirocin 2% Oint [Bactroban 2% 1 applic TOPICAL TID 11/26/23 11/26/23 Oint] Sertraline [Zoloft] 25 mg PO DIRECTED 11/26/23 11/26/23 Simvastatin [Zocor] 20 mg PO HS 11/26/23 11/26/23 Tamsulosin [Flomax] 0.4 mg PO DAILY 11/26/23 11/26/23 ondansetron HCL [Zofran] 8 mg PO Q8H PRN 11/26/23 11/26/23 Previous Rx's Medication Instructions Recorded Acetaminophen Tab [Tylenol] 650 mg PO Q6HR PRN tab 12/11/23 Ipratropium-Albuterol Nebulize 3 ml INHALATION RT-Q2H PRN each 12/11/23 [Duoneb 0.5 mg-3 mg/3 ml Soln] carvediloL [Coreg] 12.5 mg PO Q12H #0 10/07/24 Allergies Allergy/AdvReac Type Severity Reaction Status Date / Time No Known Allergies Allergy Verified 12/26/23 01:18 Review of Systems ROS Statement: Those systems with pertinent positive or pertinent negative responses have been documented in the HPI. ROS Other: All systems not noted in ROS Statement are negative. Constitutional: Denies: fever, weakness Respiratory: Denies: cough, dyspnea Cardiovascular: Denies: chest pain, palpitations, edema Gastrointestinal: Denies: abdominal pain, nausea, vomiting Genitourinary: Denies: dysuria, hematuria Musculoskeletal: Denies: back pain Skin: Denies: rash Neurological: Denies: headache, weakness Past Medical History Past Medical History: Cancer, Diabetes Mellitus, Hypertension, Prostate Disorder Additional Past Medical History / Comment(s): liver cancer History of Any Multi-Drug Resistant Organisms: None Reported Past Surgical History: Adenoidectomy, Tonsillectomy Additional Past Surgical History / Comment(s): Left foot surgery 16 years ago, toes amputated left foot 2023 Past Psychological History: No Psychological Hx Reported Smoking Status: Never smoker Past Alcohol Use History: None Reported Past Drug Use History: None Reported General Exam Limitations: no limitations General appearance: alert, in no apparent distress Head exam: Present: atraumatic, normocephalic Eye exam: Present: normal appearance, other (Conjunctival pallor). Absent: scleral icterus, conjunctival injection ENT exam: Present: other (Mucosal pallor) Neck exam: Present: normal inspection Respiratory exam: Present: normal lung sounds bilaterally. Absent: respiratory distress, wheezes, rales, rhonchi, stridor, accessory muscle use Cardiovascular Exam: Present: regular rate, normal rhythm, normal heart sounds. Absent: systolic murmur, diastolic murmur, rubs, gallop GI/Abdominal exam: Present: soft. Absent: distended, tenderness, guarding, rebound, rigid, mass Extremities exam: Present: normal inspection, normal capillary refill. Absent: pedal edema, calf tenderness Back exam: Present: normal inspection. Absent: CVA tenderness (R), CVA tenderness (L) Neurological exam: Present: alert Skin exam: Present: warm, dry, intact, pallor Course Vital Signs 12/26/23 12/26/23 12/26/23 01:13 05:21 06:23 Temperature 97.5 F L 97.9 F Pulse Rate 71 76 77 Respiratory 17 16 16 Rate Blood Pressure 145/71 137/65 138/82 O2 Sat by Pulse 96 93 L Oximetry Medical Decision Making - Medical Decision Making Was pt. sent in by a medical professional or institution (, SHAINA, DISABILITY CASE MANAGER, urgent care, hospital, or [place] [facility]...) When possible be specific @ -Yes patient sent from [place] [facility] Did you speak to anyone other than the patient for history (EMS, parent, family, police, friend...)? What history was obtained from this source @ -[No] Did you review nursing and triage notes (agree or disagree)? Why? @ -[I reviewed and agree with nursing and triage notes] Were old charts reviewed (outside hosp., previous admission, EMS record, old EKG, old radiological studies, urgent care reports/EKG's, [place] [facility] records)? Report findings @ -[The transfer charts were reviewed] Differential Diagnosis (chest pain, altered mental status, abdominal pain women, abdominal pain men, vaginal bleeding, weakness, fever, dyspnea, syncope, headache, dizziness, GI bleed, back pain, seizure, CVA, palpatations, mental health, musculoskeletal)? @ -[Differential Weakness: Hypoglycemia, shock, sepsis, hyponatremia, anemia, infection, ND, ETOH, adverse medicine reaction, overdose, stroke, this is not meant to be an all-inclusive list. EKG interpreted by me (3pts min.). @ -[As above] X-rays interpreted by me (1pt min.). @ -[None done] CT interpreted by me (1pt min.). @ -[None done] U/S interpreted by me (1pt. min.). @ -[None done] What testing was considered but not performed or refused? (CT, X-rays, U/S, l abs)? Why? @ -[None] What meds were considered but not given or refused? Why? @ -[None] Did you discuss the management of the patient with other professionals (professionals i.e. SHAINA Tran, DISABILITY CASE MANAGER, lab, RT, psych nurse, sr. social media & mobile manager, account consultant, teacher, flight deck officer, manager rn case)? Give summary @ -[No] Was smoking cessation discussed for >3mins.? @ -[No] Was critical care preformed (if so, how long)? @ -[No] Were there social determinants of health that impacted care today? How? (Homelessness, low income, unemployed, alcoholism, drug addiction, transportation, low edu. Level, literacy, decrease access to med. care, halfway, rehab)? @ -[No] Was there de-escalation of care discussed even if they declined (Discuss DNR or withdrawal of care, Hospice)? DNR status @ -[No] What co-morbidities impacted this encounter? (DM, HTN, Smoking, COPD, CAD, Cancer, CVA, ARF, Chemo, Hep., AIDS, mental health diagnosis, sleep apnea, morbid obesity)? @ -[Hypertension, chronic renal failure Was patient admitted / discharged? Hospital course, mention meds given and route, prescriptions, significant lab abnormalities, going to OR and other pertinent info. @ -[Patient is an 88-year-old man sent to have evaluation for some abnormal labs. The patient here is largely asymptomatic, his results reveal some chronic anemia but not requiring transfusion. Patient feeling well and would like to go home. The patient is given low dose of potassium given the hypokalemia. Undiagnosed new problem with uncertain prognosis? @ -[No] Drug Therapy requiring intensive monitoring for toxicity (Heparin, Nitro, Insuli n, Cardizem)? @ -[No] Were any procedures done? @ -[No] Diagnosis/symptom? @ -[Encounter related to lab abnormality Chronic anemia Acute hypokalemia Acute, or Chronic, or Acute on Chronic? @ -[Chronic Uncomplicated (without systemic symptoms) or Complicated (systemic symptoms)? @ -[Uncomplicated Side effects of treatment? @ -[No] Exacerbation, Progression, or Severe Exacerbation? @ -[No] Poses a threat to life or bodily function? How? (Chest pain, USA, ND, pneumonia, PE, COPD, DKA, ARF, appy, cholecystitis, CVA, Diverticulitis, Homicidal, Suicidal, threat to staff... and all critical care pts) @ -[No] - Lab Data Result diagrams: 12/26/23 01:54 12/26/23 01:54 Lab Results 12/26/23 12/26/23 12/26/23 Range/Units 01:54 01:54 03:25 WBC 7.1 (3.8-10.6) k/uL RBC 2.78 L (4.30-5.90) m/uL Hgb 8.1 L (13.0-17.5) gm/dL Hct 26.0 L (39.0-53.0) % MCV 93.5 (80.0-100.0) fL MCH 29.3 (25.0-35.0) pg MCHC 31.3 (31.0-37.0) g/dL RDW 17.4 H (11.5-15.5) % Plt Count 220 (150-450) k/uL MPV 9.5 Neutrophils % 79 % Lymphocytes % 9 % Monocytes % 8 % Eosinophils % 2 % Basophils % 0 % Neutrophils # 5.6 (1.3-7.7) k/uL Lymphocytes # 0.7 L (1.0-4.8) k/uL Monocytes # 0.6 (0-1.0) k/uL Eosinophils # 0.1 (0-0.7) k/uL Basophils # 0.0 (0-0.2) k/uL Hypochromasia Slight Anisocytosis Slight Sodium 135 L (137-145) mmol/L Potassium 2.8 L (3.5-5.1) mmol/L Chloride 100 (98-107) mmol/L Carbon Dioxide 34 H (22-30) mmol/L Anion Gap 1 mmol/L BUN 13 (9-20) mg/dL Creatinine 1.12 (0.66-1.25) mg/dL Est GFR (CKD-EPI)AfAm 69 (>60 ml/min/1.73 sqM) Est GFR (CKD-EPI)NonAf 59 (>60 ml/min/1.73 sqM) Glucose 81 (74-99) mg/dL Calcium 7.4 L (8.4-10.2) mg/dL Total Bilirubin 0.7 (0.2-1.3) mg/dL AST 32 (17-59) U/L ALT 18 (4-49) U/L Alkaline Phosphatase 266 H (38-126) U/L Total Protein 5.1 L (6.3-8.2) g/dL Albumin 2.2 L (3.5-5.0) g/dL Blood Type O Positive Blood Type Confirm Blood Type Recheck No Previous Record Bld Type Recheck Status CABO Indicated Antibody Screen NEGATIVE Spec Expiration Date 12/29/2023 - 232412/26/23 Range/Units 03:39 WBC (3.8-10.6) k/uL RBC (4.30-5.90) m/uL Hgb (13.0-17.5) gm/dL Hct (39.0-53.0) % MCV (80.0-100.0) fL MCH (25.0-35.0) pg MCHC (31.0-37.0) g/dL RDW (11.5-15.5) % Plt Count (150-450) k/uL MPV Neutrophils % % Lymphocytes % % Monocytes % % Eosinophils % % Basophils % % Neutrophils # (1.3-7.7) k/uL Lymphocytes # (1.0-4.8) k/uL Monocytes # (0-1.0) k/uL Eosinophils # (0-0.7) k/uL Basophils # (0-0.2) k/uL Hypochromasia Anisocytosis Sodium (137-145) mmol/L Potassium (3.5-5.1) mmol/L Chloride (98-107) mmol/L Carbon Dioxide (22-30) mmol/L Anion Gap mmol/L BUN (9-20) mg/dL Creatinine (0.66-1.25) mg/dL Est GFR (CKD-EPI)AfAm (>60 ml/min/1.73 sqM) Est GFR (CKD-EPI)NonAf (>60 ml/min/1.73 sqM) Glucose (74-99) mg/dL Calcium (8.4-10.2) mg/dL Total Bilirubin (0.2-1.3) mg/dL AST (17-59) U/L ALT (4-49) U/L Alkaline Phosphatase (38-126) U/L Total Protein (6.3-8.2) g/dL Albumin (3.5-5.0) g/dL Blood Type Blood Type Confirm O Positive Blood Type Recheck Bld Type Recheck Status Antibody Screen Spec Expiration Date Disposition Clinical Impression: Hypokalemia, Anemia Disposition: HOME SELF-CARE Condition: Good Is patient prescribed a controlled substance at d/c from ED?: No Referrals: Mookie Sotelo MD [Primary Care Provider] - 1-2 days
[2023-12-26 02:08] LABS: Anisocytosis Slight; Basophils % (A) 0 %; Eosinophils # (A) 0.1 k/uL (0-0.7); Eosinophils % (A) 2 %; HGB 8.1 gm/dL (13.0-17.5); Hypochromasia Slight; Lymphocytes # (A) 0.7 k/uL (1.0-4.8); Lymphocytes % (A) 9 %; MCH 29.3 pg (25.0-35.0); MCHC 31.3 g/dL (31.0-37.0); MCV 93.5 fL (80.0-100.0); Mean Platelet Volume 9.5; Monocytes # (A) 0.6 k/uL (0-1.0); Monocytes % (A) 8 %; Neutrophils # (A) 5.6 k/uL (1.3-7.7); Neutrophils % (A) 79 %; Platelet Count 220 k/uL (150-450); RBC 2.78 m/uL (4.30-5.90); RDW 17.4 % (11.5-15.5); WBC 7.1 k/uL (3.8-10.6)
[2023-12-26 02:16] LABS: ALT 18 U/L (4-49); AST 32 U/L (17-59); African American GFR (CKD) 69 (>60 ml/min/1.73 sqM); Albumin 2.2 g/dL (3.5-5.0); Alkaline Phosphatase 266 U/L (38-126); Anion Gap 1 mmol/L; Blood Urea Nitrogen 13 mg/dL (9-20); Calcium 7.4 mg/dL (8.4-10.2); Carbon Dioxide 34 mmol/L (22-30); Chloride 100 mmol/L (98-107); Glucose 81 mg/dL (74-99); Non-African American GFR(CKD) 59 (>60 ml/min/1.73 sqM); Potassium 2.8 mmol/L (3.5-5.1); Sodium 135 mmol/L (137-145); Total Bilirubin 0.7 mg/dL (0.2-1.3); Total Protein 5.1 g/dL (6.3-8.2)
[2023-12-26] MEDS: POTASSIUM CHLORIDE ER 10 MEQ TAB.ER.PRT PO STA (03:01)
[2023-12-26 05:22] VITALS: RESP 16
[2023-12-26 06:26] VITALS: BP 138/82; PULSE 77; TEMP 97.9
== END 2023-12-26 06:59 | disposition home or self-care (01) ==
LOC: EC 00:49
DX: D64.9 Anemia, unspecified (principal); E87.6 Hypokalemia; Z90.89 Acquired absence of other organs; Z99.2 Dependence on renal dialysis
CPT/HCPCS: 36415; 80053; 85025; 86850; 86900; 86901; 99285

== ENCOUNTER 2024-01-03 11:35 | Emergency (ER) | payer MEDICARE ==
[2024-01-03 11:48] VITALS: TEMP 97.9
[2024-01-03 12:21] LABS: Anisocytosis Slight; Basophils % (A) 0 %; Eosinophils # (A) 0.1 k/uL (0-0.7); Eosinophils % (A) 3 %; HCT 28.8 % (39.0-53.0); HGB 9.1 gm/dL (13.0-17.5); Hypochromasia Marked; Lymphocytes # (A) 0.5 k/uL (1.0-4.8); Lymphocytes % (A) 9 %; MCHC 31.6 g/dL (31.0-37.0); MCV 95.2 fL (80.0-100.0); Macrocytosis Slight; Mean Platelet Volume 10.1; Monocytes # (A) 0.3 k/uL (0-1.0); Monocytes % (A) 6 %; Neutrophils # (A) 4.1 k/uL (1.3-7.7); Neutrophils % (A) 81 %; Platelet Count 168 k/uL (150-450); RBC 3.02 m/uL (4.30-5.90); RDW 17.4 % (11.5-15.5); WBC 5.1 k/uL (3.8-10.6)
[2024-01-03 12:28] LABS: INR 1.2 (<1.2); Partial Thromboplastin Time 24.6 sec (22.0-30.0); Prothrombin Time 12.7 sec (10.0-12.5)
--- NOTE | 2024-01-03 12:28 | ED ---
SOB HPI - General Chief Complaint: Shortness of Breath Stated Complaint: aspiration Time Seen by Provider: 01/03/24 11:51 Source: patient, RN notes reviewed Mode of arrival: EMS Limitations: no limitations, physical limitation - History of Present Illness Initial Comments: This is an 88-year-old male who presents to the emergency department for shortness of breath. Patient states that he was sitting up in his bed at [facility] after eating breakfast and suddenly had the urge to vomit. He then began to cough and the staff was concerned that he may have aspirated. They noticed his breath sounds to be very coarse, prompting them to call EMS. Patient states that he currently feels okay. Does not currently feel nauseous and he denies any chest pain or shortness of breath. He is a dialysis patient and is scheduled for dialysis today. He does still make his own urine. MD Complaint: shortness of breath, cough - Related Data Home Medications Medication Instructions Recorded Confirmed Dapagliflozin Propanediol [Farxiga] 5 mg PO DAILY 11/26/23 11/26/23 Latanoprost [Latanoprost 0.005%] 1 drop BOTH EYES HS 11/26/23 11/26/23 Loperamide [Imodium] 2 - 4 mg PO Q8H PRN 11/26/23 11/26/23 Mirtazapine [Remeron] 15 mg PO HS 11/26/23 11/26/23 Mupirocin 2% Oint [Bactroban 2% 1 applic TOPICAL TID 11/26/23 11/26/23 Oint] Sertraline [Zoloft] 25 mg PO DIRECTED 11/26/23 11/26/23 Simvastatin [Zocor] 20 mg PO HS 11/26/23 11/26/23 Tamsulosin [Flomax] 0.4 mg PO DAILY 11/26/23 11/26/23 ondansetron HCL [Zofran] 8 mg PO Q8H PRN 11/26/23 11/26/23 Previous Rx's Medication Instructions Recorded Acetaminophen Tab [Tylenol] 650 mg PO Q6HR PRN tab 12/11/23 Ipratropium-Albuterol Nebulize 3 ml INHALATION RT-Q2H PRN each 12/11/23 [Duoneb 0.5 mg-3 mg/3 ml Soln] carvediloL [Coreg] 12.5 mg PO Q12H #0 12/11/23 Allergies Allergy/AdvReac Type Severity Reaction Status Date / Time No Known Allergies Allergy Verified 12/26/23 01:18 Review of Systems ROS Statement: Those systems with pertinent positive or pertinent negative responses have been documented in the HPI. ROS Other: All systems not noted in ROS Statement are negative. Past Medical History Past Medical History: Cancer, Diabetes Mellitus, Hypertension, Prostate Disorder Additional Past Medical History / Comment(s): liver cancer History of Any Multi-Drug Resistant Organisms: None Reported Past Surgical History: Adenoidectomy, Tonsillectomy Additional Past Surgical History / Comment(s): Left foot surgery 16 years ago, toes amputated left foot 2023 Past Psychological History: No Psychological Hx Reported Smoking Status: Never smoker Past Alcohol Use History: None Reported Past Drug Use History: None Reported General Exam Limitations: no limitations, physical limitation General appearance: alert, in no apparent distress Head exam: Present: atraumatic, normocephalic, normal inspection Respiratory exam: Present: rhonchi, decreased breath sounds, prolonged expiratory Cardiovascular Exam: Present: regular rate, normal rhythm, normal heart sounds. Absent: systolic murmur, diastolic murmur, rubs, gallop, clicks GI/Abdominal exam: Present: soft, normal bowel sounds. Absent: distended, tenderness Neurological exam: Present: alert, oriented X3, CN II-XII intact Psychiatric exam: Present: normal affect, normal mood Skin exam: Present: warm, dry, intact, normal color. Absent: rash Course Vital Signs 01/03/24 01/03/24 01/03/24 11:44 11:48 12:10 Temperature 97.9 F 97.9 F Pulse Rate 76 75 Respiratory 20 16 20 Rate Blood Pressure 139/70 128/79 O2 Sat by Pulse 98 98 Oximetry 01/03/24 01/03/24 01/03/24 12:48 13:50 14:00 Temperature Pulse Rate 75 70 86 Respiratory 20 16 20 Rate Blood Pressure 135/78 141/65 118/64 O2 Sat by Pulse 98 98 98 Oximetry 01/03/24 14:54 Temperature Pulse Rate 70 Respiratory 20 Rate Blood Pressure 146/70 O2 Sat by Pulse 99 Oximetry Medical Decision Making - Medical Decision Making This is an 88 year old male who presents to the emergency department for shortness of breath and coughing. Was pt. sent in by a medical professional or institution? @ -No Did you speak to anyone other than the patient for history? @ -No Did you review nursing and triage notes? @ -Yes, and I agree, it is accurate with regards to the patient's symptoms. Were old charts reviewed? @ -No Differential Diagnosis? @ -Differential Dyspnea: Coronary syndrome, arrhythmia, tamponade, asthma, COPD, pulmonary embolism, pneumonia, pneumothorax, pulmonary effusion, anaphylaxis, diabetic ketoacidosis, flailed chest, pulmonary contusion, diaphragmatic rupture, anemia, neuromuscular, this is not meant to be an all-inclusive list. EKG interpreted by me (3pts min.)? @ -EKG interpreted by me demonstrating the following: Sinus rhythm. Oc tricular rate 73 bpm, OR interval 190 ms, QRS duration 93 ms, QTc 438 ms. X-rays interpreted by me (1pt min.)? @ -Chest x-ray obtained. My interpretation identifies pulmonary vascular congestion CT interpreted by me (1pt min.)? @ -Not obtained U/S interpreted by me (1pt. min.)? @ -Not obtained What testing was considered but not performed? (CT, X-rays, U/S, labs)? Why? @ -None What meds were considered but not given? Why? @ -None Did you discuss the management of the patient with other professionals? @ -No Did you reconcile home meds? @ -No Was smoking cessation discussed for >3mins.? @ -No Was critical care preformed (if so, how long)? @ -No Were there social determinants of health that impacted care today? How? (Homelessness, low income, unemployed, alcoholism, drug addiction, transportation, low edu. Level, literacy, decrease access to med. care, residential, rehab)? @ -No Was there de-escalation of care discussed even if they declined? (Discuss DNR or withdrawal of care, Hospice)? @ -No What co-morbidities impacted this encounter? (DM, HTN, Smoking, COPD, CAD, Cancer, CVA, Hep., AIDS, mental health diagnosis, sleep apnea, morbid obesity)? @ -DM, CKD, HTN Was patient admitted / discharged? @ -Discharged. Lab work demonstrates improved hemoglobin when compared with prior. Decreased renal function is stable when compared with prior and consiste nt with patient's history of renal disease. Chest x-ray demonstrates pulmonary vascular congestion and signs of fluid overload state. BNP is 28,800. At this point patient's lab values are either improved or stable when compared with prior. He is also asymptomatic and exhibiting no signs of distress. Advised that he can be discharged home at this time with plan to proceed with dialysis today due to the fluid overload state. Marty was contacted and patient will be discharged back via EMS with a plan to attend dialysis later today. Case discussed with ED attending Dr. Li. Return precautions reviewed in depth, the patient is instructed to return to the emergency department with any new, worsening, or concerning symptoms. Patient verbalized understanding. Undiagnosed new problem with uncertain prognosis? @ -None Drug Therapy requiring intensive monitoring for toxicity (Heparin, Nitro, Insulin, Cardizem)? @ -None Were any procedures done? @ -None Diagnosis/symptom? @ -Vomiting, fluid overload Acute, or Chronic, or Acute on Chronic? @ -Acute Uncomplicated (without systemic symptoms) or Complicated (systemic symptoms)? @ -Uncomplicated Side effects of treatment? @ -None Exacerbation, Progression, or Severe Exacerbation] @ -Not applicable Poses a threat to life or bodily function? @ -Not at this time - Lab Data Result diagrams: 01/03/24 12:10 01/03/24 12:10 Lab Results 01/03/24 01/03/24 01/03/24 Range/Units 12:10 12:10 12:10 WBC 5.1 (3.8-10.6) k/uL RBC 3.02 L (4.30-5.90) m/uL Hgb 9.1 L (13.0-17.5) gm/dL Hct 28.8 L (39.0-53.0) % MCV 95.2 (80.0-100.0) fL MCH 30.0 (25.0-35.0) pg MCHC 31.6 (31.0-37.0) g/dL RDW 17.4 H (11.5-15.5) % Plt Count 168 (150-450) k/uL MPV 10.1 Neutrophils % 81 % Lymphocytes % 9 % Monocytes % 6 % Eosinophils % 3 % Basophils % 0 % Neutrophils # 4.1 (1.3-7.7) k/uL Lymphocytes # 0.5 L (1.0-4.8) k/uL Monocytes # 0.3 (0-1.0) k/uL Eosinophils # 0.1 (0-0.7) k/uL Basophils # 0.0 (0-0.2) k/uL Hypochromasia Marked Anisocytosis Slight Macrocytosis Slight PT 12.7 H (10.0-12.5) sec INR 1.2 H (<1.2) APTT 24.6 (22.0-30.0) sec Sodium 136 L (137-145) mmol/L Potassium 4.1 (3.5-5.1) mmol/L Chloride 100 (98-107) mmol/L Carbon Dioxide 35 H (22-30) mmol/L Anion Gap 1 mmol/L BUN 29 H (9-20) mg/dL Creatinine 2.00 H (0.66-1.25) mg/dL Est GFR (CKD-EPI)AfAm 34 (>60 ml/min/1.73 sqM) Est GFR (CKD-EPI)NonAf 29 (>60 ml/min/1.73 sqM) Glucose 101 H (74-99) mg/dL Plasma Lactic Acid Oc (0.7-2.0) mmol/L Calcium 7.5 L (8.4-10.2) mg/dL Phosphorus 1.7 L (2.5-4.5) mg/dL Magnesium 1.7 (1.6-2.3) mg/dL Total Bilirubin 0.6 (0.2-1.3) mg/dL AST 27 (17-59) U/L ALT 15 (4-49) U/L Alkaline Phosphatase 263 H (38-126) U/L NT-Pro-B Natriuret Pep 50491 pg/mL Total Protein 5.1 L (6.3-8.2) g/dL Albumin 2.2 L (3.5-5.0) g/dL Influenza Type A (PCR) (Not Detectd) Influenza Type B (PCR) (Not Detectd) RSV (PCR) (Not Detectd) SARS-CoV-2 (PCR) (Not Detectd) 01/03/24 01/03/24 Range/Units 12:10 12:14 WBC (3.8-10.6) k/uL RBC (4.30-5.90) m/uL Hgb (13.0-17.5) gm/dL Hct (39.0-53.0) % MCV (80.0-100.0) fL MCH (25.0-35.0) pg MCHC (31.0-37.0) g/dL RDW (11.5-15.5) % Plt Count (150-450) k/uL MPV Neutrophils % % Lymphocytes % % Monocytes % % Eosinophils % % Basophils % % Neutrophils # (1.3-7.7) k/uL Lymphocytes # (1.0-4.8) k/uL Monocytes # (0-1.0) k/uL Eosinophils # (0-0.7) k/uL Basophils # (0-0.2) k/uL Hypochromasia Anisocytosis Macrocytosis PT (10.0-12.5) sec INR (<1.2) APTT (22.0-30.0) sec Sodium (137-145) mmol/L Potassium (3.5-5.1) mmol/L Chloride (98-107) mmol/L Carbon Dioxide (22-30) mmol/L Anion Gap mmol/L BUN (9-20) mg/dL Creatinine (0.66-1.25) mg/dL Est GFR (CKD-EPI)AfAm (>60 ml/min/1.73 sqM) Est GFR (CKD-EPI)NonAf (>60 ml/min/1.73 sqM) Glucose (74-99) mg/dL Plasma Lactic Acid Oc 1.5 (0.7-2.0) mmol/L Calcium (8.4-10.2) mg/dL Phosphorus (2.5-4.5) mg/dL Magnesium (1.6-2.3) mg/dL Total Bilirubin (0.2-1.3) mg/dL AST (17-59) U/L ALT (4-49) U/L Alkaline Phosphatase (38-126) U/L NT-Pro-B Natriuret Pep pg/mL Total Protein (6.3-8.2) g/dL Albumin (3.5-5.0) g/dL Influenza Type A (PCR) Not Detected (Not Detectd) Influenza Type B (PCR) Not Detected (Not Detectd) RSV (PCR) Not Detected (Not Detectd) SARS-CoV-2 (PCR) Not Detected (Not Detectd) - Radiology Data Radiology results: report reviewed, image reviewed Disposition Clinical Impression: Vomiting, Fluid overload Disposition: HOME SELF-CARE Additional Instructions: Return to the emergency department with any new, worsening, or concerning symptoms. Follow up with your primary care provider in 1-2 days. Is patient prescribed a controlled substance at d/c from ED?: No Referrals: Mookie Sotelo MD [Primary Care Provider] - 1-2 days Time of Disposition: 13:47
[2024-01-03 12:43] LABS: ALT 15 U/L (4-49); AST 27 U/L (17-59); African American GFR (CKD) 34 (>60 ml/min/1.73 sqM); Albumin 2.2 g/dL (3.5-5.0); Alkaline Phosphatase 263 U/L (38-126); Anion Gap 1 mmol/L; Blood Urea Nitrogen 29 mg/dL (9-20); Calcium 7.5 mg/dL (8.4-10.2); Carbon Dioxide 35 mmol/L (22-30); Chloride 100 mmol/L (98-107); Glucose 101 mg/dL (74-99); Magnesium 1.7 mg/dL (1.6-2.3); Non-African American GFR(CKD) 29 (>60 ml/min/1.73 sqM); Phosphorus 1.7 mg/dL (2.5-4.5); Potassium 4.1 mmol/L (3.5-5.1); Sodium 136 mmol/L (137-145); Total Bilirubin 0.6 mg/dL (0.2-1.3); Total Protein 5.1 g/dL (6.3-8.2)
[2024-01-03 12:49] LABS: NT-Pro-B-Type Natriuretic Pept 28800 pg/mL
--- NOTE | 2024-01-03 12:49 | XR ---
EXAMINATION TYPE: XR chest 2V DATE OF EXAM: 01/03/2024 COMPARISON: 12/09/2023 HISTORY: 88 year-old male shortness of breath, difficulty breathing TECHNIQUE: AP and lateral views FINDINGS: Right anterior chest wall injection for at the mid to lower SVC level. Left-sided double-lumen hemodi alysis catheter tips at the mid to lower SVC level. Heart is unenlarged. There are small to moderate right and small left pleural effusions which are relatively similar. Interstitial prominence increase d. IMPRESSION: Correlate for fluid overload with pulmonary vascular congestion. Small to moderate right and small le ft pleural effusions with adjacent atelectasis and/or consolidation. [facility], , 01/03/2024 12:47 PM
[2024-01-03 14:14] VITALS: RESP 20
[2024-01-03 14:54] VITALS: BP 146/70; PULSE 70
== END 2024-01-03 15:07 | disposition home or self-care (01) ==
LOC: EC 11:35
DX: E87.70 Fluid overload, unspecified (principal)
CPT/HCPCS: 36415; 71046; 80053; 83605; 83735; 83880; 84100; 85025; 85610; 85730; 87636; 93005; 99285

== ENCOUNTER 2024-03-06 00:58 | Inpatient (IN) | payer MEDICARE ==
--- NOTE | 2024-03-06 01:36 | ED ---
General Adult HPI - General Source: EMS, RN notes reviewed Mode of arrival: EMS Limitations: altered mental status <Patti Meyer - Last Filed: 03/06/24 04:31> <Antony Li - Last Filed: 03/06/24 05:53> - General Chief complaint: Altered Mental Status Stated complaint: SOB Time Seen by Provider: 03/06/24 01:08 - History of Present Illness Initial comments: 88-year-old male presents to the emergency department for evaluation of difficulty breathing and altered mental status. According to EMS, the patient has been feeling ill for the past 3 days. Patient became more confused this afternoon. The history is limited from the patient. Patient does report that he is having abdominal pain mostly in the left lower abdomen. He has indwelling Jenkins catheter in place. (Patti Meyer) - Related Data Home Medications Medication Instructions Recorded Confirmed Dapagliflozin Propanediol [Farxiga] 5 mg PO DAILY 11/26/23 11/26/23 Latanoprost [Latanoprost 0.005%] 1 drop BOTH EYES HS 11/26/23 11/26/23 Loperamide [Imodium] 2 - 4 mg PO Q8H PRN 11/26/23 11/26/23 Mirtazapine [Remeron] 15 mg PO HS 11/26/23 11/26/23 Mupirocin 2% Oint [Bactroban 2% 1 applic TOPICAL TID 11/26/23 11/26/23 Oint] Sertraline [Zoloft] 25 mg PO DIRECTED 11/26/23 11/26/23 Simvastatin [Zocor] 20 mg PO HS 11/26/23 11/26/23 Tamsulosin [Flomax] 0.4 mg PO DAILY 11/26/23 11/26/23 ondansetron HCL [Zofran] 8 mg PO Q8H PRN 11/26/23 11/26/23 Previous Rx's Medication Instructions Recorded Acetaminophen Tab [Tylenol] 650 mg PO Q6HR PRN tab 12/11/23 Ipratropium-Albuterol Nebulize 3 ml INHALATION RT-Q2H PRN each 12/11/23 [Duoneb 0.5 mg-3 mg/3 ml Soln] carvediloL [Coreg] 12.5 mg PO Q12H #0 12/11/23 Allergies Allergy/AdvReac Type Severity Reaction Status Date / Time No Known Allergies Allergy Verified 12/26/23 01:18 Review of Systems ROS Other: All systems not noted in ROS Statement are negative. <Patti Meyer - Last Filed: 03/06/24 04:31> ROS Other: All systems not noted in ROS Statement are negative. <Antony Li Laurence - Last Filed: 03/06/24 05:53> ROS Statement: Those systems with pertinent positive or pertinent negative responses have been documented in the HPI. Past Medical History Past Medical History: Cancer, Diabetes Mellitus, Hypertension, Prostate Disorder Additional Past Medical History / Comment(s): liver cancer History of Any Multi-Drug Resistant Organisms: None Reported Past Surgical History: Adenoidectomy, Tonsillectomy Additional Past Surgical History / Comment(s): Left foot surgery 16 years ago, toes amputated left foot 2023 Past Psychological History: No Psychological Hx Reported Smoking Status: Never smoker Past Alcohol Use History: None Reported Past Drug Use History: None Reported <Patti Meyer - Last Filed: 03/06/24 04:31> General Exam Limitations: altered mental status General appearance: alert, in distress Head exam: Present: atraumatic, normocephalic, normal inspection Eye exam: Present: PERRL. Absent: EOMI (Unable to assess) ENT exam: Present: mucous membranes dry Respiratory exam: Present: rales. Absent: respiratory distress, wheezes, rhonchi, stridor Cardiovascular Exam: Present: tachycardia, irregular rhythm GI/Abdominal exam: Present: distended Extremities exam: Present: normal inspection, full ROM, normal capillary refill. Absent: tenderness, pedal edema, joint swelling, calf tenderness Neurological exam: Present: alert. Absent: oriented X3 (Ox2) Skin exam: Present: warm, dry, intact, pallor <Patti Meyer - Last Filed: 03/06/24 04:31> Course Vital Signs 03/06/24 03/06/24 03/06/24 01:02 01:37 02:00 Temperature 99.2 F Pulse Rate 125 H 122 H 120 H Respiratory 20 18 18 Rate Blood Pressure 131/80 131/73 101/59 O2 Sat by Pulse 95 99 100 Oximetry 01/03/3003/06/24 03/06/24 03:00 04:00 05:00 Temperature Pulse Rate 128 H 126 H 144 H Respiratory 18 20 18 Rate Blood Pressure 90/64 90/57 79/62 O2 Sat by Pulse 96 Oximetry Medical Decision Making - Lab Data Result diagrams: 03/06/24 01:20 03/06/24 01:20 <Patti Meyer - Last Filed: 03/06/24 04:31> - Lab Data Result diagrams: 03/06/24 01:20 03/06/24 01:20 <Antony Li Laurence - Last Filed: 03/06/24 05:53> - Medical Decision Making Was pt. sent in by a medical professional or institution (, PA, HOME ADMINISTRATOR, urgent care, hospital, or intermediate...) When possible be specific @ -[No] Did you speak to anyone other than the patient for history (EMS, parent, family, police, friend...)? What history was obtained from this source @ -[No] Did you review nursing and triage notes (agree or disagree)? Why? @ -[I reviewed and agree with nursing and triage notes] Were old charts reviewed (outside hosp., previous admission, EMS record, old EKG, old radiological studies, urgent care reports/EKG's, intermediate records)? Report findings @ -[No old charts were reviewed] Differential Diagnosis (chest pain, altered mental status, abdominal pain women, abdominal pain men, vaginal bleeding, weakness, fever, dyspnea, syncope, headache, dizziness, GI bleed, back pain, seizure, CVA, palpatations, mental health, musculoskeletal)? @ -[Differential Altered Mental Status: Hypoglycemia, DKA, hypercapnia, ETOH, overdose, CO poisoning, trauma, myxedema coma, HTN encephalopathy, infection, encephalitis, psychosis, intercranial hemorrhage, hepatic encephalopathy, meningitis, CVA, this is not meant to be an all-inclusive list ] EKG interpreted by me (3pts min.). @ -EKG at 113 shows A-fib with RVR rate 124, QRS 118, QTQTc 137528 X-rays interpreted by me (1pt min.). @ -[Chest x-ray shows Right basilar consolidation, small right pleural effusion KUB shows Findings suspicious for small bowel ileus] CT interpreted by me (1pt min.). @ -[None done] U/S interpreted by me (1pt. min.). @ -[None done] What testing was considered but not performed or refused? (CT, X-rays, U/S, labs)? Why? @ -[None] What meds were considered but not given or refused? Why? @ -[None] Did you discuss the management of the patient with other professionals (professionals i.e. , PA, HOME ADMINISTRATOR, lab, RT, psych nurse, social worker palliative care, lithopone charger, teacher, chief informatics officer, case operator)? Give summary @ -[Management discussed with [facility] by Dr. Li] Was smoking cessation discussed for >3mins.? @ -[No] Was critical care preformed (if so, how long)? @ -[No] Were there social determinants of health that impacted care today? How? (Homelessness, low income, unemployed, alcoholism, drug addiction, transportation, low edu. Level, literacy, decrease access to med. care, intermediate, rehab)? @ -[No] Was there de-escalation of care discussed even if they declined (Discuss DNR or withdrawal of care, Hospice)? DNR status @ -[No] What co-morbidities impacted this encounter? (DM, HTN, Smoking, COPD, CAD, Cancer, CVA, ARF, Chemo, Hep., AIDS, mental health diagnosis, sleep apnea, morbid obesity)? @ -[None] Was patient admitted / discharged? Hospital course, mention meds given and route, prescriptions, significant lab abnormalities, going to OR and other pertinent info. @ -[Admitted.] Undiagnosed new problem with uncertain prognosis? @ -[No] Drug Therapy requiring intensive monitoring for toxicity (Heparin, Nitro, Insulin, Cardizem)? @ -[No] Were any procedures done? @ -[No] Diagnosis/symptom? @ -[pneumonia, RSV] Acute, or Chronic, or Acute on Chronic? @ -acute Uncomplicated (without systemic symptoms) or Complicated (systemic symptoms)? @ -complicated Side effects of treatment? @ -[No] Exacerbation, Progression, or Severe Exacerbation? @ -[No] Poses a threat to life or bodily function? How? (Chest pain, USA, CA, pneumonia, PE, COPD, DKA, ARF, appy, cholecystitis, CVA, Diverticulitis, Homicidal, Suicidal, threat to staff... and all critical care pts) @ -[No] (Patti Meyer) 88-year-old male presenting in extremis, patient is pale, tachycardic and altered upon arrival. I did obtain history from the patient's son who states that there is been a upper respiratory infection in the patient's family members. He has been confused today but the son does admit that he took some NyQuil several hours prior for his cold symptoms. Patient has had diagnosis of liver cancer and has had chronic health issues. Son indicates that the patient is a DNR. Patient in extremis with A-fib with RVR, x-ray evidence of pneumonia with a significant leukocytosis. Patient has urinary tract infection and test positive for RSV. He is placed on antibiotics both for concern for bacterial pneumonia as well as urinary tract infection. He started on Cardizem for atrial fibrillation after appropriate fluid boluses. Patient's prognosis is guarded. (Antony Li) - Lab Data Lab Results 03/06/24 03/06/24 03/06/24 Range/Units 01:20 01:20 01:20 WBC 23.2 H (3.8-10.6) k/uL RBC 3.95 L (4.30-5.90) m/uL Hgb 11.8 L (13.0-17.5) gm/dL Hct 36.6 L (39.0-53.0) % MCV 92.6 (80.0-100.0) fL MCH 29.8 (25.0-35.0) pg MCHC 32.2 (31.0-37.0) g/dL RDW 14.2 (11.5-15.5) % Plt Count 405 (150-450) k/uL MPV 8.9 Neutrophils % 97 % Lymphocytes % 1 % Monocytes % 1 % Eosinophils % 1 % Basophils % 0 % Neutrophils # 22.4 H (1.3-7.7) k/uL Lymphocytes # 0.3 L (1.0-4.8) k/uL Monocytes # 0.3 (0-1.0) k/uL Eosinophils # 0.1 (0-0.7) k/uL Basophils # 0.0 (0-0.2) k/uL Hypochromasia Slight PT 13.9 H (10.0-12.5) sec INR 1.3 H (<1.2) APTT 25.9 (22.0-30.0) sec Sodium 136 L (137-145) mmol/L Potassium 5.4 H (3.5-5.1) mmol/L Chloride 99 (98-107) mmol/L Carbon Dioxide 23 (22-30) mmol/L Anion Gap 14 mmol/L BUN 68 H (9-20) mg/dL Creatinine 1.86 H (0.66-1.25) mg/dL Est GFR (CKD-EPI)AfAm 37 (>60 ml/min/1.73 sqM) Est GFR (CKD-EPI)NonAf 32 (>60 ml/min/1.73 sqM) Glucose 134 H (74-99) mg/dL Calcium 8.2 L (8.4-10.2) mg/dL Total Bilirubin 1.1 (0.2-1.3) mg/dL AST 45 (17-59) U/L ALT 13 (4-49) U/L Alkaline Phosphatase 561 H (38-126) U/L Troponin I (0.000-0.034) ng/mL NT-Pro-B Natriuret Pep 39162 pg/mL Total Protein 6.7 (6.3-8.2) g/dL Albumin 3.0 L (3.5-5.0) g/dL Urine Color Urine Appearance (Clear) Urine pH (5.0-8.0) Ur Specific [place] (1.001-1.035) Urine Protein (Negative) Urine Glucose (UA) (Negative) Urine Ketones (Negative) Urine Blood (Negative) Urine Nitrite (Negative) Urine Bilirubin (Negative) Urine Urobilinogen (<2.0) mg/dL Ur Leukocyte Esterase (Negative) Urine RBC (0-5) /hpf Urine WBC (0-5) /hpf Urine WBC Clumps (None) /hpf Ur Squamous Epith Cells (0-4) /hpf Urine Bacteria (None) /hpf Hyaline Casts (0-2) /lpf Urine Mucus (None) /hpf Influenza Type A (PCR) (Not Detectd) Influenza Type B (PCR) (Not Detectd) RSV (PCR) (Not Detectd) SARS-CoV-2 (PCR) (Not Detectd) 03/06/24 03/06/24 03/06/24 Range/Units 01:20 01:29 01:30 WBC (3.8-10.6) k/uL RBC (4.30-5.90) m/uL Hgb (13.0-17.5) gm/dL Hct (39.0-53.0) % MCV (80.0-100.0) fL MCH (25.0-35.0) pg MCHC (31.0-37.0) g/dL RDW (11.5-15.5) % Plt Count (150-450) k/uL MPV Neutrophils % % Lymphocytes % % Monocytes % % Eosinophils % % Basophils % % Neutrophils # (1.3-7.7) k/uL Lymphocytes # (1.0-4.8) k/uL Monocytes # (0-1.0) k/uL Eosinophils # (0-0.7) k/uL Basophils # (0-0.2) k/uL Hypochromasia PT (10.0-12.5) sec INR (<1.2) APTT (22.0-30.0) sec Sodium (137-145) mmol/L Potassium (3.5-5.1) mmol/L Chloride (98-107) mmol/L Carbon Dioxide (22-30) mmol/L Anion Gap mmol/L BUN (9-20) mg/dL Creatinine (0.66-1.25) mg/dL Est GFR (CKD-EPI)AfAm (>60 ml/min/1.73 sqM) Est GFR (CKD-EPI)NonAf (>60 ml/min/1.73 sqM) Glucose (74-99) mg/dL Calcium (8.4-10.2) mg/dL Total Bilirubin (0.2-1.3) mg/dL AST (17-59) U/L ALT (4-49) U/L Alkaline Phosphatase (38-126) U/L Troponin I 0.016 (0.000-0.034) ng/mL NT-Pro-B Natriuret Pep pg/mL Total Protein (6.3-8.2) g/dL Albumin (3.5-5.0) g/dL Urine Color Yellow Urine Appearance Turbid (Clear) Urine pH 8.0 (5.0-8.0) Ur Specific [place] 1.019 (1.001-1.035) Urine Protein 2+ H (Negative) Urine Glucose (UA) Negative (Negative) Urine Ketones Negative (Negative) Urine Blood Moderate H (Negative) Urine Nitrite Negative (Negative) Urine Bilirubin Negative (Negative) Urine Urobilinogen <2.0 (<2.0) mg/dL Ur Leukocyte Esterase Large H (Negative) Urine RBC 18 H (0-5) /hpf Urine WBC >182 H (0-5) /hpf Urine WBC Clumps Moderate H (None) /hpf Ur Squamous Epith Cells 2 (0-4) /hpf Urine Bacteria Many H (None) /hpf Hyaline Casts 14 H (0-2) /lpf Urine Mucus Rare H (None) /hpf Influenza Type A (PCR) Not Detected (Not Detectd) Influenza Type B (PCR) Not Detected (Not Detectd) RSV (PCR) Detected A (Not Detectd) SARS-CoV-2 (PCR) Not Detected (Not Detectd) Critical Care Time Critical Care Time: Yes Total Critical Care Time: 35 <Antony Li - Last Filed: 03/06/24 05:53> Disposition Is patient prescribed a controlled substance at d/c from ED?: No <Patti Meyer - Last Filed: 03/06/24 04:31> <Antony Li - Last Filed: 03/06/24 05:53> Clinical Impression: Altered mental status, Pneumonia, RSV (acute bronchiolitis due to respiratory syncytial virus), Delirium due to general medical condition, Atrial fibrillation with RVR Disposition: ADMITTED IP TO THIS HOSP Condition: Fair
[2024-03-06 01:41] LABS: Basophils % (A) 0 %; Eosinophils # (A) 0.1 k/uL (0-0.7); Eosinophils % (A) 1 %; HCT 36.6 % (39.0-53.0); HGB 11.8 gm/dL (13.0-17.5); Hypochromasia Slight; Lymphocytes # (A) 0.3 k/uL (1.0-4.8); Lymphocytes % (A) 1 %; MCH 29.8 pg (25.0-35.0); MCHC 32.2 g/dL (31.0-37.0); MCV 92.6 fL (80.0-100.0); Mean Platelet Volume 8.9; Monocytes # (A) 0.3 k/uL (0-1.0); Monocytes % (A) 1 %; Neutrophils # (A) 22.4 k/uL (1.3-7.7); Neutrophils % (A) 97 %; Platelet Count 405 k/uL (150-450); RBC 3.95 m/uL (4.30-5.90); RDW 14.2 % (11.5-15.5); WBC 23.2 k/uL (3.8-10.6)
[2024-03-06 02:02] LABS: ALT 13 U/L (4-49); AST 45 U/L (17-59); African American GFR (CKD) 37 (>60 ml/min/1.73 sqM); Alkaline Phosphatase 561 U/L (38-126); Anion Gap 14 mmol/L; Blood Urea Nitrogen 68 mg/dL (9-20); Calcium 8.2 mg/dL (8.4-10.2); Carbon Dioxide 23 mmol/L (22-30); Chloride 99 mmol/L (98-107); Glucose 134 mg/dL (74-99); Non-African American GFR(CKD) 32 (>60 ml/min/1.73 sqM); Sodium 136 mmol/L (137-145); Total Bilirubin 1.1 mg/dL (0.2-1.3); Total Protein 6.7 g/dL (6.3-8.2)
[2024-03-06 02:07] LABS: Potassium 5.4 mmol/L (3.5-5.1)
[2024-03-06 02:11] LABS: NT-Pro-B-Type Natriuretic Pept 18100 pg/mL
[2024-03-06 02:27] LABS: INR 1.3 (<1.2); Partial Thromboplastin Time 25.9 sec (22.0-30.0); Prothrombin Time 13.9 sec (10.0-12.5)
[2024-03-06] MEDS: SODIUM CHLORIDE 0.9% 500 ML 500 ML IV ONE ×2 (02:33→04:40)
[2024-03-06 03:30] LABS: Appearance,Urine Turbid (Clear); Bacteria,Urine Many /hpf; Bilirubin,Urine Negative (Negative); Blood,Urine Moderate (Negative); Color,Urine Yellow; Glucose,Urine (UA) Negative (Negative); Hyaline Casts,Urine 14 /lpf (0-2); Ketones,Urine Negative (Negative); Leukocyte Esterase,Urine Large (Negative); Mucus,Urine Rare /hpf; Nitrite,Urine Negative (Negative); Protein,Urine 2+ (Negative); RBC,Urine 18 /hpf (0-5); Specific Gravity,Urine 1.019 (1.001-1.035); Squamous Epithelial Cell,Urine 2 /hpf (0-4); Urobilinogen,Urine <2.0 mg/dL (<2.0); WBC,Urine >182 /hpf (0-5)
[2024-03-06] MEDS ORDERED: PNEUMONIA PROTOCOL UTILIZED 1 EACH MISC PO PRN (03:41)
[2024-03-06] MEDS: AZITHROMYCIN 500 MG in SODIUM CHLORIDE 0.9% 250 ML IVPB STA (03:41)
--- NOTE | 2024-03-06 03:57 | XR ---
EXAM: XR Chest, 1 View CLINICAL HISTORY: SOB TECHNIQUE: Frontal view of the chest. COMPARISON: 12/09/23 FINDINGS: Lungs: Lungs are underinflated. Right basilar consolidation. Pleural space: Suspect small right pleural effusion and pleural calcifications.. Mediastinum: Unremarkable. Normal mediastinal contour. Bones/joints: No acute findings. Lymph nodes: Calcified right hilar lymph nodes. Tubes, lines and devices: Supporting lines are unchanged. IMPRESSION: Persistent right basilar consolidation Suspect small right pleural effusion and pleural calcifications..
--- NOTE | 2024-03-06 03:59 | XR ---
EXAM: XR Abdomen, 1 View CLINICAL HISTORY: bloating TECHNIQUE: Frontal supine view of the abdomen/pelvis. COMPARISON: No relevant prior studies available. FINDINGS: Gastrointestinal tract: Stomach is moderately over distended with gas and fluid. Loops of small bowel are mildly dilated to 2.6 cm maximal diameter Bones/joints: No acute findings. IMPRESSION: Suspect small bowel ileus and less likely obstruction.
[2024-03-06] MEDS: ACETAMINOPHEN IV (For NPO) 1,000 MG in EMPTY BAG 1 BAG IVPB ONE (05:32)
[2024-03-06] MEDS: SODIUM CHLORIDE 0.9% 1,000 ML IV SCH (05:32)
[2024-03-06] MEDS: DILTIAZEM 125 MG in SODIUM CHLORIDE 0.9% 100 ML IV SCH (05:39)
[2024-03-06] MEDS: DILTIAZEM DRIP BOLUS FROM BAG 1 MG SOLN IV ONE (05:40)
--- NOTE | 2024-03-06 05:42 | CT ---
EXAM: CT Abdomen and Pelvis Without Intravenous Contrast CLINICAL HISTORY: Pt arrives to ER via EMS with complaints of low Spo2 and AMS TECHNIQUE: Axial computed tomography images of the abdomen and pelvis without intravenous contrast. CTDI is 7.1 mGy and DLP is 480.8 mGy-cm. This CT exam was performed using one or more of the following dose reduction techniques: automated exposure control, adjustment of the mA and/or kV according to patient size, and/or use of iterative reconstruction technique. Coronal and sagittal reformatted images were created and reviewed. 519 images COMPARISON: No relevant prior studies available. FINDINGS: Lung bases: 18 mm subpleural nodule in posterior medial left lower lobe on series 201 image 17. Pleural space: Small right pleural effusion. Right basilar consolidation suggests atelectasis and/or pneumonia versus aspiration. Small amount of right pleural calcifications. ABDOMEN: Liver: Heterogenous liver parenchyma is highly suspicious for hepatic masses, poorly delineated due to lack of IV contrast. Gallbladder and bile ducts: Unremarkable. No calcified stones. No ductal dilation. Pancreas: Unremarkable. No ductal dilation. Spleen: Punctate splenic granulomatous calcifications. Adrenals: Unremarkable. No mass. Kidneys and ureters: Small bilateral renal cysts measuring up to 3.2 cm, cannot be fully characterized due to lack of IV contrast. No follow- up needed. No obstructing stones. Stomach and bowel: Moderate: Colonic diverticulosis. Suspect rectal fecal impaction. No obstruction. No mucosal thickening. PELVIS: Appendix: Normal appendix. Bladder: Diffuse wall thickening of urinary bladder can be due to underdistention versus cystitis. No stones. Reproductive: Unremarkable as visualized. ABDOMEN and PELVIS: Intraperitoneal space: Trace of free fluid in the pelvis is abnormal in a male patient, nonspecific. No free air. Bones/joints: Mild lower lumbar sclerosis convexed to the left. Grade 1 anterolisthesis of L5 on S1 with associated bilateral pars defect of L5 causing severe bilateral neuroforaminal narrowing, compressing on bilateral exiting nerve roots of L5. Soft tissues: Small fat-containing kaw inguinal hernias. Vasculature: Large amount of atherosclerotic calcifications. Lymph nodes: Unremarkable. No enlarged lymph nodes. IMPRESSION: 1. Small right pleural effusion. Right basilar consolidation suggests atelectasis and/or pneumonia versus aspiration. 2. 18 mm subpleural nodule in posterior medial left lower lobe. Primary neoplasm and metastasis should be considered. 3. Suspect hepatic masses, poorly delineated due to lack of IV contrast. Consider further evaluation with dedicated CT or MRI in a nonurgent setting. 4. Trace of free fluid in the pelvis is abnormal in a male patient, nonspecific.
[2024-03-06] MEDS: DEXAMETHASONE SOD PHOSPHATE 10 MG/ML 1 ML VIAL IV STA (05:43)
[2024-03-06] MEDS ORDERED: LORATADINE 10 MG TAB PO PRN (10:26)
[2024-03-06] MEDS: carvediloL 12.5 MG TAB PO SCH (11:47)
--- NOTE | 2024-03-06 14:21 | P.HPIM ---
History of Present Illness H&P Date: 03/06/24 History of present illness; patient is a 88-year-old gentleman with past medical history significant for liver cancer, atrial fibrillation who presented the ER because of shortness of breath and altered mental status. Most of the history is taken from electronic medical records according to patient patient has been feeling ill for the last 3 days. Patient has a lot of sick contacts in the family who are having upper respiratory infection. Patient was complaining of shortness of breath for the last 3 days. Patient also found to be lethargic and weak. There was no complaint of fever or chills. Patient was complaining shortness of breath on rest as on exertion. There was no complaint of chest pain. There was no complaint of orthopnea or PND. There was no complaint nausea or vomiting. Patient was complaining of lower abdominal pain which was intermittent, nonradiating, no aggravating or relieving factor associated with it. Because of shortness of breath, patient brought to the ER Initial lab work done in the ER showed WBC 23.2, hemoglobin 11.8, platelet count 405, sodium 130s, potassium 5.4, BUN 68, creatinine 1.86, proBNP 18,100, Urine showed large amount of leukocyte Estrace, urine WBC 182 Influenza A not detected Influenza B not detected RSVdetected COVID-19 not detected EKG done in the ER showed heart rate of 124, irregular and rhythm and rate, no ST segment elevation or depression seen, no T-wave inversions seen. Chest x-ray done in the ER showed persistent right basilar consolidation, suspect small right pleural effusion and calcifications X-ray abdomen done showed small bowel ileus CT abdomen and pelvis done showed small right pleural effusion with right ba silar consolidation, 18 mm subpleural nodule in posterior medial left lower lobe Patient admitted to internal medicine service REVIEW OF SYSTEMS: CONSTITUTIONAL: No fever, no malaise, no fatigue. HEENT: No recent visual problems or hearing problems. Denied any sore throat. CARDIOVASCULAR: No chest pain, orthopnea, PND, no palpitations, no syncope. PULMONARY: As mentioned above GASTROINTESTINAL as mentioned above NEUROLOGICAL: No headaches, no weakness, no numbness. HEMATOLOGICAL: Denies any bleeding or petechiae. GENITOURINARY: Denies any burning micturition, frequency, or urgency. MUSCULOSKELETAL/RHEUMATOLOGICAL: Denies any joint pain, swelling, or any muscle pain. ENDOCRINE: Denies any polyuria or polydipsia. The rest of the 14-point review of systems is negative. PHYSICAL EXAMINATION: GENERAL: The patient is alert, frail, ill looking HEENT: Pupils are round and equally reacting to light. EOMI. No scleral icterus. No conjunctival pallor. Normocephalic, atraumatic. No pharyngeal erythema. No thyromegaly. CARDIOVASCULAR: S1 and S2 present. No murmurs, rubs, or gallops. PULMONARY: coarse breath sounds bilaterally no wheezing or crackles. ABDOMEN: Soft, nontender, nondistended, normoactive bowel sounds. No palpable organomegaly. MUSCULOSKELETAL: No joint swelling or deformity. EXTREMITIES: No cyanosis, clubbing, or pedal edema. NEUROLOGICAL: Gross neurological examination did not reveal any focal deficits. SKIN: No rashes. Assessment and plan Acute infectious encephalopathy A-fib with RVR Bacterial pneumonia Sepsis Leukocytosis Hyponatremia Hyperkalemia UTI Acute kidney injury RSV infection History of hypertension Liver cancer Monitor vital signs Monitor CBC Monitor CMP Continue telemetry monitoring Ordered blood cultures Ordered sputum cultures Ordered IV Rocephin, azithromycin Ordered IV fluids Order Cardizem drip Resume home meds Consult cardiology Consult ID Labs and medication were reviewed.. Continue same treatment. Continue with symptomatic treatment. Resume home medication. Monitor labs and vitals. DVT and GI prophylaxis. Further recommendations as per clinical course of the patient Dictation was produced using [employer] dictation software. please excuse any grammatical, word or spelling errors. Past Medical History Past Medical History: Cancer, Diabetes Mellitus, Hypertension, Prostate Disorder Additional Past Medical History / Comment(s): liver cancer History of Any Multi-Drug Resistant Organisms: None Reported Past Surgical History: Adenoidectomy, Tonsillectomy Additional Past Surgical History / Comment(s): Left foot surgery 16 years ago, toes amputated left foot 2023 Past Psychological History: No Psychological Hx Reported Smoking Status: Never smoker Past Alcohol Use History: None Reported Past Drug Use History: None Reported Medications and Allergies Home Medications Medication Instructions Recorded Confirmed Type Latanoprost [Latanoprost 0.005%] 1 drop BOTH EYES HS 11/26/23 03/06/24 History Loperamide [Imodium] 2 - 4 mg PO Q8H PRN 11/26/23 03/06/24 History Mirtazapine [Remeron] 15 mg PO HS 11/26/23 03/06/24 History Sertraline [Zoloft] 25 mg PO DAILY 11/26/23 03/06/24 History Tamsulosin [Flomax] 0.4 mg PO DAILY 11/26/23 03/06/24 History ondansetron HCL [Zofran] 8 mg PO Q8H PRN 11/26/23 03/06/24 History Acetaminophen Tab [Tylenol] 650 mg PO Q6HR PRN tab 12/11/23 03/06/24 Rx carvediloL [Coreg] 12.5 mg PO Q12H #0 12/11/23 03/06/24 Rx Loratadine 10 mg PO DAILY PRN 03/06/24 03/06/24 History Magnesium Oxide [Magox 400] 800 mg PO DAILY 03/06/24 03/06/24 History Potassium Chloride ER [K-Dur 20] 20 meq PO DAILY 03/06/24 03/06/24 History Saline Nasal Gel [[place] Nasal Gel] 1 applic TOPICAL TID PRN 03/06/24 03/06/24 History Torsemide [Soaanz] 20 mg PO DAILY 03/06/24 03/06/24 History Allergies Allergy/AdvReac Type Severity Reaction Status Date / Time No Known Allergies Allergy Verified 03/06/24 09:47 Physical Exam Vitals: Vital Signs Temp Pulse Resp BP Pulse Ox 03/06/24 09:00 110 H 20 100/60 95 03/06/24 08:00 107 H 20 95/45 95 03/06/24 07:00 98.6 F 105 H 20 90/50 97 03/06/24 06:15 138 H 20 87/59 03/06/24 05:00 144 H 18 79/62 03/06/24 04:00 126 H 20 90/57 03/06/24 03:00 128 H 18 90/64 96 03/06/24 02:00 120 H 18 101/59 100 03/06/24 01:37 122 H 18 131/73 99 03/06/24 01:02 99.2 F 125 H 20 131/80 95 Intake and Output 03/05/24 03/06/24 03/06/24 22:59 06:59 14:59 Intake Total 11.167 Balance 11.167 Intake: Intake, IV Titration 11.167 Amount Diltiazem 125 mg In 11.167 Sodium Chloride 0.9% 100 ml @ 5 MG/HR 5 mls/hr IV .Q24H [facility] Rx#:[id number] Other: Weight 68.039 kg Results CBC & Chem 7: 03/06/24 01:20 03/06/24 01:20 Labs: Abnormal Lab Results - Last 24 Hours (Table) 03/06/24 03/06/24 03/06/24 Range/Units 01:20 01:20 01:20 WBC 23.2 H (3.8-10.6) k/uL RBC 3.95 L (4.30-5.90) m/uL Hgb 11.8 L (13.0-17.5) gm/dL Hct 36.6 L (39.0-53.0) % Neutrophils # 22.4 H (1.3-7.7) k/uL Lymphocytes # 0.3 L (1.0-4.8) k/uL PT 13.9 H (10.0-12.5) sec INR 1.3 H (<1.2) Sodium 136 L (137-145) mmol/L Potassium 5.4 H (3.5-5.1) mmol/L BUN 68 H (9-20) mg/dL Creatinine 1.86 H (0.66-1.25) mg/dL Glucose 134 H (74-99) mg/dL Calcium 8.2 L (8.4-10.2) mg/dL Alkaline Phosphatase 561 H (38-126) U/L Albumin 3.0 L (3.5-5.0) g/dL Urine Protein (Negative) Urine Blood (Negative) Ur Leukocyte Esterase (Negative) Urine RBC (0-5) /hpf Urine WBC (0-5) /hpf Urine WBC Clumps (None) /hpf Urine Bacteria (None) /hpf Hyaline Casts (0-2) /lpf Urine Mucus (None) /hpf RSV (PCR) (Not Detectd) 03/06/24 03/06/24 Range/Units 01: 01:30 WBC (3.8-10.6) k/uL RBC (4.30-5.90) m/uL Hgb (13.0-17.5) gm/dL Hct (39.0-53.0) % Neutrophils # (1.3-7.7) k/uL Lymphocytes # (1.0-4.8) k/uL PT (10.0-12.5) sec INR (<1.2) Sodium (137-145) mmol/L Potassium (3.5-5.1) mmol/L BUN (9-20) mg/dL Creatinine (0.66-1.25) mg/dL Glucose (74-99) mg/dL Calcium (8.4-10.2) mg/dL Alkaline Phosphatase (38-126) U/L Albumin (3.5-5.0) g/dL Urine Protein 2+ H (Negative) Urine Blood Moderate H (Negative) Ur Leukocyte Esterase Large H (Negative) Urine RBC 18 H (0-5) /hpf Urine WBC >182 H (0-5) /hpf Urine WBC Clumps Moderate H (None) /hpf Urine Bacteria Many H (None) /hpf Hyaline Casts 14 H (0-2) /lpf Urine Mucus Rare H (None) /hpf RSV (PCR) Detected A (Not Detectd)
[2024-03-06] MEDS: MIRTAZAPINE 15 MG TAB PO SCH (20:22)
--- NOTE | 2024-03-06 21:36 | P.CONS ---
History of Present Illness - Reason for Consult Consult date: 03/06/24 Sepsis, pneumonia Requesting physician: Carlos Eduardo Siddiqui - Chief Complaint Mental status changes and weakness x 3 days - History of Present Illness Patient is a 88-year-old male with a past medical history significant for diabetes mellitus hypertension liver cancer and prostate disorder patient has been brought to the hospital by EMS concern for difficulty breathing and mental status changes in this patient apparently symptom has been going on for the last 3 days patient noticed to be more confused no clear history of any vomiting or diarrhea the patient does have a chronic indwelling Jenkins catheter on presentation to the hospital patient did have a low-grade fever of 99.2 degrees for night patient was not tachycardic hypotensive or hypoxic no need for supplemental oxygen he did have white count of 23.2 with a left shift BUN and creatinine has been mildly elevated liver enzymes are normal urine has been positive he did tested positive for RSV COVID influenza was negative patient did have chest x-ray persistent left basilar consolidation suspect small right effusion he also have abdominal pelvis CT did shows right basilar consolidation small effusion suspect hepatic masses patient has been started on 07/11/2023, Patient is afebrile patient is currently on room air and denies having any shortness of breath, the patient denies any chest pain or cough, the patient denies any nausea vomiting did not have any abdominal pain and no diarrhea and Zithromax concerning for pneumonia infectious disease was consulted for further management of antibiotic therapy most information has been obtained from review the chart as the patient is currently lethargic and cannot provide any history Review of Systems Positive points has been mentioned in HPI complete review could not be obtained because of his underlying mental status Past Medical History Past Medical History: Cancer, Diabetes Mellitus, Hypertension, Prostate Disorder Additional Past Medical History / Comment(s): liver cancer History of Any Multi-Drug Resistant Organisms: None Reported Past Surgical History: Adenoidectomy, Tonsillectomy Additional Past Surgical History / Comment(s): Left foot surgery 16 years ago, toes amputated left foot 2023 Past Psychological History: No Psychological Hx Reported Smoking Status: Never smoker Past Alcohol Use History: None Reported Past Drug Use History: None Reported Medications and Allergies Home Medications Medication Instructions Recorded Confirmed Type Latanoprost [Latanoprost 0.005%] 1 drop BOTH EYES HS 11/26/23 03/06/24 History Loperamide [Imodium] 2 - 4 mg PO Q8H PRN 11/26/23 03/06/24 History Mirtazapine [Remeron] 15 mg PO HS 11/26/23 03/06/24 History Sertraline [Zoloft] 25 mg PO DAILY 11/26/23 03/06/24 History Tamsulosin [Flomax] 0.4 mg PO DAILY 11/26/23 03/06/24 History ondansetron HCL [Zofran] 8 mg PO Q8H PRN 11/26/23 03/06/24 History Acetaminophen Tab [Tylenol] 650 mg PO Q6HR PRN tab 12/11/23 03/06/24 Rx carvediloL [Coreg] 12.5 mg PO Q12H #0 12/11/23 03/06/24 Rx Loratadine 10 mg PO DAILY PRN 03/06/24 03/06/24 History Magnesium Oxide [Magox 400] 800 mg PO DAILY 03/06/24 03/06/24 History Potassium Chloride ER [K-Dur 20] 20 meq PO DAILY 03/06/24 03/06/24 History Saline Nasal Gel [[place] Nasal Gel] 1 applic TOPICAL TID PRN 03/06/24 03/06/24 History Torsemide [Soaanz] 20 mg PO DAILY 03/06/24 03/06/24 History Allergies Allergy/AdvReac Type Severity Reaction Status Date / Time No Known Allergies Allergy Verified 03/06/24 09:47 Physical Exam Vitals: Vital Signs Temp Pulse Resp BP Pulse Ox 03/06/24 14:59 70 16 110/64 99 03/06/24 14:00 78 14 116/64 99 03/06/24 13:00 80 20 109/58 99 03/06/24 11:51 80 16 107/61 99 03/06/24 11:00 84 18 107/61 03/06/24 09:00 110 H 20 100/60 95 03/06/24 08:00 107 H 20 95/45 95 03/06/24 07:00 98.6 F 105 H 20 90/50 97 03/06/24 06:15 138 H 20 87/59 03/06/24 05:00 144 H 18 79/62 03/06/24 04:00 126 H 20 90/57 03/06/24 03:00 128 H 18 90/64 96 03/06/24 02:00 120 H 18 101/59 100 03/06/24 01:37 122 H 18 131/73 99 03/06/24 01:02 99.2 F 125 H 20 131/80 95 Intake and Output 03/06/24 03/06/24 03/06/24 06:59 14:59 22:59 Intake Total 11.167 Balance 11.167 Intake: Intake, IV Titration 11.167 Amount Diltiazem 125 mg In 11.167 Sodium Chloride 0.9% 100 ml @ 5 MG/HR 5 mls/hr IV .Q24H [facility] Rx#:[id number] Other: Weight 68.039 kg GENERAL DESCRIPTION: Elderly male lying in bed, no distress. No tachypnea or accessory muscle of respiration use. HEENT: Shows Pallor , no scleral icterus. Oral mucous membrane is dry. NECK: Trachea central, no thyromegaly. LUNGS: Unlabored breathing. Decreased breath sound at base HEART: S1, S2, regular rate and rhythm. No loud murmur ABDOMEN: Soft, no tenderness , EXTREMITIES: No edema of feet. SKIN: No rash, no masses palpable. NEUROLOGICAL: The patient is lethargic orientation could not be determined Results CBC & Chem 7: 03/06/24 01:20 03/06/24 01:20 Labs: Abnormal Lab Results - Last 24 Hours (Table) 03/06/24 03/06/24 03/06/24 Range/Units 01:20 01:20 01:20 WBC 23.2 H (3.8-10.6) k/uL RBC 3.95 L (4.30-5.90) m/uL Hgb 11.8 L (13.0-17.5) gm/dL Hct 36.6 L (39.0-53.0) % Neutrophils # 22.4 H (1.3-7.7) k/uL Lymphocytes # 0.3 L (1.0-4.8) k/uL PT 13.9 H (10.0-12.5) sec INR 1.3 H (<1.2) Sodium 136 L (137-145) mmol/L Potassium 5.4 H (3.5-5.1) mmol/L BUN 68 H (9-20) mg/dL Creatinine 1.86 H (0.66-1.25) mg/dL Glucose 134 H (74-99) mg/dL Calcium 8.2 L (8.4-10.2) mg/dL Alkaline Phosphatase 561 H (38-126) U/L Albumin 3.0 L (3.5-5.0) g/dL Urine Protein (Negative) Urine Blood (Negative) Ur Leukocyte Esterase (Negative) Urine RBC (0-5) /hpf Urine WBC (0-5) /hpf Urine WBC Clumps (None) /hpf Urine Bacteria (None) /hpf Hyaline Casts (0-2) /lpf Urine Mucus (None) /hpf RSV (PCR) (Not Detectd) 03/06/24 03/06/24 Range/Units :29 01:30 WBC (3.8-10.6) k/uL RBC (4.30-5.90) m/uL Hgb (13.0-17.5) gm/dL Hct (39.0-53.0) % Neutrophils # (1.3-7.7) k/uL Lymphocytes # (1.0-4.8) k/uL PT (10.0-12.5) sec INR (<1.2) Sodium (137-145) mmol/L Potassium (3.5-5.1) mmol/L BUN (9-20) mg/dL Creatinine (0.66-1.25) mg/dL Glucose (74-99) mg/dL Calcium (8.4-10.2) mg/dL Alkaline Phosphatase (38-126) U/L Albumin (3.5-5.0) g/dL Urine Protein 2+ H (Negative) Urine Blood Moderate H (Negative) Ur Leukocyte Esterase Large H (Negative) Urine RBC 18 H (0-5) /hpf Urine WBC >182 H (0-5) /hpf Urine WBC Clumps Moderate H (None) /hpf Urine Bacteria Many H (None) /hpf Hyaline Casts 14 H (0-2) /lpf Urine Mucus Rare H (None) /hpf RSV (PCR) Detected A (Not Detectd) Assessment and Plan (1) UTI (urinary tract infection) Current Visit: Yes Status: Acute Code(s): N39.0 - URINARY TRACT INFECTION, SITE NOT SPECIFIED SNOMED Code(s): 11020878 (2) Pneumonia Current Visit: Yes Status: Acute Code(s): J18.9 - PNEUMONIA, UNSPECIFIED ORGANISM SNOMED Code(s): 734507510 (3) RSV (acute bronchiolitis due to respiratory syncytial virus) Current Visit: Yes Status: Acute Code(s): J21.0 - ACUTE BRONCHIOLITIS DUE TO RESPIRATORY SYNCYTIAL VIRUS SNOMED Code(s): 932006902 Plan: 1patient presented to hospital with mental status changes confusion weakness which is likely multifactorial in this patient who did have significant elevated white count did have a positive UA as well as right lower lobe consolidation concerning for possible pneumonia and a catheter assisted UTI, patient also tested positive for RSV treatment is mostly supportive 2Foley catheter need to be change in obtaining urine culture from the new Jenkins 3for now we will continue with Rocephin and Zithromax and see clinical response if no improvement by tomorrow we will have to broaden his antibiotic coverage to Zosyn Overall prognosis remains to be guarded We will follow on clinical condition and cultures to further adjust medication if needed Thank you for this consultation we will follow the patient along with you Dictation was produced using [employer] dictation software. please excuse any grammatical, word or spelling errors. Time with Patient: Greater than 30
[2024-03-07 07:07] LABS: Basophils % (A) 0 %; Eosinophils % (A) 0 %; HCT 33.3 % (39.0-53.0); Hypochromasia Marked; Lymphocytes # (A) 0.4 k/uL (1.0-4.8); Lymphocytes % (A) 3 %; MCH 29.1 pg (25.0-35.0); MCV 97.1 fL (80.0-100.0); Mean Platelet Volume 9.3; Monocytes # (A) 0.3 k/uL (0-1.0); Monocytes % (A) 2 %; Neutrophils # (A) 11.7 k/uL (1.3-7.7); Neutrophils % (A) 94 %; Platelet Count 230 k/uL (150-450); RBC 3.43 m/uL (4.30-5.90); RDW 14.2 % (11.5-15.5); WBC 12.5 k/uL (3.8-10.6)
[2024-03-07 07:45] LABS: ALT 14 U/L (4-49); AST 52 U/L (17-59); African American GFR (CKD) 39 (>60 ml/min/1.73 sqM); Albumin 2.2 g/dL (3.5-5.0); Alkaline Phosphatase 425 U/L (38-126); Anion Gap 12 mmol/L; Blood Urea Nitrogen 69 mg/dL (9-20); Calcium 7.3 mg/dL (8.4-10.2); Carbon Dioxide 17 mmol/L (22-30); Chloride 110 mmol/L (98-107); Glucose 117 mg/dL (74-99); Non-African American GFR(CKD) 34 (>60 ml/min/1.73 sqM); Potassium 5.3 mmol/L (3.5-5.1); Sodium 139 mmol/L (137-145); Total Bilirubin 0.4 mg/dL (0.2-1.3); Total Protein 5.6 g/dL (6.3-8.2)
[2024-03-07] MEDS: MAGNESIUM OXIDE 400 MG TAB PO SCH (08:50)
[2024-03-07] MEDS: AZITHROMYCIN 500 MG TAB PO SCH (08:50)
[2024-03-07] MEDS: TAMSULOSIN 0.4 MG CAP.ER.24H PO SCH (08:50)
[2024-03-07] MEDS: SERTRALINE 25 MG TAB PO SCH (08:50)
[2024-03-07] MEDS: POTASSIUM CHLORIDE ER 20 MEQ TAB.ER PO SCH (08:51)
[2024-03-07] MEDS: APIXABAN 2.5 MG TABLET PO SCH (08:56)
[2024-03-07] MEDS ORDERED: VANCOMYCIN IV PER PHARMACY 1 EACH MISC MISCELLANE PRN (09:48)
--- NOTE | 2024-03-07 09:49 | XR ---
EXAMINATION TYPE: XR chest 1V portable DATE OF EXAM: 03/07/2024 5:08 AM COMPARISON: 03/06/2024 CLINICAL INDICATION: Male, 88 years old with history of pneumonia, TECHNIQUE: XR chest 1V portable view(s) obtained. FINDINGS: The heart size is normal. The pulmonary vasculature is normal. The lungs are clear. 4 is present on the right with the tip in the superior vena cava region. Double-lumen catheter is on the left with the tip in the superior vena cava region. IMPRESSION: 1. No acute pulmonary process. 2. Catheters discussed above [facility], , 03/07/2024 9:46 AM
[2024-03-07] MEDS: VANCOMYCIN 1,250 MG in SODIUM CHLORIDE 0.9% 250 ML IVPB STA (10:54)
--- NOTE | 2024-03-07 11:17 | P.CRDCN ---
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 He has a past medical history of hypertension, liver cancer, possible history of atrial fibrillation although this cannot be confirmed. Patient presented to the hospital due to difficulty breathing and altered mental status. We have been asked to evaluate the patient for atrial fibrillation. Patient denies having any chest pain, no dizziness. He may have been able to feel his heart beating f ast. He has had no syncopal episodes. He does have history of acute kidney injury requiring hemodialysis that only lasted for 3 weeks. He denies history of CVA. He denies history of PA. Patient has tested positive for RSV and is in isolation. At the time of evaluation, patient has converted to sinus rhythm. Patient did not require Cardizem drip although it was initially ordered in the ER. Patient is seen today in the emergency center waiting for bed on the cardiac stepdown unit. Blood pressure 120/66, heart rate 77, pulse ox 100% on room air. -EKG: #1 atrial fibrillation 124 bpm, #2 sinus rhythm 92 bpm -Chest x-ray: Persistent right basilar consolidation. Suspect small right pleur al effusion and pleural calcifications. #2 no acute process. -CT abdomen pelvis revealed small right pleural effusion. 18 mm subpleural nodule left lower lobe. Suspect hepatic masses. Trace free fluid in the pelvis is abnormal in a male nonspecific finding. -Laboratory studies: Initial WBC 23.2 and repeat 12.5, hemoglobin 10, platelet count 230. Sodium 139, potassium 5.3, BUN 69 and creatinine 1.77. Troponin negative x 1. proBNP 18,100. Urinalysis revealed large amount of leukoesterase, RBC 18, WBC greater than 182 and moderate WBC clumps. Many bacteria. RSV positive. Influenza A, influenza B, COVID-19 not detected. -Home cardiac medications: Coreg 12.5 mg every 12 hours, magnesium oxide 800 mg daily, potassium chloride 20 mill equivalents daily, torsemide 20 mg daily. Review Of Systems: At the time of my exam: CONSTITUTIONAL: Denies fever or chills. HEENT: Denies blurred vision, vision changes, or eye pain. Denies hemoptysis CARDIOVASCULAR: Denies chest pain. Denies orthopnea. Denies PND. Denies palpitations RESPIRATORY: Denies shortness of breath. Reports wheezing. GASTROINTESTINAL: Denies abdominal pain. Denies nausea or vomiting. HEMATOLOGIC: Denies bleeding disorders. GENITOURINARY: Denies any blood in urine. SKIN: Denies puritis. Denies rash. Physical examination: Gen: This is an 88-year-old male appears to be in no acute distress VS: reviewed HEENT: Head is atraumatic, normocephalic. Pupils equal, round. Sclerae is anicteric. NECK: Supple. No JVD. LUNGS: Clear to auscultation. No wheezes or rhonchi. No intercostal retractions. HEART: Regular rate and rhythm. No murmur. ABDOMEN: Soft No tenderness. EXTREMITIES: No pedal edema. No calf tenderness. NEUROLOGICAL: Patient is awake, alert and oriented x3. Assessment: RSV UTI and sepsis Paroxysmal atrial fibrillation, currently in a sinus rhythm. This is most likely related to infectious process. However, patient states that he was told he had atrial fibrillation in the past, but this cannot be confirmed by hospital documentation reviewed. Patient was not on anticoagulation at home. Blood culture positive for Staph aureus, possible Staph aureus bacteremia Infectious metabolic encephalopathy Hypertension Liver cancer History of acute kidney injury requiring HD x 3 weeks Plan: Resume patient's home cardiac medications Discontinue order for Cardizem drip Start patient on Eliquis 2.5 mg twice daily Obtain 2-D echocardiogram and Doppler study to assess cardiac structure and function Further recommendations to follow based upon clinical course Thank you kindly for this consultation. Nurse practitioner note has been reviewed, I agree with documented findings and plan of care. Patient was seen and examined. Past Medical History Past Medical History: Cancer, Diabetes Mellitus, Hypertension, Prostate Disorder Additional Past Medical History / Comment(s): liver cancer History of Any Multi-Drug Resistant Organisms: None Reported Past Surgical History: Adenoidectomy, Tonsillectomy Additional Past Surgical History / Comment(s): Left foot surgery 16 years ago, toes amputated left foot 2023 Past Psychological History: No Psychological Hx Reported Smoking Status: Never smoker Past Alcohol Use History: None Reported Past Drug Use History: None Reported Medications and Allergies Home Medications Medication Instructions Recorded Confirmed Type Latanoprost [Latanoprost 0.005%] 1 drop BOTH EYES HS 11/26/23 03/06/24 History Loperamide [Imodium] 2 - 4 mg PO Q8H PRN 11/26/23 03/06/24 History Mirtazapine [Remeron] 15 mg PO HS 11/26/23 03/06/24 History Sertraline [Zoloft] 25 mg PO DAILY 11/26/23 03/06/24 History Tamsulosin [Flomax] 0.4 mg PO DAILY 11/26/23 03/06/24 History ondansetron HCL [Zofran] 8 mg PO Q8H PRN 11/26/23 03/06/24 History Acetaminophen Tab [Tylenol] 650 mg PO Q6HR PRN tab 12/11/23 03/06/24 Rx carvediloL [Coreg] 12.5 mg PO Q12H #0 12/11/23 03/06/24 Rx Loratadine 10 mg PO DAILY PRN 03/06/24 03/06/24 History Magnesium Oxide [Magox 400] 800 mg PO DAILY 03/06/24 03/06/24 History Potassium Chloride ER [K-Dur 20] 20 meq PO DAILY 03/06/24 03/06/24 History Saline Nasal Gel [[place] Nasal Gel] 1 applic TOPICAL TID PRN 03/06/24 03/06/24 History Torsemide [Soaanz] 20 mg PO DAILY 03/06/24 03/06/24 History Allergies Allergy/AdvReac Type Severity Reaction Status Date / Time No Known Allergies Allergy Verified 03/06/24 09:47 Physical Exam Vitals: Vital Signs Temp Pulse Resp BP Pulse Ox 03/07/24 06:00 76 17 145/67 97 03/07/24 02:00 97.8 F 75 18 129/63 99 03/06/24 22:00 74 17 118/64 100 03/06/24 18:00 97.6 F 76 16 113/60 99 03/06/24 17:00 98.9 F 78 16 113/64 99 03/06/24 14:59 70 16 110/64 99 03/06/24 14:00 78 14 116/64 99 03/06/24 13:00 80 20 109/58 99 03/06/24 11:51 80 16 107/61 99 03/06/24 11:00 84 18 107/61 03/06/24 09:00 110 H 20 100/60 95 Results 03/07/24 06:35 03/07/24 06:35 Cardiac Enzymes 03/07/24 Range/Units 06:35 AST 52 (17-59) U/L CBC 03/07/24 Range/Units 06:35 WBC 12.5 H (3.8-10.6) k/uL RBC 3.43 L (4.30-5.90) m/uL Hgb 10.0 L D (13.0-17.5) gm/dL Hct 33.3 L (39.0-53.0) % Plt Count 230 (150-450) k/uL Comprehensive Metabolic Panel 03/07/24 Range/Units 06:35 Sodium 139 (137-145) mmol/L Potassium 5.3 H (3.5-5.1) mmol/L Chloride 110 H (98-107) mmol/L Carbon Dioxide 17 L (22-30) mmol/L BUN 69 H (9-20) mg/dL Creatinine 1.77 H (0.66-1.25) mg/dL Glucose 117 H (74-99) mg/dL Calcium 7.3 L (8.4-10.2) mg/dL AST 52 (17-59) U/L ALT 14 (4-49) U/L Alkaline Phosphatase 425 H (38-126) U/L Total Protein 5.6 L (6.3-8.2) g/dL Albumin 2.2 L (3.5-5.0) g/dL Current Medications Generic Name Dose Route Start Last Admin Trade Name Freq PRN Reason Stop Dose Admin Azithromycin 500 mg 03/07/24 09:00 Azithromycin 500 Mg Tab PO 03/08/24 09:01 DAILY DELFIN Protocol Carvedilol 12.5 mg 03/06/24 10:45 03/06/24 20:22 Carvedilol 12.5 Mg Tab PO 12.5 mg Q12HR DELFIN Administration Sodium Chloride 1,000 mls @ 130 mls/hr 03/06/24 03:45 03/07/24 02:12 Saline 0.9% IV 130 mls/hr .[id number] DELFIN Administration Ceftriaxone Sodium 2 gm/ 50 mls @ 100 mls/hr 03/07/24 21:00 Sodium Chloride IVPB 03/10/24 21:29 Q24H DELFIN Protocol Diltiazem HCl 125 mg/ Sodium 125 mls @ 5 mls/hr 03/06/24 05:30 03/06/24 07:53 Chloride IV 2.5 mg/hr .Q24H ON LICENSE OF [facility] 2.5 mls/hr Infusion 5 MG/HR Loratadine 10 mg 03/06/24 10:26 Loratadine 10 Mg Tab PO DAILY PRN Allergy Symptoms Magnesium Oxide 800 mg 03/07/24 09:00 Magnesium Oxide 400 Mg Tab PO DAILY ON LICENSE OF [facility] Mirtazapine 15 mg 03/06/24 21:00 03/06/24 20:22 Mirtazapine 15 Mg Tab PO 15 mg HS ON LICENSE OF [facility] Administration Miscellaneous Information 1 each 03/06/24 03:41 Pneumonia Protocol Utilized 1 Each Misc PO ONCE PRN Per Protocol Potassium Chloride 20 meq 03/07/24 09:00 Potassium Chloride Er 20 Meq Tab.Er PO DAILY ON LICENSE OF [facility] Sertraline HCl 25 mg 03/07/24 09:00 Sertraline 25 Mg Tab PO DAILY ON LICENSE OF [facility] Tamsulosin HCl 0.4 mg 03/07/24 09:00 Tamsulosin 0.4 Mg Cap.Er.24h PO DAILY ON LICENSE OF [facility] 03/07/24 06:35 03/07/24 06:35
--- NOTE | 2024-03-07 12:52 | P.PN ---
Subjective Progress Note Date: 03/07/24 patient is a 88-year-old gentleman with past medical history significant for liver cancer, atrial fibrillation who presented the ER because of shortness of breath and altered mental status. Most of the history is taken from electronic medical records according to patient patient has been feeling ill for the last 3 days. Patient has a lot of sick contacts in the family who are having upper respiratory infection. Patient was complaining of shortness of breath for the last 3 days. Patient also found to be lethargic and weak. There was no complaint of fever or chills. Patient was complaining shortness of breath on rest as on exertion. There was no complaint of chest pain. There was no complaint of orthopnea or PND. There was no complaint nausea or vomiting. Patient was complaining of lower abdominal pain which was intermittent, nonradiating, no aggravating or relieving factor associated with it. Because of shortness of breath, patient brought to the ER Initial lab work done in the ER showed WBC 23.2, hemoglobin 11.8, platelet count 405, sodium 130s, potassium 5.4, BUN 68, creatinine 1.86, proBNP 18,100, Urine showed large amount of leukocyte Estrace, urine WBC 182 Influenza A not detected Influenza B not detected RSVdetected COVID-19 not detected EKG done in the ER showed heart rate of 124, irregular and rhythm and rate, no ST segment elevation or depression seen, no T-wave inversions seen. Chest x-ray done in the ER showed persistent right basilar consolidation, suspect small right pleural effusion and calcifications X-ray abdomen done showed small bowel ileus CT abdomen and pelvis done showed small right pleural effusion with right basilar consolidation, 18 mm subpleural nodule in posterior medial left lower lobe Patient admitted to internal medicine service 03/07. Patient seen and examined. Patient is alert, continues to complain of cough, cough gets exacerbated by swallowing will get speech evaluation. No fevers overnight. Currently on room air REVIEW OF SYSTEMS: CONSTITUTIONAL: No fever, no malaise,. CARDIOVASCULAR: No chest pain, no palpitations, no syncope. PULMONARY: As mentioned above GASTROINTESTINAL: No diarrhea, no nausea, no vomiting, no abdominal pain. NEUROLOGICAL: No headaches, no weakness, PHYSICAL EXAMINATION: GENERAL: The patient is alert, frail, ill looking HEENT: Pupils are round and equally reacting to light. EOMI. No scleral icterus. No conjunctival pallor. Normocephalic, atraumatic. No pharyngeal erythema. No thyromegaly. CARDIOVASCULAR: S1 and S2 present. No murmurs, rubs, or gallops. PULMONARY: coarse breath sounds bilaterally no wheezing or crackles. ABDOMEN: Soft, nontender, nondistended, normoactive bowel sounds. No palpable organomegaly. MUSCULOSKELETAL: No joint swelling or deformity. EXTREMITIES: No cyanosis, clubbing, or pedal edema. NEUROLOGICAL: Gross neurological examination did not reveal any focal deficits. SKIN: No rashes. Assessment and plan Acute infectious encephalopathy Sepsis MRSA bacteremia A-fib with RVR Bacterial pneumonia Sepsis Leukocytosis Hyponatremia Hyperkalemia UTI Acute kidney injury RSV infection History of hypertension Liver cancer Monitor vital signs Monitor CBC Monitor CMP Continue telemetry monitoring Potassium bronchopulmonary hygiene Ordered Mucinex Blood cultures are positive for MRSA Follow-up on sputum cultures Rocephin and azithromycin discontinued, added vancomycin Continue IV fluids Continue Cardizem drip, added Eliquis Ordered 2D echo Cardiology following ID following Labs and medication were reviewed.. Continue same treatment. Continue with symptomatic treatment. Resume home medication. Monitor labs and vitals. DVT and GI prophylaxis. Further recommendations as per clinical course of the patient Dictation was produced using [employer] dictation software. please excuse any grammatical, word or spelling errors. Objective - Vital Signs Vital signs: Vital Signs Temp 97.7 F 03/07/24 08:46 Pulse 93 03/07/24 09:00 Resp 20 03/07/24 09:00 BP 141/97 03/07/24 09:00 Pulse Ox 99 03/07/24 09:00 FiO2 Intake & Output 03/06/24 03/07/24 03/07/24 18:59 06:59 18:59 Intake Total 11.167 Balance 11.167 Intake: Intake, IV Titration 11.167 Amount Diltiazem 125 mg In 11.167 Sodium Chloride 0.9% 100 ml @ 5 MG/HR 5 mls/hr IV .Q24H [facility] Rx#:[id number] - Labs CBC & Chem 7: 03/07/24 06:35 03/07/24 06:35 Labs: Abnormal Lab Results - Last 24 Hours (Table) 03/07/24 03/07/24 Range/Units 06:35 06:35 WBC 12.5 H (3.8-10.6) k/uL RBC 3.43 L (4.30-5.90) m/uL Hgb 10.0 L D (13.0-17.5) gm/dL Hct 33.3 L (39.0-53.0) % MCHC 30.0 L (31.0-37.0) g/dL Neutrophils # 11.7 H (1.3-7.7) k/uL Lymphocytes # 0.4 L (1.0-4.8) k/uL Potassium 5.3 H (3.5-5.1) mmol/L Chloride 110 H (98-107) mmol/L Carbon Dioxide 17 L (22-30) mmol/L BUN 69 H (9-20) mg/dL Creatinine 1.77 H (0.66-1.25) mg/dL Glucose 117 H (74-99) mg/dL Calcium 7.3 L (8.4-10.2) mg/dL Alkaline Phosphatase 425 H (38-126) U/L Total Protein 5.6 L (6.3-8.2) g/dL Albumin 2.2 L (3.5-5.0) g/dL Microbiology - Last 24 Hours (Table) 03/06/24 03:56 Blood Culture Gram Stain - Preliminary Blood Blood Culture - Preliminary Presumptive MRSA Molecular ID
[2024-03-07] MEDS: guaiFENesin 600 MG TABLET.ER PO SCH (13:24)
[2024-03-07] MEDS: guaiFENesin-Coden 100-10MG/5ML 10 ML CUP PO PRN (16:12)
[2024-03-07 20:06] LABS: Glucose,Whole Blood 150 mg/dL (70-110)
[2024-03-07] MEDS: DILTIAZEM 125 MG in SODIUM CHLORIDE 0.9% 100 ML IV SCH (23:00)
--- NOTE | 2024-03-08 04:47 | P.CNPUL ---
History of Present Illness Consult date: 03/08/24 Requesting physician: Carlos Eduardo Siddiqui Reason for consult: pneumonia Chief complaint: Altered mental status, difficulty in breathing History of present illness: Patient is a 88-year-old male with medical history significant for chronic kidney disease, diabetes mellitus type 2, liver cancer, hyperlipidemia, hypertension, among other things. Brought in by EMS on 03/06/2024 with change in mental status and difficulty in breathing. He also had a complaint of abdominal pain. Initial KUB x-ray concerning for possible ileus. Follow-up abdominal CT showing small right pleural effusion with right basilar consolidation suggestive atelectasis or pneumonia. Incidental 1.8 cm subpleural nodule found in the posterior medial left lower lobe. Also, hepatic masses were seen but not detailed, patient does have history of hepatocellular carcinoma. Trace free fluid seen in the pelvis. He was found to be in atrial fibrillation with rapid ventricular rates in the ED. Started initially on a Cardizem in fusion. He did meet SIRS/sepsis criteria and was started on antibiotics. Suspected right lower lobe pneumonia. Also, positive for RSV, possible incidental finding. Later found to be positive for MRSA bacteremia. Patient continues to subclavian hemodialysis catheter. Patient is on antibiotics by direction of infectious disease. Most recent CBC shows improvement in leukocytosis with a WBC count down to 12.5, hemoglobin 10, hematocrit 33.3, platelets 230. Coagulation profile with a PT of 13.9, INR of 1.3, APTT 25.9. Most recent basic metabolic panel demonstrating a sodium 139, potassium 5.3, chloride 1 7, serum bicarb 17, anion gap 12, BUN 69, creatinine 1.77, glucose 117. AST 52, ALT 14, ALP 425. Total bili 0.4. NT proBNP was significantly elevated at 18,100. Troponin 0.016. Urinalysis positive for leukocytes and many bacteria. Patient does have history of frequent urinary tract infections. Patient is currently being evaluated on the cardiac stepdown unit. His mentatio n is somewhat improved. He is alert and able to answer most of my questions. Unsure of events leading to his hospitalization. He appears very weak and has a congested cough unable to clear his secretions. He is going to have a swallow evaluation. Remains on Cardizem running at 5 mg/h. Eliquis was started for anticoagulation. Current most recent vitals: Temperature 98.0 F, heart rate 96 bpm, blood pressure 106/71 mmHg, SpO2 97% on 3 L/min nasal cannula. Review of Systems Constitutional: Reports poor appetite, Denies chills, Denies fever, Denies night sweats, Denies weight gain, Denies weight loss Ears, nose, mouth and throat: Denies dysphagia, Denies epistaxis, Denies nasal congestion, Denies nasal discharge, Denies post-nasal drip, Denies sinus pain, Denies sinus pressure, Denies sore throat Cardiovascular: Denies chest pain, Denies leg edema, Denies orthopnea, Denies palpitations, Denies paroxysmal nocturnal dyspnea, Denies syncope Respiratory: Reports congestion, Reports cough, Denies cough with sputum, Denies hemoptysis, Denies wheezing Gastrointestinal: Denies abdominal pain, Denies change in bowel habits, Denies diarrhea, Denies nausea, Denies vomiting Genitourinary: Reports urinary retention, Denies dysuria, Denies flank pain, Denies hematuria, Denies urinary frequency Musculoskeletal: Denies limitation of motion Integumentary: Reports wounds, Denies rash Neurological: Denies seizures, Denies syncope Psychiatric: Denies anxiety, Denies depression Past Medical History Past Medical History: Cancer, Diabetes Mellitus, Hypertension, Prostate Disorder Additional Past Medical History / Comment(s): liver cancer has lt subclavian dialysis port not being used no HD. History of Any Multi-Drug Resistant Organisms: None Reported Past Surgical History: Adenoidectomy, Tonsillectomy Additional Past Surgical History / Comment(s): Left foot surgery 16 years ago, toes amputated left foot 2023 Past Psychological History: No Psychological Hx Reported Smoking Status: Never smoker Past Alcohol Use History: None Reported Past Drug Use History: None Reported Medications and Allergies Home Medications Medication Instructions Recorded Confirmed Type Latanoprost [Latanoprost 0.005%] 1 drop BOTH EYES HS 11/26/23 03/06/24 History Loperamide [Imodium] 2 - 4 mg PO Q8H PRN 11/26/23 03/06/24 History Mirtazapine [Remeron] 15 mg PO HS 11/26/23 03/06/24 History Sertraline [Zoloft] 25 mg PO DAILY 11/26/23 03/06/24 History Tamsulosin [Flomax] 0.4 mg PO DAILY 11/26/23 03/06/24 History ondansetron HCL [Zofran] 8 mg PO Q8H PRN 11/26/23 03/06/24 History Acetaminophen Tab [Tylenol] 650 mg PO Q6HR PRN tab 12/11/23 03/06/24 Rx carvediloL [Coreg] 12.5 mg PO Q12H #0 12/11/23 03/06/24 Rx Loratadine 10 mg PO DAILY PRN 03/06/24 03/06/24 History Magnesium Oxide [Magox 400] 800 mg PO DAILY 03/06/24 03/06/24 History Potassium Chloride ER [K-Dur 20] 20 meq PO DAILY 03/06/24 03/06/24 History Saline Nasal Gel [[place] Nasal Gel] 1 applic TOPICAL TID PRN 03/06/24 03/06/24 History Torsemide [Soaanz] 20 mg PO DAILY 03/06/24 03/06/24 History Allergies Allergy/AdvReac Type Severity Reaction Status Date / Time No Known Allergies Allergy Verified 03/06/24 09:47 Physical Exam Vitals: Vital Signs Temp Pulse Pulse Pulse Resp BP BP 03/07/24 23:11 98 F 97 21 106/71 03/07/24 20:00 98.2 F 87 22 150/82 03/07/24 17:57 97.5 F L 97 28 H 168/79 03/07/24 16:09 98.5 F 88 20 143/79 03/07/24 13:05 89 20 149/80 03/07/24 11:05 90 16 03/07/24 10:53 77 18 120/66 03/07/24 09:00 93 20 141/97 03/07/24 08:46 97.7 F 82 18 125/99 03/07/24 06:00 76 17 145/67 Pulse Ox 03/07/24 23:11 97 03/07/24 20:00 96 03/07/24 17:57 93 L 03/07/24 16:09 96 03/07/24 13:05 98 03/07/24 11:05 03/07/24 10:53 100 03/07/24 09:00 99 03/07/24 08:46 100 03/07/24 06:00 97 Intake and Output 03/07/24 03/07/24 03/08/24 14:59 22:59 06:59 Output Total 500 100 Balance -500 -100 Output: Urine 500 100 Other: Voiding Method External Catheter External Catheter Weight 68.039 kg GENERAL EXAM: Alert, frail 88-year-old male, very weak and congested cough. Appears unable to clear his upper airway secretions. HEAD: Normocephalic and atraumatic EYES: Normal reaction of pupils, equal size. NOSE: Clear with pink turbinates. THROAT: No erythema or exudates. NECK: No masses, no JVD. CHEST: No chest wall deformity. Left chest temporary HD cath LUNGS: Equal air entry with bilateral rhonchi. On 3 L/min nasal cannula. Tachypneic. Speaks in 3-4 word phrases.. CVS: S1 and S2 normal with no audible murmur, regular rhythm. No extra heart sounds ABDOMEN: No hepatosplenomegaly, active bowel sounds, no guarding or rigidity. SPINE: No scoliosis or deformity SKIN: No rashes. Superficial left heel pressure injury CENTRAL NERVOUS SYSTEM: No focal deficits, tone is normal in all 4 extremities. EXTREMITIES: There is no peripheral edema, clubbing, or cyanosis. Peripheral pulses are intact. Results - Laboratory Findings CBC and BMP: 03/07/24 06:35 03/07/24 06:35 PT/INR, D-dimer PT 13.9 sec (10.0-12.5) H 03/06/24 01:20 INR 1.3 (<1.2) H 03/06/24 01:20 Abnormal lab findings: Abnormal Labs 03/06/24 03/06/24 03/06/24 01:20 01:20 01:20 WBC 23.2 H RBC 3.95 L Hgb 11.8 L Hct 36.6 L MCHC Neutrophils # 22.4 H Lymphocytes # 0.3 L PT 13.9 H INR 1.3 H Sodium 136 L Potassium 5.4 H Chloride Carbon Dioxide BUN 68 H Creatinine 1.86 H Glucose 134 H POC Glucose (mg/dL) Calcium 8.2 L Alkaline Phosphatase 561 H Total Protein Albumin 3.0 L Urine Protein Urine Blood Ur Leukocyte Esterase Urine RBC Urine WBC Urine WBC Clumps Urine Bacteria Hyaline Casts Urine Mucus RSV (PCR) 03/06/24 03/06/24 03/07/24 01:29 01:30 06:35 WBC 12.5 H RBC 3.43 L Hgb 10.0 L D Hct 33.3 L MCHC 30.0 L Neutrophils # 11.7 H Lymphocytes # 0.4 L PT INR Sodium Potassium Chloride Carbon Dioxide BUN Creatinine Glucose POC Glucose (mg/dL) Calcium Alkaline Phosphatase Total Protein Albumin Urine Protein 2+ H Urine Blood Moderate H Ur Leukocyte Esterase Large H Urine RBC 18 H Urine WBC >182 H Urine WBC Clumps Moderate H Urine Bacteria Many H Hyaline Casts 14 H Urine Mucus Rare H RSV (PCR) Detected A 03/07/24 03/07/24 06:35 20:05 WBC RBC Hgb Hct MCHC Neutrophils # Lymphocytes # PT INR Sodium Potassium 5.3 H Chloride 110 H Carbon Dioxide 17 L BUN 69 H Creatinine 1.77 H Glucose 117 H POC Glucose (mg/dL) 150 H Calcium 7.3 L Alkaline Phosphatase 425 H Total Protein 5.6 L Albumin 2.2 L Urine Protein Urine Blood Ur Leukocyte Esterase Urine RBC Urine WBC Urine WBC Clumps Urine Bacteria Hyaline Casts Urine Mucus RSV (PCR) - Diagnostic Findings Chest x-ray: image reviewed Assessment and Plan Assessment: Acute hypoxemic respiratory failure, likely right lower lobe pneumonia, possible aspiration pneumonia. Abdominal CT showing right basilar pleural effusion with adjacent atelectasis or infectious infiltrate. Patient also positive for RSV, possible incidental finding. MRSA bacteremia and sepsis Atrial fibrillation with rapid ventricular response, started on combination of Cardizem which is infusing at 5 mg/H, and now anticoagulated on Eliquis Altered mental status, likely secondary to acute metabolic encephalopathy with bacteremia and sepsis, improving Anion gap metabolic acidosis Chronic kidney disease, temporary hemodialysis in place, but no longer routinely requires hemodialysis. History of frequent urinary tract infections, final urine culture not showing growth. Diabetes mellitus type 2 History of hepatocellular carcinoma History of hyperlipidemia History of hypertension Plan: Continue supplemental oxygen to maintain oxygen saturation of 92% or greater Antibiotics are being directed by infectious disease specialist, currently covered on vancomycin for patient's MRSA bacteremia. Aspiration precautions, obtain swallow evaluation Encourage pulmonary toileting Continues on Cardizem infusion for A-fib RVR Anticoagulated with Eliquis Transthoracic echocardiogram ordered. Patient carries a DO NOT RESUSCITATE/DO NOT INTUBATE status We will continue to follow I have personally seen and examined the patient, performed the documentation and the assessment and plan as written. Number of minutes spent on the visit:20 Time with Patient: Greater than 30
[2024-03-08 06:08] LABS: Glucose,Whole Blood 119 mg/dL (70-110)
[2024-03-08 06:34] LABS: Basophils % (A) 0 %; Eosinophils % (A) 0 %; HCT 34.3 % (39.0-53.0); HGB 10.3 gm/dL (13.0-17.5); Hypochromasia Marked; Lymphocytes # (A) 0.4 k/uL (1.0-4.8); Lymphocytes % (A) 3 %; MCH 29.3 pg (25.0-35.0); MCHC 29.9 g/dL (31.0-37.0); MCV 97.7 fL (80.0-100.0); Mean Platelet Volume 9.5; Monocytes # (A) 0.3 k/uL (0-1.0); Monocytes % (A) 2 %; Neutrophils # (A) 13.5 k/uL (1.3-7.7); Neutrophils % (A) 94 %; Platelet Count 256 k/uL (150-450); RBC 3.51 m/uL (4.30-5.90); RDW 14.2 % (11.5-15.5); WBC 14.4 k/uL (3.8-10.6)
[2024-03-08 06:55] LABS: ALT 14 U/L (4-49); AST 42 U/L (17-59); African American GFR (CKD) 46 (>60 ml/min/1.73 sqM); Albumin 2.2 g/dL (3.5-5.0); Alkaline Phosphatase 440 U/L (38-126); Anion Gap 10 mmol/L; Blood Urea Nitrogen 65 mg/dL (9-20); Calcium 7.5 mg/dL (8.4-10.2); Carbon Dioxide 18 mmol/L (22-30); Chloride 111 mmol/L (98-107); Glucose 111 mg/dL (74-99); Non-African American GFR(CKD) 40 (>60 ml/min/1.73 sqM); Potassium 4.5 mmol/L (3.5-5.1); Sodium 139 mmol/L (137-145); Total Bilirubin 0.4 mg/dL (0.2-1.3); Total Protein 5.4 g/dL (6.3-8.2)
[2024-03-08] MEDS: IPRATROPIUM-ALBUTEROL 3 ML NEB INHALATION PRN (08:07)
[2024-03-08] MEDS: VANCOMYCIN 1,250 MG in SODIUM CHLORIDE 0.9% 250 ML IVPB SCH (08:42)
--- NOTE | 2024-03-08 08:56 | P.PN ---
Subjective Progress Note Date: 03/07/24 Principal diagnosis: Reason for follow-up is MRSA bacteremia/pneumonia Patient is a 88-year-old male with a past medical history significant for diabetes mellitus hypertension liver cancer and prostate disorder patient has been brought to the hospital by EMS concern for difficulty breathing and mental status changes patient did have a CT with evidence of right basilar consolidation concerning for pneumonia subsequent blood culture positive with MRSA. On today's evaluation that is 03/07/2024,the patient is more awake and alert today remains to be afebrile, patient is on 3 L nasal cannula supplemental oxygen and denies any shortness of breath no chest pain or any worsening cough.Patient denies having any nausea or vomiting, no abdominal pain and no diarrhea has been reported. Patient white count is down to 12.5 creatinine 1.77 blood culture positive for MRSA Objective - Vital Signs Vital signs: Vital Signs Temp 97.7 F 03/07/24 08:46 Pulse 89 03/07/24 13:05 Resp 20 03/07/24 13:05 BP 149/80 03/07/24 13:05 Pulse Ox 98 03/07/24 13:05 FiO2 Intake & Output 03/06/24 03/07/24 03/07/24 18:59 06:59 18:59 Intake Total 11.167 Output Total 500 Balance 11.167 -500 Intake: Intake, IV Titration 11.167 Amount Diltiazem 125 mg In 11.167 Sodium Chloride 0.9% 100 ml @ 5 MG/HR 5 mls/hr IV .Q24H [facility] Rx#:[id number] Output: Urine 500 - Exam GENERAL DESCRIPTION: An elderly male lying in bed in no distress RESPIRATORY SYSTEM: Unlabored breathing , decreased breath sounds at bases HEART: S1 S2 regular rate and rhythm , ABDOMEN: Soft , no tenderness EXTREMITIES: Left heel wound with some necrosis minimal redness - Labs CBC & Chem 7: 03/08/24 05:31 03/08/24 05:31 Labs: Abnormal Lab Results - Last 24 Hours (Table) 03/07/24 03/07/24 Range/Units 06:35 06:35 WBC 12.5 H (3.8-10.6) k/uL RBC 3.43 L (4.30-5.90) m/uL Hgb 10.0 L D (13.0-17.5) gm/dL Hct 33.3 L (39.0-53.0) % MCHC 30.0 L (31.0-37.0) g/dL Neutrophils # 11.7 H (1.3-7.7) k/uL Lymphocytes # 0.4 L (1.0-4.8) k/uL Potassium 5.3 H (3.5-5.1) mmol/L Chloride 110 H (98-107) mmol/L Carbon Dioxide 17 L (22-30) mmol/L BUN 69 H (9-20) mg/dL Creatinine 1.77 H (0.66-1.25) mg/dL Glucose 117 H (74-99) mg/dL Calcium 7.3 L (8.4-10.2) mg/dL Alkaline Phosphatase 425 H (38-126) U/L Total Protein 5.6 L (6.3-8.2) g/dL Albumin 2.2 L (3.5-5.0) g/dL Microbiology - Last 24 Hours (Table) 03/06/24 07:59 Urine Culture - Final Urine,Clean Catch 03/06/24 03:56 Blood Culture Gram Stain - Preliminary Blood Blood Culture - Preliminary Presumptive MRSA Molecular ID Assessment and Plan (1) UTI (urinary tract infection) Current Visit: Yes Status: Acute Code(s): N39.0 - URINARY TRACT INFECTION, SITE NOT SPECIFIED SNOMED Code(s): 70669232 (2) Pneumonia Current Visit: Yes Status: Acute Code(s): J18.9 - PNEUMONIA, UNSPECIFIED ORGANISM SNOMED Code(s): 905414199 (3) RSV (acute bronchiolitis due to respiratory syncytial virus) Current Visit: Yes Status: Acute Code(s): J21.0 - ACUTE BRONCHIOLITIS DUE TO RESPIRATORY SYNCYTIAL VIRUS SNOMED Code(s): 832114010 (4) Unstageable pressure ulcer of left heel Current Visit: Yes Status: Acute Code(s): L89.620 - PRESSURE ULCER OF LEFT HEEL, UNSTAGEABLE SNOMED Code(s): 35916172296195145 (5) Bacteremia due to methicillin resistant Staphylococcus aureus Current Visit: Yes Status: Acute Code(s): R78.81 - BACTEREMIA; B95.62 - METHICILLIN RESIS STAPH INFCT CAUSING DISEASES CLASSD [facility] SNOMED Code(s): 05555887059183863 Plan: 1patient presented to hospital with mental status changes confusion weakness which is likely multifactorial in this patient who did have significant elevated white count did have a positive UA as well as right lower lobe consolidation concerning for possible pneumonia and a catheter assisted UTI, patient also tested positive for RSV treatment is mostly supportive 2patient did have unstageable pressure ulcer to the left heel but minimal cellulitis. Keep the area of the pressure and dry 3MRSA bacteremia source likely pneumonia 4patient had been started on vancomycin pharmacy to dose will watch his kidney function closely, Rocephin and Zithromax has been discontinued Dictation was produced using [employer] dictation software. please excuse any grammatical, word or spelling errors. Time with Patient: Less than 30
--- NOTE | 2024-03-08 10:41 | XR ---
EXAMINATION TYPE: XR chest 1V portable DATE OF EXAM: 03/08/2024 10:36 AM COMPARISON: None. CLINICAL INDICATION: Male, 88 years old with history of dyspnea, TECHNIQUE: XR chest 1V portable view(s) obtained. FINDINGS: The heart size is normal. The pulmonary vasculature is normal. Small right pleural effusion may be present. Port is present on the right with the tip in the superio r vena cava region. Double-lumen catheter is present on the left tips in superior vena cava region. N o pneumothorax is evident. Rounded densities within the mid right lung. IMPRESSION: 1. Small right pleural effusion developing. Follow-up recommended [facility], , 03/08/2024 10:39 AM
[2024-03-08] MEDS: FUROSEMIDE 10 MG/ML 2 ML VIAL IV ONE (11:15)
[2024-03-08 11:50] LABS: Glucose,Whole Blood 101 mg/dL (70-110)
--- NOTE | 2024-03-08 14:16 | P.PN ---
Subjective Progress Note Date: 03/08/24 patient is a 88-year-old gentleman with past medical history significant for liver cancer, atrial fibrillation who presented the ER because of shortness of breath and altered mental status. Most of the history is taken from electronic medical records according to patient patient has been feeling ill for the last 3 days. Patient has a lot of sick contacts in the family who are having upper respiratory infection. Patient was complaining of shortness of breath for the last 3 days. Patient also found to be lethargic and weak. There was no complaint of fever or chills. Patient was complaining shortness of breath on rest as on exertion. There was no complaint of chest pain. There was no complaint of orthopnea or PND. There was no complaint nausea or vomiting. Patient was complaining of lower abdominal pain which was intermittent, nonradiating, no aggravating or relieving factor associated with it. Because of shortness of breath, patient brought to the ER Initial lab work done in the ER showed WBC 23.2, hemoglobin 11.8, platelet count 405, sodium 130s, potassium 5.4, BUN 68, creatinine 1.86, proBNP 18,100, Urine showed large amount of leukocyte Estrace, urine WBC 182 Influenza A not detected Influenza B not detected RSVdetected COVID-19 not detected EKG done in the ER showed heart rate of 124, irregular and rhythm and rate, no ST segment elevation or depression seen, no T-wave inversions seen. Chest x-ray done in the ER showed persistent right basilar consolidation, suspect small right pleural effusion and calcifications X-ray abdomen done showed small bowel ileus CT abdomen and pelvis done showed small right pleural effusion with right basilar consolidation, 18 mm subpleural nodule in posterior medial left lower lobe Patient admitted to internal medicine service 03/07. Patient seen and examined. Patient is alert, continues to complain of cough, cough gets exacerbated by swallowing will get speech evaluation. No fevers overnight. Currently on room air 03/08. Patient seen and examined. Continues to complain of cough. Oxygen requirements increased this morning to 4 L, patient was made n.p.o. in anticipation for speech evaluation REVIEW OF SYSTEMS: CONSTITUTIONAL: No fever, no malaise,. CARDIOVASCULAR: No chest pain, no palpitations, no syncope. PULMONARY: As mentioned above GASTROINTESTINAL: No diarrhea, no nausea, no vomiting, no abdominal pain. NEUROLOGICAL: No headaches, no weakness, PHYSICAL EXAMINATION: GENERAL: The patient is alert, frail, ill looking HEENT: Pupils are round and equally reacting to light. EOMI. No scleral icterus. No conjunctival pallor. Normocephalic, atraumatic. No pharyngeal erythema. No thyromegaly. CARDIOVASCULAR: S1 and S2 present. No murmurs, rubs, or gallops. PULMONARY: coarse breath sounds bilaterally,, Expiratory rhonchi audible, no wheezing or crackles. ABDOMEN: Soft, nontender, nondistended, normoactive bowel sounds. No palpable organomegaly. MUSCULOSKELETAL: No joint swelling or deformity. EXTREMITIES: No cyanosis, clubbing, or pedal edema. NEUROLOGICAL: Gross neurological examination did not reveal any focal deficits. SKIN: No rashes. Assessment and plan Acute infectious encephalopathy Sepsis MRSA bacteremia A-fib with RVR Bacterial pneumonia Sepsis Leukocytosis Hyponatremia Hyperkalemia UTI Acute kidney injury RSV infection History of hypertension Liver cancer Monitor vital signs Monitor CBC Monitor CMP Continue telemetry monitoring Aggressive bronchopulmonary hygiene Speech therapy consulted Continue Mucinex Blood cultures are positive for MRSA Follow-up on sputum cultures Continue follow-ups dose vancomycin Continue Cardizem drip, Eliquis Ordered 2D echo Cardiology following ID following Labs and medication were reviewed.. Continue same treatment. Continue with symptomatic treatment. Resume home medication. Monitor labs and vitals. DVT and GI prophylaxis. Further recommendations as per clinical course of the patient Dictation was produced using [employer] dictation software. please excuse any grammatical, word or spelling errors. Objective - Vital Signs Vital signs: Vital Signs Temp 98.2 F 03/08/24 03:44 Pulse 92 03/08/24 08:21 Resp 22 03/08/24 06:02 BP 122/75 03/08/24 03:44 Pulse Ox 95 03/08/24 06:02 FiO2 Intake & Output 03/07/24 03/08/24 03/08/24 18:59 06:59 18:59 Output Total 500 300 Balance -500 -300 Weight 68.039 kg Output: Urine 500 300 Other: Voiding Method External Catheter - Labs CBC & Chem 7: 03/08/24 05:31 03/08/24 05:31 Labs: Abnormal Lab Results - Last 24 Hours (Table) 03/07/24 03/08/24 03/08/24 Range/Units 20:05 05:31 05:31 WBC 14.4 H (3.8-10.6) k/uL RBC 3.51 L (4.30-5.90) m/uL Hgb 10.3 L (13.0-17.5) gm/dL Hct 34.3 L (39.0-53.0) % MCHC 29.9 L (31.0-37.0) g/dL Neutrophils # 13.5 H (1.3-7.7) k/uL Lymphocytes # 0.4 L (1.0-4.8) k/uL Chloride 111 H (98-107) mmol/L Carbon Dioxide 18 L (22-30) mmol/L BUN 65 H (9-20) mg/dL Creatinine 1.55 H (0.66-1.25) mg/dL Glucose 111 H (74-99) mg/dL POC Glucose (mg/dL) 150 H (70-110) mg/dL Calcium 7.5 L (8.4-10.2) mg/dL Alkaline Phosphatase 440 H (38-126) U/L Total Protein 5.4 L (6.3-8.2) g/dL Albumin 2.2 L (3.5-5.0) g/dL 03/08/24 Range/Units 06:07 WBC (3.8-10.6) k/uL RBC (4.30-5.90) m/uL Hgb (13.0-17.5) gm/dL Hct (39.0-53.0) % MCHC (31.0-37.0) g/dL Neutrophils # (1.3-7.7) k/uL Lymphocytes # (1.0-4.8) k/uL Chloride (98-107) mmol/L Carbon Dioxide (22-30) mmol/L BUN (9-20) mg/dL Creatinine (0.66-1.25) mg/dL Glucose (74-99) mg/dL POC Glucose (mg/dL) 119 H (70-110) mg/dL Calcium (8.4-10.2) mg/dL Alkaline Phosphatase (38-126) U/L Total Protein (6.3-8.2) g/dL Albumin (3.5-5.0) g/dL Microbiology - Last 24 Hours (Table) 03/06/24 07:59 Urine Culture - Final Urine,Clean Catch 03/06/24 03:56 Blood Culture Gram Stain - Preliminary Blood Blood Culture - Preliminary Presumptive MRSA Molecular ID
--- NOTE | 2024-03-08 14:23 | P.PN ---
Subjective Progress Note Date: 03/08/24 Reason for Consult (text): A-fib with RVR History of present illness: This is an 88-year-old male patient, does not follow with a respiratory services manager. He has a past medical history of hypertension, liver cancer, possible history of atrial fibrillation although this cannot be confirmed. Patient presented to the hospital due to difficulty breathing and altered mental status. We have been asked to evaluate the patient for atrial fibrillation. Patient denies having any chest pain, no dizziness. He may have been able to feel his heart beating fast. He has had no syncopal episodes. He does have history of acute kidney injury requiring hemodialysis that only lasted for 3 weeks. He denies history of CVA. He denies history of NC. Patient has tested positive for RSV and is in isolation. At the time of evaluation, patient has converted to sinus rhythm. Patient did not require Cardizem drip although it was initially ordered in the ER. Patient is seen today in the emergency center waiting for bed on the cardiac stepdown unit. Blood pressure 120/66, heart rate 77, pulse ox 100% on room air. -EKG: #1 atrial fibrillation 124 bpm, #2 sinus rhythm 92 bpm -Chest x-ray: Persistent right basilar consolidation. Suspect small right pleural effusion and pleural calcifications. #2 no acute process. -CT abdomen pelvis revealed small right pleural effusion. 18 mm subpleural nodule left lower lobe. Suspect hepatic masses. Trace free fluid in the pelvis is abnormal in a male nonspecific finding. -Laboratory studies: Initial WBC 23.2 and repeat 12.5, hemoglobin 10, platelet count 230. Sodium 139, potassium 5.3, BUN 69 and creatinine 1.77. Troponin negative x 1. proBNP 18,100. Urinalysis revealed large amount of leukoesterase, RBC 18, WBC greater than 182 and moderate WBC clumps. Many bacteria. RSV positive. Influenza A, influenza B, COVID-19 not detected. -Home cardiac medications: Coreg 12.5 mg every 12 hours, magnesium oxide 800 mg daily, potassium chloride 20 mill equivalents daily, torsemide 20 mg daily. 03/08/2024 Patient seen and examined. Patient went into A-fib with RVR last evening was started on Cardizem drip. He states his shortness of breath is a little bit better he still has a cough. He is scheduled for swallow evaluation this morning. Patient is continued on Cardizem drip until swallow evaluation has been completed. Blood pressure 117/67, heart rate 97, pulse ox 97% on 3 L nasal cannula. Repeat blood work reveals hemoglobin 10.3, WBC 14.4. Sodium 139, potassium 4.5, BUN 65 creatinine 1.55. Alkaline phosphatase 440. Repeat chest x-ray reveals small right pleural effusion developing. Echocardiogram is pending. Physical examination: Gen: This is an 88-year-old male appears to be in no acute distress VS: reviewed HEENT: Head is atraumatic, normocephalic. Pupils equal, round. Sclerae is anicteric. NECK: Supple. No JVD. LUNGS: Clear to auscultation. No wheezes or rhonchi. No intercostal ret ractions. HEART: Irregular rate and rhythm. ABDOMEN: Soft No tenderness. EXTREMITIES: No pedal edema. No calf tenderness. NEUROLOGICAL: Patient is awake, oriented to person. Assessment: RSV UTI and sepsis Paroxysmal atrial fibrillation, currently in a sinus rhythm. This is most likely related to infectious process. However, patient states that he was told he had atrial fibrillation in the past, but this cannot be confirmed by hospital documentation reviewed. Patient was not on anticoagulation at home. MRSA bacteremia Infectious metabolic encephalopathy Hypertension Liver cancer History of acute kidney injury requiring HD x 3 weeks Plan: Continue patient's home cardiac medications Continue Cardizem drip as patient is not currently able to swallow and being worked up for aspiration Continue patient on Eliquis 2.5 mg twice daily Obtain 2-D echocardiogram and Doppler study to assess cardiac structure and function Further recommendations to follow based upon clinical course Nurse practitioner note has been reviewed, I agree with documented findings and plan of care. Patient was seen and examined. Objective - Vital Signs Vital signs: Vital Signs Temp 98.2 F 03/08/24 03:44 Pulse 92 03/08/24 08:21 Resp 22 03/08/24 06:02 BP 122/75 03/08/24 03:44 Pulse Ox 95 03/08/24 06:02 FiO2 Intake & Output 03/07/24 03/08/24 03/08/24 18:59 06:59 18:59 Output Total 500 300 Balance -500 -300 Weight 68.039 kg Output: Urine 500 300 Other: Voiding Method External Catheter - Labs CBC & Chem 7: 03/08/24 05:31 03/08/24 05:31 Labs: Abnormal Lab Results - Last 24 Hours (Table) 03/07/24 03/08/24 03/08/24 Range/Units 20:05 05:31 05:31 WBC 14.4 H (3.8-10.6) k/uL RBC 3.51 L (4.30-5.90) m/uL Hgb 10.3 L (13.0-17.5) gm/dL Hct 34.3 L (39.0-53.0) % MCHC 29.9 L (31.0-37.0) g/dL Neutrophils # 13.5 H (1.3-7.7) k/uL Lymphocytes # 0.4 L (1.0-4.8) k/uL Chloride 111 H (98-107) mmol/L Carbon Dioxide 18 L (22-30) mmol/L BUN 65 H (9-20) mg/dL Creatinine 1.55 H (0.66-1.25) mg/dL Glucose 111 H (74-99) mg/dL POC Glucose (mg/dL) 150 H (70-110) mg/dL Calcium 7.5 L (8.4-10.2) mg/dL Alkaline Phosphatase 440 H (38-126) U/L Total Protein 5.4 L (6.3-8.2) g/dL Albumin 2.2 L (3.5-5.0) g/dL 03/08/24 Range/Units 06:07 WBC (3.8-10.6) k/uL RBC (4.30-5.90) m/uL Hgb (13.0-17.5) gm/dL Hct (39.0-53.0) % MCHC (31.0-37.0) g/dL Neutrophils # (1.3-7.7) k/uL Lymphocytes # (1.0-4.8) k/uL Chloride (98-107) mmol/L Carbon Dioxide (22-30) mmol/L BUN (9-20) mg/dL Creatinine (0.66-1.25) mg/dL Glucose (74-99) mg/dL POC Glucose (mg/dL) 119 H (70-110) mg/dL Calcium (8.4-10.2) mg/dL Alkaline Phosphatase (38-126) U/L Total Protein (6.3-8.2) g/dL Albumin (3.5-5.0) g/dL Microbiology - Last 24 Hours (Table) 03/06/24 07:59 Urine Culture - Final Urine,Clean Catch 03/06/24 03:56 Blood Culture Gram Stain - Preliminary Blood Blood Culture - Preliminary Presumptive MRSA Molecular ID
--- NOTE | 2024-03-08 15:37 | P.PN ---
Subjective Progress Note Date: 03/08/24 Principal diagnosis: Reason for follow-up is MRSA bacteremia/pneumonia Patient is a 88-year-old male with a past medical history significant for diabetes mellitus hypertension liver cancer and prostate disorder patient has been brought to the hospital by EMS concern for difficulty breathing and mental status changes patient did have a CT with evidence of right basilar consolidation concerning for pneumonia subsequent blood culture positive with MRSA. On today's evaluation that is 03/08/2024, the patient continues to be afebrile, the patient is on 3 to nasal oxygen and breathing comfortably, the Pt denies having any chest pain or any worsening cough, the patient denies having any abdominal pain no vomiting or any diarrhea has been reported by the nursing staff the patient did have a left chest wall dialysis catheter which has not been used as reported by the nursing staff. Patient white count is 14.4, creatinine is 1.55 chest x-ray this morning small right effusion Objective - Vital Signs Vital signs: Vital Signs Temp 97.8 F 03/08/24 08:00 Pulse 97 03/08/24 12:00 Resp 20 03/08/24 12:00 BP 117/67 03/08/24 12:00 Pulse Ox 97 03/08/24 12:00 FiO2 Intake & Output 03/07/24 03/08/24 03/08/24 18:59 06:59 18:59 Intake Total 50 Output Total 500 300 400 Balance -500 -300 -350 Weight 68.039 kg 68.039 kg Intake: Oral 50 Output: Urine 500 300 400 Other: Voiding Method External Catheter External Catheter - Exam GENERAL DESCRIPTION: An elderly male lying in bed in no distress RESPIRATORY SYSTEM: Unlabored breathing , decreased breath sounds at bases HEART: S1 S2 regular rate and rhythm , ABDOMEN: Soft , no tenderness EXTREMITIES: Left heel wound with some necrosis minimal redness - Labs CBC & Chem 7: 03/08/24 05:31 03/08/24 05:31 Labs: Abnormal Lab Results - Last 24 Hours (Table) 03/07/24 03/08/24 03/08/24 Range/Units 20:05 05:31 05:31 WBC 14.4 H (3.8-10.6) k/uL RBC 3.51 L (4.30-5.90) m/uL Hgb 10.3 L (13.0-17.5) gm/dL Hct 34.3 L (39.0-53.0) % MCHC 29.9 L (31.0-37.0) g/dL Neutrophils # 13.5 H (1.3-7.7) k/uL Lymphocytes # 0.4 L (1.0-4.8) k/uL Chloride 111 H (98-107) mmol/L Carbon Dioxide 18 L (22-30) mmol/L BUN 65 H (9-20) mg/dL Creatinine 1.55 H (0.66-1.25) mg/dL Glucose 111 H (74-99) mg/dL POC Glucose (mg/dL) 150 H (70-110) mg/dL Calcium 7.5 L (8.4-10.2) mg/dL Alkaline Phosphatase 440 H (38-126) U/L Total Protein 5.4 L (6.3-8.2) g/dL Albumin 2.2 L (3.5-5.0) g/dL 03/08/24 Range/Units 06:07 WBC (3.8-10.6) k/uL RBC (4.30-5.90) m/uL Hgb (13.0-17.5) gm/dL Hct (39.0-53.0) % MCHC (31.0-37.0) g/dL Neutrophils # (1.3-7.7) k/uL Lymphocytes # (1.0-4.8) k/uL Chloride (98-107) mmol/L Carbon Dioxide (22-30) mmol/L BUN (9-20) mg/dL Creatinine (0.66-1.25) mg/dL Glucose (74-99) mg/dL POC Glucose (mg/dL) 119 H (70-110) mg/dL Calcium (8.4-10.2) mg/dL Alkaline Phosphatase (38-126) U/L Total Protein (6.3-8.2) g/dL Albumin (3.5-5.0) g/dL Microbiology - Last 24 Hours (Table) 03/06/24 03:56 Blood Culture Gram Stain - Final Blood Blood Culture - Final Methicillin resist S. aureus Molecular ID 03/06/24 07:59 Urine Culture - Final Urine,Clean Catch Assessment and Plan (1) UTI (urinary tract infection) Current Visit: Yes Status: Acute Code(s): N39.0 - URINARY TRACT INFECTION, SITE NOT SPECIFIED SNOMED Code(s): 22961610 (2) Pneumonia Current Visit: Yes Status: Acute Code(s): J18.9 - PNEUMONIA, UNSPECIFIED ORGANISM SNOMED Code(s): 749156941 (3) RSV (acute bronchiolitis due to respiratory syncytial virus) Current Visit: Yes Status: Acute Code(s): J21.0 - ACUTE BRONCHIOLITIS DUE TO RESPIRATORY SYNCYTIAL VIRUS SNOMED Code(s): 317448569 (4) Unstageable pressure ulcer of left heel Current Visit: Yes Status: Acute Code(s): L89.620 - PRESSURE ULCER OF LEFT HEEL, UNSTAGEABLE SNOMED Code(s): 25604810412372982 (5) Bacteremia due to methicillin resistant Staphylococcus aureus Current Visit: Yes Status: Acute Code(s): R78.81 - BACTEREMIA; B95.62 - METHICILLIN RESIS STAPH INFCT CAUSING DISEASES CLASSD [id number] SNOMED Code(s): 44531643387841554 Plan: 1patient presented to hospital with mental status changes confusion weakness which is likely multifactorial in this patient who did have significant elevated white count did have a positive UA as well as right lower lobe consolidation concerning for possible pneumonia and a catheter assisted UTI, patient also john jez positive for RSV treatment is mostly supportive 2patient did have unstageable pressure ulcer to the left heel but minimal cellulitis. Keep the area of the pressure and dry 3MRSA bacteremia source likely pneumonia however the patient did have a left chest wall dialysis catheter that has not been used and can be the source of this bacteremia nursing staff has been advised to get dialysis nurse to get a set of cultures from that catheter, consult nephrology if the cath not needed should be removed 4patient will be continue with vancomycin pharmacy regimen watching his kidney function closely Dictation was produced using [employer] dictation software. please excuse any grammatical, word or spelling errors. Time with Patient: Less than 30
[2024-03-08 16:44] LABS: Glucose,Whole Blood 103 mg/dL (70-110)
--- NOTE | 2024-03-08 18:25 | CA ---
Transthoracic Echo Report Name: Blayne Daley Age: 88 Gender: M : 1935 Exam Date: 03/08/2024 09:48 Exam Location: [facility] Ht (in): 70 Wt (lb): 150 Ordering Physician: Bhumika Molina Attending/Referring Phys: [id number], Jesse Animal Pathologist Bessie Zacarias RDCS Procedure CPT: Indications: LVF Cardiac Hx: Technical Quality: Fair Contrast 1: Total Dose (mL): Contrast 2: Total Dose (mL): MEASUREMENTS (Male / Female) Normal Values 2D ECHO LV Diastolic Diameter PLAX 3.9 cm 4.2 - 5.9 / 3.9 - 5.3 cm LV Systolic Diameter PLAX 2.6 cm IVS Diastolic Thickness 0.9 cm 0.6 - 1.0 / 0.6 - 0.9 cm LVPW Diastolic Thickness 1.0 cm 0.6 - 1.0 / 0.6 - 0.9 cm LV Relative Wall Thickness 0.5 LVOT Diameter 2.2 cm LV Diastolic Volume MOD BP 95.0 cm??? 67 - 155 / 56 - 104 cm??? LV Systolic Volume MOD BP 48.9 cm??? 22 - 58 / 19 - 49 cm??? LV Ejection Fraction MOD BP 48.5 % >= 55 % LV Cardiac Index MOD BP 2192.7 cm???/min???m??? LV Diastolic Volume MOD 4C 100.7 cm??? LV Systolic Volume MOD 4C 53.9 cm??? LV Ejection Fraction MOD 4C 46.5 % LV Cardiac Index MOD 4C 2224.6 cm???/min???m??? LV Diastolic Length 4C 7.6 cm LV Systolic Length 4C 6.6 cm LV Diastolic Volume MOD 2C 85.3 cm??? LV Systolic Volume MOD 2C 40.3 cm??? LV Ejection Fraction MOD 2C 52.8 % LV Cardiac Index MOD 2C 2142.5 cm???/min???m??? LV Diastolic Length 2C 7.2 cm LV Systolic Length 2C 6.0 cm LA Volume 71.3 cm??? 18 - 58 / 22 - 52 cm??? LA Volume Index 39.0 cm???/m??? 16 - 28 cm???/m??? DOPPLER AV Peak Velocity 208.1 cm/s AV Peak Gradient 17.3 mmHg AV Mean Velocity 145.1 cm/s AV Mean Gradient 9.7 mmHg AV Velocity Time Integral 38.1 cm LVOT Peak Velocity 96.3 cm/s LVOT Peak Gradient 3.7 mmHg LVOT Velocity Time Integral 16.7 cm LVOT Stroke Volume 62.1 cm??? LVOT Stroke Volume Index 33.6 ml/m??? LVOT Cardiac Index 2951.7 cm???/min???m??? AV Area Cont Eq vti 1.6 cm??? AV Area Cont Eq pk 1.7 cm??? MV Peak Velocity 130.9 cm/s MV Peak Gradient 6.9 mmHg MV Mean Velocity 90.1 cm/s MV Mean Gradient 3.7 mmHg MV Velocity Time Integral 23.6 cm TR Peak Velocity 233.6 cm/s TR Peak Gradient 21.8 mmHg Right Atrial Pressure 10.0 mmHg Pulmonary Artery Systolic Pressu 31.8 mmHg Right Ventricular Systolic Press 31.8 mmHg PV Peak Velocity 82.7 cm/s PV Peak Gradient 2.7 mmHg FINDINGS Left Ventricle Left ventricular ejection fraction is estimated at 50 %. Mildly decreased left ventricular ejection fraction. Left ventricular cavity size normal. Left ventricular wall thickness normal. Mildly reduced global left ventricular systolic function. Right Ventricle Normal right ventricular size and function. Right ventricular systolic pressure within normal limits. Right Atrium Normal right atrial size. Left Atrium Moderately increased left atrial volume. Mildly increased left atrial area. Mitral Valve Mitral valve thickened. No evidence for mitral valve prolapse. Mild mitral stenosis. Mild mitral regurgitation. Aortic Valve Trileaflet aortic valve. No aortic stenosis. Mild aortic regurgitation. Tricuspid Valve Structurally normal tricuspid valve. No tricuspid stenosis. Mild tricuspid regurgitation. Pulmonic Valve Pulmonic valve not well visualized. No pulmonic stenosis. Trace pulmonic regurgitation. Pericardium No pericardial effusion. Aorta Aortic annulus normal. CONCLUSIONS Low normal LV systolic function with EF at 50% Mild aortic regurgitation was noted Mild mitral stenosis and mild mitral regurgitation Normal pulmonary artery systolic pressure No pericardial effusion Previewed by: Dr. Joshua Patino MD (Electronically Signed) Final Date: 08 March 2024 18:24
[2024-03-08 20:01] LABS: Glucose,Whole Blood 111 mg/dL (70-110)
[2024-03-09 05:39] LABS: Glucose,Whole Blood 94 mg/dL (70-110)
[2024-03-09 07:53] LABS: Basophils % (A) 0 %; Eosinophils % (A) 0 %; HCT 34.1 % (39.0-53.0); HGB 10.1 gm/dL (13.0-17.5); Hypochromasia Marked; Lymphocytes # (A) 0.5 k/uL (1.0-4.8); Lymphocytes % (A) 5 %; MCH 28.9 pg (25.0-35.0); MCHC 29.7 g/dL (31.0-37.0); MCV 97.6 fL (80.0-100.0); Mean Platelet Volume 9.5; Monocytes # (A) 0.3 k/uL (0-1.0); Monocytes % (A) 3 %; Neutrophils # (A) 9.6 k/uL (1.3-7.7); Neutrophils % (A) 90 %; Platelet Count 223 k/uL (150-450); RDW 14.5 % (11.5-15.5); WBC 10.7 k/uL (3.8-10.6)
[2024-03-09 08:41] LABS: ALT 13 U/L (4-49); AST 49 U/L (17-59); African American GFR (CKD) 49 (>60 ml/min/1.73 sqM); Alkaline Phosphatase 425 U/L (38-126); Anion Gap 12 mmol/L; Blood Urea Nitrogen 69 mg/dL (9-20); Calcium 7.7 mg/dL (8.4-10.2); Carbon Dioxide 17 mmol/L (22-30); Chloride 115 mmol/L (98-107); Glucose 92 mg/dL (74-99); Non-African American GFR(CKD) 42 (>60 ml/min/1.73 sqM); Potassium 4.1 mmol/L (3.5-5.1); Sodium 144 mmol/L (137-145); Total Bilirubin 0.3 mg/dL (0.2-1.3)
--- NOTE | 2024-03-09 09:52 | P.NPCON ---
History of Present Illness - Reason for Consult acute renal failure, chronic renal failure - History of Present Illness Reason for consultation: Acute kidney injury on chronic kidney disease History of present illness: Patient is a 88-year-old male seen in renal consultation for acute kidney injury on chronic kidney disease. Patient has chronic kidney disease 3B with baseline creatinine near 1.5. Creatinine was 1.86 this admission and is improved to 1.48 today. He was receiving normal saline at 50 cc an hour. Patient did develop ATN and required hemodialysis temporarily in November 2023. Last hemodialysis treatment was January 08, 2024. Patient was given referral to get dialysis catheter removed but this was not done and he still has the permacath. He currently has an external Jenkins catheter. Patient is currently maintained on Cardizem drip for A-fib. Noted to have preserved ejection fraction. Patient tested positive for RSV. Blood cultures positive for MRSA. He failed swallow e aline and is NPO. Patient also has history of underlying liver cancer. Vital signs are stable. General: Lethargic. HEENT: Head exam is unremarkable. On nasal cannula. LUNGS: No audible rhonchi or wheezes. HEART: Rate and Rhythm are regular. ABDOMEN: No distention. EXTREMITITES: No edema. Past Medical History Past Medical History: Cancer, Diabetes Mellitus, Hypertension, Prostate Disorder Additional Past Medical History / Comment(s): liver cancer has lt subclavian dialysis port not being used no HD. History of Any Multi-Drug Resistant Organisms: None Reported Past Surgical History: Adenoidectomy, Tonsillectomy Additional Past Surgical History / Comment(s): Left foot surgery 16 years ago, toes amputated left foot 2023 Past Psychological History: No Psychological Hx Reported Smoking Status: Never smoker Past Alcohol Use History: None Reported Past Drug Use History: None Reported Medications and Allergies Home Medications Medication Instructions Recorded Confirmed Type Latanoprost [Latanoprost 0.005%] 1 drop BOTH EYES HS 11/26/23 03/06/24 History Loperamide [Imodium] 2 - 4 mg PO Q8H PRN 11/26/23 03/06/24 History Mirtazapine [Remeron] 15 mg PO HS 11/26/23 03/06/24 History Sertraline [Zoloft] 25 mg PO DAILY 11/26/23 03/06/24 History Tamsulosin [Flomax] 0.4 mg PO DAILY 11/26/23 03/06/24 History ondansetron HCL [Zofran] 8 mg PO Q8H PRN 11/26/23 03/06/24 History Acetaminophen Tab [Tylenol] 650 mg PO Q6HR PRN tab 12/11/23 03/06/24 Rx carvediloL [Coreg] 12.5 mg PO Q12H #0 12/11/23 03/06/24 Rx Loratadine 10 mg PO DAILY PRN 03/06/24 03/06/24 History Magnesium Oxide [Magox 400] 800 mg PO DAILY 03/06/24 03/06/24 History Potassium Chloride ER [K-Dur 20] 20 meq PO DAILY 03/06/24 03/06/24 History Saline Nasal Gel [Marshall Nasal Gel] 1 applic TOPICAL TID PRN 03/06/24 03/06/24 History Torsemide [Soaanz] 20 mg PO DAILY 03/06/24 03/06/24 History Allergies Allergy/AdvReac Type Severity Reaction Status Date / Time No Known Allergies Allergy Verified 03/06/24 09:47 Physical Exam Vitals: Vital Signs Temp Pulse Pulse Resp BP Pulse Ox 03/09/24 08:51 84 03/09/24 08:39 80 03/09/24 07:56 77 16 126/64 97 03/09/24 03:45 98.6 F 78 18 150/75 96 03/08/24 23:13 97.7 F 76 18 129/73 98 03/08/24 20:00 98.3 F 77 18 122/75 99 03/08/24 16:00 98.9 F 95 22 100/63 99 03/08/24 12:00 97 20 117/67 97 03/08/24 11:43 96 03/08/24 11:32 96 Intake and Output 03/08/24 03/09/24 03/09/24 22:59 06:59 14:59 Intake Total 82.333 40 Output Total 350 Balance -267.667 40 Intake: IV 40 Diltiazem 125 mg In 40 Sodium Chloride 0.9% 100 ml @ 5 MG/HR 5 mls/hr IV .Q24H [facility] Rx#:[id number] Intake, IV Titration 82.333 Amount Diltiazem 125 mg In 82.333 Sodium Chloride 0.9% 100 ml @ 5 MG/HR 5 mls/hr IV .Q24H [facility] Rx#:[id number] Oral 0 Output: Urine 350 Other: Voiding Method External Catheter External Catheter External Catheter # Voids 0 # Bowel Movements 0 Weight 53.2 kg Results - Lab Results Most recent lab results Calcium 7.7 mg/dL (8.4-10.2) L 03/09/24 07:26 03/09/24 07:26 03/09/24 07:26 Assessment and Plan Plan: Assessment: 1. Acute kidney injury secondary to ATN secondary to hypovolemia. Improving with fluids. Creatinine 1.86 on admission and is 1.48 today. 2. 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 Patient developed ATN and required hemodialysis in November 2023. Last dialysis treatment was January 08, 2024. 3. Liver cancer. 4. RSV pneumonia. 5. Metabolic acidosis secondary to acute kidney injury and IV fluids. 6. MRSA bacteremia. 7. A-fib with RVR maintained on Cardizem drip. Plan: 2 amp sodium bicarb IV push now. Maintain normal saline. Discontinue dialysis catheter. Send tip for culture. Bladder scan to make sure no urinary retention. Avoid nephrotoxins. Prognosis guarded. Thank you for the consultation. I will continue to follow the patient with you during his hospital stay.
[2024-03-09] MEDS: SODIUM BICARB 8.4% 50 ML SYR (1 MEQ/ML) IV STA (10:39)
[2024-03-09] MEDS: LIDOCAINE 1% INJ 10MG/ML (20 ML MDV) SQ ONE (11:22)
--- NOTE | 2024-03-09 11:24 | P.GSCN ---
History of Present Illness History of present illness: 88-year-old gentleman history of chronic renal failure patient has a dialysis l jugular approach patient is not on dialysis at this point consulted for removal of dialysis catheter for deep culture positive MRSA Medical history history of chronic renal failure, diabetes hypertension prostate disorder and also has an A-fib on cardiac zyme drip. Examination patient was seen in his room neck is supple patient has a right sided Port-A-Cath. The right subclavian vein and the risk of the left jugular approach Chest some crackles the lung bases history of A-fib Abdomen soft nontender 1+ bilateral Plan is removal of the dialysis catheter Past Medical History Past Medical History: Cancer, Diabetes Mellitus, Hypertension, Prostate Disorder Additional Past Medical History / Comment(s): liver cancer has lt subclavian di alysis port not being used no HD. History of Any Multi-Drug Resistant Organisms: None Reported Past Surgical History: Adenoidectomy, Tonsillectomy Additional Past Surgical History / Comment(s): Left foot surgery 16 years ago, toes amputated left foot 2023 Past Psychological History: No Psychological Hx Reported Smoking Status: Never smoker Past Alcohol Use History: None Reported Past Drug Use History: None Reported Medications and Allergies Home Medications Medication Instructions Recorded Confirmed Type Latanoprost [Latanoprost 0.005%] 1 drop BOTH EYES HS 11/26/23 03/06/24 History Loperamide [Imodium] 2 - 4 mg PO Q8H PRN 11/26/23 03/06/24 History Mirtazapine [Remeron] 15 mg PO HS 11/26/23 03/06/24 History Sertraline [Zoloft] 25 mg PO DAILY 11/26/23 03/06/24 History Tamsulosin [Flomax] 0.4 mg PO DAILY 11/26/23 03/06/24 History ondansetron HCL [Zofran] 8 mg PO Q8H PRN 11/26/23 03/06/24 History Acetaminophen Tab [Tylenol] 650 mg PO Q6HR PRN tab 12/11/23 03/06/24 Rx carvediloL [Coreg] 12.5 mg PO Q12H #0 12/11/23 03/06/24 Rx Loratadine 10 mg PO DAILY PRN 03/06/24 03/06/24 History Magnesium Oxide [Magox 400] 800 mg PO DAILY 03/06/24 03/06/24 History Potassium Chloride ER [K-Dur 20] 20 meq PO DAILY 03/06/24 03/06/24 History Saline Nasal Gel [Cardwell Nasal Gel] 1 applic TOPICAL TID PRN 03/06/24 03/06/24 History Torsemide [Soaanz] 20 mg PO DAILY 03/06/24 03/06/24 History Allergies Allergy/AdvReac Type Severity Reaction Status Date / Time No Known Allergies Allergy Verified 03/06/24 09:47 Surgical - Exam Vital Signs Temp Pulse Resp BP Pulse Ox 99.2 F 125 H 20 131/80 95 03/06/24 01:02 03/06/24 01:02 03/06/24 01:02 03/06/24 01:02 03/06/24 01:02 Results - Labs 03/09/24 07:26 03/09/24 07:26 Abnormal Lab Results - Last 24 Hours (Table) 03/08/24 03/09/24 03/09/24 Range/Units 19:59 07:26 07:26 WBC 10.7 H (3.8-10.6) k/uL RBC 3.50 L (4.30-5.90) m/uL Hgb 10.1 L (13.0-17.5) gm/dL Hct 34.1 L (39.0-53.0) % MCHC 29.7 L (31.0-37.0) g/dL Neutrophils # 9.6 H (1.3-7.7) k/uL Lymphocytes # 0.5 L (1.0-4.8) k/uL Chloride 115 H (98-107) mmol/L Carbon Dioxide 17 L (22-30) mmol/L BUN 69 H (9-20) mg/dL Creatinine 1.48 H (0.66-1.25) mg/dL POC Glucose (mg/dL) 111 H (70-110) mg/dL Calcium 7.7 L (8.4-10.2) mg/dL Alkaline Phosphatase 425 H (38-126) U/L Total Protein 5.0 L (6.3-8.2) g/dL Albumin 2.0 L (3.5-5.0) g/dL Microbiology - Last 24 Hours (Table) 03/06/24 03:56 Blood Culture Gram Stain - Final Blood Blood Culture - Final Methicillin resist S. aureus Molecular ID Diabetes panel 03/09/24 Range/Units 07:26 Sodium 144 (137-145) mmol/L Potassium 4.1 (3.5-5.1) mmol/L Chloride 115 H (98-107) mmol/L Carbon Dioxide 17 L (22-30) mmol/L BUN 69 H (9-20) mg/dL Creatinine 1.48 H (0.66-1.25) mg/dL Glucose 92 (74-99) mg/dL Calcium 7.7 L (8.4-10.2) mg/dL AST 49 (17-59) U/L ALT 13 (4-49) U/L Alkaline Phosphatase 425 H (38-126) U/L Total Protein 5.0 L (6.3-8.2) g/dL Albumin 2.0 L (3.5-5.0) g/dL Calcium panel 03/09/24 Range/Units 07:26 Calcium 7.7 L (8.4-10.2) mg/dL Albumin 2.0 L (3.5-5.0) g/dL Pituitary panel 03/09/24 Range/Units 07:26 Sodium 144 (137-145) mmol/L Potassium 4.1 (3.5-5.1) mmol/L Chloride 115 H (98-107) mmol/L Carbon Dioxide 17 L (22-30) mmol/L BUN 69 H (9-20) mg/dL Creatinine 1.48 H (0.66-1.25) mg/dL Glucose 92 (74-99) mg/dL Calcium 7.7 L (8.4-10.2) mg/dL Adrenal panel 03/09/24 Range/Units 07:26 Sodium 144 (137-145) mmol/L Potassium 4.1 (3.5-5.1) mmol/L Chloride 115 H (98-107) mmol/L Carbon Dioxide 17 L (22-30) mmol/L BUN 69 H (9-20) mg/dL Creatinine 1.48 H (0.66-1.25) mg/dL Glucose 92 (74-99) mg/dL Calcium 7.7 L (8.4-10.2) mg/dL Total Bilirubin 0.3 (0.2-1.3) mg/dL AST 49 (17-59) U/L ALT 13 (4-49) U/L Alkaline Phosphatase 425 H (38-126) U/L Total Protein 5.0 L (6.3-8.2) g/dL Albumin 2.0 L (3.5-5.0) g/dL
--- NOTE | 2024-03-09 11:25 | P.PCN ---
Description of Procedure: Procedure note removal of dialysis catheter left ureter approach left side of the neck was prepped and draped in Prestel manner 1% lidocaine infiltrated small incision was made the exit site of catheter catheter was removed and incision was closed with 3-0 nylon dressing applied patient tarted the procedure well tip of the catheter was sent for deep culture leave the dressing for 48 hours
[2024-03-09 11:42] LABS: Glucose,Whole Blood 86 mg/dL (70-110)
--- NOTE | 2024-03-09 12:33 | P.PN ---
Subjective Progress Note Date: 03/09/24 Principal diagnosis: Chest congestion, shortness of breath. Patient is a 88-year-old male with medical history significant for chronic kidney disease, diabetes mellitus type 2, liver cancer, hyperlipidemia, hypertension, among other things. Brought in by EMS on 03/06/2024 with change in mental status and difficulty in breathing. He also had a complaint of abdominal pain. Initial K[facility] x-ray concerning for possible ileus. Follow-up abdominal CT showing small right pleural effusion with right basilar consolidation suggestive atelectasis or pneumonia. Incidental 1.8 cm subpleural nodule found in the posterior medial left lower lobe. Also, hepatic masses were seen but not detailed, patient does have history of hepatocellular carcinoma. Trace free fluid seen in the pelvis. He was found to be in atrial fibrillation with rapid ventricular rates in the ED. Started initially on a Cardizem infusion. He did meet SIRS/sepsis criteria and was started on antibiotics. Delmis pected right lower lobe pneumonia. Also, positive for RSV, possible incidental finding. Later found to be positive for MRSA bacteremia. Patient continues to subclavian hemodialysis catheter. Patient is on antibiotics by direction of infectious disease. Most recent CBC shows improvement in leukocytosis with a WBC count down to 12.5, hemoglobin 10, hematocrit 33.3, platelets 230. Coagulation profile with a PT of 13.9, INR of 1.3, APTT 25.9. Most recent basic metabolic panel demonstrating a sodium 139, potassium 5.3, chloride 1 7, serum bicarb 17, anion gap 12, BUN 69, creatinine 1.77, glucose 117. AST 52, ALT 14, ALP 425. Total bili 0.4. NT proBNP was significantly elevated at 18,100. Troponin 0.016. Urinalysis positive for leukocytes and many bacteria. Patient does have history of frequent urinary tract infections. Patient is currently being evaluated on the cardiac stepdown unit. His mentation is somewhat improved. He is alert and able to answer most of my questions. Unsure of events leading to his hospitalization. He appears very weak and has a congested cough unable to clear his secretions. He is going to have a swallow evaluation. Remains on Cardizem running at 5 mg/h. Eliquis was started for anticoagulation. Current most recent vitals: Temperature 98.0 F, heart rate 96 bpm, blood pressure 106/71 mmHg, SpO2 97% on 3 L/min nasal cannula. Progress note dated March 09, 2024. 88-year-old male seen today in room 358. He continues on nasal O2 at 3 L, and, is on a Cardizem drip at 5 mg an hour. The patient's blood cultures were positive for methicillin-resistant Staphylococcus aureus. The patient continues on vancomycin. The patient also tested positive for RSV. Current labs include a white count 10.7, hemoglobin 10.1, hematocrit 34.1, and a platelet count of 223,000. Sodium 144, potassium 4.1, chlorides 115, CO2 17, anion gap 12, BUN 69 , and creatinine 1.48. Glucose is 86. Calcium 7.7. Albumin is 2.0. Chest x- ray from yesterday shows a small right-sided pleural effusion. Objective - Vital Signs Vital signs: Vital Signs Temp 97.6 F 03/09/24 11:15 Pulse 80 03/09/24 12:17 Resp 15 03/09/24 11:15 BP 136/64 03/09/24 11:15 Pulse Ox 97 03/09/24 11:15 FiO2 Intake & Output 03/08/24 03/09/24 03/09/24 18:59 06:59 18:59 Intake Total 132.333 40 Output Total 750 Balance -617.667 40 Weight 68.039 kg 53.2 kg Intake: IV 40 Diltiazem 125 mg In 40 Sodium Chloride 0.9% 100 ml @ 5 MG/HR 5 mls/hr IV .Q24H [facility] Rx#:[id number] Intake, IV Titration 82.333 Amount Diltiazem 125 mg In 82.333 Sodium Chloride 0.9% 100 ml @ 5 MG/HR 5 mls/hr IV .Q24H [facility] Rx#:[id number] Oral 50 Output: Urine 750 Other: Voiding Method External Catheter External Catheter External Catheter # Voids 0 # Bowel Movements 0 - Exam No acute distress, oriented 3. Currently on 3 L. HEENT examination is grossly unremarkable. Mucous membranes are moist. No oral lesions. Neck supple. Full range of motion. No adenopathy thyromegaly or neck vein distention. Cardiovascular examination reveals regular rhythm rate. S1-S2 normal. No S3 or S4. No discernible murmur noted. Heart sounds are distant. Lungs reveal diffuse bilateral rhonchi. Breath sounds are equal. He does not take deep breaths. No wheezes. No crackles. Abdomen soft bowel sounds are heard. No masses or tenderness. Extremities are intact. No cyanosis clubbing or edema. Skin is without rash or lesion. Neurologic examination is brief but nonfocal. - Labs CBC & Chem 7: 03/09/24 07:26 03/09/24 07:26 Labs: Abnormal Lab Results - Last 24 Hours (Table) 03/08/24 03/09/24 03/09/24 Range/Units 19:59 07:26 07:26 WBC 10.7 H (3.8-10.6) k/uL RBC 3.50 L (4.30-5.90) m/uL Hgb 10.1 L (13.0-17.5) gm/dL Hct 34.1 L (39.0-53.0) % MCHC 29.7 L (31.0-37.0) g/dL Neutrophils # 9.6 H (1.3-7.7) k/uL Lymphocytes # 0.5 L (1.0-4.8) k/uL Chloride 115 H (98-107) mmol/L Carbon Dioxide 17 L (22-30) mmol/L BUN 69 H (9-20) mg/dL Creatinine 1.48 H (0.66-1.25) mg/dL POC Glucose (mg/dL) 111 H (70-110) mg/dL Calcium 7.7 L (8.4-10.2) mg/dL Alkaline Phosphatase 425 H (38-126) U/L Total Protein 5.0 L (6.3-8.2) g/dL Albumin 2.0 L (3.5-5.0) g/dL Microbiology - Last 24 Hours (Table) 03/08/24 16:13 Blood Culture Gram Stain - Preliminary Blood 03/06/24 03:56 Blood Culture Gram Stain - Final Blood Blood Culture - Final Methicillin resist S. aureus Molecular ID Assessment and Plan Assessment: Acute hypoxemic respiratory failure, likely right lower lobe pneumonia, possible aspiration pneumonia. RSV infection. MRSA bacteremia and sepsis. Atrial fibrillation with rapid ventricular response. Altered mental status, likely secondary to sepsis. Anion gap metabolic acidosis. Chronic kidney disease. History of frequent urinary tract infections. Diabetes mellitus type 2. History of hepatocellular carcinoma. History of hyperlipidemia. History of hypertension. Plan: Plan dated March 09, 2024. The patient is seen today in room 358. The patient continues on nasal O2, at 3 L. The patient continues on vancomycin, for methicillin-resistant Staphylococcus aureus bacteremia. The patient also continues on Cardizem 5 mg an hour. We will continue to follow the patient, make recommendations along the way. The patient is overall prognosis remains poor. He is a DO NOT RESUSCITATE patient. Labs, x-rays, and all medications are reviewed. Time with Patient: Less than 30
[2024-03-09] MEDS ORDERED: HEPARIN SODIUM 1,000 UN/ML (10ML VL) IV PRN (13:33)
--- NOTE | 2024-03-09 13:38 | P.PN ---
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 He has a past medical history of hypertension, liver cancer, possible history of atrial fibrillation although this cannot be confirmed. Patient presented to the hospital due to difficulty breathing and altered mental status. We have been asked to evaluate the patient for atrial fibrillation. Patient denies having any chest pain, no dizziness. He may have been able to feel his heart beating fast. He has had no syncopal episodes. He does have history of acute kidney injury requiring hemodialysis that only lasted for 3 weeks. He denies history of CVA. He denies history of NM. Patient has tested positive for RSV and is in isolation. At the time of evaluation, patient has converted to sinus rhythm. Patient did not require Cardizem drip although it was initially ordered in the ER. Patient is seen today in the emergency center waiting for bed on the cardiac stepdown unit. Blood pressure 120/66, heart rate 77, pulse ox 100% on room air. -EKG: #1 atrial fibrillation 124 bpm, #2 sinus rhythm 92 bpm -Chest x-ray: Persistent right basilar consolidation. Suspect small right pleural effusion and pleural calcifications. #2 no acute process. -CT abdomen pelvis revealed small right pleural effusion. 18 mm subpleural nodule left lower lobe. Suspect hepatic masses. Trace free fluid in the pelvis is abnormal in a male nonspecific finding. -Laboratory studies: Initial WBC 23.2 and repeat 12.5, hemoglobin 10, platelet count 230. Sodium 139, potassium 5.3, BUN 69 and creatinine 1.77. Troponin negative x 1. proBNP 18,100. Urinalysis revealed large amount of leukoesterase, RBC 18, WBC greater than 182 and moderate WBC clumps. Many bacteria. RSV positive. Influenza A, influenza B, COVID-19 not detected. -Home cardiac medications: Coreg 12.5 mg every 12 hours, magnesium oxide 800 mg daily, potassium chloride 20 mill equivalents daily, torsemide 20 mg daily. 03/08/2024 Patient seen and examined. Patient went into A-fib with RVR last evening was started on Cardizem drip. He states his shortness of breath is a little bit better he still has a cough. He is scheduled for swallow evaluation this morning. Patient is continued on Cardizem drip until swallow evaluation has been completed. Blood pressure 117/67, heart rate 97, pulse ox 97% on 3 L nasal cannula. Repeat blood work reveals hemoglobin 10.3, WBC 14.4. Sodium 139, potassium 4.5, BUN 65 creatinine 1.55. Alkaline phosphatase 440. Repeat chest x-ray reveals small right pleural effusion developing. Echocardiogram is pending. 03/09/2024 Patient examined this morning at the bedside. Patient currently denies chest pain or pressure. He reports his breathing feels improved today. Patient was evaluated by speech therapy and remains n.p.o. He is currently on IV Cardizem at 5 mg an hour. His Eliquis remains on hold due to patient's inability to take oral medications. Echocardiogram completed revealing ejection fraction 50%, mild mitral stenosis, mild mitral regurgitation, mild aortic regurgitation, mild tricuspid regurgitation PHYSICAL EXAM: VITAL SIGNS: Reviewed. GENERAL: Well-developed in no acute distress. NECK: Supple. No JVD or thyromegaly LUNGS: Respirations even and unlabored. Lungs essentially clear to auscultation bilaterally. HEART: Regular rate and rhythm. S1 and S2 heard. EXTREMITIES: Normal range of motion. No clubbing or cyanosis. Peripheral pulses intact. No lower extremity edema ASSESSMENT: RSV UTI and sepsis Paroxysmal atrial fibrillation, currently in a sinus rhythm. This is most likely related to infectious process. However, patient states that he was told he had atrial fibrillation in the past, but this cannot be confirmed by hospital documentation reviewed. Patient was not on anticoagulation at home. MRSA bacteremia Infectious metabolic encephalopathy Hypertension Liver cancer History of acute kidney injury requiring HD x 3 weeks Inability to take oral medications due to failed swallow screen PLAN: Patient was evaluated by speech therapy yesterday and remains NPO Continue IV Cardizem at 5 mg an hour Will discontinue Eliquis due to NPO status. Begin IV Heparin Continue telemetry monitoring Further recommendations pending patient course Nurse practitioner note has been reviewed by physician. Signing provider agrees with the documented findings, assessment, and plan of care documented by SPORTS INSTRUCTOR as a scribe. Objective - Vital Signs Vital signs: Vital Signs Temp 97.6 F 03/09/24 11:15 Pulse 80 03/09/24 12:17 Resp 15 03/09/24 11:15 BP 136/64 03/09/24 11:15 Pulse Ox 97 03/09/24 11:15 FiO2 Intake & Output 03/08/24 03/09/24 03/09/24 18:59 06:59 18:59 Intake Total 132.333 40 Output Total 750 Balance -617.667 40 Weight 68.039 kg 53.2 kg Intake: IV 40 Diltiazem 125 mg In 40 Sodium Chloride 0.9% 100 ml @ 5 MG/HR 5 mls/hr IV .Q24H [facility] Rx#:[id number] Intake, IV Titration 82.333 Amount Diltiazem 125 mg In 82.333 Sodium Chloride 0.9% 100 ml @ 5 MG/HR 5 mls/hr IV .Q24H [facility] Rx#:[id number] Oral 50 Output: Urine 750 Other: Voiding Method External Catheter External Catheter External Catheter # Voids 0 # Bowel Movements 0 - Labs CBC & Chem 7: 03/09/24 07:26 03/09/24 07:26 Labs: Abnormal Lab Results - Last 24 Hours (Table) 03/08/24 03/09/24 03/09/24 Range/Units 19:59 07:26 07:26 WBC 10.7 H (3.8-10.6) k/uL RBC 3.50 L (4.30-5.90) m/uL Hgb 10.1 L (13.0-17.5) gm/dL Hct 34.1 L (39.0-53.0) % MCHC 29.7 L (31.0-37.0) g/dL Neutrophils # 9.6 H (1.3-7.7) k/uL Lymphocytes # 0.5 L (1.0-4.8) k/uL Chloride 115 H (98-107) mmol/L Carbon Dioxide 17 L (22-30) mmol/L BUN 69 H (9-20) mg/dL Creatinine 1.48 H (0.66-1.25) mg/dL POC Glucose (mg/dL) 111 H (70-110) mg/dL Calcium 7.7 L (8.4-10.2) mg/dL Alkaline Phosphatase 425 H (38-126) U/L Total Protein 5.0 L (6.3-8.2) g/dL Albumin 2.0 L (3.5-5.0) g/dL Microbiology - Last 24 Hours (Table) 03/07/24 16:35 Nasal Screen MRSA/MSSA - Final Nasal Swab 03/08/24 16:13 Blood Culture Gram Stain - Preliminary Blood 03/06/24 03:56 Blood Culture Gram Stain - Final Blood Blood Culture - Final Methicillin resist S. aureus Molecular ID
[2024-03-09] MEDS: HEPARIN SODIUM 1,000 UN/ML (10ML VL) IV ONE (14:32)
[2024-03-09] MEDS: HEPARIN SOD,PORK IN 0.45% NACL 25,000 UNIT in 0.45% NACL 1 250ML.BAG IV SCH (14:33)
--- NOTE | 2024-03-09 15:00 | P.PN ---
Subjective Progress Note Date: 03/09/24 patient is a 88-year-old gentleman with past medical history significant for liver cancer, atrial fibrillation who presented the ER because of shortness of breath and altered mental status. Most of the history is taken from electronic medical records according to patient patient has been feeling ill for the last 3 days. Patient has a lot of sick contacts in the family who are having upper respiratory infection. Patient was complaining of shortness of breath for the last 3 days. Patient also found to be lethargic and weak. There was no complaint of fever or chills. Patient was complaining shortness of breath on rest as on exertion. There was no complaint of chest pain. There was no complaint of orthopnea or PND. There was no complaint nausea or vomiting. Patient was complaining of lower abdominal pain which was intermittent, nonradiating, no aggravating or relieving factor associated with it. Because of shortness of breath, patient brought to the ER Initial lab work done in the ER showed WBC 23.2, hemoglobin 11.8, platelet count 405, sodium 130s, potassium 5.4, BUN 68, creatinine 1.86, proBNP 18,100, Urine showed large amount of leukocyte Estrace, urine WBC 182 Influenza A not detected Influenza B not detected RSVdetected COVID-19 not detected EKG done in the ER showed heart rate of 124, irregular and rhythm and rate, no ST segment elevation or depression seen, no T-wave inversions seen. Chest x-ray done in the ER showed persistent right basilar consolidation, suspect small right pleural effusion and calcifications X-ray abdomen done showed small bowel ileus CT abdomen and pelvis done showed small right pleural effusion with right basilar consolidation, 18 mm subpleural nodule in posterior medial left lower lobe Patient admitted to internal medicine service 03/07. Patient seen and examined. Patient is alert, continues to complain of cough, cough gets exacerbated by swallowing will get speech evaluation. No fevers overnight. Currently on room air 03/08. Patient seen and examined. Continues to complain of cough. Oxygen requirements increased this morning to 4 L, patient was made n.p.o. in anticipation for speech evaluation 03/09. Patient seen and examined. Patient failed speech evaluation yesterday, blood work done this morning showed WBC 10.7, hemoglobin 10.1, sodium 144, potassium 4.1, BUN 16, creatinine 1.48. 2D echo done showed normal LV function at 50%, mild aortic regurg, mild mitral stenosis and regurg. Had a long discussion with patient's son at the bedside, discussed with him regarding long- term prognosis and goals of care, patient does not want feeding tube, son will talk to his family regarding possible hospice REVIEW OF SYSTEMS: CONSTITUTIONAL: No fever, no malaise,. CARDIOVASCULAR: No chest pain, no palpitations, no syncope. PULMONARY: As mentioned above GASTROINTESTINAL: No diarrhea, no nausea, no vomiting, no abdominal pain. NEUROLOGICAL: No headaches, no weakness, PHYSICAL EXAMINATION: GENERAL: The patient is alert, frail, ill looking HEENT: Pupils are round and equally reacting to light. EOMI. No scleral icterus. No conjunctival pallor. Normocephalic, atraumatic. No pharyngeal erythema. No thyromegaly. CARDIOVASCULAR: S1 and S2 present. No murmurs, rubs, or gallops. PULMONARY: coarse breath sounds bilaterally,, Expiratory rhonchi audible, no wheezing or crackles. ABDOMEN: Soft, nontender, nondistended, normoactive bowel sounds. No palpable organomegaly. MUSCULOSKELETAL: No joint swelling or deformity. EXTREMITIES: No cyanosis, clubbing, or pedal edema. NEUROLOGICAL: Gross neurological examination did not reveal any focal deficits. SKIN: No rashes. Assessment and plan Acute infectious encephalopathy Sepsis MRSA bacteremia A-fib with RVR Bacterial pneumonia Sepsis Leukocytosis Hyponatremia Hyperkalemia UTI Acute kidney injury RSV infection History of hypertension Liver cancer Monitor vital signs Monitor CBC Monitor CMP Continue telemetry monitoring Aggressive bronchopulmonary hygiene Speech therapy following Continue Mucinex Blood cultures are positive for MRSA Follow-up on sputum cultures Continue pharmacy dose vancomycin Continue Cardizem drip, Eliquis 2D echo done showed normal LV function at 50%, mild aortic regurg, mild mitral stenosis and regurg. Cardiology following ID following Had a long discussion with patient's son at the bedside, discussed with him regarding long-term prognosis and goals of care, patient does not want feeding tube, son will talk to his family regarding possible hospice Labs and medication were reviewed.. Continue same treatment. Continue with symptomatic treatment. Resume home medication. Monitor labs and vitals. DVT and GI prophylaxis. Further recommendations as per clinical course of the patient Dictation was produced using [employer] dictation software. please excuse any grammatical, word or spelling errors. Objective - Vital Signs Vital signs: Vital Signs Temp 98.6 F 03/09/24 03:45 Pulse 84 03/09/24 08:51 Resp 16 03/09/24 07:56 BP 126/64 03/09/24 07:56 Pulse Ox 97 03/09/24 07:56 FiO2 Intake & Output 03/08/24 03/09/24 03/09/24 18:59 06:59 18:59 Intake Total 132.333 40 Output Total 750 Balance -617.667 40 Weight 68.039 kg 53.2 kg Intake: IV 40 Diltiazem 125 mg In 40 Sodium Chloride 0.9% 100 ml @ 5 MG/HR 5 mls/hr IV .Q24H [facility] Rx#:[id number] Intake, IV Titration 82.333 Amount Diltiazem 125 mg In 82.333 Sodium Chloride 0.9% 100 ml @ 5 MG/HR 5 mls/hr IV .Q24H [facility] Rx#:[id number] Oral 50 Output: Urine 750 Other: Voiding Method External Catheter External Catheter External Catheter # Voids 0 # Bowel Movements 0 - Labs CBC & Chem 7: 03/09/24 07:26 03/09/24 07:26 Labs: Abnormal Lab Results - Last 24 Hours (Table) 03/08/24 03/09/24 03/09/24 Range/Units 19:59 07:26 07:26 WBC 10.7 H (3.8-10.6) k/uL RBC 3.50 L (4.30-5.90) m/uL Hgb 10.1 L (13.0-17.5) gm/dL Hct 34.1 L (39.0-53.0) % MCHC 29.7 L (31.0-37.0) g/dL Neutrophils # 9.6 H (1.3-7.7) k/uL Lymphocytes # 0.5 L (1.0-4.8) k/uL Chloride 115 H (98-107) mmol/L Carbon Dioxide 17 L (22-30) mmol/L BUN 69 H (9-20) mg/dL Creatinine 1.48 H (0.66-1.25) mg/dL POC Glucose (mg/dL) 111 H (70-110) mg/dL Calcium 7.7 L (8.4-10.2) mg/dL Alkaline Phosphatase 425 H (38-126) U/L Total Protein 5.0 L (6.3-8.2) g/dL Albumin 2.0 L (3.5-5.0) g/dL Microbiology - Last 24 Hours (Table) 03/06/24 03:56 Blood Culture Gram Stain - Final Blood Blood Culture - Final Methicillin resist S. aureus Molecular ID
--- NOTE | 2024-03-09 15:26 | P.PN ---
Subjective Progress Note Date: 03/09/24 Principal diagnosis: Reason for follow-up is MRSA bacteremia/pneumonia Patient is a 88-year-old male with a past medical history significant for diabetes mellitus hypertension liver cancer and prostate disorder patient has been brought to the hospital by EMS concern for difficulty breathing and mental status changes patient did have a CT with evidence of right basilar consolidation concerning for pneumonia subsequent blood culture positive with MRSA. On today's evaluation that is 03/09/2024, patient remains to be febrile patient is on 3 L nasal cannula oxygen is breathing comfortably patient is lethargic did not answer any question no vomiting diarrhea has been reported patient dialysis catheter has been discontinued. Patient white count is 10.7, creat is 1.48 blood culture from 1 3 also positive Objective - Vital Signs Vital signs: Vital Signs Temp 97.6 F 03/09/24 11:15 Pulse 80 03/09/24 12:17 Resp 15 03/09/24 11:15 BP 136/64 03/09/24 11:15 Pulse Ox 97 03/09/24 11:15 FiO2 Intake & Output 03/08/24 03/09/24 03/09/24 18:59 06:59 18:59 Intake Total 132.333 40 0 Output Total 750 Balance -617.667 40 0 Weight 68.039 kg 53.2 kg Intake: IV 40 Diltiazem 125 mg In 40 Sodium Chloride 0.9% 100 ml @ 5 MG/HR 5 mls/hr IV .Q24H [facility] Rx#:[id number] Intake, IV Titration 82.333 Amount Diltiazem 125 mg In 82.333 Sodium Chloride 0.9% 100 ml @ 5 MG/HR 5 mls/hr IV .Q24H [facility] Rx#:[id number] Oral 50 0 Output: Urine 750 Other: Voiding Method External Catheter External Catheter External Catheter # Voids 0 # Bowel Movements 0 - Exam GENERAL DESCRIPTION: An elderly male lying in bed in no distress RESPIRATORY SYSTEM: Unlabored breathing , decreased breath sounds at bases HEART: S1 S2 regular rate and rhythm , ABDOMEN: Soft , no tenderness EXTREMITIES: Left heel wound with some necrosis minimal redness - Labs CBC & Chem 7: 03/09/24 07:26 03/09/24 07:26 Labs: Abnormal Lab Results - Last 24 Hours (Table) 03/08/24 03/09/24 03/09/24 Range/Units 19:59 07:26 07:26 WBC 10.7 H (3.8-10.6) k/uL RBC 3.50 L (4.30-5.90) m/uL Hgb 10.1 L (13.0-17.5) gm/dL Hct 34.1 L (39.0-53.0) % MCHC 29.7 L (31.0-37.0) g/dL Neutrophils # 9.6 H (1.3-7.7) k/uL Lymphocytes # 0.5 L (1.0-4.8) k/uL Chloride 115 H (98-107) mmol/L Carbon Dioxide 17 L (22-30) mmol/L BUN 69 H (9-20) mg/dL Creatinine 1.48 H (0.66-1.25) mg/dL POC Glucose (mg/dL) 111 H (70-110) mg/dL Calcium 7.7 L (8.4-10.2) mg/dL Alkaline Phosphatase 425 H (38-126) U/L Total Protein 5.0 L (6.3-8.2) g/dL Albumin 2.0 L (3.5-5.0) g/dL Microbiology - Last 24 Hours (Table) 03/07/24 16:35 Nasal Screen MRSA/MSSA - Final Nasal Swab 03/08/24 16:13 Blood Culture Gram Stain - Preliminary Blood 03/06/24 03:56 Blood Culture Gram Stain - Final Blood Blood Culture - Final Methicillin resist S. aureus Molecular ID Assessment and Plan (1) UTI (urinary tract infection) Current Visit: Yes Status: Acute Code(s): N39.0 - URINARY TRACT INFECTION, SITE NOT SPECIFIED SNOMED Code(s): 71186864 (2) Pneumonia Current Visit: Yes Status: Acute Code(s): J18.9 - PNEUMONIA, UNSPECIFIED ORGANISM SNOMED Code(s): 092323525 (3) RSV (acute bronchiolitis due to respiratory syncytial virus) Current Visit: Yes Status: Acute Code(s): J21.0 - ACUTE BRONCHIOLITIS DUE TO RESPIRATORY SYNCYTIAL VIRUS SNOMED Code(s): 846242295 (4) Unstageable pressure ulcer of left heel Current Visit: Yes Status: Acute Code(s): L89.620 - PRESSURE ULCER OF LEFT HEEL, UNSTAGEABLE SNOMED Code(s): 01138828867831206 (5) Bacteremia due to methicillin resistant Staphylococcus aureus Current Visit: Yes Status: Acute Code(s): R78.81 - BACTEREMIA; B95.62 - METHICILLIN RESIS STAPH INFCT CAUSING DISEASES CLASSD ELSWHR SNOMED Code(s): 29446063568252775 Plan: 1patient presented to hospital with mental status changes confusion weakness which is likely multifactorial in this patient who did have significant elevated white count did have a positive UA as well as right lower lobe consolidation co ncerning for possible pneumonia and a catheter assisted UTI, patient also tested positive for RSV treatment is mostly supportive 2patient did have unstageable pressure ulcer to the left heel but minimal cellulitis. Keep the area of the pressure and dry 3MRSA bacteremia source likely pneumonia however the patient did have a left chest wall dialysis catheter that has not been used and can be the source of this bacteremia, dialysis catheter has been discussed catheter has been sent for the culture 4patient blood culture to be repeated again, patient to be treated with vancomycin pharmacy regimen watching his kidney function closely Dictation was produced using [employer] dictation software. please excuse any grammatical, word or spelling errors. Time with Patient: Less than 30
[2024-03-09 16:37] LABS: Glucose,Whole Blood 81 mg/dL (70-110)
[2024-03-09 20:12] LABS: Glucose,Whole Blood 85 mg/dL (70-110)
[2024-03-10 05:59] LABS: Glucose,Whole Blood 97 mg/dL (70-110)
[2024-03-10 06:45] LABS: Basophils % (A) 0 %; Eosinophils % (A) 0 %; HCT 32.4 % (39.0-53.0); HGB 9.7 gm/dL (13.0-17.5); Hypochromasia Marked; Lymphocytes # (A) 0.7 k/uL (1.0-4.8); Lymphocytes % (A) 7 %; MCH 28.8 pg (25.0-35.0); MCHC 29.9 g/dL (31.0-37.0); MCV 96.4 fL (80.0-100.0); Mean Platelet Volume 9.5; Monocytes # (A) 0.3 k/uL (0-1.0); Monocytes % (A) 3 %; Neutrophils # (A) 9.6 k/uL (1.3-7.7); Neutrophils % (A) 88 %; Platelet Count 250 k/uL (150-450); RBC 3.36 m/uL (4.30-5.90); RDW 14.8 % (11.5-15.5); WBC 10.9 k/uL (3.8-10.6)
[2024-03-10 06:55] LABS: INR 1.7 (<1.2); Prothrombin Time 17.3 sec (10.0-12.5)
[2024-03-10 06:56] LABS: African American GFR (CKD) 54 (>60 ml/min/1.73 sqM); Anion Gap 13 mmol/L; Blood Urea Nitrogen 66 mg/dL (9-20); Calcium 7.6 mg/dL (8.4-10.2); Carbon Dioxide 17 mmol/L (22-30); Chloride 118 mmol/L (98-107); Glucose 88 mg/dL (74-99); Non-African American GFR(CKD) 46 (>60 ml/min/1.73 sqM); Potassium 3.6 mmol/L (3.5-5.1); Sodium 148 mmol/L (137-145)
[2024-03-10] MEDS: VANCOMYCIN TROUGH DUE 1 EACH MISC MISCELLANE ONE (08:11)
[2024-03-10] MEDS: VANCOMYCIN 1,000 MG in SODIUM CHLORIDE 0.9% 250 ML IVPB SCH (08:19)
--- NOTE | 2024-03-10 10:23 | P.PN ---
Subjective Patient is seen in follow-up for acute kidney injury. Renal function stable. Sodium level 148. Resting in bed. Lethargic. Vital signs are stable. General: Resting in bed. Lethargic. HEENT: Head exam is unremarkable. LUNGS: No audible rhonchi or wheezes. HEART: Rate and Rhythm are regular. ABDOMEN: No distention. EXTREMITITES: No edema. Objective - Vital Signs Vital signs: Vital Signs Temp 97.6 F 03/10/24 08:07 Pulse 84 03/10/24 09:03 Resp 15 03/10/24 08:07 BP 122/57 03/10/24 08:07 Pulse Ox 100 03/10/24 08:07 FiO2 Intake & Output 03/09/24 03/10/24 03/10/24 18:59 06:59 18:59 Intake Total 125 530.028 70.33 Output Total 100 Balance 25 530.028 70.33 Weight 114 kg Intake: IV 488 Diltiazem 125 mg In 40 Sodium Chloride 0.9% 100 ml @ 5 MG/HR 5 mls/hr IV .Q24H [facility] Rx#:[id number] Heparin Sod,Pork in 0.45% 48 NaCl 25,000 unit In 0.45 % NaCl 1 250ml.bag @ 12 UNITS/KG/HR 6.384 mls/hr IV .Q24H [facility] Rx#: [id number] Sodium Chloride 0.9% 1, 400 000 ml @ 50 mls/hr IV . Q20H [facility] Rx#:[id number] Intake, IV Titration 125 42.028 70.33 Amount Diltiazem 125 mg In 125 Sodium Chloride 0.9% 100 ml @ 5 MG/HR 5 mls/hr IV .Q24H [facility] Rx#:[id number] Heparin Sod,Pork in 0.45% 42.028 70.33 NaCl 25,000 unit In 0.45 % NaCl 1 250ml.bag @ 12 UNITS/KG/HR 6.384 mls/hr IV .Q24H [facility] Rx#: [id number] Oral 0 Output: Urine 100 Other: Voiding Method External Catheter External Catheter # Bowel Movements 0 - Labs CBC & Chem 7: 03/10/24 06:23 03/10/24 06:23 Labs: Abnormal Lab Results - Last 24 Hours (Table) 03/09/24 03/10/24 03/10/24 Range/Units 20:23 06:23 06:23 WBC 10.9 H (3.8-10.6) k/uL RBC 3.36 L (4.30-5.90) m/uL Hgb 9.7 L (13.0-17.5) gm/dL Hct 32.4 L (39.0-53.0) % MCHC 29.9 L (31.0-37.0) g/dL Neutrophils # 9.6 H (1.3-7.7) k/uL Lymphocytes # 0.7 L (1.0-4.8) k/uL PT (10.0-12.5) sec INR (<1.2) APTT 42.2 H (22.0-30.0) sec Sodium 148 H (137-145) mmol/L Chloride 118 H (98-107) mmol/L Carbon Dioxide 17 L (22-30) mmol/L BUN 66 H (9-20) mg/dL Creatinine 1.37 H (0.66-1.25) mg/dL Calcium 7.6 L (8.4-10.2) mg/dL Magnesium 3.0 H (1.6-2.3) mg/dL 03/10/24 03/10/24 Range/Units 06:23 06:23 WBC (3.8-10.6) k/uL RBC (4.30-5.90) m/uL Hgb (13.0-17.5) gm/dL Hct (39.0-53.0) % MCHC (31.0-37.0) g/dL Neutrophils # (1.3-7.7) k/uL Lymphocytes # (1.0-4.8) k/uL PT 17.3 H (10.0-12.5) sec INR 1.7 H (<1.2) APTT 35.4 H (22.0-30.0) sec Sodium (137-145) mmol/L Chloride (98-107) mmol/L Carbon Dioxide (22-30) mmol/L BUN (9-20) mg/dL Creatinine (0.66-1.25) mg/dL Calcium (8.4-10.2) mg/dL Magnesium (1.6-2.3) mg/dL Microbiology - Last 24 Hours (Table) 03/08/24 16:13 Blood Culture Gram Stain - Preliminary Blood Blood Culture - Preliminary Presumptive MRSA 03/07/24 16:35 Nasal Screen MRSA/MSSA - Final Nasal Swab Assessment and Plan Plan: Assessment: 1. Acute kidney injury secondary to ATN secondary to hypovolemia. Improving with fluids. Creatinine 1.86 on admission and is 1.37 today. 2. 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 Patient developed ATN and required hemodialysis in November 2023. Last dialysis treatment was January 08, 2024. 3. Liver cancer. 4. RSV pneumonia. 5. Metabolic acidosis secondary to acute kidney injury and IV fluids. 6. MRSA bacteremia. 7. A-fib with RVR maintained on Cardizem drip. 8. Hypomagnesemia for magnesium supplementation. Plan: Add oral bicarb. Change IV fluids to D5W at 60 cc an hour. Permacath removed March 09, 2024. Tips sent for culture. Avoid nephrotoxins. Stop magnesium supplementation. Prognosis guarded.
[2024-03-10] MEDS: SODIUM BICARBONATE TAB 650 MG TAB PO SCH (10:34)
[2024-03-10] MEDS: SODIUM BICARB 8.4% 50 ML SYR (1 MEQ/ML) IV STA (10:44)
[2024-03-10] MEDS: DEXTROSE 5% IN WATER 1,000 ML IV SCH (10:46)
[2024-03-10 11:34] LABS: Glucose,Whole Blood 81 mg/dL (70-110)
--- NOTE | 2024-03-10 12:16 | P.PN ---
Subjective Progress Note Date: 03/10/24 Principal diagnosis: Chest congestion, shortness of breath. Patient is a 88-year-old male with medical history significant for chronic kidney disease, diabetes mellitus type 2, liver cancer, hyperlipidemia, hypertension, among other things. Brought in by EMS on 03/06/2024 with change in mental status and difficulty in breathing. He also had a complaint of abdominal pain. Initial K[facility] x-ray concerning for possible ileus. Follow-up abdominal CT showing small right pleural effusion with right basilar consolidation suggestive atelectasis or pneumonia. Incidental 1.8 cm subpleural nodule found in the posterior medial left lower lobe. Also, hepatic masses were seen but not detailed, patient does have history of hepatocellular carcinoma. Trace free fluid seen in the pelvis. He was found to be in atrial fibrillation with rapid ventricular rates in the ED. Started initially on a Cardizem infusion. He did meet SIRS/sepsis criteria and was started on antibiotics. Delmis pected right lower lobe pneumonia. Also, positive for RSV, possible incidental finding. Later found to be positive for MRSA bacteremia. Patient continues to subclavian hemodialysis catheter. Patient is on antibiotics by direction of infectious disease. Most recent CBC shows improvement in leukocytosis with a WBC count down to 12.5, hemoglobin 10, hematocrit 33.3, platelets 230. Coagulation profile with a PT of 13.9, INR of 1.3, APTT 25.9. Most recent basic metabolic panel demonstrating a sodium 139, potassium 5.3, chloride 1 7, serum bicarb 17, anion gap 12, BUN 69, creatinine 1.77, glucose 117. AST 52, ALT 14, ALP 425. Total bili 0.4. NT proBNP was significantly elevated at 18,100. Troponin 0.016. Urinalysis positive for leukocytes and many bacteria. Patient does have history of frequent urinary tract infections. Patient is currently being evaluated on the cardiac stepdown unit. His mentation is somewhat improved. He is alert and able to answer most of my questions. Unsure of events leading to his hospitalization. He appears very weak and has a congested cough unable to clear his secretions. He is going to have a swallow evaluation. Remains on Cardizem running at 5 mg/h. Eliquis was started for anticoagulation. Current most recent vitals: Temperature 98.0 F, heart rate 96 bpm, blood pressure 106/71 mmHg, SpO2 97% on 3 L/min nasal cannula. Progress note dated March 09, 2024. 88-year-old male seen today in room 358. He continues on nasal O2 at 3 L, and, is on a Cardizem drip at 5 mg an hour. The patient's blood cultures were positive for methicillin-resistant Staphylococcus aureus. The patient continues on vancomycin. The patient also tested positive for RSV. Current labs include a white count 10.7, hemoglobin 10.1, hematocrit 34.1, and a platelet count of 223,000. Sodium 144, potassium 4.1, chlorides 115, CO2 17, anion gap 12, BUN 69 , and creatinine 1.48. Glucose is 86. Calcium 7.7. Albumin is 2.0. Chest x- ray from yesterday shows a small right-sided pleural effusion. Progress note dated March 10, 2024. 88-year-old very frail male, seen today in room 358. The patient continues on nasal O2 at 3 L. He is receiving IV heparin, and Cardizem drip at 5 mg an hour. In addition, he is getting saline at 50 cc an hour. He tested positive for RSV. He is very very frail, and some consideration should be given to hospice, or palliative care consultation. Currently, white count is 10.9, hemoglobin 9.7, hematocrit 32.4, platelet count 2 50,000. PT 17.3, INR 1.7, PTT 35.4. Sodium 148, potassium 3.6, chlorides 118, CO2 17, anion gap 13, BUN 66, and creatinine 1.37. Glucose is 81. Calcium 7.6, magnesium 3. Blood cultures are positive for presumptive MRSA. The patient continues on vancomycin. Objective - Vital Signs Vital signs: Vital Signs Temp 97.6 F 03/10/24 08:07 Pulse 80 03/10/24 12:03 Resp 15 03/10/24 11:07 BP 123/62 03/10/24 11:07 Pulse Ox 99 03/10/24 11:07 FiO2 Intake & Output 03/09/24 03/10/24 03/10/24 18:59 06:59 18:59 Intake Total 125 530.028 70.33 Output Total 100 0 Balance 25 530.028 70.33 Weight 114 kg Intake: IV 488 Diltiazem 125 mg In 40 Sodium Chloride 0.9% 100 ml @ 5 MG/HR 5 mls/hr IV .Q24H [facility] Rx#:[id number] Heparin Sod,Pork in 0.45% 48 NaCl 25,000 unit In 0.45 % NaCl 1 250ml.bag @ 12 UNITS/KG/HR 6.384 mls/hr IV .Q24H [facility] Rx#: [id number] Sodium Chloride 0.9% 1, 400 000 ml @ 50 mls/hr IV . Q20H [facility] Rx#:[id number] Intake, IV Titration 125 42.028 70.33 Amount Diltiazem 125 mg In 125 Sodium Chloride 0.9% 100 ml @ 5 MG/HR 5 mls/hr IV .Q24H [facility] Rx#:[id number] Heparin Sod,Pork in 0.45% 42.028 70.33 NaCl 25,000 unit In 0.45 % NaCl 1 250ml.bag @ 12 UNITS/KG/HR 6.384 mls/hr IV .Q24H [facility] Rx#: [id number] Oral 0 Output: Gastric Drainage 0 Urine 100 0 Stool 0 Urine/Stool Mix 0 Emesis 0 Oral Regurgitation 0 Other 0 Other: Voiding Method External Catheter External Catheter External Catheter # Voids 0 # Bowel Movements 0 0 - Exam No acute distress, oriented 3. Currently on 3 L. The patient is very frail, with shallow respirations. HEENT examination is grossly unremarkable. Mucous membranes are moist. No oral lesions. Neck supple. Full range of motion. No adenopathy thyromegaly or neck vein distention. Cardiovascular examination reveals regular rhythm rate. S1-S2 normal. No S3 or S4. No discernible murmur noted. Heart sounds are distant. Lungs reveal diffuse bilateral rhonchi. Breath sounds are equal. He does not take deep breaths. No wheezes. No crackles. Abdomen soft bowel sounds are heard. No masses or tenderness. Extremities are intact. No cyanosis clubbing or edema. Skin is without rash or lesion. Neurologic examination is brief but nonfocal. - Labs CBC & Chem 7: 03/10/24 06:23 03/10/24 06:23 Labs: Abnormal Lab Results - Last 24 Hours (Table) 03/09/24 03/10/24 03/10/24 Range/Units 20:23 06:23 06:23 WBC 10.9 H (3.8-10.6) k/uL RBC 3.36 L (4.30-5.90) m/uL Hgb 9.7 L (13.0-17.5) gm/dL Hct 32.4 L (39.0-53.0) % MCHC 29.9 L (31.0-37.0) g/dL Neutrophils # 9.6 H (1.3-7.7) k/uL Lymphocytes # 0.7 L (1.0-4.8) k/uL PT (10.0-12.5) sec INR (<1.2) APTT 42.2 H (22.0-30.0) sec Sodium 148 H (137-145) mmol/L Chloride 118 H (98-107) mmol/L Carbon Dioxide 17 L (22-30) mmol/L BUN 66 H (9-20) mg/dL Creatinine 1.37 H (0.66-1.25) mg/dL Calcium 7.6 L (8.4-10.2) mg/dL Magnesium 3.0 H (1.6-2.3) mg/dL 03/10/24 03/10/24 Range/Units 06:23 06:23 WBC (3.8-10.6) k/uL RBC (4.30-5.90) m/uL Hgb (13.0-17.5) gm/dL Hct (39.0-53.0) % MCHC (31.0-37.0) g/dL Neutrophils # (1.3-7.7) k/uL Lymphocytes # (1.0-4.8) k/uL PT 17.3 H (10.0-12.5) sec INR 1.7 H (<1.2) APTT 35.4 H (22.0-30.0) sec Sodium (137-145) mmol/L Chloride (98-107) mmol/L Carbon Dioxide (22-30) mmol/L BUN (9-20) mg/dL Creatinine (0.66-1.25) mg/dL Calcium (8.4-10.2) mg/dL Magnesium (1.6-2.3) mg/dL Microbiology - Last 24 Hours (Table) 03/08/24 16:13 Blood Culture Gram Stain - Preliminary Blood Blood Culture - Preliminary Presumptive MRSA 03/07/24 16:35 Nasal Screen MRSA/MSSA - Final Nasal Swab Assessment and Plan Assessment: Acute hypoxemic respiratory failure, likely right lower lobe pneumonia, possible aspiration pneumonia. RSV infection. MRSA bacteremia and sepsis. Atrial fibrillation with rapid ventricular response. Altered mental status, likely secondary to sepsis. Anion gap metabolic acidosis. Chronic kidney disease. History of frequent urinary tract infections. Diabetes mellitus type 2. History of hepatocellular carcinoma. History of hyperlipidemia. History of hypertension. Plan: Plan dated March 09, 2024. The patient is seen today in room 358. The patient continues on nasal O2, at 3 L. The patient continues on vancomycin, for methicillin-resistant Staphylococcus aureus bacteremia. The patient also continues on Cardizem 5 mg an hour. We will continue to follow the patient, make recommendations along the way. The patient is overall prognosis remains poor. He is a DO NOT RESUSCITATE patient. Labs, x-rays, and all medications are reviewed. Plan dated March 10, 2024. The patient is again seen in room 358. He continues on 3 L of oxygen. The patient is receiving IV heparin, and saline at 50 cc an hour. The patient is also on a Cardizem drip at 5 mg an hour. The patient is extremely frail. His respirations are very shallow. He is a DO NOT RESUSCITATE patient. He continues on vancomycin for methicillin-resistant staph aureus bacteremia. The primary service should get some consideration to hospice, and/or palliative care consultation. Time with Patient: Less than 30
--- NOTE | 2024-03-10 12:27 | P.PN ---
Subjective Progress Note Date: 03/10/24 patient is a 88-year-old gentleman with past medical history significant for liver cancer, atrial fibrillation who presented the ER because of shortness of breath and altered mental status. Most of the history is taken from electronic medical records according to patient patient has been feeling ill for the last 3 days. Patient has a lot of sick contacts in the family who are having upper respiratory infection. Patient was complaining of shortness of breath for the last 3 days. Patient also found to be lethargic and weak. There was no complaint of fever or chills. Patient was complaining shortness of breath on rest as on exertion. There was no complaint of chest pain. There was no complaint of orthopnea or PND. There was no complaint nausea or vomiting. Patient was complaining of lower abdominal pain which was intermittent, nonradiating, no aggravating or relieving factor associated with it. Because of shortness of breath, patient brought to the ER Initial lab work done in the ER showed WBC 23.2, hemoglobin 11.8, platelet count 405, sodium 130s, potassium 5.4, BUN 68, creatinine 1.86, proBNP 18,100, Urine showed large amount of leukocyte Estrace, urine WBC 182 Influenza A not detected Influenza B not detected RSVdetected COVID-19 not detected EKG done in the ER showed heart rate of 124, irregular and rhythm and rate, no ST segment elevation or depression seen, no T-wave inversions seen. Chest x-ray done in the ER showed persistent right basilar consolidation, suspect small right pleural effusion and calcifications X-ray abdomen done showed small bowel ileus CT abdomen and pelvis done showed small right pleural effusion with right basilar consolidation, 18 mm subpleural nodule in posterior medial left lower lobe Patient admitted to internal medicine service 03/07. Patient seen and examined. Patient is alert, continues to complain of cough, cough gets exacerbated by swallowing will get speech evaluation. No fevers overnight. Currently on room air 03/08. Patient seen and examined. Continues to complain of cough. Oxygen requirements increased this morning to 4 L, patient was made n.p.o. in anticipation for speech evaluation 03/09. Patient seen and examined. Patient failed speech evaluation yesterday, blood work done this morning showed WBC 10.7, hemoglobin 10.1, sodium 144, potassium 4.1, BUN 16, creatinine 1.48. 2D echo done showed normal LV function at 50%, mild aortic regurg, mild mitral stenosis and regurg. Had a long discussion with patient's son at the bedside, discussed with him regarding long- term prognosis and goals of care, patient does not want feeding tube, son will talk to his family regarding possible hospice 03/10. Patient seen examined. Continues to be lethargic. Family has been approached about palliative and hospice but they are undecided yet. REVIEW OF SYSTEMS: CONSTITUTIONAL: No fever, no malaise,. CARDIOVASCULAR: No chest pain, no palpitations, no syncope. PULMONARY: As mentioned above GASTROINTESTINAL: No diarrhea, no nausea, no vomiting, no abdominal pain. NEUROLOGICAL: No headaches, no weakness, PHYSICAL EXAMINATION: GENERAL: The patient is alert, frail, ill looking HEENT: Pupils are round and equally reacting to light. EOMI. No scleral icterus. No conjunctival pallor. Normocephalic, atraumatic. No pharyngeal erythema. No thyromegaly. CARDIOVASCULAR: S1 and S2 present. No murmurs, rubs, or gallops. PULMONARY: coarse breath sounds bilaterally,, Expiratory rhonchi audible, no wheezing or crackles. ABDOMEN: Soft, nontender, nondistended, normoactive bowel sounds. No palpable organomegaly. MUSCULOSKELETAL: No joint swelling or deformity. EXTREMITIES: No cyanosis, clubbing, or pedal edema. NEUROLOGICAL: Gross neurological examination did not reveal any focal deficits. SKIN: No rashes. Assessment and plan Acute infectious encephalopathy Sepsis MRSA bacteremia A-fib with RVR Bacterial pneumonia Sepsis Leukocytosis Hyponatremia Hyperkalemia UTI Acute kidney injury RSV infection History of hypertension Liver cancer Monitor vital signs Monitor CBC Monitor CMP Continue telemetry monitoring Aggressive bronchopulmonary hygiene Speech therapy following Continue Mucinex Blood cultures are positive for MRSA Follow-up on sputum cultures Continue pharmacy dose vancomycin Continue Cardizem drip, Eliquis 2D echo done showed normal LV function at 50%, mild aortic regurg, mild mitral stenosis and regurg. Cardiology following ID following Labs and medication were reviewed.. Continue same treatment. Continue with symptomatic treatment. Resume home medication. Monitor labs and vitals. DVT and GI prophylaxis. Further recommendations as per clinical course of the patient Dictation was produced using [employer] dictation software. please excuse any grammatical, word or spelling errors. Objective - Vital Signs Vital signs: Vital Signs Temp 97.6 F 03/10/24 08:07 Pulse 84 03/10/24 09:03 Resp 15 03/10/24 08:07 BP 122/57 03/10/24 08:07 Pulse Ox 100 03/10/24 08:07 FiO2 Intake & Output 03/09/24 03/10/24 03/10/24 18:59 06:59 18:59 Intake Total 125 530.028 70.33 Output Total 100 Balance 25 530.028 70.33 Weight 114 kg Intake: IV 488 Diltiazem 125 mg In 40 Sodium Chloride 0.9% 100 ml @ 5 MG/HR 5 mls/hr IV .Q24H [facility] Rx#:[id number] Heparin Sod,Pork in 0.45% 48 NaCl 25,000 unit In 0.45 % NaCl 1 250ml.bag @ 12 UNITS/KG/HR 6.384 mls/hr IV .Q24H [facility] Rx#: [id number] Sodium Chloride 0.9% 1, 400 000 ml @ 50 mls/hr IV . Q20H [facility] Rx#:[id number] Intake, IV Titration 125 42.028 70.33 Amount Diltiazem 125 mg In 125 Sodium Chloride 0.9% 100 ml @ 5 MG/HR 5 mls/hr IV .Q24H [facility] Rx#:[id number] Heparin Sod,Pork in 0.45% 42.028 70.33 NaCl 25,000 unit In 0.45 % NaCl 1 250ml.bag @ 12 UNITS/KG/HR 6.384 mls/hr IV .Q24H [facility] Rx#: [id number] Oral 0 Output: Urine 100 Other: Voiding Method External Catheter External Catheter # Bowel Movements 0 - Labs CBC & Chem 7: 03/10/24 06:23 03/10/24 06:23 Labs: Abnormal Lab Results - Last 24 Hours (Table) 03/09/24 03/10/24 03/10/24 Range/Units 20:23 06:23 06:23 WBC 10.9 H (3.8-10.6) k/uL RBC 3.36 L (4.30-5.90) m/uL Hgb 9.7 L (13.0-17.5) gm/dL Hct 32.4 L (39.0-53.0) % MCHC 29.9 L (31.0-37.0) g/dL Neutrophils # 9.6 H (1.3-7.7) k/uL Lymphocytes # 0.7 L (1.0-4.8) k/uL PT (10.0-12.5) sec INR (<1.2) APTT 42.2 H (22.0-30.0) sec Sodium 148 H (137-145) mmol/L Chloride 118 H (98-107) mmol/L Carbon Dioxide 17 L (22-30) mmol/L BUN 66 H (9-20) mg/dL Creatinine 1.37 H (0.66-1.25) mg/dL Calcium 7.6 L (8.4-10.2) mg/dL Magnesium 3.0 H (1.6-2.3) mg/dL 03/10/24 03/10/24 Range/Units 06:23 06:23 WBC (3.8-10.6) k/uL RBC (4.30-5.90) m/uL Hgb (13.0-17.5) gm/dL Hct (39.0-53.0) % MCHC (31.0-37.0) g/dL Neutrophils # (1.3-7.7) k/uL Lymphocytes # (1.0-4.8) k/uL PT 17.3 H (10.0-12.5) sec INR 1.7 H (<1.2) APTT 35.4 H (22.0-30.0) sec Sodium (137-145) mmol/L Chloride (98-107) mmol/L Carbon Dioxide (22-30) mmol/L BUN (9-20) mg/dL Creatinine (0.66-1.25) mg/dL Calcium (8.4-10.2) mg/dL Magnesium (1.6-2.3) mg/dL Microbiology - Last 24 Hours (Table) 03/08/24 16:13 Blood Culture Gram Stain - Preliminary Blood Blood Culture - Preliminary Presumptive MRSA 03/07/24 16:35 Nasal Screen MRSA/MSSA - Final Nasal Swab
--- NOTE | 2024-03-10 12:35 | P.PN ---
Subjective Progress Note Date: 03/10/24 Principal diagnosis: Reason for follow-up is MRSA bacteremia/pneumonia Patient is a 88-year-old male with a past medical history significant for diabetes mellitus hypertension liver cancer and prostate disorder patient has been brought to the hospital by EMS concern for difficulty breathing and mental status changes patient did have a CT with evidence of right basilar consolidation concerning for pneumonia subsequent blood culture positive with MRSA. On today's evaluation that is 03/10/2024, Patient is afebrile patient is currently on 2 L nasal cannula oxygen and seem to be breathing comfortably patient is responding to his name but did not answer any further question no vomiting or diarrhea has been reported. Patient white count is 10.8, creatinine is 1.37 blood culture from 03/08/2024 also came back positive Objective - Vital Signs Vital signs: Vital Signs Temp 97.6 F 03/10/24 08:07 Pulse 80 03/10/24 12:13 Resp 15 03/10/24 11:07 BP 123/62 03/10/24 11:07 Pulse Ox 99 03/10/24 11:07 FiO2 Intake & Output 03/09/24 03/10/24 03/10/24 18:59 06:59 18:59 Intake Total 125 530.028 70.33 Output Total 100 100 Balance 25 530.028 -29.67 Weight 114 kg Intake: IV 488 Diltiazem 125 mg In 40 Sodium Chloride 0.9% 100 ml @ 5 MG/HR 5 mls/hr IV .Q24H [facility] Rx#:[id number] Heparin Sod,Pork in 0.45% 48 NaCl 25,000 unit In 0.45 % NaCl 1 250ml.bag @ 12 UNITS/KG/HR 6.384 mls/hr IV .Q24H [facility] Rx#: [id number] Sodium Chloride 0.9% 1, 400 000 ml @ 50 mls/hr IV . Q20H [facility] Rx#:[id number] Intake, IV Titration 125 42.028 70.33 Amount Diltiazem 125 mg In 125 Sodium Chloride 0.9% 100 ml @ 5 MG/HR 5 mls/hr IV .Q24H [facility] Rx#:[id number] Heparin Sod,Pork in 0.45% 42.028 70.33 NaCl 25,000 unit In 0.45 % NaCl 1 250ml.bag @ 12 UNITS/KG/HR 6.384 mls/hr IV .Q24H [facility] Rx#: [id number] Oral 0 Output: Gastric Drainage 0 Urine 100 100 Stool 0 Urine/Stool Mix 0 Emesis 0 Oral Regurgitation 0 Other 0 Other: Voiding Method External Catheter External Catheter External Catheter # Voids 1 # Bowel Movements 0 0 - Exam GENERAL DESCRIPTION: An elderly male lying in bed in no distress RESPIRATORY SYSTEM: Unlabored breathing , decreased breath sounds at bases HEART: S1 S2 regular rate and rhythm , ABDOMEN: Soft , no tenderness EXTREMITIES: Left heel wound with some necrosis minimal redness - Labs CBC & Chem 7: 03/10/24 06:23 03/10/24 06:23 Labs: Abnormal Lab Results - Last 24 Hours (Table) 03/09/24 03/10/24 03/10/24 Range/Units 20:23 06:23 06:23 WBC 10.9 H (3.8-10.6) k/uL RBC 3.36 L (4.30-5.90) m/uL Hgb 9.7 L (13.0-17.5) gm/dL Hct 32.4 L (39.0-53.0) % MCHC 29.9 L (31.0-37.0) g/dL Neutrophils # 9.6 H (1.3-7.7) k/uL Lymphocytes # 0.7 L (1.0-4.8) k/uL PT (10.0-12.5) sec INR (<1.2) APTT 42.2 H (22.0-30.0) sec Sodium 148 H (137-145) mmol/L Chloride 118 H (98-107) mmol/L Carbon Dioxide 17 L (22-30) mmol/L BUN 66 H (9-20) mg/dL Creatinine 1.37 H (0.66-1.25) mg/dL Calcium 7.6 L (8.4-10.2) mg/dL Magnesium 3.0 H (1.6-2.3) mg/dL 03/10/24 03/10/24 Range/Units 06:23 06:23 WBC (3.8-10.6) k/uL RBC (4.30-5.90) m/uL Hgb (13.0-17.5) gm/dL Hct (39.0-53.0) % MCHC (31.0-37.0) g/dL Neutrophils # (1.3-7.7) k/uL Lymphocytes # (1.0-4.8) k/uL PT 17.3 H (10.0-12.5) sec INR 1.7 H (<1.2) APTT 35.4 H (22.0-30.0) sec Sodium (137-145) mmol/L Chloride (98-107) mmol/L Carbon Dioxide (22-30) mmol/L BUN (9-20) mg/dL Creatinine (0.66-1.25) mg/dL Calcium (8.4-10.2) mg/dL Magnesium (1.6-2.3) mg/dL Microbiology - Last 24 Hours (Table) 03/08/24 16:13 Blood Culture Gram Stain - Preliminary Blood Blood Culture - Preliminary Presumptive MRSA 03/07/24 16:35 Nasal Screen MRSA/MSSA - Final Nasal Swab Assessment and Plan (1) UTI (urinary tract infection) Current Visit: Yes Status: Acute Code(s): N39.0 - URINARY TRACT INFECTION, SITE NOT SPECIFIED SNOMED Code(s): 07265710 (2) Pneumonia Current Visit: Yes Status: Acute Code(s): J18.9 - PNEUMONIA, UNSPECIFIED ORGANISM SNOMED Code(s): 133961182 (3) RSV (acute bronchiolitis due to respiratory syncytial virus) Current Visit: Yes Status: Acute Code(s): J21.0 - ACUTE BRONCHIOLITIS DUE TO RESPIRATORY SYNCYTIAL VIRUS SNOMED Code(s): 663834651 (4) Unstageable pressure ulcer of left heel Current Visit: Yes Status: Acute Code(s): L89.620 - PRESSURE ULCER OF LEFT HEEL, UNSTAGEABLE SNOMED Code(s): 71041357971574727 (5) Bacteremia due to methicillin resistant Staphylococcus aureus Current Visit: Yes Status: Acute Code(s): R78.81 - BACTEREMIA; B95.62 - METHICILLIN RESIS STAPH INFCT CAUSING DISEASES CLASSD [id number] SNOMED Code(s): 68623866109523953 Plan: 1patient presented to hospital with mental status changes confusion weakness which is likely multifactorial in this patient who did have significant elevated white count did have a positive UA as well as right lower lobe consolidation concerning for possible pneumonia and a catheter assisted UTI, patient also tested positive for RSV treatment is mostly supportive 2patient did have unstageable pressure ulcer to the left heel but minimal cellulitis. Keep the area of the pressure and dry 3MRSA bacteremia source likely pneumonia however the patient did have a left chest wall dialysis catheter that has not been used and can be the source of this bacteremia, dialysis catheter has been removed and catheter tip has been sent for the culture which are currently pending 4patient blood culture to be repeated on 03/08/2024 also positive we will repeat blood cultures, and will continue with vancomycin pharmacy to dose while watching his kidney function closely Dictation was produced using [employer] dictation software. please excuse any grammatical, word or spelling errors. Time with Patient: Less than 30
--- NOTE | 2024-03-10 13:32 | P.PN ---
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 He has a past medical history of hypertension, liver cancer, possible history of atrial fibrillation although this cannot be confirmed. Patient presented to the hospital due to difficulty breathing and altered mental status. We have been asked to evaluate the patient for atrial fibrillation. Patient denies having any chest pain, no dizziness. He may have been able to feel his heart beating fast. He has had no syncopal episodes. He does have history of acute kidney injury requiring hemodialysis that only lasted for 3 weeks. He denies history of CVA. He denies history of [place]. Patient has tested positive for RSV and is in isolation. At the time of evaluation, patient has converted to sinus rhythm. Patient did not require Cardizem drip although it was initially ordered in the ER. Patient is seen today in the emergency center waiting for bed on the cardiac stepdown unit. Blood pressure 120/66, heart rate 77, pulse ox 100% on room air. -EKG: #1 atrial fibrillation 124 bpm, #2 sinus rhythm 92 bpm -Chest x-ray: Persistent right basilar consolidation. Suspect small right pleural effusion and pleural calcifications. #2 no acute process. -CT abdomen pelvis revealed small right pleural effusion. 18 mm subpleural nodule left lower lobe. Suspect hepatic masses. Trace free fluid in the pelvis is abnormal in a male nonspecific finding. -Laboratory studies: Initial WBC 23.2 and repeat 12.5, hemoglobin 10, platelet count 230. Sodium 139, potassium 5.3, BUN 69 and creatinine 1.77. Troponin negative x 1. proBNP 18,100. Urinalysis revealed large amount of leukoesterase, RBC 18, WBC greater than 182 and moderate WBC clumps. Many bacteria. RSV positive. Influenza A, influenza B, COVID-19 not detected. -Home cardiac medications: Coreg 12.5 mg every 12 hours, magnesium oxide 800 mg daily, potassium chloride 20 mill equivalents daily, torsemide 20 mg daily. 03/08/2024 Patient seen and examined. Patient went into A-fib with RVR last evening was started on Cardizem drip. He states his shortness of breath is a little bit better he still has a cough. He is scheduled for swallow evaluation this morning. Patient is continued on Cardizem drip until swallow evaluation has been completed. Blood pressure 117/67, heart rate 97, pulse ox 97% on 3 L nasal cannula. Repeat blood work reveals hemoglobin 10.3, WBC 14.4. Sodium 139, potassium 4.5, BUN 65 creatinine 1.55. Alkaline phosphatase 440. Repeat chest x-ray reveals small right pleural effusion developing. Echocardiogram is pending. 03/09/2024 Patient examined this morning at the bedside. Patient currently denies chest pain or pressure. He reports his breathing feels improved today. Patient was evaluated by speech therapy and remains n.p.o. He is currently on IV Cardizem at 5 mg an hour. His Eliquis remains on hold due to patient's inability to take oral medications. Echocardiogram completed revealing ejection fraction 50%, mild mitral stenosis, mild mitral regurgitation, mild aortic regurgitation, mild tricuspid regurgitation 03/10/2024 Patient examined this morning at the bedside. Patient is lethargic at the time of examination. Patient without complaints of chest pain or shortness of breath. He remains on IV heparin and IV Cardizem as he is unable to take oral medications. Per nursing, family is considering PEG tube insertion. Telemetry reveals sinus mechanism. PHYSICAL EXAM: VITAL SIGNS: Reviewed. GENERAL: Well-developed in no acute distress. NECK: Supple. No JVD or thyromegaly LUNGS: Respirations even and unlabored. Lungs essentially clear to auscultation bilaterally. HEART: Regular rate and rhythm. S1 and S2 heard. EXTREMITIES: Normal range of motion. No clubbing or cyanosis. Peripheral pulses intact. No lower extremity edema ASSESSMENT: RSV UTI and sepsis Paroxysmal atrial fibrillation, currently in a sinus rhythm. This is most likely related to infectious process. However, patient states that he was told he had atrial fibrillation in the past, but this cannot be confirmed by hospital documentation reviewed. Patient was not on anticoagulation at home. MRSA bacteremia Infectious metabolic encephalopathy Hypertension Liver cancer History of acute kidney injury requiring HD x 3 weeks Inability to take oral medications due to failed swallow screen PLAN: Patient was evaluated by speech therapy and remains NPO. Per nursing, family considering PEG tube insertion Continue IV Cardizem and IV heparin. Eliquis remains on hold while he is unable to take oral medications Continue telemetry monitoring Further recommendations pending patient course Nurse practitioner note has been reviewed by physician. Signing provider agrees with the documented findings, assessment, and plan of care documented by DENTISTRY TEACHER as a scribe. Objective - Vital Signs Vital signs: Vital Signs Temp 97.6 F 03/10/24 08:07 Pulse 80 03/10/24 12:13 Resp 15 03/10/24 11:07 BP 123/62 03/10/24 11:07 Pulse Ox 99 03/10/24 11:07 FiO2 Intake & Output 03/09/24 03/10/24 03/10/24 18:59 06:59 18:59 Intake Total 125 530.028 70.33 Output Total 100 100 Balance 25 530.028 -29.67 Weight 114 kg Intake: IV 488 Diltiazem 125 mg In 40 Sodium Chloride 0.9% 100 ml @ 5 MG/HR 5 mls/hr IV .Q24H [facility] Rx#:[id number] Heparin Sod,Pork in 0.45% 48 NaCl 25,000 unit In 0.45 % NaCl 1 250ml.bag @ 12 UNITS/KG/HR 6.384 mls/hr IV .Q24H [facility] Rx#: [id number] Sodium Chloride 0.9% 1, 400 000 ml @ 50 mls/hr IV . Q20H [facility] Rx#:[id number] Intake, IV Titration 125 42.028 70.33 Amount Diltiazem 125 mg In 125 Sodium Chloride 0.9% 100 ml @ 5 MG/HR 5 mls/hr IV .Q24H [facility] Rx#:[id number] Heparin Sod,Pork in 0.45% 42.028 70.33 NaCl 25,000 unit In 0.45 % NaCl 1 250ml.bag @ 12 UNITS/KG/HR 6.384 mls/hr IV .Q24H [facility] Rx#: [id number] Oral 0 Output: Gastric Drainage 0 Urine 100 100 Stool 0 Urine/Stool Mix 0 Emesis 0 Oral Regurgitation 0 Other 0 Other: Voiding Method External Catheter External Catheter External Catheter # Voids 1 # Bowel Movements 0 0 - Labs CBC & Chem 7: 03/10/24 06:23 03/10/24 06:23 Labs: Abnormal Lab Results - Last 24 Hours (Table) 03/09/24 03/10/24 03/10/24 Range/Units 20:23 06:23 06:23 WBC 10.9 H (3.8-10.6) k/uL RBC 3.36 L (4.30-5.90) m/uL Hgb 9.7 L (13.0-17.5) gm/dL Hct 32.4 L (39.0-53.0) % MCHC 29.9 L (31.0-37.0) g/dL Neutrophils # 9.6 H (1.3-7.7) k/uL Lymphocytes # 0.7 L (1.0-4.8) k/uL PT (10.0-12.5) sec INR (<1.2) APTT 42.2 H (22.0-30.0) sec Sodium 148 H (137-145) mmol/L Chloride 118 H (98-107) mmol/L Carbon Dioxide 17 L (22-30) mmol/L BUN 66 H (9-20) mg/dL Creatinine 1.37 H (0.66-1.25) mg/dL Calcium 7.6 L (8.4-10.2) mg/dL Magnesium 3.0 H (1.6-2.3) mg/dL 03/10/24 03/10/24 Range/Units 06:23 06:23 WBC (3.8-10.6) k/uL RBC (4.30-5.90) m/uL Hgb (13.0-17.5) gm/dL Hct (39.0-53.0) % MCHC (31.0-37.0) g/dL Neutrophils # (1.3-7.7) k/uL Lymphocytes # (1.0-4.8) k/uL PT 17.3 H (10.0-12.5) sec INR 1.7 H (<1.2) APTT 35.4 H (22.0-30.0) sec Sodium (137-145) mmol/L Chloride (98-107) mmol/L Carbon Dioxide (22-30) mmol/L BUN (9-20) mg/dL Creatinine (0.66-1.25) mg/dL Calcium (8.4-10.2) mg/dL Magnesium (1.6-2.3) mg/dL Microbiology - Last 24 Hours (Table) 03/08/24 16:13 Blood Culture Gram Stain - Preliminary Blood Blood Culture - Preliminary Presumptive MRSA 03/07/24 16:35 Nasal Screen MRSA/MSSA - Final Nasal Swab
--- NOTE | 2024-03-10 16:27 | XR ---
EXAMINATION TYPE: XR chest 1V DATE OF EXAM: 03/10/2024 4:12 PM COMPARISON: Prior chest radiograph 03/08/2024. CLINICAL INDICATION: Male, 88 years old with history of eval for overload; H TECHNIQUE: XR chest 1V Frontal view of the chest. FINDINGS: Mild cardiomegaly. Right chest wall port catheter with distal catheter tip terminating at the distal SVC. Small right and trace left pleural effusions with patchy interstitial opacities bilaterally. Subcenti meter regions of nodularity in the right upper lobe again noted. No pneumothorax. No acute osseous abnormality. IMPRESSION: Cardiomegaly, small right and trace left pleural effusions with patchy interstitial opacities bilater ally suggestive of pulmonary edema. Overall, findings appear slightly worse from recent study . [facility], , 03/10/2024 4:25 PM
[2024-03-10 16:37] LABS: Glucose,Whole Blood 111 mg/dL (70-110)
[2024-03-10] MEDS: FUROSEMIDE 10 MG/ML 4 ML VIAL IV STA (16:47)
[2024-03-10 20:05] LABS: Glucose,Whole Blood 123 mg/dL (70-110)
[2024-03-11 05:58] LABS: Glucose,Whole Blood 155 mg/dL (70-110)
[2024-03-11 07:41] LABS: African American GFR (CKD) 59 (>60 ml/min/1.73 sqM); Anion Gap 9 mmol/L; Blood Urea Nitrogen 66 mg/dL (9-20); Calcium 7.4 mg/dL (8.4-10.2); Carbon Dioxide 23 mmol/L (22-30); Chloride 115 mmol/L (98-107); Glucose 148 mg/dL (74-99); Magnesium 2.7 mg/dL (1.6-2.3); Non-African American GFR(CKD) 51 (>60 ml/min/1.73 sqM); Potassium 3.4 mmol/L (3.5-5.1); Sodium 147 mmol/L (137-145)
[2024-03-11] MEDS: HEPARIN SODIUM 1,000 UN/ML (10ML VL) IVP ONE (08:55)
[2024-03-11 11:33] LABS: Glucose,Whole Blood 174 mg/dL (70-110)
--- NOTE | 2024-03-11 11:46 | P.PN ---
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 He has a past medical history of hypertension, liver cancer, possible history of atrial fibrillation although this cannot be confirmed. Patient presented to the hospital due to difficulty breathing and altered mental status. We have been asked to evaluate the patient for atrial fibrillation. Patient denies having any chest pain, no dizziness. He may have been able to feel his heart beating fast. He has had no syncopal episodes. He does have history of acute kidney injury requiring hemodialysis that only lasted for 3 weeks. He denies history of CVA. He denies history of [place]. Patient has tested positive for RSV and is in isolation. At the time of evaluation, patient has converted to sinus rhythm. Patient did not require Cardizem drip although it was initially ordered in the ER. Patient is seen today in the emergency center waiting for bed on the cardiac stepdown unit. Blood pressure 120/66, heart rate 77, pulse ox 100% on room air. -EKG: #1 atrial fibrillation 124 bpm, #2 sinus rhythm 92 bpm -Chest x-ray: Persistent right basilar consolidation. Suspect small right pleural effusion and pleural calcifications. #2 no acute process. -CT abdomen pelvis revealed small right pleural effusion. 18 mm subpleural nodule left lower lobe. Suspect hepatic masses. Trace free fluid in the pelvis is abnormal in a male nonspecific finding. -Laboratory studies: Initial WBC 23.2 and repeat 12.5, hemoglobin 10, platelet count 230. Sodium 139, potassium 5.3, BUN 69 and creatinine 1.77. Troponin negative x 1. proBNP 18,100. Urinalysis revealed large amount of leukoesterase, RBC 18, WBC greater than 182 and moderate WBC clumps. Many bacteria. RSV positive. Influenza A, influenza B, COVID-19 not detected. -Home cardiac medications: Coreg 12.5 mg every 12 hours, magnesium oxide 800 mg daily, potassium chloride 20 mill equivalents daily, torsemide 20 mg daily. 03/08/2024 Patient seen and examined. Patient went into A-fib with RVR last evening was started on Cardizem drip. He states his shortness of breath is a little bit better he still has a cough. He is scheduled for swallow evaluation this morning. Patient is continued on Cardizem drip until swallow evaluation has been completed. Blood pressure 117/67, heart rate 97, pulse ox 97% on 3 L nasal cannula. Repeat blood work reveals hemoglobin 10.3, WBC 14.4. Sodium 139, potassium 4.5, BUN 65 creatinine 1.55. Alkaline phosphatase 440. Repeat chest x-ray reveals small right pleural effusion developing. Echocardiogram is pending. 03/09/2024 Patient examined this morning at the bedside. Patient currently denies chest pain or pressure. He reports his breathing feels improved today. Patient was evaluated by speech therapy and remains n.p.o. He is currently on IV Cardizem at 5 mg an hour. His Eliquis remains on hold due to patient's inability to take oral medications. Echocardiogram completed revealing ejection fraction 50%, mild mitral stenosis, mild mitral regurgitation, mild aortic regurgitation, mild tricuspid regurgitation 03/10/2024 Patient examined this morning at the bedside. Patient is lethargic at the time of examination. Patient without complaints of chest pain or shortness of breath. He remains on IV heparin and IV Cardizem as he is unable to take oral medications. Per nursing, family is considering PEG tube insertion. Telemetry reveals sinus mechanism. 03/11/24 Patient examined this morning at the bedside. Patient lethargic. No family present. Patient remains NPO. He remains on IV heparin and IV Cardizem. Telemet ry reveals sinus mechanism. PHYSICAL EXAM: VITAL SIGNS: Reviewed. GENERAL: Well-developed in no acute distress. NECK: Supple. No JVD or thyromegaly LUNGS: Respirations even and unlabored. Lungs essentially clear to auscultation bilaterally. HEART: Regular rate and rhythm. S1 and S2 heard. EXTREMITIES: Normal range of motion. No clubbing or cyanosis. Peripheral pulses intact. No lower extremity edema ASSESSMENT: RSV UTI and sepsis Paroxysmal atrial fibrillation, currently in a sinus rhythm. This is most likely related to infectious process. However, patient states that he was told he had atrial fibrillation in the past, but this cannot be confirmed by hospital documentation reviewed. Patient was not on anticoagulation at home. MRSA bacteremia Infectious metabolic encephalopathy Hypertension Liver cancer History of acute kidney injury requiring HD x 3 weeks Inability to take oral medications due to failed swallow screen PLAN: Patient was evaluated by speech therapy and remains NPO. Per nursing yesterday, family considering PEG tube insertion Continue IV Cardizem and IV heparin. Eliquis remains on hold while he is unable to take oral medications Continue telemetry monitoring Further recommendations pending patient course Nurse practitioner note has been reviewed by physician. Signing provider agrees with the documented findings, assessment, and plan of care documented by TALENT ACQUISITION PARTNER as a scribe. Objective - Vital Signs Vital signs: Vital Signs Temp 96.9 F L 03/11/24 08:00 Pulse 82 03/11/24 08:00 Resp 18 03/11/24 08:00 BP 114/57 03/11/24 08:00 Pulse Ox 88 L 03/11/24 08:00 FiO2 Intake & Output 03/10/24 03/11/24 03/11/24 18:59 06:59 18:59 Intake Total 127.059 20 127.733 Output Total 175 550 0 Balance -47.941 -530 127.733 Weight 114 kg Intake: IV 20 Invasive Line 5 10 Invasive Line 6 10 Intake, IV Titration 127.059 127.733 Amount Heparin Sod,Pork in 0.45% 127.059 127.733 NaCl 25,000 unit In 0.45 % NaCl 1 250ml.bag @ 12 UNITS/KG/HR 6.384 mls/hr IV .Q24H [facility] Rx#: [id number] Output: Gastric Drainage 0 Urine 175 550 Stool 0 0 Urine/Stool Mix 0 Emesis 0 Oral Regurgitation 0 Other 0 Other: Voiding Method External Catheter External Catheter External Catheter # Voids 1 # Bowel Movements 0 - Labs CBC & Chem 7: 03/10/24 06:23 03/11/24 06:18 Labs: Abnormal Lab Results - Last 24 Hours (Table) 03/10/24 03/10/24 03/10/24 Range/Units 14:05 16:32 20:02 APTT 43.6 H (22.0-30.0) sec Sodium (137-145) mmol/L Potassium (3.5-5.1) mmol/L Chloride (98-107) mmol/L BUN (9-20) mg/dL Creatinine (0.66-1.25) mg/dL Glucose (74-99) mg/dL POC Glucose (mg/dL) 111 H 123 H (70-110) mg/dL Calcium (8.4-10.2) mg/dL Magnesium (1.6-2.3) mg/dL 03/11/24 03/11/24 03/11/24 Range/Units 05:56 06:18 06:18 APTT 30.8 H (22.0-30.0) sec Sodium 147 H (137-145) mmol/L Potassium 3.4 L (3.5-5.1) mmol/L Chloride 115 H (98-107) mmol/L BUN 66 H (9-20) mg/dL Creatinine 1.26 H (0.66-1.25) mg/dL Glucose 148 H (74-99) mg/dL POC Glucose (mg/dL) 155 H (70-110) mg/dL Calcium 7.4 L (8.4-10.2) mg/dL Magnesium 2.7 H (1.6-2.3) mg/dL 03/11/24 Range/Units 11:32 APTT (22.0-30.0) sec Sodium (137-145) mmol/L Potassium (3.5-5.1) mmol/L Chloride (98-107) mmol/L BUN (9-20) mg/dL Creatinine (0.66-1.25) mg/dL Glucose (74-99) mg/dL POC Glucose (mg/dL) 174 H (70-110) mg/dL Calcium (8.4-10.2) mg/dL Magnesium (1.6-2.3) mg/dL Microbiology - Last 24 Hours (Table) 03/09/24 11:30 Catheter Tip Culture - Preliminary Catheter Tip Presumptive MRSA 03/08/24 16:13 Blood Culture Gram Stain - Preliminary Blood Blood Culture - Preliminary Presumptive MRSA
--- NOTE | 2024-03-11 12:48 | P.PN ---
Subjective Patient is seen for follow-up for acute kidney injury. He is sleeping but arousable. Patient does not communicate much. Renal function has improved with serum creatinine down to 1.2 mg/dL. Serum sodium 147 today. Patient is maintained on D5W at 60 cc an hour. Failed swallow evaluation Objective - Vital Signs Vital signs: Vital Signs Temp 96.9 F L 03/11/24 08:00 Pulse 82 03/11/24 08:00 Resp 18 03/11/24 08:00 BP 114/57 03/11/24 08:00 Pulse Ox 88 L 03/11/24 08:00 FiO2 Intake & Output 03/10/24 03/11/24 03/11/24 18:59 06:59 18:59 Intake Total 127.059 20 127.733 Output Total 175 550 0 Balance -47.941 -530 127.733 Weight 114 kg Intake: IV 20 Invasive Line 5 10 Invasive Line 6 10 Intake, IV Titration 127.059 127.733 Amount Heparin Sod,Pork in 0.45% 127.059 127.733 NaCl 25,000 unit In 0.45 % NaCl 1 250ml.bag @ 12 UNITS/KG/HR 6.384 mls/hr IV .Q24H [facility] Rx#: [id number] Output: Gastric Drainage 0 Urine 175 550 Stool 0 0 Urine/Stool Mix 0 Emesis 0 Oral Regurgitation 0 Other 0 Other: Voiding Method External Catheter External Catheter External Catheter # Voids 1 # Bowel Movements 0 - Exam Patient is comfortable, no acute distress Examination of the heart S1 and S2 Examination of the lungs bilateral breath sounds are heard Abdomen is soft nontender Examination of lower extremity shows no significant edema - Labs CBC & Chem 7: 03/10/24 06:23 03/11/24 06:18 Labs: Abnormal Lab Results - Last 24 Hours (Table) 03/10/24 03/10/24 03/10/24 Range/Units 14:05 16:32 20:02 APTT 43.6 H (22.0-30.0) sec Sodium (137-145) mmol/L Potassium (3.5-5.1) mmol/L Chloride (98-107) mmol/L BUN (9-20) mg/dL Creatinine (0.66-1.25) mg/dL Glucose (74-99) mg/dL POC Glucose (mg/dL) 111 H 123 H (70-110) mg/dL Calcium (8.4-10.2) mg/dL Magnesium (1.6-2.3) mg/dL 03/11/24 03/11/24 03/11/24 Range/Units 05:56 06:18 06:18 APTT 30.8 H (22.0-30.0) sec Sodium 147 H (137-145) mmol/L Potassium 3.4 L (3.5-5.1) mmol/L Chloride 115 H (98-107) mmol/L BUN 66 H (9-20) mg/dL Creatinine 1.26 H (0.66-1.25) mg/dL Glucose 148 H (74-99) mg/dL POC Glucose (mg/dL) 155 H (70-110) mg/dL Calcium 7.4 L (8.4-10.2) mg/dL Magnesium 2.7 H (1.6-2.3) mg/dL 03/11/24 Range/Units 11:32 APTT (22.0-30.0) sec Sodium (137-145) mmol/L Potassium (3.5-5.1) mmol/L Chloride (98-107) mmol/L BUN (9-20) mg/dL Creatinine (0.66-1.25) mg/dL Glucose (74-99) mg/dL POC Glucose (mg/dL) 174 H (70-110) mg/dL Calcium (8.4-10.2) mg/dL Magnesium (1.6-2.3) mg/dL Microbiology - Last 24 Hours (Table) 03/08/24 16:13 Blood Culture Gram Stain - Final Blood Blood Culture - Final Methicillin resist S. aureus 03/09/24 11:30 Catheter Tip Culture - Preliminary Catheter Tip Presumptive MRSA Assessment and Plan Assessment: 1. Acute kidney injury secondary to ATN secondary to hypovolemia. Improving with fluids. Creatinine 1.86 on admission and is 1.2 today. 2. 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 Feliz grullon developed ATN and required hemodialysis in November 2023. Last dialysis treatment was January 08, 2024. 3. Liver cancer. 4. RSV pneumonia. 5. Metabolic acidosis secondary to acute kidney injury and IV fluids. 6. MRSA bacteremia. 7. A-fib with RVR on Cardizem drip and IV heparin. 8. Hypomagnesemia for magnesium supplementation. Plan: Continue antibiotics Continue to monitor renal function Overall prognosis is guarded
--- NOTE | 2024-03-11 14:10 | P.PN ---
Subjective patient is a 88-year-old gentleman with past medical history significant for liver cancer, atrial fibrillation who presented the ER because of shortness of breath and altered mental status. Most of the history is taken from electronic medical records according to patient patient has been feeling ill for the last 3 days. Patient has a lot of sick contacts in the family who are having upper respiratory infection. Patient was complaining of shortness of breath for the last 3 days. Patient also found to be lethargic and weak. There was no c omplaint of fever or chills. Patient was complaining shortness of breath on rest as on exertion. There was no complaint of chest pain. There was no complaint of orthopnea or PND. There was no complaint nausea or vomiting. Patient was complaining of lower abdominal pain which was intermittent, n onradiating, no aggravating or relieving factor associated with it. Because of shortness of breath, patient brought to the ER Initial lab work done in the ER showed WBC 23.2, hemoglobin 11.8, platelet count 405, sodium 130s, potassium 5.4, BUN 68, creatinine 1.86, proBNP 18,100, Urine showed large amount of leukocyte Estrace, urine WBC 182 Influenza A not detected Influenza B not detected RSVdetected COVID-19 not detected EKG done in the ER showed heart rate of 124, irregular and rhythm and rate, no ST segment elevation or depression seen, no T-wave inversions seen. Chest x-ray done in the ER showed persistent right basilar consolidation, suspect small right pleural effusion and calcifications X-ray abdomen done showed small bowel ileus CT abdomen and pelvis done showed small right pleural effusion with right basilar consolidation, 18 mm subpleural nodule in posterior medial left lower lobe Patient admitted to internal medicine service 03/07. Patient seen and examined. Patient is alert, continues to complain of cough, cough gets exacerbated by swallowing will get speech evaluation. No fevers overnight. Currently on room air 03/08. Patient seen and examined. Continues to complain of cough. Oxygen requirements increased this morning to 4 L, patient was made n.p.o. in anticipa tion for speech evaluation 03/09. Patient seen and examined. Patient failed speech evaluation yesterday, blood work done this morning showed WBC 10.7, hemoglobin 10.1, sodium 144, potassium 4.1, BUN 16, creatinine 1.48. 2D echo done showed normal LV function at 50%, mild aortic regurg, mild mitral stenosis and regurg. Had a long discussion with patient's son at the bedside, discussed with him regarding long- term prognosis and goals of care, patient does not want feeding tube, son will talk to his family regarding possible hospice 03/10. Patient seen examined. Continues to be lethargic. Family has been approached about palliative and hospice but they are undecided yet. 03/11/24 This is an 88 years old male with past medical history of liver cancer with hepatocellular carcinoma, hypertension, hyperlipidemia and diabetes Presents and currently in severe multiple illness, he has metabolic encephalopathy secondary to right lower lobe pneumonia Also he has A-fib with RVR, acute urinary tract infection, chronic kidney disease and currently has eaten difficulty and dysphagia He looks cachectic He is very confused, nonverbal, does not respond to verbal or tactile stimuli, does not open eyes spontaneously. His breathing looks labored. His prognosis looks very poor, and hospice has been recommended by several doctors like previous hospitalist and production ski repairer and staff I talked with the conference meeting with the daughter Isabelle and the son Jose L over the phone and I discussed his medical problems for their father and they verbalized understanding and acceptance to them treatment plan Their main concerns is feeding and they want to provide nutrition for him and they agree to the NG tube feeding if possible we will going to try it, rather than getting PEG tube Also they confirmed to me he is DNR/DNI and they are going to consider his the comfort care measures and hospice for him as goal of treatment In the meantime patient remains on heparin drip, which is new for him, IV va ncomycin and Cardizem drip and other medication Active Medications Generic Name Dose Route Start Last Admin Trade Name Freq PRN Reason Stop Dose Admin Albuterol/Ipratropium 3 ml 03/07/24 22:05 03/10/24 15:41 Ipratropium-Albuterol 3 Ml Neb INHALATION 3 ml RT-QID PRN Administration Shortness Of Breath Or Wheezing Carvedilol 12.5 mg 03/06/24 10:45 03/11/24 09:00 Carvedilol 12.5 Mg Tab PO Not Given Q12HR [facility] Guaifenesin 600 mg 03/07/24 13:00 03/11/24 09:00 Guaifenesin 600 Mg Tablet.Er PO Not Given Q12HR [facility] Guaifenesin/Codeine Phosphate 10 ml 03/07/24 12:47 03/07/24 16:12 Guaifenesin-Coden 100-10mg/5ml 10 Ml Cup PO 10 ml Q6HR PRN Administration Cough Heparin Sodium (Porcine) 0 unit 03/09/24 13:33 Heparin Sodium 1,000 Un/Ml (10ml Vl) IV PER PROTOCOL PRN Low PTT Protocol Diltiazem HCl 125 mg/ Sodium 125 mls @ 5 mls/hr 03/07/24 22:45 03/11/24 07:03 Chloride IV Not Given .Q24H [facility] 5 MG/HR Heparin Sodium/Sodium Chloride 250 mls @ 6.384 mls/hr 03/09/24 13:45 03/11/24 08:55 25,000 unit/ Sodium Chloride IV 17 units/kg/hr .Q24H [facility] 9.044 mls/hr Titration Protocol 12 UNITS/KG/HR Vancomycin HCl 1,000 mg/ 250 mls @ 125 mls/hr 03/10/24 09:00 03/11/24 09:09 Sodium Chloride IVPB 125 mls/hr Q24HR [facility] Administration Dextrose/Water 1,000 mls @ 75 mls/hr 03/11/24 13:00 Dextrose 5%-Water Iv Soln IV .[id number] [facility] Loratadine 10 mg 03/06/24 10:26 Loratadine 10 Mg Tab PO DAILY PRN Allergy Symptoms Mirtazapine 15 mg 03/06/24 21:00 03/10/24 21:29 Mirtazapine 15 Mg Tab PO Not Given HS [facility] Miscellaneous Information 1 each 03/06/24 03:41 Pneumonia Protocol Utilized 1 Each Misc PO ONCE PRN Per Protocol Potassium Chloride 20 meq 03/07/24 09:00 03/11/24 09:01 Potassium Chloride Er 20 Meq Tab.Er PO Not Given DAILY [facility] Sertraline HCl 25 mg 03/07/24 09:00 03/11/24 09:01 Sertraline 25 Mg Tab PO Not Given DAILY [facility] Sodium Bicarbonate 650 mg 03/10/24 10:30 03/11/24 09:01 Sodium Bicarbonate Tab 650 Mg Tab PO Not Given BID [facility] Tamsulosin HCl 0.4 mg 03/07/24 09:00 03/11/24 09:01 Tamsulosin 0.4 Mg Cap.Er.24h PO Not Given DAILY [facility] Objective - Vital Signs Vital signs: Vital Signs Temp 97.5 F L 03/11/24 03:50 Pulse 79 03/11/24 03:50 Resp 15 03/11/24 03:50 BP 134/63 03/11/24 03:50 Pulse Ox 94 L 03/11/24 03:50 FiO2 Intake & Output 03/10/24 03/11/24 03/11/24 18:59 06:59 18:59 Intake Total 127.059 20 127.733 Output Total 175 550 Balance -47.941 -530 127.733 Weight 114 kg Intake: IV 20 Invasive Line 5 10 Invasive Line 6 10 Intake, IV Titration 127.059 127.733 Amount Heparin Sod,Pork in 0.45% 127.059 127.733 NaCl 25,000 unit In 0.45 % NaCl 1 250ml.bag @ 12 UNITS/KG/HR 6.384 mls/hr IV .Q24H [facility] Rx#: [id number] Output: Gastric Drainage 0 Urine 175 550 Stool 0 Urine/Stool Mix 0 Emesis 0 Oral Regurgitation 0 Other 0 Other: Voiding Method External Catheter External Catheter # Voids 1 # Bowel Movements 0 - Exam -Tachypnea with bilateral GENERAL: The patient is a lethargic, confused, does not answer question, opens eyes little bit. Does not follow commands. Patient is cachectic HEENT: Pupils are round and equally reacting to light. EOMI. No scleral icterus. No conjunctival pallor. Normocephalic, atraumatic. No pharyngeal erythema. No thyromegaly. CARDIOVASCULAR: S1 and S2 present. No murmurs, rubs, or gallops. -PULMONARY: Chest is clear to auscultation, no wheezing , coarse crepitation ABDOMEN: Soft, nontender, nondistended, normoactive bowel sounds. No palpable organomegaly. MUSCULOSKELETAL: No joint swelling or deformity. EXTREMITIES: No cyanosis, clubbing, or pedal edema. NEUROLOGICAL: Gross neurological examination did not reveal any focal deficits. SKIN: No rashes. no petechiae. - Labs CBC & Chem 7: 03/10/24 06:23 03/11/24 06:18 Labs: Abnormal Lab Results - Last 24 Hours (Table) 03/10/24 03/10/24 03/10/24 Range/Units 14:05 16:32 20:02 APTT 43.6 H (22.0-30.0) sec Sodium (137-145) mmol/L Potassium (3.5-5.1) mmol/L Chloride (98-107) mmol/L BUN (9-20) mg/dL Creatinine (0.66-1.25) mg/dL Glucose (74-99) mg/dL POC Glucose (mg/dL) 111 H 123 H (70-110) mg/dL Calcium (8.4-10.2) mg/dL Magnesium (1.6-2.3) mg/dL 03/11/24 03/11/24 03/11/24 Range/Units 05:56 06:18 06:18 APTT 30.8 H (22.0-30.0) sec Sodium 147 H (137-145) mmol/L Potassium 3.4 L (3.5-5.1) mmol/L Chloride 115 H (98-107) mmol/L BUN 66 H (9-20) mg/dL Creatinine 1.26 H (0.66-1.25) mg/dL Glucose 148 H (74-99) mg/dL POC Glucose (mg/dL) 155 H (70-110) mg/dL Calcium 7.4 L (8.4-10.2) mg/dL Magnesium 2.7 H (1.6-2.3) mg/dL Microbiology - Last 24 Hours (Table) 03/09/24 11:30 Catheter Tip Culture - Preliminary Catheter Tip Presumptive MRSA 03/08/24 16:13 Blood Culture Gram Stain - Preliminary Blood Blood Culture - Preliminary Presumptive MRSA Assessment and Plan Assessment: Acute infectious encephalopathy Sepsis MRSA bacteremia A-fib with RVR Bacterial pneumonia Sepsis Leukocytosis Hyponatremia Hyperkalemia UTI Acute kidney injury RSV infection History of hypertension Liver cancer Plan: I talked to the family today and they request tube feeding, they agreed to try the NG tube feeding Family also will consider more palliative approach of treatment Monitor vital signs Monitor CBC Monitor CMP Continue telemetry monitoring Aggressive bronchopulmonary hygiene Speech therapy following Continue Mucinex Blood cultures are positive for MRSA Follow-up on sputum cultures Continue pharmacy dose vancomycin Continue Cardizem drip, Eliquis 2D echo done showed normal LV function at 50%, mild aortic regurg, mild mitral stenosis and regurg. Cardiology following ID following
--- NOTE | 2024-03-11 15:09 | P.PN ---
Subjective Progress Note Date: 03/11/24 Patient is a 88-year-old male with medical history significant for chronic kidney disease, diabetes mellitus type 2, liver cancer, hyperlipidemia, hypertension, among other things. Brought in by EMS on 03/06/2024 with change in mental status and difficulty in breathing. He also had a complaint of abdom inal pain. Initial KUB x-ray concerning for possible ileus. Follow-up abdominal CT showing small right pleural effusion with right basilar consolidation suggestive atelectasis or pneumonia. Incidental 1.8 cm subpleural nodule found in the posterior medial left lower lobe. Also, hepatic masses were seen but not detailed, patient does have history of hepatocellular carcinoma. Trace free fluid seen in the pelvis. He was found to be in atrial fibrillation with rapid ventricular rates in the ED. Started initially on a Cardizem infusion. He did meet SIRS/sepsis criteria and was started on antibiotics. Suspected right lower lobe pneumonia. Also, positive for RSV, possible incidental finding. Later found to be positive for MRSA bacteremia. Patient continues to subclavian hemodialysis catheter. Patient is on antibiotics by direction of infectious disease. Most recent CBC shows improvement in leukocytosis with a WBC count down to 12.5, hemoglobin 10, hematocrit 33.3, platelets 230. Coagulation profile with a PT of 13.9, INR of 1.3, APTT 25.9. Most recent basic metabolic panel demonstrating a sodium 139, potassium 5.3, chloride 1 7, serum bicarb 17, anion gap 12, BUN 69, creatinine 1.77, glucose 117. AST 52, ALT 14, ALP 425. Total bili 0.4. NT proBNP was significantly elevated at 18,100. Troponin 0.016. Urinalysis positive for leukocytes and many bacteria. Patient does have history of frequent urinary tract infections. Patient is currently being evaluated on the cardiac stepdown unit. His mentation is somewhat improved. He is alert and able to answer most of my questions. Unsure of events leading to his hospitalization. He appears very weak and has a congested cough unable to clear his secretions. He is going to have a swallow evaluation. Remains on Cardizem running at 5 mg/h. Eliquis was started for anticoagulation. Current most recent vitals: Temperature 98.0 F, heart rate 96 bpm, blood pressure 106/71 mmHg, SpO2 97% on 3 L/min nasal cannula . Progress note dated March 09, 2024. 88-year-old male seen today in room 358. He continues on nasal O2 at 3 L, and, is on a Cardizem drip at 5 mg an hour. The patient's blood cultures were posit madiha for methicillin-resistant Staphylococcus aureus. The patient continues on vancomycin. The patient also tested positive for RSV. Current labs include a white count 10.7, hemoglobin 10.1, hematocrit 34.1, and a platelet count of 223,000. Sodium 144, potassium 4.1, chlorides 115, CO2 17, anion gap 12, BUN 69, and creatinine 1.48. Glucose is 86. Calcium 7.7. Albumin is 2.0. Chest x-ray from yesterday shows a small right-sided pleural effusion. Progress note dated March 10, 2024. 88-year-old very frail male, seen today in room 358. The patient continues on nasal O2 at 3 L. He is receiving IV heparin, and Cardizem drip at 5 mg an hour. In addition, he is getting saline at 50 cc an hour. He tested positive for RSV. He is very very frail, and some consideration should be given to hospice, or palliative care consultation. Currently, white count is 10.9, hemoglobin 9.7, hematocrit 32.4, platelet count 2 50,000. PT 17.3, INR 1.7, PTT 35.4. Sodium 148, potassium 3.6, chlorides 118, CO2 17, anion gap 13, BUN 66, and creatinine 1.37. Glucose is 81. Calcium 7.6, magnesium 3. Blood cultures are positive for presumptive MRSA. The patient continues on vancomycin. On 03/11/2024, the patient is being seen for a follow-up. The patient is an extremely poor condition. The patient is almost unresponsive and not communicating. He remains in acute hypoxic respiratory failure and the patient remains on oxygen 2 L/min nasal cannula. He is known to have extensive number of comorbidities including hepatocellular carcinoma, hypertension, diabetes mellitus type 2, chronic kidney disease and chronic atrial fibrillation. Furthermore, the patient was found to have an acute RSV infection and the patient was also septic from a dialysis catheter that was ultimately removed and the catheter tip and the blood culture was positive for MRSA consistent with line infection the patient remains on vancomycin. Hemodynamically, the patient is normal tensive, no significant tachycardia, maintaining his own pressure. Nevertheless, he is quite obtunded and lethargic. He remains on IV heparin. He remains on IV Cardizem drip. This was started regarding paroxysmal atrial fibrillation and the patient is converted into normal sinus rhythm. This was thought to be related to his underlying infectious process. He is unable to swallow and the patient is currently NPO. Sodium levels at 147, BUN is 66 with a creatinine of 1.2. Potassium level is at 3.4. The white cell count from yesterday was at 10.9 with a hemoglobin of 9.7. Objective - Vital Signs Vital signs: Vital Signs Temp 96.9 F L 03/11/24 08:00 Pulse 82 03/11/24 08:00 Resp 18 03/11/24 08:00 BP 114/57 03/11/24 08:00 Pulse Ox 88 L 03/11/24 08:00 FiO2 Intake & Output 03/10/24 03/11/24 03/11/24 18:59 06:59 18:59 Intake Total 127.059 20 127.733 Output Total 175 550 0 Balance -47.941 -530 127.733 Weight 114 kg Intake: IV 20 Invasive Line 5 10 Invasive Line 6 10 Intake, IV Titration 127.059 127.733 Amount Heparin Sod,Pork in 0.45% 127.059 127.733 NaCl 25,000 unit In 0.45 % NaCl 1 250ml.bag @ 12 UNITS/KG/HR 6.384 mls/hr IV .Q24H [facility] Rx#: [id number] Output: Gastric Drainage 0 Urine 175 550 Stool 0 0 Urine/Stool Mix 0 Emesis 0 Oral Regurgitation 0 Other 0 Other: Voiding Method External Catheter External Catheter External Catheter # Voids 1 # Bowel Movements 0 - Exam No acute distress, oriented 3. Currently on 2 L. The patient is very frail, with shallow respirations. The patient is obtunded, unresponsive, does not communicate and the patient is in a very poor condition. HEENT examination is grossly unremarkable. Mucous membranes are moist. No oral lesions. Neck supple. Full range of motion. No adenopathy thyromegaly or neck vein distention. Cardiovascular examination reveals regular rhythm rate. S1-S2 normal. No S3 or S4. No discernible murmur noted. Heart sounds are distant. Lungs reveal diffuse bilateral rhonchi. Breath sounds are equal. He does not take deep breaths. No wheezes. No crackles. Abdomen soft bowel sounds are heard. No masses or tenderness. Extremities are intact. No cyanosis clubbing or edema. Skin is without rash or lesion. Neurologic examination is brief but nonfocal. Profound weakness in all 4 extremities, encephalopathic. - Labs CBC & Chem 7: 03/10/24 06:23 03/11/24 06:18 Labs: Abnormal Lab Results - Last 24 Hours (Table) 03/10/24 03/10/24 03/10/24 Range/Units 14:05 16:32 20:02 APTT 43.6 H (22.0-30.0) sec Sodium (137-145) mmol/L Potassium (3.5-5.1) mmol/L Chloride (98-107) mmol/L BUN (9-20) mg/dL Creatinine (0.66-1.25) mg/dL Glucose (74-99) mg/dL POC Glucose (mg/dL) 111 H 123 H (70-110) mg/dL Calcium (8.4-10.2) mg/dL Magnesium (1.6-2.3) mg/dL 03/11/24 03/11/24 03/11/24 Range/Units 05:56 06:18 06:18 APTT 30.8 H (22.0-30.0) sec Sodium 147 H (137-145) mmol/L Potassium 3.4 L (3.5-5.1) mmol/L Chloride 115 H (98-107) mmol/L BUN 66 H (9-20) mg/dL Creatinine 1.26 H (0.66-1.25) mg/dL Glucose 148 H (74-99) mg/dL POC Glucose (mg/dL) 155 H (70-110) mg/dL Calcium 7.4 L (8.4-10.2) mg/dL Magnesium 2.7 H (1.6-2.3) mg/dL 03/11/24 Range/Units 11:32 APTT (22.0-30.0) sec Sodium (137-145) mmol/L Potassium (3.5-5.1) mmol/L Chloride (98-107) mmol/L BUN (9-20) mg/dL Creatinine (0.66-1.25) mg/dL Glucose (74-99) mg/dL POC Glucose (mg/dL) 174 H (70-110) mg/dL Calcium (8.4-10.2) mg/dL Magnesium (1.6-2.3) mg/dL Microbiology - Last 24 Hours (Table) 03/09/24 11:30 Catheter Tip Culture - Preliminary Catheter Tip Presumptive MRSA 03/08/24 16:13 Blood Culture Gram Stain - Preliminary Blood Blood Culture - Preliminary Presumptive MRSA Assessment and Plan Plan: Acute hypoxemic respiratory failure, likely right lower lobe pneumonia, possible aspiration pneumonia. There is also a component of small bilateral pleural effusion and patchy interstitial opacities suggestive of interstitial edema Acute RSV infection. MRSA sepsis Line infection the patient had a positive MRSA septicemia with the blood culture of the catheter being positive for MRSA. The patient remains on vancomycin. Atrial fibrillation with rapid ventricular response, converted to normal sinus mechanism. The patient remains on IV heparin and Cardizem drip for rate control. Altered mental status, likely secondary to sepsis. In addition to that, there is a component of metabolic encephalopathy/uremic encephalopathy/possibly hepatic encephalopathy in addition. 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 Patient developed ATN and required hemodialysis in November 2023. Last dialysis treatment was January 08, 2024. History of frequent urinary tract infections. Diabetes mellitus type 2. History of hepatocellular carcinoma. History of hyperlipidemia. History of hypertension. Plan: Respiratory status remained stable and the patient remains on 2 L of oxygen by nasal cannula small bilateral pleural effusion and component of mild pulm vessel congestion, Not causing any significant respiratory distress Prognosis extremely poor DNR/DNI CODE STATUS Continue IV vancomycin Continue IV heparin Continue Cardizem drip Monitor urine output and fluid balance Nephrology on the case Recommend hospice care
[2024-03-11 16:36] LABS: Glucose,Whole Blood 150 mg/dL (70-110)
[2024-03-11 20:32] LABS: Glucose,Whole Blood 136 mg/dL (70-110)
[2024-03-12] MEDS: ENOXAPARIN 120 MG/0.8 ML SYRINGE SQ SCH (05:02)
--- NOTE | 2024-03-12 05:23 | P.PN ---
Subjective Progress Note Date: 03/11/24 Principal diagnosis: Reason for follow-up is MRSA bacteremia/pneumonia Patient is a 88-year-old male with a past medical history significant for diabetes mellitus hypertension liver cancer and prostate disorder patient has been brought to the hospital by EMS concern for difficulty breathing and mental status changes patient did have a CT with evidence of right basilar consolidation concerning for pneumonia subsequent blood culture positive with MRSA. On today's evaluation that is 03/11/2023, patient has been afebrile, patient is breathing comfortably and is currently on 2 L nasal cannula OXYGEN, patient does not seem to be any distressed no vomiting or diarrhea is reported patient was lethargic did not answer any question. No CBC was done today his white count was 10.9 as of yesterday creat is 1.26 catheter positive for MRSA Objective - Vital Signs Vital signs: Vital Signs Temp 96.9 F L 03/11/24 08:00 Pulse 82 03/11/24 08:00 Resp 18 03/11/24 08:00 BP 114/57 03/11/24 08:00 Pulse Ox 88 L 03/11/24 08:00 FiO2 Intake & Output 03/10/24 03/11/24 03/11/24 18:59 06:59 18:59 Intake Total 127.059 20 127.733 Output Total 175 550 0 Balance -47.941 -530 127.733 Weight 114 kg Intake: IV 20 Invasive Line 5 10 Invasive Line 6 10 Intake, IV Titration 127.059 127.733 Amount Heparin Sod,Pork in 0.45% 127.059 127.733 NaCl 25,000 unit In 0.45 % NaCl 1 250ml.bag @ 12 UNITS/KG/HR 6.384 mls/hr IV .Q24H [facility] Rx#: [id number] Output: Gastric Drainage 0 Urine 175 550 Stool 0 0 Urine/Stool Mix 0 Emesis 0 Oral Regurgitation 0 Other 0 Other: Voiding Method External Catheter External Catheter External Catheter # Voids 1 # Bowel Movements 0 - Exam GENERAL DESCRIPTION: An elderly male lying in bed in no distress RESPIRATORY SYSTEM: Unlabored breathing , decreased breath sounds at bases HEART: S1 S2 regular rate and rhythm , ABDOMEN: Soft , no tenderness EXTREMITIES: Left heel wound with some necrosis minimal redness - Labs CBC & Chem 7: 03/10/24 06:23 03/11/24 06:18 Labs: Abnormal Lab Results - Last 24 Hours (Table) 03/10/24 03/10/24 03/10/24 Range/Units 14:05 16:32 20:02 APTT 43.6 H (22.0-30.0) sec Sodium (137-145) mmol/L Potassium (3.5-5.1) mmol/L Chloride (98-107) mmol/L BUN (9-20) mg/dL Creatinine (0.66-1.25) mg/dL Glucose (74-99) mg/dL POC Glucose (mg/dL) 111 H 123 H (70-110) mg/dL Calcium (8.4-10.2) mg/dL Magnesium (1.6-2.3) mg/dL 03/11/24 03/11/24 03/11/24 Range/Units 05:56 06:18 06:18 APTT 30.8 H (22.0-30.0) sec Sodium 147 H (137-145) mmol/L Potassium 3.4 L (3.5-5.1) mmol/L Chloride 115 H (98-107) mmol/L BUN 66 H (9-20) mg/dL Creatinine 1.26 H (0.66-1.25) mg/dL Glucose 148 H (74-99) mg/dL POC Glucose (mg/dL) 155 H (70-110) mg/dL Calcium 7.4 L (8.4-10.2) mg/dL Magnesium 2.7 H (1.6-2.3) mg/dL 03/11/24 Range/Units 11:32 APTT (22.0-30.0) sec Sodium (137-145) mmol/L Potassium (3.5-5.1) mmol/L Chloride (98-107) mmol/L BUN (9-20) mg/dL Creatinine (0.66-1.25) mg/dL Glucose (74-99) mg/dL POC Glucose (mg/dL) 174 H (70-110) mg/dL Calcium (8.4-10.2) mg/dL Magnesium (1.6-2.3) mg/dL Microbiology - Last 24 Hours (Table) 03/08/24 16:13 Blood Culture Gram Stain - Final Blood Blood Culture - Final Methicillin resist S. aureus 03/09/24 11:30 Catheter Tip Culture - Preliminary Catheter Tip Presumptive MRSA Assessment and Plan (1) UTI (urinary tract infection) Current Visit: Yes Status: Acute Code(s): N39.0 - URINARY TRACT INFECTION, SITE NOT SPECIFIED SNOMED Code(s): 38924375 (2) Pneumonia Current Visit: Yes Status: Acute Code(s): J18.9 - PNEUMONIA, UNSPECIFIED ORGANISM SNOMED Code(s): 945107423 (3) RSV (acute bronchiolitis due to respiratory syncytial virus) Current Visit: Yes Status: Acute Code(s): J21.0 - ACUTE BRONCHIOLITIS DUE TO RESPIRATORY SYNCYTIAL VIRUS SNOMED Code(s): 431157559 (4) Unstageable pressure ulcer of left heel Current Visit: Yes Status: Acute Code(s): L89.620 - PRESSURE ULCER OF LEFT HEEL, UNSTAGEABLE SNOMED Code(s): 93793954231930779 (5) Bacteremia due to methicillin resistant Staphylococcus aureus Current Visit: Yes Status: Acute Code(s): R78.81 - BACTEREMIA; B95.62 - METHICILLIN RESIS STAPH INFCT CAUSING DISEASES CLASSD ELSWHR SNOMED Code(s): 34381087040738581 Plan: 1patient presented to hospital with mental status changes confusion weakness which is likely multifactorial in this patient who did have significant elevated white count did have a positive UA as well as right lower lobe consolidation concerning for possible pneumonia and a catheter assisted UTI, patient also tested positive for RSV treatment is mostly supportive 2patient did have unstageable pressure ulcer to the left heel but minimal cellu litis. Keep the area of the pressure and dry 3MRSA bacteremia source likely left chest wall dialysis catheter that has been discontinued catheter tip positive for MRSA 4patient blood culture to be repeated on 03/08/2024 also positive, blood cultures repeated on 03/10/2024 which are so far negative, patient to continue with vancomycin pharmacy to dose while watching his kidney function closely Dictation was produced using [employer] software. please excuse any grammatical, word or spelling errors. Time with Patient: Less than 30
[2024-03-12 06:10] LABS: Glucose,Whole Blood 98 mg/dL (70-110)
[2024-03-12 07:38] LABS: African American GFR (CKD) 62 (>60 ml/min/1.73 sqM); Non-African American GFR(CKD) 54 (>60 ml/min/1.73 sqM)
[2024-03-12] MEDS: DEXTROSE 5% IN WATER 1,000 ML IV SCH (07:56)
--- NOTE | 2024-03-12 09:48 | P.PN ---
Subjective patient is a 88-year-old gentleman with past medical history significant for liver cancer, atrial fibrillation who presented the ER because of shortness of breath and altered mental status. Most of the history is taken from electronic medical records according to patient patient has been feeling ill for the last 3 days. Patient has a lot of sick contacts in the family who are having upper respiratory infection. Patient was complaining of shortness of breath for the last 3 days. Patient also found to be lethargic and weak. There was no c omplaint of fever or chills. Patient was complaining shortness of breath on rest as on exertion. There was no complaint of chest pain. There was no complaint of orthopnea or PND. There was no complaint nausea or vomiting. Patient was complaining of lower abdominal pain which was intermittent, n onradiating, no aggravating or relieving factor associated with it. Because of shortness of breath, patient brought to the ER Initial lab work done in the ER showed WBC 23.2, hemoglobin 11.8, platelet count 405, sodium 130s, potassium 5.4, BUN 68, creatinine 1.86, proBNP 18,100, Urine showed large amount of leukocyte Estrace, urine WBC 182 Influenza A not detected Influenza B not detected RSVdetected COVID-19 not detected EKG done in the ER showed heart rate of 124, irregular and rhythm and rate, no ST segment elevation or depression seen, no T-wave inversions seen. Chest x-ray done in the ER showed persistent right basilar consolidation, suspect small right pleural effusion and calcifications X-ray abdomen done showed small bowel ileus CT abdomen and pelvis done showed small right pleural effusion with right basilar consolidation, 18 mm subpleural nodule in posterior medial left lower lobe Patient admitted to internal medicine service 03/07. Patient seen and examined. Patient is alert, continues to complain of cough, cough gets exacerbated by swallowing will get speech evaluation. No fevers overnight. Currently on room air 03/08. Patient seen and examined. Continues to complain of cough. Oxygen requirements increased this morning to 4 L, patient was made n.p.o. in anticipa tion for speech evaluation 03/09. Patient seen and examined. Patient failed speech evaluation yesterday, blood work done this morning showed WBC 10.7, hemoglobin 10.1, sodium 144, potassium 4.1, BUN 16, creatinine 1.48. 2D echo done showed normal LV function at 50%, mild aortic regurg, mild mitral stenosis and regurg. Had a long discussion with patient's son at the bedside, discussed with him regarding long- term prognosis and goals of care, patient does not want feeding tube, son will talk to his family regarding possible hospice 03/10. Patient seen examined. Continues to be lethargic. Family has been approached about palliative and hospice but they are undecided yet. 03/11/24 This is an 88 years old male with past medical history of liver cancer with hepatocellular carcinoma, hypertension, hyperlipidemia and diabetes Presents and currently in severe multiple illness, he has metabolic encephalopathy secondary to right lower lobe pneumonia Also he has A-fib with RVR, acute urinary tract infection, chronic kidney disease and currently has eaten difficulty and dysphagia He looks cachectic He is very confused, nonverbal, does not respond to verbal or tactile stimuli, does not open eyes spontaneously. His breathing looks labored. His prognosis looks very poor, and hospice has been recommended by several doctors like previous hospitalist and sba business development officer and staff I talked with the conference meeting with the daughter Isabelle and the son Jose L over the phone and I discussed his medical problems for their father and they verbalized understanding and acceptance to them treatment plan Their main concerns is feeding and they want to provide nutrition for him and they agree to the NG tube feeding if possible we will going to try it, rather than getting PEG tube Also they confirmed to me he is DNR/DNI and they are going to consider his the comfort care measures and hospice for him as goal of treatment In the meantime patient remains on heparin drip, which is new for him, IV va ncomycin and Cardizem drip and other medication 03/12/2024 Patient is very weak very confused breathing is slow and prolonged, I asked the patient if he can tell me his name he said I do not know I asked the patient if he is in pain and he said no asked patient if he feels comfortable he said yes The patient clinical condition deteriorating, he is very weak and confused. W he is very pale He is afebrile and saturating 93% on 2 L creatinine 1.2 Cardizem drip, Coreg, IV fluid and Lovenox therapeutic dose He is on IV vancomycin He is continued on the current medication I called the son Mr. Elliott again and I talked him about his father condition with recommendation to consider more palliative approach. The son states that he still wants feeding tube to be inserted, because his father told him before he wanted to leave. I explained for the patient this measure not necessarily will provide his life and may have complications like aspiration pneumonia and other problem and he verbalized understanding but still wants feeding tube to be inserted General Surgery team are consulted for feeding tube placement Objective - Vital Signs Vital signs: Vital Signs Temp 98.5 F 03/12/24 07:40 Pulse 68 03/12/24 07:40 Resp 14 03/12/24 07:40 BP 109/53 03/12/24 07:40 Pulse Ox 93 L 03/12/24 07:40 FiO2 Intake & Output 03/11/24 03/12/24 03/12/24 18:59 06:59 18:59 Intake Total 192.398 20 Output Total 150 100 Balance 42.398 -100 20 Weight 114 kg Intake: IV 20 Invasive Line 5 10 Invasive Line 6 10 Intake, IV Titration 192.398 Amount Heparin Sod,Pork in 0.45% 192.398 NaCl 25,000 unit In 0.45 % NaCl 1 250ml.bag @ 12 UNITS/KG/HR 6.384 mls/hr IV .Q24H [facility] Rx#: [id number] Output: Urine 150 100 Stool 0 0 Other: Voiding Method External Catheter External Catheter # Bowel Movements 1 - Exam -Tachypnea with bilateral GENERAL: The patient is a lethargic, confused, does not answer question, opens eyes little bit. Does not follow commands. Patient is cachectic HEENT: Pupils are round and equally reacting to light. EOMI. No scleral icterus. No conjunctival pallor. Normocephalic, atraumatic. No pharyngeal erythema. No thyromegaly. CARDIOVASCULAR: S1 and S2 present. No murmurs, rubs, or gallops. -PULMONARY: Chest is clear to auscultation, no wheezing , coarse crepitation ABDOMEN: Soft, nontender, nondistended, normoactive bowel sounds. No palpable organomegaly. MUSCULOSKELETAL: No joint swelling or deformity. EXTREMITIES: No cyanosis, clubbing, or pedal edema. NEUROLOGICAL: Gross neurological examination did not reveal any focal deficits. SKIN: No rashes. no petechiae. - Labs CBC & Chem 7: 03/10/24 06:23 03/12/24 07:06 Labs: Abnormal Lab Results - Last 24 Hours (Table) 03/11/24 03/11/24 03/11/24 Range/Units 11:32 15:10 16:33 APTT >200.0 H* (22.0-30.0) sec POC Glucose (mg/dL) 174 H 150 H (70-110) mg/dL 03/11/24 Range/Units 20:31 APTT (22.0-30.0) sec POC Glucose (mg/dL) 136 H (70-110) mg/dL Microbiology - Last 24 Hours (Table) 03/10/24 14:05 Blood Culture - Preliminary Blood 03/09/24 11:30 Catheter Tip Culture - Final Catheter Tip Methicillin resist S. aureus 03/10/24 06:23 Blood Culture - Preliminary Blood 03/08/24 16:13 Blood Culture Gram Stain - Final Blood Blood Culture - Final Methicillin resist S. aureus Assessment and Plan Assessment: Acute infectious encephalopathy Sepsis MRSA bacteremia A-fib with RVR Bacterial pneumonia Sepsis Leukocytosis Hyponatremia Hyperkalemia UTI Acute kidney injury RSV infection History of hypertension Liver cancer Plan: I talked to the family today and they request tube feeding, they agreed to try the NG tube feeding Family also will consider more palliative approach of treatment Monitor vital signs Monitor CBC Monitor CMP Continue telemetry monitoring Aggressive bronchopulmonary hygiene Speech therapy following Continue Mucinex Blood cultures are positive for MRSA Follow-up on sputum cultures Continue pharmacy dose vancomycin Continue Cardizem drip, Eliquis 2D echo done showed normal LV function at 50%, mild aortic regurg, mild mitral stenosis and regurg. Cardiology following ID following
[2024-03-12 11:14] LABS: Glucose,Whole Blood 120 mg/dL (70-110)
--- NOTE | 2024-03-12 13:14 | P.PN ---
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 He has a past medical history of hypertension, liver cancer, possible history of atrial fibrillation although this cannot be confirmed. Patient presented to the hospital due to difficulty breathing and altered mental status. We have been asked to evaluate the patient for atrial fibrillation. Patient denies having any chest pain, no dizziness. He may have been able to feel his heart beating fast. He has had no syncopal episodes. He does have history of acute kidney injury requiring hemodialysis that only lasted for 3 weeks. He denies history of CVA. He denies history of LA. Patient has tested positive for RSV and is in isolation. At the time of evaluation, patient has converted to sinus rhythm. Patient did not require Cardizem drip although it was initially ordered in the ER. Patient is seen today in the emergency center waiting for bed on the cardiac stepdown unit. Blood pressure 120/66, heart rate 77, pulse ox 100% on room air. -EKG: #1 atrial fibrillation 124 bpm, #2 sinus rhythm 92 bpm -Chest x-ray: Persistent right basilar consolidation. Suspect small right pleural effusion and pleural calcifications. #2 no acute process. -CT abdomen pelvis revealed small right pleural effusion. 18 mm subpleural nodule left lower lobe. Suspect hepatic masses. Trace free fluid in the pelvis is abnormal in a male nonspecific finding. -Laboratory studies: Initial WBC 23.2 and repeat 12.5, hemoglobin 10, platelet count 230. Sodium 139, potassium 5.3, BUN 69 and creatinine 1.77. Troponin negative x 1. proBNP 18,100. Urinalysis revealed large amount of leukoesterase, RBC 18, WBC greater than 182 and moderate WBC clumps. Many bacteria. RSV positive. Influenza A, influenza B, COVID-19 not detected. -Home cardiac medications: Coreg 12.5 mg every 12 hours, magnesium oxide 800 mg daily, potassium chloride 20 mill equivalents daily, torsemide 20 mg daily. 03/08/2024 Patient seen and examined. Patient went into A-fib with RVR last evening was started on Cardizem drip. He states his shortness of breath is a little bit better he still has a cough. He is scheduled for swallow evaluation this morning. Patient is continued on Cardizem drip until swallow evaluation has been completed. Blood pressure 117/67, heart rate 97, pulse ox 97% on 3 L nasal cannula. Repeat blood work reveals hemoglobin 10.3, WBC 14.4. Sodium 139, potassium 4.5, BUN 65 creatinine 1.55. Alkaline phosphatase 440. Repeat chest x-ray reveals small right pleural effusion developing. Echocardiogram is pending. 03/09/2024 Patient examined this morning at the bedside. Patient currently denies chest pain or pressure. He reports his breathing feels improved today. Patient was evaluated by speech therapy and remains n.p.o. He is currently on IV Cardizem at 5 mg an hour. His Eliquis remains on hold due to patient's inability to take oral medications. Echocardiogram completed revealing ejection fraction 50%, mild mitral stenosis, mild mitral regurgitation, mild aortic regurgitation, mild tricuspid regurgitation 03/10/2024 Patient examined this morning at the bedside. Patient is lethargic at the time of examination. Patient without complaints of chest pain or shortness of breath. He remains on IV heparin and IV Cardizem as he is unable to take oral medications. Per nursing, family is considering PEG tube insertion. Telemetry reveals sinus mechanism. 03/11/24 Patient examined this morning at the bedside. Patient lethargic. No family present. Patient remains NPO. He remains on IV heparin and IV Cardizem. Telemet ry reveals sinus mechanism. 03/12/2024 Patient examined this morning the bedside. Patient remains lethargic. He continues to be NPO. He remains on IV Cardizem. Heparin was changed to Lovenox secondary to lab being unable to obtain blood draws for PTT level. Telemetry reveals sinus mechanism. PHYSICAL EXAM: VITAL SIGNS: Reviewed. GENERAL: Well-developed in no acute distress. NECK: Supple. No JVD or thyromegaly LUNGS: Respirations even and unlabored. Lungs essentially clear to auscultation bilaterally. HEART: Regular rate and rhythm. S1 and S2 heard. EXTREMITIES: Normal range of motion. No clubbing or cyanosis. Peripheral pulses intact. No lower extremity edema ASSESSMENT: RSV UTI and sepsis Paroxysmal atrial fibrillation, currently in a sinus rhythm. This is most likely related to infectious process. However, patient states that he was told he had atrial fibrillation in the past, but this cannot be confirmed by hospital documentation reviewed. Patient was not on anticoagulation at home. MRSA bacteremia Infectious metabolic encephalopathy Hypertension Liver cancer History of acute kidney injury requiring HD x 3 weeks Inability to take oral medications due to failed swallow screen PLAN: Patient was evaluated by speech therapy and remains NPO. General surgery has been consulted for possible feeding tube. Await evaluation. Continue IV Cardizem Continue Lovenox. Valente remains on hold while he is unable to take oral medications Continue telemetry monitoring Further recommendations pending patient course Nurse practitioner note has been reviewed by physician. Signing provider agrees with the documented findings, assessment, and plan of care documented by COMMERCIAL REAL ESTATE MANAGER as a scribe. Objective - Vital Signs Vital signs: Vital Signs Temp 98.5 F 03/12/24 07:40 Pulse 68 03/12/24 07:40 Resp 14 03/12/24 07:40 BP 109/53 03/12/24 07:40 Pulse Ox 93 L 03/12/24 07:40 FiO2 Intake & Output 03/11/24 03/12/24 03/12/24 18:59 06:59 18:59 Intake Total 192.398 20 Output Total 150 100 Balance 42.398 -100 20 Weight 114 kg Intake: IV 20 Invasive Line 5 10 Invasive Line 6 10 Intake, IV Titration 192.398 Amount Heparin Sod,Pork in 0.45% 192.398 NaCl 25,000 unit In 0.45 % NaCl 1 250ml.bag @ 12 UNITS/KG/HR 6.384 mls/hr IV .Q24H [facility] Rx#: [id number] Output: Urine 150 100 Stool 0 0 Other: Voiding Method External Catheter External Catheter # Bowel Movements 1 - Labs CBC & Chem 7: 03/10/24 06:23 03/12/24 07:06 Labs: Abnormal Lab Results - Last 24 Hours (Table) 03/11/24 03/11/24 03/11/24 Range/Units 11:32 15:10 16:33 APTT >200.0 H* (22.0-30.0) sec POC Glucose (mg/dL) 174 H 150 H (70-110) mg/dL 03/11/24 Range/Units 20:31 APTT (22.0-30.0) sec POC Glucose (mg/dL) 136 H (70-110) mg/dL Microbiology - Last 24 Hours (Table) 03/10/24 14:05 Blood Culture - Preliminary Blood 03/09/24 11:30 Catheter Tip Culture - Final Catheter Tip Methicillin resist S. aureus 03/10/24 06:23 Blood Culture - Preliminary Blood 03/08/24 16:13 Blood Culture Gram Stain - Final Blood Blood Culture - Final Methicillin resist S. aureus
[2024-03-12 13:15] VITALS: BMI 36.0
--- NOTE | 2024-03-12 13:28 | P.GSCN ---
History of Present Illness Consult date: 03/12/24 History of present illness: CHIEF COMPLAINT: Shortness of breath and altered mental status HISTORY OF PRESENT ILLNESS: This is a 88-year-old male who presented with shor tness of breath and altered mental status. Patient with metabolic encephalopathy and being treated for UTI, pneumonia, RSV and bacteremia. He has a known history of liver cancer. Patient is been having dysphagia and poor oral intake. Patient's family is not ready for hospice. They are requesting a Dobbhoff feeding tube to be placed and tried first before trying a PEG tube. Patient is currently DNR. PAST MEDICAL HISTORY: See below PAST SURGICAL HISTORY: See below MEDICATIONS: See below ALLERGIES: See below SOCIAL HISTORY: No illicit drug use. REVIEW OF SYSTEMS: CONSTITUTIONAL: Denies fever or chills. HEENT: Denies blurred vision, vision changes, or eye pain. Denies hemoptysis CARDIOVASCULAR: Denies chest pain or pressure. RESPIRATORY: No shortness of breath. GASTROINTESTINAL: See HPI for pertinent findings HEMATOLOGIC: Denies bleeding disorders. GENITOURINARY: Denies any blood in urine or increased urinary frequency. SKIN: Denies pruitis. Denies rash. PHYSICAL EXAM: VITAL SIGNS: Reviewed GENERAL: Cachectic and weak ABDOMEN: Soft. Nondistended. Nontender NEUROLOGIC: Lethargic LABORATORY DATA: WBC 10.9 Hgb 9.7 platelets 250 Sodium 140 potassium 3.4 creatinine 1.26 Albumin 2.0 IMAGING: ASSESSMENT: 1. Severe protein calorie malnutrition 2. Dysphagia 3. Metabolic encephalopathy 4. UTI, RSV infection and bacteremia PLAN: -Surgeon to place Dobbhoff feeding tube Physician Pharmacist Helper note has been reviewed by physician. Signing provider agrees with the documented findings, assessment, and plan of care. Past Medical History Past Medical History: Cancer, Diabetes Mellitus, Hypertension, Prostate Disorder Additional Past Medical History / Comment(s): liver cancer has lt subclavian dialysis port not being used no HD. History of Any Multi-Drug Resistant Organisms: MRSA Year Discovered:: 03/06/24 MDRO Source:: blood Past Surgical History: Adenoidectomy, Tonsillectomy Additional Past Surgical History / Comment(s): Left foot surgery 16 years ago, toes amputated left foot 2023 Past Psychological History: No Psychological Hx Reported Smoking Status: Never smoker Past Alcohol Use History: None Reported Past Drug Use History: None Reported Medications and Allergies Home Medications Medication Instructions Recorded Confirmed Type Latanoprost [Latanoprost 0.005%] 1 drop BOTH EYES HS 11/26/23 03/06/24 History Loperamide [Imodium] 2 - 4 mg PO Q8H PRN 11/26/23 03/06/24 History Mirtazapine [Remeron] 15 mg PO HS 11/26/23 03/06/24 History Sertraline [Zoloft] 25 mg PO DAILY 11/26/23 03/06/24 History Tamsulosin [Flomax] 0.4 mg PO DAILY 11/26/23 03/06/24 History ondansetron HCL [Zofran] 8 mg PO Q8H PRN 11/26/23 03/06/24 History Acetaminophen Tab [Tylenol] 650 mg PO Q6HR PRN tab 12/11/23 03/06/24 Rx carvediloL [Coreg] 12.5 mg PO Q12H #0 12/11/23 03/06/24 Rx Loratadine 10 mg PO DAILY PRN 03/06/24 03/06/24 History Magnesium Oxide [Magox 400] 800 mg PO DAILY 03/06/24 03/06/24 History Potassium Chloride ER [K-Dur 20] 20 meq PO DAILY 03/06/24 03/06/24 History Saline Nasal Gel [[place] Nasal Gel] 1 applic TOPICAL TID PRN 03/06/24 03/06/24 History Torsemide [Soaanz] 20 mg PO DAILY 03/06/24 03/06/24 History Allergies Allergy/AdvReac Type Severity Reaction Status Date / Time No Known Allergies Allergy Verified 03/06/24 09:47 Surgical - Exam Vital Signs Temp Pulse Resp BP Pulse Ox 99.2 F 125 H 20 131/80 95 03/06/24 01:02 03/06/24 01:02 03/06/24 01:02 03/06/24 01:02 03/06/24 01:02 Results - Labs 03/10/24 06:23 03/12/24 07:06 Abnormal Lab Results - Last 24 Hours (Table) 03/11/24 03/11/24 03/11/24 Range/Units 11:32 15:10 16:33 APTT >200.0 H* (22.0-30.0) sec POC Glucose (mg/dL) 174 H 150 H (70-110) mg/dL 03/11/24 Range/Units 20:31 APTT (22.0-30.0) sec POC Glucose (mg/dL) 136 H (70-110) mg/dL Microbiology - Last 24 Hours (Table) 03/10/24 14:05 Blood Culture - Preliminary Blood 03/09/24 11:30 Catheter Tip Culture - Final Catheter Tip Methicillin resist S. aureus 03/10/24 06:23 Blood Culture - Preliminary Blood 03/08/24 16:13 Blood Culture Gram Stain - Final Blood Blood Culture - Final Methicillin resist S. aureus Diabetes panel 03/12/24 Range/Units 07:06 Creatinine 1.22 (0.66-1.25) mg/dL Pituitary panel 03/12/24 Range/Units 07:06 Creatinine 1.22 (0.66-1.25) mg/dL Adrenal panel 03/12/24 Range/Units 07:06 Creatinine 1.22 (0.66-1.25) mg/dL
--- NOTE | 2024-03-12 15:18 | P.PN ---
Subjective Progress Note Date: 03/12/24 Principal diagnosis: Reason for follow-up is MRSA bacteremia/pneumonia Patient is a 88-year-old male with a past medical history significant for diabetes mellitus hypertension liver cancer and prostate disorder patient has been brought to the hospital by EMS concern for difficulty breathing and mental status changes patient did have a CT with evidence of right basilar consolidation concerning for pneumonia subsequent blood culture positive with MRSA. On today's evaluation that is 03/12/2023, Patient is afebrile this morning patient currently on 6 L nasal oxygen patient is lethargic unable to provide any history no vomiting diarrhea and the changes reported by the nursing staff. Patient did have a creatinine 1.22 blood culture from his March 10 and and so far negative Objective - Vital Signs Vital signs: Vital Signs Temp 98.2 F 03/12/24 11:04 Pulse 71 03/12/24 11:04 Resp 14 03/12/24 11:04 BP 120/57 03/12/24 11:04 Pulse Ox 92 L 03/12/24 11:04 FiO2 Intake & Output 03/11/24 03/12/24 03/12/24 18:59 06:59 18:59 Intake Total 192.398 40 Output Total 150 100 200 Balance 42.398 -100 -160 Weight 114 kg 114 kg Intake: IV 40 Invasive Line 5 20 Invasive Line 6 20 Intake, IV Titration 192.398 Amount Heparin Sod,Pork in 0.45% 192.398 NaCl 25,000 unit In 0.45 % NaCl 1 250ml.bag @ 12 UNITS/KG/HR 6.384 mls/hr IV .Q24H [facility] Rx#: [id number] Output: Urine 150 100 200 Stool 0 0 Other: Voiding Method External Catheter External Catheter External Catheter # Bowel Movements 1 - Exam GENERAL DESCRIPTION: An elderly male lying in bed in no distress RESPIRATORY SYSTEM: Unlabored breathing , decreased breath sounds at bases HEART: S1 S2 regular rate and rhythm , ABDOMEN: Soft , no tenderness EXTREMITIES: Left heel wound with some necrosis minimal redness - Labs CBC & Chem 7: 03/10/24 06:23 03/12/24 07:06 Labs: Abnormal Lab Results - Last 24 Hours (Table) 03/11/24 03/11/24 03/11/24 Range/Units 15:10 16:33 20:31 APTT >200.0 H* (22.0-30.0) sec POC Glucose (mg/dL) 150 H 136 H (70-110) mg/dL 03/12/24 Range/Units 11:13 APTT (22.0-30.0) sec POC Glucose (mg/dL) 120 H (70-110) mg/dL Microbiology - Last 24 Hours (Table) 03/11/24 06:18 Blood Culture - Preliminary Blood 03/10/24 06:23 Blood Culture - Preliminary Blood 03/10/24 14:05 Blood Culture - Preliminary Blood 03/09/24 11:30 Catheter Tip Culture - Final Catheter Tip Methicillin resist S. aureus 03/08/24 16:13 Blood Culture Gram Stain - Final Blood Blood Culture - Final Methicillin resist S. aureus Assessment and Plan (1) UTI (urinary tract infection) Current Visit: Yes Status: Acute Code(s): N39.0 - URINARY TRACT INFECTION, SITE NOT SPECIFIED SNOMED Code(s): 84606323 (2) Pneumonia Current Visit: Yes Status: Acute Code(s): J18.9 - PNEUMONIA, UNSPECIFIED ORGANISM SNOMED Code(s): 509679243 (3) RSV (acute bronchiolitis due to respiratory syncytial virus) Current Visit: Yes Status: Acute Code(s): J21.0 - ACUTE BRONCHIOLITIS DUE TO RESPIRATORY SYNCYTIAL VIRUS SNOMED Code(s): 926540309 (4) Unstageable pressure ulcer of left heel Current Visit: Yes Status: Acute Code(s): L89.620 - PRESSURE ULCER OF LEFT HEEL, UNSTAGEABLE SNOMED Code(s): 27963596034699315 (5) Bacteremia due to methicillin resistant Staphylococcus aureus Current Visit: Yes Status: Acute Code(s): R78.81 - BACTEREMIA; B95.62 - METHICILLIN RESIS STAPH INFCT CAUSING DISEASES CLASSD ELSWHR SNOMED Code(s): 86203735912635581 Plan: 1patient presented to hospital with mental status changes confusion weakness which is likely multifactorial in this patient who did have significant elevated white count did have a positive UA as well as right lower lobe consolidation concerning for possible pneumonia and a catheter assisted UTI, patient also tested positive for RSV treatment is mostly supportive 2patient did have unstageable pressure ulcer to the left heel but minimal cellulitis. Keep the area of the pressure and dry 3MRSA bacteremia source likely left chest wall dialysis catheter that has been discontinued catheter tip positive for MRSA 4patient blood culture to be repeated on 03/08/2024 also positive, blood cultures repeated on 03/10/2024 as well as 03/11/2024 has been negative so far patient currently being treated with vancomycin creatinine stable Overall prognosis remains to be guarded hospice may be a better option at this point Dictation was produced using [employer] software. please excuse any grammatical, word or spelling errors. Time with Patient: Less than 30
[2024-03-12 15:57] VITALS: BP 92/44; RESP 13; TEMP 97.2
[2024-03-12] MEDS: SODIUM CHLORIDE 0.9% 500 ML 250 ML IV ONE (16:01)
[2024-03-12 16:23] LABS: Glucose,Whole Blood 165 mg/dL (70-110)
[2024-03-12] MEDS ORDERED: MORPHINE SULFATE 2 MG/ML SYRINGE IV PRN (17:19)
[2024-03-12] MEDS ORDERED: LORazepam 2 MG/ML INJ IV PRN (17:19)
[2024-03-12] MEDS ORDERED: GLYCOPYRROLATE 0.2 MG/ML 2 ML VIAL IVP PRN (17:26)
[2024-03-12] MEDS: SCOPOLAMINE 1 MG/72 HR PATCH TRANSDERM SCH (17:39)
[2024-03-12] MEDS: ATROPINE OPHTH SOLN 1% 5ML BTL SUBLINGUAL PRN (17:39)
--- NOTE | 2024-03-12 19:51 | P.PN ---
Subjective Patient is seen for follow-up for acute kidney injury. Patient appears quite weak. Barely opens eyes to verbal stimuli. Patient does not communicate much. Renal function has improved with serum creatinine down to 1.2 mg/dL. Serum sodium 147 yesterday. Patient is maintained on D5W at 60 cc an hour. Failed swallow evaluation. There is consideration of PEG tube placement however patient appears quite weak and frail. Objective - Vital Signs Vital signs: Vital Signs Temp 97.2 F L 03/12/24 15:20 Pulse 61 03/12/24 15:20 Resp 13 03/12/24 15:20 BP 92/44 03/12/24 15:20 Pulse Ox 96 03/12/24 15:20 FiO2 Intake & Output 03/12/24 03/12/24 03/13/24 06:59 18:59 06:59 Intake Total 157.833 Output Total 100 200 Balance -100 -42.167 Weight 114 kg 114 kg Intake: IV 40 Invasive Line 5 20 Invasive Line 6 20 Intake, IV Titration 117.833 Amount Diltiazem 125 mg In 117.833 Sodium Chloride 0.9% 100 ml @ 5 MG/HR 5 mls/hr IV .Q24H [facility] Rx#:[id number] Output: Urine 100 200 Stool 0 Other: Voiding Method External Catheter External Catheter - Exam Patient is comfortable, no acute distress Examination of the heart S1 and S2 Examination of the lungs bilateral breath sounds are heard Abdomen is soft nontender Examination of lower extremity shows no significant edema - Labs CBC & Chem 7: 03/10/24 06:23 03/12/24 07:06 Labs: Abnormal Lab Results - Last 24 Hours (Table) 03/11/24 03/12/24 03/12/24 Range/Units 20:31 11:13 16:21 POC Glucose (mg/dL) 136 H 120 H 165 H (70-110) mg/dL Microbiology - Last 24 Hours (Table) 03/11/24 06:18 Blood Culture - Preliminary Blood 03/10/24 06:23 Blood Culture - Preliminary Blood 03/10/24 14:05 Blood Culture - Preliminary Blood 03/09/24 11:30 Catheter Tip Culture - Final Catheter Tip Methicillin resist S. aureus Assessment and Plan Assessment: 1. Acute kidney injury secondary to ATN secondary to hypovolemia. Improving with fluids. Creatinine 1.86 on admission and is down to 1.2 2. 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 Patient developed ATN and required hemodialysis in November 2023. Last dialysis treatment was January 08, 2024. 3. Liver cancer. 4. RSV pneumonia. 5. Metabolic acidosis secondary to acute kidney injury and IV fluids. 6. MRSA bacteremia. 7. A-fib with RVR on Cardizem drip and IV heparin. 8. Hypomagnesemia for magnesium supplementation. Plan: Continue antibiotics Continue to monitor renal function and electrolytes Continue D5W Overall prognosis is poor
--- NOTE | 2024-03-12 21:20 | P.PN ---
Subjective Progress Note Date: 03/12/24 Patient is a 88-year-old male with medical history significant for chronic kidney disease, diabetes mellitus type 2, liver cancer, hyperlipidemia, hypertension, among other things. Brought in by EMS on 03/06/2024 with change in mental status and difficulty in breathing. He also had a complaint of abdom inal pain. Initial KUB x-ray concerning for possible ileus. Follow-up abdominal CT showing small right pleural effusion with right basilar consolidation suggestive atelectasis or pneumonia. Incidental 1.8 cm subpleural nodule found in the posterior medial left lower lobe. Also, hepatic masses were seen but not detailed, patient does have history of hepatocellular carcinoma. Trace free fluid seen in the pelvis. He was found to be in atrial fibrillation with rapid ventricular rates in the ED. Started initially on a Cardizem infusion. He did meet SIRS/sepsis criteria and was started on antibiotics. Suspected right lower lobe pneumonia. Also, positive for RSV, possible incidental finding. Later found to be positive for MRSA bacteremia. Patient continues to subclavian hemodialysis catheter. Patient is on antibiotics by direction of infectious disease. Most recent CBC shows improvement in leukocytosis with a WBC count down to 12.5, hemoglobin 10, hematocrit 33.3, platelets 230. Coagulation profile with a PT of 13.9, INR of 1.3, APTT 25.9. Most recent basic metabolic panel demonstrating a sodium 139, potassium 5.3, chloride 1 7, serum bicarb 17, anion gap 12, BUN 69, creatinine 1.77, glucose 117. AST 52, ALT 14, ALP 425. Total bili 0.4. NT proBNP was significantly elevated at 18,100. Troponin 0.016. Urinalysis positive for leukocytes and many bacteria. Patient does have history of frequent urinary tract infections. Patient is currently being evaluated on the cardiac stepdown unit. His mentation is somewhat improved. He is alert and able to answer most of my questions. Unsure of events leading to his hospitalization. He appears very weak and has a congested cough unable to clear his secretions. He is going to have a swallow evaluation. Remains on Cardizem running at 5 mg/h. Eliquis was started for anticoagulation. Current most recent vitals: Temperature 98.0 F, heart rate 96 bpm, blood pressure 106/71 mmHg, SpO2 97% on 3 L/min nasal cannula . Progress note dated March 09, 2024. 88-year-old male seen today in room 358. He continues on nasal O2 at 3 L, and, is on a Cardizem drip at 5 mg an hour. The patient's blood cultures were posit madiha for methicillin-resistant Staphylococcus aureus. The patient continues on vancomycin. The patient also tested positive for RSV. Current labs include a white count 10.7, hemoglobin 10.1, hematocrit 34.1, and a platelet count of 223,000. Sodium 144, potassium 4.1, chlorides 115, CO2 17, anion gap 12, BUN 69, and creatinine 1.48. Glucose is 86. Calcium 7.7. Albumin is 2.0. Chest x-ray from yesterday shows a small right-sided pleural effusion. Progress note dated March 10, 2024. 88-year-old very frail male, seen today in room 358. The patient continues on nasal O2 at 3 L. He is receiving IV heparin, and Cardizem drip at 5 mg an hour. In addition, he is getting saline at 50 cc an hour. He tested positive for RSV. He is very very frail, and some consideration should be given to hospice, or palliative care consultation. Currently, white count is 10.9, hemoglobin 9.7, hematocrit 32.4, platelet count 2 50,000. PT 17.3, INR 1.7, PTT 35.4. Sodium 148, potassium 3.6, chlorides 118, CO2 17, anion gap 13, BUN 66, and creatinine 1.37. Glucose is 81. Calcium 7.6, magnesium 3. Blood cultures are positive for presumptive MRSA. The patient continues on vancomycin. On 03/11/2024, the patient is being seen for a follow-up. The patient is an extremely poor condition. The patient is almost unresponsive and not communicating. He remains in acute hypoxic respiratory failure and the patient remains on oxygen 2 L/min nasal cannula. He is known to have extensive number of comorbidities including hepatocellular carcinoma, hypertension, diabetes mellitus type 2, chronic kidney disease and chronic atrial fibrillation. Furthermore, the patient was found to have an acute RSV infection and the patient was also septic from a dialysis catheter that was ultimately removed and the catheter tip and the blood culture was positive for MRSA consistent with line infection the patient remains on vancomycin. Hemodynamically, the patient is normal tensive, no significant tachycardia, maintaining his own pressure. Nevertheless, he is quite obtunded and lethargic. He remains on IV heparin. He remains on IV Cardizem drip. This was started regarding paroxysmal atrial fibrillation and the patient is converted into normal sinus rhythm. This was thought to be related to his underlying infectious process. He is unable to swallow and the patient is currently NPO. Sodium levels at 147, BUN is 66 with a creatinine of 1.2. Potassium level is at 3.4. The white cell count from yesterday was at 10.9 with a hemoglobin of 9.7. On 03/12/2024 patient being seen for a follow-up. Essentially, the patient's condition is unchanged. Very much lethargic, weak, debilitated, confused and the breathing remains quite labored. No significant progress in his condition over the past 24 hours. Unable to tolerate any oral intake. Doing well, remains on 6 L of oxygen by nasal cannula with a pulse ox of 96%. He remains on broad-spectrum antibiotics and the patient remains on IV vancomycin. Medical team is on the case. Discussions are being done with the family explaining to them the poor prognosis. May be a candidate for hospice, however, my understanding is that the family wants to continue the ongoing treatment including the potential of the PEG tube insertion. Based on that, the general surgical team has been involved. Objective - Vital Signs Vital signs: Vital Signs Temp 98.2 F 03/12/24 11:04 Pulse 71 03/12/24 11:04 Resp 14 03/12/24 11:04 BP 120/57 03/12/24 11:04 Pulse Ox 92 L 03/12/24 11:04 FiO2 Intake & Output 03/11/24 03/12/24 03/12/24 18:59 06:59 18:59 Intake Total 192.398 20 Output Total 150 100 200 Balance 42.398 -100 -180 Weight 114 kg Intake: IV 20 Invasive Line 5 10 Invasive Line 6 10 Intake, IV Titration 192.398 Amount Heparin Sod,Pork in 0.45% 192.398 NaCl 25,000 unit In 0.45 % NaCl 1 250ml.bag @ 12 UNITS/KG/HR 6.384 mls/hr IV .Q24H [facility] Rx#: [id number] Output: Urine 150 100 200 Stool 0 0 Other: Voiding Method External Catheter External Catheter External Catheter # Bowel Movements 1 - Exam No acute distress, oriented 3. Currently on 6 L. The patient is very frail, with shallow respirations. The patient is obtunded, unresponsive, does not communicate and the patient is in a very poor condition. HEENT examination is grossly unremarkable. Mucous membranes are moist. No oral lesions. Neck supple. Full range of motion. No adenopathy thyromegaly or neck vein distention. Cardiovascular examination reveals regular rhythm rate. S1-S2 normal. No S3 or S4. No discernible murmur noted. Heart sounds are distant. Lungs reveal diffuse bilateral rhonchi. Breath sounds are equal. He does not take deep breaths. No wheezes. No crackles. Abdomen soft bowel sounds are heard. No masses or tenderness. Extremities are intact. No cyanosis clubbing or edema. Skin is without rash or lesion. Neurologic examination is brief but nonfocal. Profound weakness in all 4 extremities, encephalopathic. - Labs CBC & Chem 7: 03/10/24 06:23 03/12/24 07:06 Labs: Abnormal Lab Results - Last 24 Hours (Table) 03/11/24 03/11/24 03/11/24 Range/Units 15:10 16:33 20:31 APTT >200.0 H* (22.0-30.0) sec POC Glucose (mg/dL) 150 H 136 H (70-110) mg/dL 03/12/24 Range/Units 11:13 APTT (22.0-30.0) sec POC Glucose (mg/dL) 120 H (70-110) mg/dL Microbiology - Last 24 Hours (Table) 03/10/24 14:05 Blood Culture - Preliminary Blood 03/09/24 11:30 Catheter Tip Culture - Final Catheter Tip Methicillin resist S. aureus 03/10/24 06:23 Blood Culture - Preliminary Blood 03/08/24 16:13 Blood Culture Gram Stain - Final Blood Blood Culture - Final Methicillin resist S. aureus Assessment and Plan Plan: Acute hypoxemic respiratory failure, likely right lower lobe pneumonia, possible aspiration pneumonia. There is also a component of small bilateral pleural effusion and patchy interstitial opacities suggestive of interstitial edema Acute RSV infection. MRSA sepsis Line infection the patient had a positive MRSA septicemia with the blood culture of the catheter being positive for MRSA. The patient remains on vancomycin. Atrial fibrillation with rapid ventricular response, converted to normal sinus mechanism. Altered mental status, likely secondary to sepsis. In addition to that, there is a component of metabolic encephalopathy/uremic encephalopathy/possibly hepatic encephalopathy in addition. 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 Patient developed ATN and required hemodialysis in November 2023. Last dialysis treat ment was January 08, 2024. History of frequent urinary tract infections. Diabetes mellitus type 2. History of hepatocellular carcinoma. History of hyperlipidemia. History of hypertension. Plan: No significant progress in his condition over the past 24 hours Extremely debilitated, confused and lethargic Breathing seems to be labored and the patient remains on 6 L of oxygen by nasal cannula small bilateral pleural effusion and component of mild pulm vessel congestion Prognosis extremely poor DNR/DNI CODE STATUS Continue IV vancomycin Continue Lovenox therapeutic doses Not a good candidate for PEG tube insertion Consider NG tube insertion for nutrition and medication Monitor urine output and fluid balance Nephrology on the case Overall prognosis remain extremely poor. In my opinion, the family needs to consider hospice
--- NOTE | 2024-03-13 03:00 | P.PN ---
Progress Note - Text Progress Note Date: 03/12/24 Per nursing staff, the patient no longer needs a Dobhoff. The patient was made comfort care Ridge Rodríguez DO [facility] [phone]
[2024-03-13 08:07] VITALS: PULSE 62
--- NOTE | 2024-03-13 09:20 | P.DS ---
Providers Date of admission: 03/06/24 02:53 Attending physician: Sathish Shetty Consults: 03/06/24 10:19 Consult Physician Routine Consulting Provider: Andrew Easley Consult Reason/Comments: Sepsis, pneumonia Do you want consulting provider notified?: Yes 03/06/24 10:22 Consult Physician Routine Consulting Provider: Fernando Finn Consult Reason/Comments: A-fib with RVR Do you want consulting provider notified?: Yes 03/08/24 00:00 Consult Physician Routine Consulting Provider: Antony Williamson Consult Reason/Comments: RSV, Pneumonia Do you want consulting provider notified?: Yes, Notify in am 03/08/24 12:52 Consult Physician Routine Consulting Provider: Julita Evangelista Consult Reason/Comments: left subclavian dailysis catheter eval, poss dc? Do you want consulting provider notified?: Yes 03/09/24 09:22 Consult Physician Routine Consulting Provider: Bright Norton Consult Reason/Comments: stat removal of subclavian dialysis catheter with culture Do you want consulting provider notified?: Yes 03/12/24 02:47 Consult Physician Routine Consulting Provider: Ridge Rodríguez Consult Reason/Comments: [place] Do you want consulting provider notified?: Yes Primary care physician: Abram Frank Hospital Course: Diagnoses: Acute metabolic encephalopathy secondary to infection sepsis and other medical problems Sepsis MRSA bacteremia A-fib with RVR Bacterial pneumonia Sepsis Leukocytosis Hyponatremia Hyperkalemia UTI Acute kidney injury RSV infection History of hypertension Liver cancer Hospital course: Diagnoses:patient is a 88-year-old gentleman with past medical history signi ficant for liver cancer, atrial fibrillation who presented the ER because of shortness of breath and altered mental status. Most of the history is taken from electronic medical records according to patient patient has been feeling ill for the last 3 days. Patient has a lot of sick contacts in the family who are having upper respiratory infection. Patient was complaining of shortness of breath for the last 3 days. Patient also found to be lethargic and weak. There was no complaint of fever or chills. Patient was complaining shortness of breath on rest as on exertion. There was no complaint of chest pain. There was no complaint of orthopnea or PND. There was no complaint nausea or vomiting. Patient was complaining of lower abdominal pain which was intermittent, nonradiating, no aggravating or relieving factor associated with it. Because of shortness of breath, patient brought to the ER Initial lab work done in the ER showed WBC 23.2, hemoglobin 11.8, platelet count 405, sodium 130s, potassium 5.4, BUN 68, creatinine 1.86, proBNP 18,100, Urine showed large amount of leukocyte Estrace, urine WBC 182 Influenza A not detected Influenza B not detected RSVdetected COVID-19 not detected EKG done in the ER showed heart rate of 124, irregular and rhythm and rate, no ST segment elevation or depression seen, no T-wave inversions seen. Chest x-ray done in the ER showed persistent right basilar consolidation, suspect small right pleural effusion and calcifications X-ray abdomen done showed small bowel ileus CT abdomen and pelvis done showed small right pleural effusion with right basilar consolidation, 18 mm subpleural nodule in posterior medial left lower lobe Patient admitted to internal medicine service 03/07. Patient seen and examined. Patient is alert, continues to complain of cough, cough gets exacerbated by swallowing will get speech evaluation. No fevers overnight. Currently on room air 03/08. Patient seen and examined. Continues to complain of cough. Oxygen requirements increased this morning to 4 L, patient was made n.p.o. in anticipation for speech evaluation 03/09. Patient seen and examined. Patient failed speech evaluation yesterday, blood work done this morning showed WBC 10.7, hemoglobin 10.1, sodium 144, potassium 4.1, BUN 16, creatinine 1.48. 2D echo done showed normal LV function at 50%, mild aortic regurg, mild mitral stenosis and regurg. Had a long discussion with patient's son at the bedside, discussed with him regarding long- term prognosis and goals of care, patient does not want feeding tube, son will talk to his family regarding possible hospice 03/10. Patient seen examined. Continues to be lethargic. Family has been approached about palliative and hospice but they are undecided yet. 03/11/24 This is an 88 years old male with past medical history of liver cancer with hepatocellular carcinoma, hypertension, hyperlipidemia and diabetes Presents and currently in severe multiple illness, he has metabolic encephalopathy secondary to right lower lobe pneumonia Also he has A-fib with RVR, acute urinary tract infection, chronic kidney disease and currently has eaten difficulty and dysphagia He looks cachectic He is very confused, nonverbal, does not respond to verbal or tactile stimuli, does not open eyes spontaneously. His breathing looks labored. His prognosis looks very poor, and hospice has been recommended by several doctors like previous hospitalist and weight shifter and staff I talked with the conference meeting with the daughter Isabelle and the son Jose L over the phone and I discussed his medical problems for their father and they verbalized understanding and acceptance to them treatment plan Their main concerns is feeding and they want to provide nutrition for him and they agree to the NG tube feeding if possible we will going to try it, rather than getting PEG tube Also they confirmed to me he is DNR/DNI and they are going to consider his the comfort care measures and hospice for him as goal of treatment In the meantime patient remains on heparin drip, which is new for him, IV vancomycin and Cardizem drip and other medication 03/12/2024 Patient is very weak very confused breathing is slow and prolonged, I asked the patient if he can tell me his name he said I do not know I asked the patient if he is in pain and he said no asked patient if he feels comfortable he said yes The patient clinical condition deteriorating, he is very weak and confused. W he is very pale He is afebrile and saturating 93% on 2 L creatinine 1.2 Cardizem drip, Coreg, IV fluid and Lovenox therapeutic dose He is on IV vancomycin He is continued on the current medication I called the son Mr. Elliott again and I talked him about his father condition with recommendation to consider more palliative approach. The son states that he still wants feeding tube to be inserted, because his father told him before he wanted to leave. I explained for the patient this measure not necessarily will provide his life and may have complications like aspiration pneumonia and other problem and he verbalized understanding but still wants feeding tube to be inserted General Surgery team are consulted for feeding tube placement 03/13 Yesterday after rounding, patient blood pressure became low, first fluids given, later on family came in the afternoon and decided to make the patient comfort care measures, which looks appropriate for the patient Feeding tube insertion was put on hold The bedside nurse called me and comfort care measures was started since yesterday This morning patient was having gasping breathing and slow breathing Eventually patient this morning peacefully Please refer to nurse note for more details Physical exam prior to expiration -Gen: patient is obtund nonverbal, pale -CVS: S1-S2, RRR, no murmur. Weak pulse -Lungs: Weak air entry, slow breathing Abdomen: soft, no distention, no tenderness, positive bowel sounds -Extremity: Mild bilateral leg edema, no induration Patient Condition at Discharge: Fair Plan - Discharge Summary Discharge Rx Participant: No New Discharge Prescriptions: No Action Loperamide [Imodium] 2 - 4 mg PO Q8H PRN PRN Reason: Diarrhea Latanoprost [Latanoprost 0.005%] 1 drop BOTH EYES HS Sertraline [Zoloft] 25 mg PO DAILY Potassium Chloride ER [K-Dur 20] 20 meq PO DAILY Loratadine 10 mg PO DAILY PRN PRN Reason: Allergy Symptoms Tamsulosin [Flomax] 0.4 mg PO DAILY ondansetron HCL [Zofran] 8 mg PO Q8H PRN PRN Reason: Nausea And Vomiting Mirtazapine [Remeron] 15 mg PO HS Acetaminophen Tab [Tylenol] 650 mg PO Q6HR PRN tab PRN Reason: Mild Pain Or Fever > 100.5 carvediloL [Coreg] 12.5 mg PO Q12H #0 Saline Nasal Gel [[place] Nasal Gel] 1 applic TOPICAL TID PRN PRN Reason: dry nose Magnesium Oxide [Magox 400] 800 mg PO DAILY Torsemide [Soaanz] 20 mg PO DAILY Discharge Medication List Latanoprost [Latanoprost 0.005%] 1 drop BOTH EYES HS 11/26/23 [History] Loperamide [Imodium] 2 - 4 mg PO Q8H PRN 11/26/23 [History] Mirtazapine [Remeron] 15 mg PO HS 11/26/23 [History] Sertraline [Zoloft] 25 mg PO DAILY 11/26/23 [History] Tamsulosin [Flomax] 0.4 mg PO DAILY 11/26/23 [History] ondansetron HCL [Zofran] 8 mg PO Q8H PRN 11/26/23 [History] Acetaminophen Tab [Tylenol] 650 mg PO Q6HR PRN tab 12/11/23 [Rx] carvediloL [Coreg] 12.5 mg PO Q12H #0 12/11/23 [Rx] Loratadine 10 mg PO DAILY PRN 03/06/24 [History] Magnesium Oxide [Magox 400] 800 mg PO DAILY 03/06/24 [History] Potassium Chloride ER [K-Dur 20] 20 meq PO DAILY 03/06/24 [History] Saline Nasal Gel [[place] Nasal Gel] 1 applic TOPICAL TID PRN 03/06/24 [History] Torsemide [Soaanz] 20 mg PO DAILY 03/06/24 [History] Follow up Appointment(s)/Referral(s): Abram Frank MD [Primary Care Provider] - 1-2 days
== END 2024-03-13 10:50 | disposition expired | DRG 314 ==
LOC: EC 00:58 → 4SSUR 02:53 → 3SCARD 07:15
PROVIDERS: ADMIT Hospitalist; ATTEND Hospitalist
PROC: 3E033RZ Introduction of Antiarrhythmic into Peripheral Vein, Percutaneous Approach (ICD-10-PCS; 2024-03-06)
PROC: 05PY33Z Removal of Infusion Device from Upper Vein, Percutaneous Approach (ICD-10-PCS; principal; 2024-03-09)
DX: T80.211A Bloodstream infection due to central venous catheter, initial encounter (principal); A41.02 Sepsis due to Methicillin resistant Staphylococcus aureus; G93.41 Metabolic encephalopathy; J12.1 Respiratory syncytial virus pneumonia; J15.9 Unspecified bacterial pneumonia; N17.0 Acute kidney failure with tubular necrosis; J96.01 Acute respiratory failure with hypoxia; J69.0 Pneumonitis due to inhalation of food and vomit; E43 Unspecified severe protein-calorie malnutrition; N39.0 Urinary tract infection, site not specified; E87.1 Hypo-osmolality and hyponatremia; C22.0 Liver cell carcinoma; R64 Cachexia; J21.0 Acute bronchiolitis due to respiratory syncytial virus; F05 Delirium due to known physiological condition; E87.20 Acidosis, unspecified; J98.11 Atelectasis; I48.0 Paroxysmal atrial fibrillation; Z66 Do not resuscitate; Z51.5 Encounter for palliative care; N18.32 Chronic kidney disease, stage 3b; E11.22 Type 2 diabetes mellitus with diabetic chronic kidney disease; I12.9 Hypertensive chronic kidney disease with stage 1 through stage 4 chronic kidney disease, or unspecified chronic kidney disease; I05.2 Rheumatic mitral stenosis with insufficiency; L89.620 Pressure ulcer of left heel, unstageable; E87.5 Hyperkalemia; R13.10 Dysphagia, unspecified; E78.5 Hyperlipidemia, unspecified; N42.9 Disorder of prostate, unspecified; E83.42 Hypomagnesemia; E86.1 Hypovolemia; Z79.01 Long term (current) use of anticoagulants; Z79.84 Long term (current) use of oral hypoglycemic drugs; Z79.899 Other long term (current) drug therapy
CPT/HCPCS: 36415; 71045; 74018; 74176; 80048; 80053; 80202; 81001; 82565; 83735; 83880; 84443; 84484; 85025; 85610; 85730; 87040; 87070; 87077; 87086; 87186; 87636; 93005; 93306; 94640; 94667; 94760; 96361; 96365; 96366; 96367; 96372; 99291